=== PATIENT | male | born 1945 | race Caucasian/White ===

== ENCOUNTER → 2018-02-28 07:27 | Outpatient (CLI) | payer MEDICARE, SELFPAY ==
[2018-02-28 08:51] LABS: Add Manual Diff / Slide Review NO; Basophils Percent Auto 0.9 % (0-2); Eosinophils Percent Auto 2.3 % (2-4); Hematocrit 42.2 % (41-53); Hemoglobin 14.6 g/dL (13.5-17.5); Lymphocytes Percent Auto 30.4 % (25-40); Mean Corpuscular HGB Conc 34.7 % (30-36); Mean Corpuscular Hemoglobin 31.1 PG (26-34); Mean Corpuscular Volume 89.8 fL (80-100); Neutrophils Absolute Auto 3200 /uL (3000-5900); Neutrophils Percent Auto 57.4 % (50-75); Platelet Count 151 X10^3/uL (150-400); Red Cell Distribution Width 13.3 % (11.6-14.8); White Blood Cell Count 5.6 X10^3/uL (4.5-11.0)
== END ==
PROVIDERS: PCP Family Medicine; Referring Provider Internal Medicine Cardiovascular Disease; Visit Provider Orthopaedic Surgery
DX: D69.6 Thrombocytopenia, unspecified (principal); M67.441 Ganglion, right hand; M25.741 Osteophyte, right hand; T82.6XXD Infection and inflammatory reaction due to cardiac valve prosthesis, subsequent encounter
CPT/HCPCS: 36415; 85025; 93005

== ENCOUNTER → 2018-03-20 10:04 | Outpatient (CLI) | payer MEDICARE, SELFPAY ==
--- NOTE | 2018-03-20 10:08 | DI.RAD.S_ITS ---
PROCEDURE: XR LUMBAR SPINE 2-3V INDICATIONS: hip back pain TECHNIQUE: 2 views of the lumbar spine were acquired. COMPARISON: [facility], CT, ABD/PELVIS W/CON (PNL), 01/14/2015, 3:45. [facility], CR, L-SPINE 2-3 VIEWS, 06/10/2014, 9:51. FINDINGS: Bones: 5 [id number] vertebrae are present. Minimal anterolisthesis of L4 on L5 is seen. Mild levoscoliosis centered at L1-2 level is also noted. Minimal retrolisthesis of L2 on L3 is also noted.. No vertebral body compression fractures. No suspicious bony lesions. Degenerative endplate changes and bilateral facet arthrosis throughout lumbar spine is seen. Soft tissues: Overlying bowel gas pattern is normal. No suspicious soft tissue calcifications. IMPRESSION: Mild levoscoliosis centered at L2 level. Degenerative retrolisthesis at L2-3 level and degenerative anterolisthesis at L4-5 level. No acute compression fracture or traumatic spondylolisthesis. Dictated by: Ortiz Rust M.D. on 03/20/2018 at 10:37 Approved by: Ortiz Rust M.D. on 03/20/2018 at 10:40
--- NOTE | 2018-03-20 10:08 | DI.RAD.S_ITS ---
PROCEDURE: XR HIP W PEL IF DONE LT 2V INDICATIONS: hip back pain TECHNIQUE: AP pelvis with lateral view(s) of the left hip. COMPARISON: None. FINDINGS: Bones: No fractures or dislocations. Pelvic ring appears intact. No suspicious bony lesions. Moderate bilateral hip joint osteoarthritis is seen. Prominent intraosseous cyst in lateral aspect of left acetabular roof is noted. Bilateral femoral head contours are intact. No evidence of avascular necrosis. Soft tissues: The visualized bowel gas pattern is normal. No suspicious soft tissue calcifications. IMPRESSION: Moderate left worse than right bilateral hip joint osteoarthritis. Dictated by: Ortiz Rsut M.D. on 03/20/2018 at 10:33 Approved by: Ortiz Rust M.D. on 03/20/2018 at 10:37
== END ==
PROVIDERS: PCP Family Medicine; Visit Provider Family Medicine
DX: M16.0 Bilateral primary osteoarthritis of hip (principal); M43.16 Spondylolisthesis, lumbar region; M25.552 Pain in left hip; M41.9 Scoliosis, unspecified; M54.5 Low back pain; G57.02 Lesion of sciatic nerve, left lower limb
CPT/HCPCS: 72100; 73502

== ENCOUNTER 2018-03-23 14:58 | Emergency (ER) | payer MEDICARE, SELFPAY ==
[2018-03-23] VITALS (7 sets, daily range): BP systolic 137–170; BP diastolic 61–82; PULSE 43–48; RESP 12–19; TEMP 36.4; O2SAT 96–99; BMI 30.9
--- NOTE | 2018-03-23 16:34 | ED_ITS ---
HPI - Allergic Reaction General Chief complaint: Allergic Reaction Stated complaint: THINKS ALLERGIC REACTION Time Seen by Provider: 03/23/18 16:02 Source: patient and family Mode of arrival: ambulatory Limitations: no limitations History of Present Illness HPI narrative: Patient states he had surgery on his right thumb about 3 days ago. He states that before the surgery he was found to have a heart rate of 37 by the anesthesiologist. Patient states he had been feeling perfectly fine and had even been exercising with no problem. Since the surgery, the patient has been on both extended release morphine and oxycodone, and has been feeling drowsy and so he has low energy. Patient's heart rate has been in the 40s and he and his were concerned that perhaps the heavy pain medications are responsible to some degree for the heart rate being slow. 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 Patient does take atenolol 25 mg once daily. MD complaint: other Onset (ago): unknown (Patient was found to be bradycardic on the day of his surgery, but it is not clear how long this has been going on. Sedation has occurred since the surgery.) Exposure: medication Symptoms: other (No rash itching or swelling; no dizziness nausea vomiting; no difficulty breathing) Severity: mild Treatment prior to arrival: none Related Data Home Medications Medication Instructions Recorded Confirmed atenolol 25 mg PO QDAY #0 04/21/17 03/23/18 atorvastatin [Lipitor] 20 mg PO QDAY #0 07/31/17 03/23/18 Glucosamine Sulf-Chondroitin 1 tab PO DAILY 03/23/18 03/23/18 alprazolam 0.5 mg PO BEDTIME PRN 03/23/18 03/23/18 amoxicillin 500 mg PO BID 03/23/18 03/23/18 aspirin 81 mg PO BID 03/23/18 03/23/18 cholecalciferol (vitamin D3) 1 cap PO DAILY 03/23/18 03/23/18 [Vitamin D3] docusate sodium [DOK] 1 - 2 cap PO QAM 03/23/18 03/23/18 hydroxyzine HCl 25 - 50 mg PO Q6-8H PRN 03/23/18 03/23/18 ketorolac 1 tab PO Q6H 03/23/18 03/23/18 metoprolol succinate 1 tab PO DAILY 03/23/18 03/23/18 morphine 1 - 2 tab PO Q12H PRN 03/23/18 03/23/18 oxycodone 1 - 2 tab PO Q3-4H PRN 03/23/18 03/23/18 Previous Rx's Medication Instructions Recorded omeprazole 20 mg PO QDAY #90 cap 11/08/17 metformin 500 mg tablet 500 mg PO BIDCC #180 tab 01/24/18 amlodipine 5 mg PO DAILY #30 tab 03/23/18 Allergies Allergy/AdvReac Type Severity Reaction Status Date / Time gentamicin [GENTAMICIN] Allergy Severe kidney Verified 03/20/18 09:29 failure Review of Systems Review of Systems All systems reviewed & are unremarkable except as noted in HPI and below Constitutional Denies chills, Denies fever(s), Denies lethargy and Denies weakness Eyes Denies change in vision, Denies eye discharge, Denies irritation and Denies loss of vision ENT Ears, Nose, Mouth, and Throat: Denies change in voice, Denies neck pain and Denies sore throat Cardiovascular Denies chest pain, Denies irregular heart rhythm, Denies lightheadedness, Denies palpitations, Denies dyspnea, Denies dyspnea on exertion and Denies orthopnea Comments: Bradycardia Respiratory Denies cough, Denies dyspnea, Denies dyspnea on exertion and Denies wheezing Gastrointestinal Gastrointestinal: Denies abdominal pain, Denies change in bowel habits, Denies diarrhea, Denies nausea and Denies vomiting Genitourinary Denies hematuria, Denies flank pain, Denies urinary incontinence and Denies urinary urgency Musculoskeletal Denies neck pain Integumentary/Breasts Denies pruritus, Denies erythema, Denies rash and Denies wounds Neurologic Denies confusion, Denies loss of vision and Denies weakness Comments: Fatigue/sedation Psychiatric Denies anxiety, Denies confusion, Denies depression, Denies homicidal ideation and Denies suicidal ideation Endocrine Denies palpitations Hematologic/Lymphatic Denies easy bruising Allergic/Immunologic Denies wheezing PFSH Social History marital status: Smoking Status: Former smoker alcohol intake: current (ON OCCASION ) substance use type: does not use Exam Initial Vital Signs Initial Vital Signs: Vital Signs Temperature 97.5 F L 03/23/18 15:01 Pulse Rate 44 L 03/23/18 15:01 Respiratory Rate 15 03/23/18 15:01 Blood Pressure 170/82 H 03/23/18 15:01 Pulse Oximetry 96 03/23/18 15:01 Const General: cooperative and well developed Nutritional Appearance: well nourished Orientation: alert, awake, oriented x3 and not confused [facility] Head: normocephalic and atraumatic Ears: external ears normal and TM's normal bilaterally Nose: external nose normal and No nasal discharge Face and sinus: sinuses nontender, face symmetric, no sinus tenderness and No dry mucous membranes Mouth: oral mucosae normal and moist mucous membranes Teeth and gingiva: dentition normal Throat: tonsils normal and uvula midline Eyes General: appearance normal, both eyes and all related structures Eyelids: eyelids normal Conjunctivae: conjunctivae normal Sclera: sclerae normal Pupils: PERRL EOM: EOM intact bilaterally Neck Neck: normal visual inspection, trachea midline, No lymphadenopathy, No midline deformity and No JVD Lymphatic: No lymphedema Chest Chest: normal inspection of the chest Resp Effort & Inspection: normal respiratory effort, able to speak in complete sentences, no respiratory distress and no use of accessory muscles Auscultation: clear to auscultation bilaterally, no rales, no rhonchi and no wheezes Cardio Rate: bradycardic Rhythm: regular rhythm Heart Sounds: no click, no gallops, murmur systolic and no rubs Pulses: normal peripheral pulses GI Inspection: non-distended Palpation: soft, no hepatosplenomegaly, No guarding, No pulsatile mass and No tender Auscultation: normal bowel sounds Back/Spine/Pelvis Back: No CVA tenderness Cervical Spine: cervical ROM normal and No pain with cervical ROM Thoracic/Lumbar Spine: thoracic and lumbar spine normal to inspection Skin General: no rashes or lesions noted, No jaundice and No petechiae Neuro General: alert, oriented x3, gait normal and no focal motor deficits Speech: speech normal Extrem General: full ROM, no clubbing, cyanosis or edema, no pedal edema and no calf tenderness Other: Patient's right upper extremity is in a postsurgical splint. Splint and dressings are clean dry and intact. Fingers are mildly edematous, but skin is normal. Psych Appearance: well kempt Mental Status: mental status grossly normal Attitude: cooperative Thought Content: normal and suicidality Judgment: judgment good Course Hospital Course: Patient was worked up with laboratory studies and EKG. I did speak with Dr. Jim, who was personnel supervisor for Dr. Aaron's cardiology group. He recommended switching the patient from atenolol to amlodipine 5 mg once daily, and having the patient follow up visit primary care physician for re-evaluation within the next 1-2 weeks. I have discussed extensively with the patient and his the need to cut back on the narcotic pain medicine. The did note after the initial history taking that the patient has not urinated much since the surgery. This did prompt a bladder scan which showed over 500 cc of urine in the patient's bladder the patient stated he simply had not had the urge to go. However, he was able to urinate over 400 cc in the emergency department. I did advise him for this reason also that he should aim to cut back on his narcotic pain medication use, as long as he can stay reasonably comfortable doing so. Patient and are in agreement. No emergent condition identified otherwise. Orders Ordered: ED Orders 03/23/18 15:25 Comprehensive Metabolic Panel Stat Troponin & CK Cardiac Panel Stat 03/23/18 16:34 Complete Blood Count MAN DIFF Stat Vital Signs - 8 hr 03/23/18 15:01 03/23/18 15:45 03/23/18 16:17 Temperature 97.5 F L Pulse Rate 44 L 47 L 48 L Respiratory Rate 15 19 16 Blood Pressure 170/82 H Blood Pressure [Left Arm] 167/70 H 161/69 H Pulse Oximetry 96 97 03/23/18 16:56 03/23/18 17:46 03/23/18 18:18 Temperature Pulse Rate 45 L 44 L 43 L Respiratory Rate 13 12 12 Blood Pressure Blood Pressure [Left Arm] 152/61 H 137/61 H 137/61 H Pulse Oximetry 97 99 03/23/18 18:52 Temperature Pulse Rate 43 L Respiratory Rate 12 Blood Pressure Blood Pressure [Left Arm] 147/74 H Pulse Oximetry 96 MDM - Allergic Reaction Medical Records Attestation: I reviewed the patient's medical records. Lab Data Attestation: I reviewed the patient's lab results. Result diagrams: 03/23/18 16:34 03/23/18 15:25 Lab Results 03/23/18 03/23/18 Range/Units 15:25 16:34 WBC 7.6 (4.5-11.0) X10^3/uL RBC 4.42 L (4.5-5.9) X10^6/uL Hgb 13.7 (13.5-17.5) g/dL Hct 39.8 L (41-53) % MCV 90.1 (80-100) fL MCH 31.1 (26-34) PG MCHC 34.5 (30-36) % RDW 13.3 (11.6-14.8) % Plt Count 133 L (150-400) X10^3/uL Total Counted 100 Seg Neutrophils % 79.0 H (38-70) % Lymphocytes % (Manual) 15.0 L (25-45) % Monocytes % (Manual) 6.0 (2-11) % Neutrophils # (Manual) 6004 H (1265-0835) /uL RBC Morphology Normal morphology Sodium 135 L (137-145) mmol/L Potassium 4.2 (3.4-5.1) mmol/L Chloride 99 (98-107) mmol/L Carbon Dioxide 28 (22-32) mmol/L BUN 25 H (9-20) mg/dL Creatinine 1.00 (0.66-1.25) mg/dL Estimated GFR > 60.0 (>60) mL/min BUN/Creatinine Ratio 25.0 H (6-22) Glucose 109 (80-110) mg/dL Calcium 8.4 (8.4-10.2) mg/dL Total Bilirubin 0.5 (0.2-1.3) mg/dL AST 26 (17-59) IU/L ALT 33 (21-72) IU/L Alkaline Phosphatase 76 (38-126) U/L Total Creatine Kinase 53 L (55-170) U/L Troponin I 0.013 (0.01-0.034) ng/mL Total Protein 6.3 (6.3-8.2) g/dL Albumin 4.0 (3.5-5.0) g/dL Globulin 2.3 (1.7-4.1) g/dL Albumin/Globulin Ratio 1.7 (1.0-2.8) ECG Data Attestation: I personally reviewed and interpreted this ECG as follows: Prior ECG tracings: not available for review Interpretation: Twelve lead EKG was performed as follows: Date and time March 23, 2018, at 3:09 p.m. Bradycardic rate at 43 beats per minute MA interval 250 millisecond QRS duration 118 milliseconds QTC interval [address] T wave abnormality Interpretation: Sinus bradycardia with first-degree AV block. MDM Narrative Medical decision making narrative: The patient remained stable throughout his stay in the emergency department. He remained in sinus bradycardia on the monitor. Discharge Plan Departure Patient Disposition: Home, Self-Care Clinical Impression: Bradycardia, Acute urinary retention, Adverse drug effect Discharge Date/Time: 03/23/18 19:00 Interventions: ED Discharge Assessment Last Done: 03/23/18 19:00 Instructions: DI for Urinary Retention in Men, DI for Bradycardia Activity Restrictions/Additional Instructions: Your labs do not show any concerning values. Your low heart rate has been discussed with Dr. Jim, who is personnel supervisor for Cardiology for Dr. Aaron's group. He would like you to stop the atenolol, and start amlodipine 5 mg once a day. He would also like you to follow up with your primary doctor within the next week or two, to re-evaluate how your blood pressure and heart rate are doing. It would be of advisable for you to cut down the amount of pain medication you are taking. This is causing you to be excessively sedated, as well as causing your bladder not to work as well as it should. Because of this , you have been retaining urine. Try taking only 1 or the other of your narcotic pain medications, along with naproxen or ibuprofen. You may wean off of these medications as your pain decreases. If you have further trouble with urinary retention, please return to the emergency department or see your primary care physician. Prescriptions: New amlodipine 5 mg tablet 5 mg PO DAILY Qty: 30 RF: 0 No Action atenolol 25 MG tablet 25 mg PO QDAY Qty: 0 RF: 0 atorvastatin [Lipitor] 20 MG tablet 20 mg PO QDAY Qty: 0 RF: 0 omeprazole 20 MG capsule,delayed release(DR/EC) 20 mg PO QDAY Qty: 90 RF: 3 metformin [Glucophage] 500 mg tablet 500 mg PO BIDCC Qty: 180 RF: 3 ketorolac 10 mg tablet 1 tab PO Q6H RF: 0 docusate sodium [DOK] 100 mg capsule 1 - 2 cap PO QAM RF: 0 hydroxyzine HCl 25 mg tablet 25 - 50 mg PO Q6-8H PRN (Reason: Nausea And Vomiting) RF: 0 morphine 15 mg tablet extended release 1 - 2 tab PO Q12H PRN (Reason: Pain, Severe) RF: 0 metoprolol succinate 25 mg tablet extended release 24 hr 1 tab PO DAILY RF: 0 oxycodone 5 mg tablet 1 - 2 tab PO Q3-4H PRN (Reason: Pain, Severe) RF: 0 aspirin 81 mg Tablet,Delayed Release (Dr/Ec) 81 mg PO BID RF: 0 Glucosamine Sulf-Chondroitin 1 tab PO DAILY RF: 0 amoxicillin 500 mg capsule 500 mg PO BID RF: 0 cholecalciferol (vitamin D3) [Vitamin D3] 1,000 unit Capsule 1 cap PO DAILY RF: 0 alprazolam 1 mg Tablet 0.5 mg PO BEDTIME PRN (Reason: Anxiety) RF: 0 Referrals: Orion Cisse MD [Primary Care Provider] - (Please call for an appointment to be seen within the next 1-2 weeks for re-evaluation.)
[2018-03-23 16:38] LABS: Creatine Kinase 53 U/L (55-170)
[2018-03-23 16:43] LABS: Hematocrit 39.8 % (41-53); Hemoglobin 13.7 g/dL (13.5-17.5); Mean Corpuscular HGB Conc 34.5 % (30-36); Mean Corpuscular Hemoglobin 31.1 PG (26-34); Mean Corpuscular Volume 90.1 fL (80-100); Platelet Count 133 X10^3/uL (150-400); Red Blood Cell Count 4.42 X10^6/uL (4.5-5.9); Red Cell Distribution Width 13.3 % (11.6-14.8); White Blood Cell Count 7.6 X10^3/uL (4.5-11.0)
[2018-03-23 16:49] LABS: Troponin I 0.013 ng/mL (0.01-0.034)
[2018-03-23 16:59] LABS: Neutrophils Absolute Manual 6004 /uL (3000-5900); Total Cells Counted 100
[2018-03-23 17:00] LABS: RBC Morphology Normal Morphology
[2018-03-23 17:32] LABS: Alanine Aminotransferase 33 IU/L (21-72); Albumin Globulin Ratio 1.7 (1.0-2.8); Alkaline Phosphatase 76 U/L (38-126); Aspartate Aminotransferase 26 IU/L (17-59); Bilirubin Total 0.5 mg/dL (0.2-1.3); Blood Urea Nitrogen 25 mg/dL (9-20); Calcium 8.4 mg/dL (8.4-10.2); Carbon Dioxide 28 mmol/L (22-32); Chloride 99 mmol/L (98-107); Estimated Glomerular Filt Rate > 60.0 mL/min (>60); Globulin 2.3 g/dL (1.7-4.1); Glucose 109 mg/dL (80-110); HEMOLYSIS < 15 (0-50); Potassium 4.2 mmol/L (3.4-5.1); Sodium 135 mmol/L (137-145); Total Protein 6.3 g/dL (6.3-8.2)
== END 2018-03-23 19:00 | disposition home or self-care (01) ==
PROVIDERS: Emergency Provider Emergency Medicine; Family Provider Family Medicine; PCP Family Medicine
DX: R00.1 Bradycardia, unspecified (principal); T44.7X5A Adverse effect of beta-adrenoreceptor antagonists, initial encounter; R33.9 Retention of urine, unspecified
CPT/HCPCS: 36591; 51798; 80053; 82550; 82553; 84484; 85025; 93005; 93010; 99283; 99284

== ENCOUNTER 2018-04-28 07:59 | Emergency (ER) | payer MEDICARE, SELFPAY ==
[2018-04-28 08:14] VITALS: BP 141/81; PULSE 79; RESP 18; TEMP 36.6; O2SAT 100; BMI 29.7
[2018-04-28 08:37] LABS: Appearance Urine UA TURBID; Bilirubin Urine UA NEGATIVE (NEGATIVE); Color Urine UA RED; Glucose Urine UA NEGATIVE (Normal); Ketones Urine UA NEGATIVE (NEGATIVE); Leukocyte Esterase Urine UA TRACE (NEGATIVE); Nitrite Urine UA Negative (Negative); Occult Blood Urine UA 2+ (Negative); Protein Urine UA 3+ (Negative); Urobilinogen Urine UA 0.2 E.U./dL (0.2)
[2018-04-28 08:42] LABS: Bacteria Urine Moderate (10-30); Culture Indicated Urine Specimen Cultured; RBC Urine >100/HPF (0-5/HPF); Squamous Epithelial Cell Urine 0-1 /HPF; WBC Urine 1-5/HPF (0-5/HPF)
--- NOTE | 2018-04-28 09:05 | ED_ITS ---
HPI - Male Genitourinary General Chief complaint: Urogenital-Male Stated complaint: Urinating blood Time Seen by Provider: 04/28/18 08:26 Source: patient Mode of arrival: ambulatory Limitations: no limitations History of Present Illness HPI Narrative: Patient is a 72-year-old male who presents with all painful frequent bloody urine. He said it started this morning actually Peed out couple of blood clots. He did give us a urine sample in the ED and it was not bloody. He has dysuria and frequency. He has no fever no chills no abdominal pain or flank pain. 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 MD Complaint: dysuria Related Data Home Medications Medication Instructions Recorded Confirmed atorvastatin [Lipitor] 20 mg PO QDAY #0 07/31/17 04/04/18 Glucosamine Sulf-Chondroitin 1 tab PO DAILY 03/23/18 04/04/18 amoxicillin 500 mg PO BID 03/23/18 04/04/18 aspirin 81 mg PO BID 03/23/18 04/28/18 cholecalciferol (vitamin D3) 1 cap PO DAILY 03/23/18 04/04/18 [Vitamin D3] docusate sodium [DOK] 1 - 2 cap PO QAM 03/23/18 04/04/18 hydroxyzine HCl 25 - 50 mg PO Q6-8H PRN 03/23/18 04/04/18 ketorolac 1 tab PO Q6H 03/23/18 04/04/18 metoprolol succinate 1 tab PO DAILY 03/23/18 04/04/18 morphine 1 - 2 tab PO Q12H PRN 03/23/18 04/04/18 oxycodone 1 - 2 tab PO Q3-4H PRN 03/23/18 04/04/18 Previous Rx's Medication Instructions Recorded omeprazole 20 mg PO QDAY #90 cap 11/08/17 metformin 500 mg tablet 500 mg PO BIDCC #180 tab 01/24/18 amlodipine 5 mg PO DAILY #30 tab 03/23/18 ciprofloxacin HCl 500 mg PO Q12H #14 tab 04/28/18 Allergies Allergy/AdvReac Type Severity Reaction Status Date / Time gentamicin [GENTAMICIN] Allergy Severe kidney Verified 04/28/18 08:18 failure Review of Systems Review of Systems All systems reviewed & are unremarkable except as noted in HPI and below Constitutional Denies chills, Denies fever(s), Denies lethargy and Denies weakness Cardiovascular Denies chest pain, Denies diaphoresis and Denies dyspnea Respiratory Denies cough, Denies dyspnea and Denies wheezing Gastrointestinal Gastrointestinal: Denies abdominal pain, Denies change in bowel habits, Denies diarrhea, Denies nausea and Denies vomiting Genitourinary Reports as per HPI Integumentary/Breasts Denies erythema and Denies skin pain Neurologic Denies weakness Allergic/Immunologic Denies wheezing [facility] Social History marital status: Smoking Status: Former smoker alcohol intake: current (ON OCCASION ) substance use type: does not use Exam Initial Vital Signs Initial Vital Signs: Vital Signs Temperature 97.9 F 04/28/18 08:14 Pulse Rate 79 04/28/18 08:14 Respiratory Rate 18 04/28/18 08:14 Blood Pressure 141/81 H 04/28/18 08:14 Pulse Oximetry 100 04/28/18 08:14 GENERAL: Well-appearing, well-nourished and in no acute distress. HEENT: Head atraumatic,EOMI, pupils reactive, neck is supple no JVD CARDIOVASCULAR: Regular rate and rhythm systolic murmur noted, rubs or gallops. RESPIRATORY: Breath sounds equal bilaterally, no wheezes rales or rhonchi. ABDOMEN: Soft, nontender. Normoactive bowel sounds all 4 quadrants. No guarding or rebound. : No CVA tenderness EXTREMITIES: Normal range of motion, no clubbing or edema. Neurovascularly intact NEUROLOGICAL: Alert and oriented x4.Normal gait and speech. SKIN: Warm, dry, no laceration, no petechiae, no rashes or lesions. Course Orders Ordered: ED Orders 04/28/18 08:10 Urinalysis and Microscopic Stat Urine Culture Stat Vital Signs - 8 hr 04/28/18 08:14 Temperature 97.9 F Pulse Rate 79 Respiratory Rate 18 Blood Pressure 141/81 H Pulse Oximetry 100 MDM - Male Genitourinary Lab Data Attestation: I reviewed the patient's lab results. Lab Results 04/28/18 Range/Units 08:10 Urine Color Red Urine Appearance Turbid Urine pH 7.0 (4.5-8.0) Ur Specific [place] 1.020 (1.000-1.035) Urine Protein 3+ H (Negative) Urine Glucose (UA) Negative (Normal) g/dL Urine Ketones Negative (NEGATIVE) Urine Occult Blood 2+ H (Negative) Urine Nitrate Negative (Negative) Urine Bilirubin Negative (NEGATIVE) Urine Urobilinogen 0.2 (0.2) E.U./dL Ur Leukocyte Esterase Trace H (NEGATIVE) Urine RBC >100/hpf (0-5/HPF) Urine WBC 1-5/hpf (0-5/HPF) Ur Squamous Epith Cells 0-1 /hpf Urine Bacteria Moderate (10-30) H (None) Ur Culture Indicated? Specimen cultured Micro UA Comment Not Reportable MDM Narrative Medical decision making narrative: Patient does not appear septic he appears well and nontoxic. He only had symptoms for couple of hours. He does take amoxicillin regularly and has for the last 4 years. I recommend that they follow up with their infectious disease in regards to continuing the amoxicillin well on current UTI antibiotic. At this time I recommend he stay on both. Discharge Plan Departure Patient Disposition: Home Clinical Impression: Urinary tract infection Discharge Date/Time: 04/28/18 09:26 Interventions: ED Discharge Assessment Last Done: 04/28/18 09:26 Instructions: DI for Urinary Tract Infection (UTI) Activity Restrictions/Additional Instructions: *You have been diagnosed with bladder infection *What to do: Increase fluid intake *Continue to take medications as directed Cipro 500 mg twice a day for 7 days *Follow up with your primary care provider in 2-3 days *Return to ER if you should have urinating gross blood without it clearing, inability to urinate, fever, increased abdominal pain or any new, worsening or concerning symptoms Prescriptions: New ciprofloxacin HCl 500 mg tablet 500 mg PO Q12H Qty: 14 RF: 0 No Action atorvastatin [Lipitor] 20 MG tablet 20 mg PO QDAY Qty: 0 RF: 0 omeprazole 20 MG capsule,delayed release(DR/EC) 20 mg PO QDAY Qty: 90 RF: 3 metformin [Glucophage] 500 mg tablet 500 mg PO BIDCC Qty: 180 RF: 3 ketorolac 10 mg tablet 1 tab PO Q6H RF: 0 docusate sodium [DOK] 100 mg capsule 1 - 2 cap PO QAM RF: 0 hydroxyzine HCl 25 mg tablet 25 - 50 mg PO Q6-8H PRN (Reason: Nausea And Vomiting) RF: 0 morphine 15 mg tablet extended release 1 - 2 tab PO Q12H PRN (Reason: Pain, Severe) RF: 0 metoprolol succinate 25 mg tablet extended release 24 hr 1 tab PO DAILY RF: 0 oxycodone 5 mg tablet 1 - 2 tab PO Q3-4H PRN (Reason: Pain, Severe) RF: 0 aspirin 81 mg Tablet,Delayed Release (Dr/Ec) 81 mg PO BID RF: 0 Glucosamine Sulf-Chondroitin 1 tab PO DAILY RF: 0 amoxicillin 500 mg capsule 500 mg PO BID RF: 0 cholecalciferol (vitamin D3) [Vitamin D3] 1,000 unit Capsule 1 cap PO DAILY RF: 0 amlodipine 5 mg tablet 5 mg PO DAILY Qty: 30 RF: 0 Referrals: Orion Cisse MD [Primary Care Provider] -
== END 2018-04-28 09:27 | disposition home or self-care (01) ==
LOC: ED 09:21
PROVIDERS: Emergency Provider Emergency Medicine; Family Provider Family Medicine; PCP Family Medicine
DX: N39.0 Urinary tract infection, site not specified (principal)
CPT/HCPCS: 81001; 87077; 87086; 87186; 99282; 99283

== ENCOUNTER 2018-08-22 07:01 | Day surgery (SDC) | payer MEDICARE, SELFPAY ==
[2018-08-22] MEDS: PROPARACAINE 0.5% OPHTH SOL 2 DROPS EYE-OP (07:30)
[2018-08-22 07:34] VITALS: BP 125/80; PULSE 70; RESP 15; TEMP 35.8; O2SAT 100; BMI 30.9
[2018-08-22] MEDS: CATARACT EYE COMPOUND (10 DROPS/SYRINGE) 3 DROPS EYE-OP (07:54)
--- NOTE | 2018-08-22 08:12 | PM.PREOP ---
Pre-operative Note Interval Note History & Physical reviewed/Exam performed by Physician: No Changes to H&P: No
--- NOTE | 2018-08-22 08:12 | PM.OP.1 ---
Operative Date/Time/Diagnoses Pre-op diagnosis: Nuclear cataract right eye Procedure & Clinicians Procedure: Cataract Surgery Same procedure as scheduled: Yes Surgeon: Michael Russ Anesthesia Type: MAC +/- and Sedation Operative Notes Procedure in detail: Patient brought to the operating suite. Tetracaine drops placed in the right eye. Marking instrument was used to aranza the vertical and horizontal meridian. Patient was prepped and draped in sterile manner. Wire lid speculum was placed in the eye. Marking instrument was used to aranza the 150 degree meridian. Betadine drops were placed on the eye. This was irrigated. Lidocaine jelly was placed on the eye. A paracentesis port was created with a side-port blade. 0.1 mL 1% preservative free lidocaine was injected into the anterior chamber. The anterior chamber was deepened with viscoelastic. 2.6 mm keratome was used to create a temporal clear corneal incision. Cystotome and Utrata forceps were used to create continuous tear capsulorrhexis. Balanced salt solution was used to hydro dissect the nucleus. The phacoemulsification handpiece was inserted and the nucleus was removed using the stop and chop technique. The irrigation aspiration handpiece was inserted and the remaining cortex was removed. Anterior chamber was deepened with viscoelastic. An Metz EPR950 intraocular lens with a power of 20.5 was injected into the capsular bag. Irrigation aspiration handpiece was inserted and the remaining viscoelastic was removed. The lens was rotated to the 150 degree meridian. Incision was hydrated with balanced salt solution and found to be leak free with pressure with Weck-Neetu sponges. 0.1 mL Vigamox injected anterior chamber. 0.3 mL Kenalog 10 mg was injected subconjunctivally. Lid speculum was removed. The patient left the operating room in excellent condition. Complications: none Condition: stable Disposition: same day surgery
[2018-08-22] MEDS: PHENYLEPHRINE/LIDOCAINE VIAL (OR) 0.2 ML EYE-OP (08:25)
[2018-08-22] MEDS: TRIAMCINOLONE 50 MG/5 ML VIAL INJ (08:26)
[2018-08-22] MEDS: MOXIFLOXACIN OPHTH DROPS 3 ML BOTTLE 2 DROPS INJ (08:26)
[2018-08-22] MEDS: TETRACAINE 0.5% OPHTH DROPS 15 ML 2 DROPS EYE-RIGHT (08:27)
[2018-08-22] MEDS: LIDOCAINE JELLY 2% 5 ML 1 APPLIC TOP (08:27)
[2018-08-22] MEDS: CHONDROIDTIN/SOD HYALURONATE 1.05 ML SYRINGE INTRAOCULA (08:27)
[2018-08-22] MEDS: BALANCED SALT IRRIG SOLN NO.2 500 ML, EPINEPHrine 1 MG IRR (08:29)
[2018-08-22 08:45] VITALS: BP 122/79; PULSE 64; RESP 20; TEMP 36.6; O2SAT 98
--- NOTE | 2018-08-22 09:04 | SUR.PHASEII ---
Asked to sign patient off the board by Ruth Nelson RN. No post-op care given.
== END 2018-08-22 09:00 ==
LOC: OR 07:04
PROVIDERS: Family Provider Family Medicine; PCP Family Medicine; Visit Provider Ophthalmology
DX: H25.11 Age-related nuclear cataract, right eye (principal); I25.2 Old myocardial infarction; E11.9 Type 2 diabetes mellitus without complications; Z79.84 Long term (current) use of oral hypoglycemic drugs
CPT/HCPCS: J0171; J2250; J3010; J3301; V2787

== ENCOUNTER 2018-09-05 07:43 | Day surgery (SDC) | payer MEDICARE, SELFPAY ==
[2018-09-05 08:33] VITALS: BP 125/79; PULSE 67; RESP 16; TEMP 36.3; O2SAT 100; BMI 30.7
[2018-09-05] MEDS: PROPARACAINE 0.5% OPHTH SOL 2 DROPS EYE-OP (08:43)
[2018-09-05] MEDS: CATARACT EYE COMPOUND (10 DROPS/SYRINGE) 3 DROPS EYE-OP (08:45)
--- NOTE | 2018-09-05 09:33 | P.OP_ITS ---
Operative Date/Time/Diagnoses Pre-op diagnosis: Nuclear Cataract Left eye Post-op diagnosis: same Procedure & Clinicians Surgeon: Michael Russ Anesthesia Type: MAC +/- and Sedation Operative Notes Procedure in detail: Patient brought to the operating suite. Tetracaine drops placed in the left eye. Patient was prepped and draped in sterile manner. Wire lid speculum was placed in the eye. Betadine drops were placed on the eye. This was irrigated. Lidocaine jelly was placed on the eye. A paracentesis port was created with a side-port blade. 0.1 mL 1% preservative free lidocaine was injected into the anterior chamber. The anterior chamber was deepened with viscoelastic. 2.6 mm keratome was used to create a temporal clear corneal incision. Cystotome and Utrata forceps were used to create continuous tear capsulorrhexis. Balanced salt solution was used to hydro dissect the nucleus. The phacoemulsification handpiece was inserted and the nucleus was removed using the stop and chop technique. The irrigation aspiration handpiece was inserted and the remaining cortex was removed. Anterior chamber was deepened with viscoelastic. An Metz ZCB00 intraocular lens with a power of 19.5 was injected into the capsular bag. Irrigation aspiration handpiece was inserted and the remaining viscoelastic was removed. Incision was hydrated with balanced salt solution and found to be leak free with pressure with Weck- Neetu sponges. 0.1 mL Vigamox injected anterior chamber. 0.3 mL Kenalog 10 mg was injected subconjunctivally. Lid speculum was removed. The patient left the operating room in excellent condition. Complications: none Condition: stable Disposition: same day surgery
--- NOTE | 2018-09-05 09:33 | PM.PREOP ---
Pre-operative Note Interval Note History & Physical reviewed/Exam performed by Physician: No Changes to H&P: No
[2018-09-05] MEDS: TRIAMCINOLONE 50 MG/5 ML VIAL INJ (09:50)
[2018-09-05] MEDS: PHENYLEPHRINE/LIDOCAINE VIAL (OR) 0.2 ML EYE-OP (09:50)
[2018-09-05] MEDS: MOXIFLOXACIN OPHTH DROPS 3 ML BOTTLE 2 DROPS INJ (09:50)
[2018-09-05] MEDS: LIDOCAINE JELLY 2% 5 ML 1 APPLIC TOP (09:51)
[2018-09-05] MEDS: BALANCED SALT IRRIG SOLN NO.2 500 ML, EPINEPHrine 1 MG IRR (09:51)
[2018-09-05] MEDS: CHONDROIDTIN/SOD HYALURONATE 1.05 ML SYRINGE INTRAOCULA (09:51)
[2018-09-05] MEDS: TETRACAINE 0.5% OPHTH DROPS 4 ML 2 DROPS EYE-OP (09:51)
[2018-09-05 10:03] VITALS: BP 129/80; PULSE 68; RESP 13; TEMP 36.5; O2SAT 97
--- NOTE | 2018-09-05 10:19 | SUR.PHASEII ---
present, declined review of instructions (done pre-op); Expresses appreciation for services, very complimentary to staff.
== END 2018-09-05 10:21 | disposition home or self-care (01) ==
LOC: OR 07:52
PROVIDERS: Family Provider Family Medicine; PCP Family Medicine; Visit Provider Ophthalmology
DX: H25.12 Age-related nuclear cataract, left eye (principal); I25.2 Old myocardial infarction; E11.9 Type 2 diabetes mellitus without complications; Z79.84 Long term (current) use of oral hypoglycemic drugs
CPT/HCPCS: J0171; J2250; J3010; J3301

== ENCOUNTER → 2019-05-08 07:12 | Outpatient (CLI) | payer MEDICARE, SELFPAY ==
[2019-05-08 08:25] LABS: Add Manual Diff / Slide Review NO; Basophils Absolute Auto 100 /uL (0-100); Basophils Percent Auto 1.1 % (0-2); Eosinophils Absolute Auto 100 /uL (0-450); Eosinophils Percent Auto 2.2 % (2-4); Hematocrit 42.5 % (41-53); Hemoglobin 14.5 g/dL (13.5-17.5); Lymphocytes Absolute Auto 1800 /uL (1100-4500); Lymphocytes Percent Auto 31.6 % (25-40); Mean Corpuscular HGB Conc 34.2 % (30-36); Mean Corpuscular Hemoglobin 30.8 PG (26-34); Mean Corpuscular Volume 89.9 fL (80-100); Monocytes Absolute Auto 500 /uL (0-900); Monocytes Percent Auto 9.6 % (3-14); Neutrophils Absolute Auto 3100 /uL (1500-7000); Neutrophils Percent Auto 55.5 % (50-75); Platelet Count 164 X10^3/uL (150-400); Red Blood Cell Count 4.73 X10^6/uL (4.5-5.9); Red Cell Distribution Width 13.7 % (11.6-14.8); White Blood Cell Count 5.5 X10^3/uL (4.5-11.0)
[2019-05-08 08:51] LABS: Alanine Aminotransferase 29 IU/L (21-72); Albumin 4.4 g/dL (3.5-5.0); Albumin Globulin Ratio 1.8 (1.0-2.8); Alkaline Phosphatase 128 U/L (38-126); Aspartate Aminotransferase 28 IU/L (17-59); Bilirubin Total 0.5 mg/dL (0.2-1.3); Blood Urea Nitrogen 19 mg/dL (9-20); Calcium 9.2 mg/dL (8.4-10.2); Carbon Dioxide 28 mmol/L (22-32); Chloride 104 mmol/L (98-107); Cholesterol 150 mg/dL (140-199); Estimated Glomerular Filt Rate > 60.0 mL/min (>60); Globulin 2.5 g/dL (1.7-4.1); Glucose 127 mg/dL (80-110); HDL Cholesterol 34 mg/dL (40-60); HEMOLYSIS 15 (0-50); LDL Cholesterol Calculated 68 mg/dL (<100); Potassium 4.6 mmol/L (3.4-5.1); Sodium 142 mmol/L (137-145); Total Protein 6.9 g/dL (6.3-8.2); Triglycerides 240 mg/dL (35-150)
[2019-05-08 08:53] LABS: Hemoglobin A1C% w Est Avg Glu 5.8 % (4.0-6.0)
[2019-05-08 09:13] LABS: TSH w/ Reflex to FT4 4.51 uIU/mL (0.47-4.68)
[2019-05-08 09:15] LABS: Prostate Specific Antigen Scrn 1.09 ng/mL (0.1-4.0)
== END ==
PROVIDERS: PCP Family Medicine; Visit Provider Family Medicine
DX: E11.9 Type 2 diabetes mellitus without complications (principal); E78.2 Mixed hyperlipidemia; I10 Essential (primary) hypertension; Z12.5 Encounter for screening for malignant neoplasm of prostate
CPT/HCPCS: 36415; 80053; 80061; 83036; 84443; 85025; G0103

== ENCOUNTER 2019-06-03 09:54 | Emergency (ER) | payer MEDICARE, SELFPAY ==
[2019-06-03] VITALS (8 sets, daily range): BP systolic 139–169; BP diastolic 78–95; PULSE 51–67; RESP 11–20; TEMP 37; O2SAT 97–98; BMI 30.5
--- NOTE | 2019-06-03 09:59 | ED_ITS ---
HPI - General Adult General Chief complaint: Weakness Stated complaint: GENERAL WEAKNESS JITTERY SIATICA & HEART ISSUE Time Seen by Provider: 06/03/19 09:58 Source: patient Mode of arrival: Ambulatory Limitations: no limitations History of Present Illness HPI narrative: Patient comes emergency department complaining of feeling tired and jittery for the last couple of days. Patient denies any chest pain or shortness of breath. No cough or rhinorrhea. No dysuria. No abdominal pain. No fevers. Patient states the main reason he came in was because he had somewhat of a similar feeling before his coronary artery bypass surgery, but felt worse that time. Patient does note that he had a negative stress test w ithin the last year. No other complaints at this time. Patient is currently feeling fine and is without symptoms. Related Data Home Medications Medication Instructions Recorded Confirmed atorvastatin [Lipitor] 20 mg PO QDAY #0 07/31/17 05/10/19 Glucosamine Sulf-Chondroitin 1 tab PO DAILY 03/23/18 05/10/19 aspirin 81 mg PO BID 03/23/18 05/10/19 cholecalciferol (vitamin D3) 1 cap PO DAILY 03/23/18 05/10/19 [Vitamin D3] Previous Rx's Medication Instructions Recorded amlodipine 5 mg PO DAILY #30 tab 03/23/18 alprazolam 0.5 mg tablet 0.5 mg PO .QDAY PRN #30 tab 05/10/19 buspirone 7.5 mg tablet 7.5 mg PO BID #60 tab 05/10/19 metformin 500 mg tablet 500 mg PO BID #180 tab 05/10/19 omeprazole 20 mg capsule,delayed 20 mg PO QDAY #90 cap 05/10/19 release celecoxib 200 mg capsule 200 mg PO .HS #30 cap 06/11/19 Allergies Allergy/AdvReac Type Severity Reaction Status Date / Time gentamicin [GENTAMICIN] Allergy Severe kidney Verified 06/03/19 10:08 failure Review of Systems Constitutional Constitutional: Denies chills, Denies fatigue, Denies fever(s), Denies frequent falls, Denies lethargy and Denies weakness Eyes Eyes: Denies change in vision, Denies eye discharge, Denies irritation and Denies loss of vision ENT Ears, Nose, Mouth, and Throat: Denies change in voice, Denies dizziness, Denies neck pain, Denies sore throat and Denies throat swelling Cardiovascular Cardiovascular: Denies chest pain, Denies irregular heart rhythm, Denies lightheadedness, Denies palpitations, Denies dyspnea, Denies dyspnea on exertion and Denies orthopnea Respiratory Respiratory: Denies cough, Denies dyspnea, Denies dyspnea on exertion and Denies wheezing Gastrointestinal Gastrointestinal: Denies abdominal pain, Denies change in bowel habits, Denies diarrhea, Denies nausea and Denies vomiting Genitourinary Genitourinary: Denies hematuria, Denies flank pain, Denies urinary incontinence and Denies urinary urgency Musculoskeletal Musculoskeletal: Denies back pain, Denies muscle weakness, Denies neck pain, Denies numbness and Denies tingling Integumentary/Breasts Skin/Breast: Denies pruritus, Denies erythema, Denies rash and Denies wounds Neurologic Neurologic: Denies behavioral changes, Denies confusion, Denies dizziness, Denies frequent falls, Denies loss of vision, Denies numbness, Denies tingling and Denies weakness Psychiatric Psychiatric: Denies anxiety, Denies behavioral changes, Denies confusion, Denies depression, Denies homicidal ideation and Denies suicidal ideation Endocrine Endocrine: Denies fatigue, Denies flushing and Denies palpitations Hematologic/Lymphatic Hematologic/Lymphatic: Denies easy bruising Allergic/Immunologic Allergic/Immunologic: Denies urticaria, Denies throat swelling and Denies wheezing Patient History Medical History Anxiety (Chronic 1994) Aortic stenosis (Resolved 2013) Colon polyps (Resolved 2014) CTS (carpal tunnel syndrome) (Resolved ~1992) Hearing loss (Chronic) Heart attack (Resolved 2013) Hemorrhoids (Chronic ~1994) Pneumonia (Resolved 2013) Rosacea (Chronic 2004) Shoulder pain (Chronic ~1979) Tinnitus (Chronic) Trigger finger (Resolved ~1992) Type 2 diabetes mellitus (Chronic) Surgical History Anesthesia (Resolved) History of aortic valve replacement (Resolved 2013) History of hand surgery (Resolved ~1991) History of hand surgery (Resolved ~1994) History of quadruple bypass (Resolved 2013) History of shoulder surgery (Resolved ~1984) History of tonsillectomy (Resolved 1950) Family History Father Heart disease Mother High cholesterol Mental health problem Stroke Dementia Social History marital status: household members: spouse Smoking Status: Former smoker alcohol intake: current (ON OCCASION ) substance use type: does not use alcohol intake frequency: 0-2 drinks per day Substance Use Type: does not use Exam Initial Vital Signs Initial Vital Signs: Vital Signs Temperature 98.6 F 06/03/19 09:54 Pulse Rate 67 06/03/19 09:54 Respiratory Rate 11 L 06/03/19 09:54 Blood Pressure 153/86 H 06/03/19 09:54 Pulse Oximetry 97 06/03/19 09:54 Const General: cooperative and well developed Nutritional Appearance: well nourished Orientation: alert, awake, oriented x3 and not confused HENMT Head: normocephalic and atraumatic Ears: external ears normal Nose: external nose normal and No nasal discharge Face and sinus: face symmetric and No dry mucous membranes Mouth: oral mucosae normal and moist mucous membranes Teeth and gingiva: dentition normal Eyes General: appearance normal, both eyes and all related structures Eyelids: eyelids normal Conjunctivae: conjunctivae normal Sclera: sclerae normal Pupils: PERRL EOM: EOM intact bilaterally Neck Neck: normal visual inspection, trachea midline, No lymphadenopathy, No midline deformity and No JVD Lymphatic: No lymphedema Chest Chest: normal inspection of the chest Resp Effort & Inspection: normal respiratory effort, able to speak in complete sentences, no respiratory distress and no use of accessory muscles Auscultation: clear to auscultation bilaterally, no rales, no rhonchi and no wheezes Cardio Rate: regular rate Rhythm: regular rhythm Heart Sounds: no click, no gallops, no murmurs and no rubs Pulses: normal peripheral pulses GI Inspection: non-distended Palpation: soft, no hepatosplenomegaly, No guarding, No pulsatile mass and No tender Back/Spine/Pelvis Back: No CVA tenderness Cervical Spine: cervical ROM normal and No pain with cervical ROM Thoracic/Lumbar Spine: thoracic and lumbar spine normal to inspection Skin General: no rashes or lesions noted, No jaundice and No petechiae Neuro General: alert, oriented x3, gait normal and no focal motor deficits Speech: speech normal Extrem General: full ROM, no clubbing, cyanosis or edema, no pedal edema and no calf tenderness Psych Appearance: well kempt Mental Status: mental status grossly normal Attitude: cooperative Thought Content: normal and suicidality Judgment: judgment good Course Course Course Narrative: Patient symptoms were somewhat vague, and he had had a negative stress test about a year ago, but I did get basic labs on the patient, including cardiac labs, to evaluate for any other underlying causes of his symptoms. lab workup was unremarkable. I discussed with the patient that there is no evidence the emergency department of an emergent condition at this time. 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 We have discussed symptoms that should prompt return, including unrelenting chest pain and shortness of breath, or chest heaviness, nausea, and sweating. We have also discussed the other usual indications for return. Orders Ordered: Discontinued Medications Hydromorphone HCl (Dilaudid) 0.5 mg IV NOW ONE Stop: 06/03/19 11:46 Last Admin: 06/03/19 12:03 Dose: 0.5 mg Documented by: RYANN Ketorolac Tromethamine (Toradol) 30 mg IV NOW ONE Stop: 06/03/19 11:47 Last Admin: 06/03/19 12:03 Dose: 30 mg Documented by: RYANN Medical Decision Making Medical Records Medical records reviewed: Yes I reviewed the patient's medical records. Lab Data Lab results reviewed: Yes I reviewed the patient's lab results. Result diagrams: 06/03/19 10:07 06/03/19 10:07 Labs: Lab Results 06/03/19 06/03/19 06/03/19 Range/Units 10:07 10:07 10:07 WBC 5.9 (4.5-11.0) X10^3/uL RBC 5.08 (4.5-5.9) X10^6/uL Hgb 15.8 (13.5-17.5) g/dL Hct 45.4 (41-53) % MCV 89.4 (80-100) fL MCH 31.0 (26-34) PG MCHC 34.7 (30-36) % RDW 13.7 (11.6-14.8) % Plt Count 174 (150-400) X10^3/uL Neut % (Auto) 71.9 (50-75) % Lymph % (Auto) 19.8 L (25-40) % Guthrie % (Auto) 6.1 (3-14) % Eos % (Auto) 1.2 L (2-4) % Baso % (Auto) 1.0 (0-2) % Neut # (Auto) 4200 (9962-1454) /uL Lymph # (Auto) 1200 (3439-8878) /uL Guthrie # (Auto) 400 (0-900) /uL Eos # (Auto) 100 (0-450) /uL Baso # (Auto) 100 (0-100) /uL PT 11.0 (10.1-12.7) SECONDS INR 1.0 (0.9-1.3) APTT 35 (26.4-36.2) SECONDS Sodium 141 (137-145) mmol/L Potassium 4.3 (3.4-5.1) mmol/L Chloride 103 (98-107) mmol/L Carbon Dioxide 27 (22-32) mmol/L BUN 20 (9-20) mg/dL Creatinine 1.00 (0.66-1.25) mg/dL Estimated GFR > 60.0 (>60) mL/min BUN/Creatinine Ratio 20.0 (6-22) Glucose 140 H (80-110) mg/dL Calcium 10.0 (8.4-10.2) mg/dL Total Bilirubin 0.7 (0.2-1.3) mg/dL AST 44 (17-59) IU/L ALT 44 (21-72) IU/L Alkaline Phosphatase 117 (38-126) U/L Total Creatine Kinase 77 (55-170) U/L CK-MB (CK-2) TNP CK-MB (CK-2) Rel Index TNP Troponin I < 0.012 (0.01-0.034) ng/mL Total Protein 7.9 (6.3-8.2) g/dL Albumin 5.1 H (3.5-5.0) g/dL Globulin 2.8 (1.7-4.1) g/dL Albumin/Globulin Ratio 1.8 (1.0-2.8) Lipase 74 (23-300) U/L Imaging Data Chest x-ray: Radiologist's impression: PROCEDURE: XR CHEST 1V INDICATIONS: chest pain TECHNIQUE: One view of the chest was acquired. COMPARISON: [facility], , CHEST 1 VIEW, 11/08/2016, 17:37. FINDINGS: Surgical changes and devices: Post surgical changes of coronary artery bypass. Lungs and pleura: Lungs are clear. No pleural effusions or pneumothorax. Mediastinum: Mediastinal contours appear normal. Heart size is normal. Bones and chest wall: No suspicious bony lesions. Overlying soft tissues appear unremarkable. IMPRESSION: No acute cardiopulmonary findings. Dictated by: Eliu Pwoers M.D. on 06/03/2019 at 10:45 Approved by: Eliu Powers M.D. on 06/03/2019 at 10:46 ECG Data Attestation: I personally reviewed and interpreted this ECG as follows: (See below) Interpretation: Twelve lead EKG performed June 03, 2019 at 12:52 p.m., as fo llows: Irregular ventricular rhythm with a rate of 52 beats per minute QRS duration 96 milliseconds AZ interval 281 milliseconds QTC interval 360 milliseconds No ectopy No significant ST T wave changes Interpretation: Sinus bradycardia with first-degree AV block; no signs of acute ischemia; abnormal EKG as interpreted by EDMD. Discharge Plan Departure Patient Disposition: Home Clinical Impression: Generalized weakness Discharge Date/Time: 06/03/19 13:15 Instructions: DI for Muscle Weakness Activity Restrictions/Additional Instructions: Your workup looks good. Your labs show no evidence of a heart attack or any other serious condition. it is very important that you follow up with your primary care physician to discuss any further investigation into your symptoms, including the possibility of a repeat stress test. If you develop chest pain, shortness of breath, fevers, or fainting episodes, it is important that you get rechecked without delay. Prescriptions: No Action metformin 500 mg tablet 500 mg PO BID Qty: 180 RF: 3 omeprazole 20 mg capsule,delayed release(DR/EC) 20 mg PO QDAY Qty: 90 RF: 3 buspirone 7.5 mg tablet 7.5 mg PO BID Qty: 60 RF: 1 alprazolam 0.5 mg tablet 0.5 mg PO .QDAY PRN (Reason: anxiety) Qty: 30 RF: 1 atorvastatin [Lipitor] 20 MG tablet 20 mg PO QDAY Qty: 0 RF: 0 celecoxib [Celebrex] 200 mg capsule 200 mg PO .HS Qty: 30 RF: 0 aspirin 81 mg Tablet,Delayed Release (Dr/Ec) 81 mg PO BID RF: 0 Glucosamine Sulf-Chondroitin 1 tab PO DAILY RF: 0 cholecalciferol (vitamin D3) [Vitamin D3] 1,000 unit Capsule 1 cap PO DAILY RF: 0 amlodipine 5 mg tablet 5 mg PO DAILY Qty: 30 RF: 0 Referrals: Orion Cisse MD [Primary Care Provider] -
--- NOTE | 2019-06-03 10:18 | DI.RAD.S_ITS ---
PROCEDURE: XR CHEST 1V INDICATIONS: chest pain TECHNIQUE: One view of the chest was acquired. COMPARISON: Located [facility], , CHEST 1 VIEW, 11/08/2016, 17:37. FINDINGS: Surgical changes and devices: Post surgical changes of coronary artery bypass. Lungs and pleura: Lungs are clear. No pleural effusions or pneumothorax. Mediastinum: Mediastinal contours appear normal. Heart size is normal. Bones and chest wall: No suspicious bony lesions. Overlying soft tissues appear unremarkable. IMPRESSION: No acute cardiopulmonary findings. Dictated by: Eliu Powers M.D. on 06/03/2019 at 10:45 Approved by: Eliu Powers M.D. on 06/03/2019 at 10:46
[2019-06-03 10:29] LABS: Add Manual Diff / Slide Review NO; Basophils Absolute Auto 100 /uL (0-100); Eosinophils Absolute Auto 100 /uL (0-450); Eosinophils Percent Auto 1.2 % (2-4); Hematocrit 45.4 % (41-53); Hemoglobin 15.8 g/dL (13.5-17.5); Lymphocytes Absolute Auto 1200 /uL (1100-4500); Lymphocytes Percent Auto 19.8 % (25-40); Mean Corpuscular HGB Conc 34.7 % (30-36); Mean Corpuscular Volume 89.4 fL (80-100); Monocytes Absolute Auto 400 /uL (0-900); Monocytes Percent Auto 6.1 % (3-14); Neutrophils Absolute Auto 4200 /uL (1500-7000); Neutrophils Percent Auto 71.9 % (50-75); Platelet Count 174 X10^3/uL (150-400); Red Blood Cell Count 5.08 X10^6/uL (4.5-5.9); Red Cell Distribution Width 13.7 % (11.6-14.8); White Blood Cell Count 5.9 X10^3/uL (4.5-11.0)
[2019-06-03 10:32] LABS: PTT Partial Thromboplastin Tim 35 SECONDS (26.4-36.2)
[2019-06-03 10:33] LABS: Alanine Aminotransferase 44 IU/L (21-72); Albumin 5.1 g/dL (3.5-5.0); Albumin Globulin Ratio 1.8 (1.0-2.8); Alkaline Phosphatase 117 U/L (38-126); Aspartate Aminotransferase 44 IU/L (17-59); Bilirubin Total 0.7 mg/dL (0.2-1.3); Blood Urea Nitrogen 20 mg/dL (9-20); Carbon Dioxide 27 mmol/L (22-32); Chloride 103 mmol/L (98-107); Creatine Kinase 77 U/L (55-170); Estimated Glomerular Filt Rate > 60.0 mL/min (>60); Globulin 2.8 g/dL (1.7-4.1); Glucose 140 mg/dL (80-110); HEMOLYSIS 19 (0-50); Lipase 74 U/L (23-300); Potassium 4.3 mmol/L (3.4-5.1); Sodium 141 mmol/L (137-145); Total Protein 7.9 g/dL (6.3-8.2)
[2019-06-03 10:45] LABS: Troponin I < 0.012 ng/mL (0.01-0.034)
[2019-06-03] MEDS: KETOROLAC 60 MG/2 ML VIAL 30 MG IV (12:03)
[2019-06-03] MEDS: HYDROMORPHONE 0.5 MG INJ IV (12:03)
== END 2019-06-03 13:15 | disposition home or self-care (01) ==
PROVIDERS: Emergency Provider Emergency Medicine; PCP Family Medicine
DX: R53.1 Weakness (principal); R00.1 Bradycardia, unspecified; R07.9 Chest pain, unspecified
CPT/HCPCS: 36415; 71045; 80053; 82550; 83690; 84484; 85025; 85610; 85730; 93005; 96374; 96375; 99284; 99285; J1170; J1885

== ENCOUNTER → 2019-08-27 07:45 | Outpatient (CLI) | payer MEDICARE, SELFPAY ==
--- NOTE | 2019-08-27 07:50 | DI.MRI.S_ITS ---
PROCEDURE: MR LUMBAR SPINE WO CON INDICATIONS: low back pain with left ridculopaty TECHNIQUE: Noncontrast sagittal T1 spin echo and T2 fast echo, sagittal STIR, axial T1 and T2 fast spin echo through the lumbar spine. In cases with scoliosis, additional coronal T2 fast spin echo may be performed. COMPARISON: [facility], MR, L-SPINE WITHOUT CONTRAST, 06/13/2014, 19:57. [facility], CR, XR LUMBAR SPINE 2-3V, 03/20/2018, 9:49. FINDINGS: Image quality: Excellent. Alignment and Curvature: For the purposes of continuity, the same numbering system that was used on the prior examination report will be used on the current report. There appears to be transitional anatomy at the lumbosacral junction. Correlation with plain films for numbering purposes is recommended prior to any lumbar spinal intervention. Bone Marrow: Marrow is of normal overall signal. No acute vertebral body compression fractures. Mild reactive signal within the endplates adjacent to the T12-L1, L1-L2, L2-L3, and L3-L4 intervertebral discs. Spinal Cord: Conus medullaris terminates at the lower L1 level. Visualized cord demonstrates normal signal and size. Paraspinous Soft Tissues: No paravertebral masses. Incompletely visualized aneurysmal dilatation of the infrarenal abdominal aorta measuring at least 32 mm. L1-L2: Mild disc height loss and desiccation. Mild diffuse disc bulge. Mild facet and ligamentum hypertrophy. Mild canal stenosis. Mild right greater than left foraminal stenosis. No change. L2-L3: Moderate disc height loss and desiccation. Mild diffuse disc bulge/osteophyte with superimposed broad-based left far lateral protrusion. Mild facet and ligamentum flavum hypertrophy. Moderate canal stenosis. Severe right and moderate left foraminal stenosis. Right L2 nerve root compression. No change. L3-L4: Moderate disc desiccation. Mild diffuse disc bulge superimposed broad-based left posterolateral broad-based protrusion. Moderate facet and ligamentum flavum hypertrophy. Severe canal stenosis, as before. Moderate to severe left and moderate right foraminal stenosis, as before. L4-L5: Moderate disc desiccation. Mild diffuse disc bulge. Moderate facet and ligamentum flavum hypertrophy bilaterally. Increased, severe canal stenosis. No change in mild right and moderate left subarticular foraminal stenosis. L5-S1: Bilateral facet hypertrophy. No significant canal stenosis. No right foraminal stenosis. Increased, moderate left foraminal stenosis. IMPRESSION: 1. Transitional anatomy at the lumbosacral junction. For the purposes of continuity, the same numbering system which was employed on the prior report was employed on the current report. Correlation with plain films for numbering purposes is recommended prior to any lumbar spinal intervention. 2. Multilevel degenerative disc and facet disease, as well as ligamentum flavum hypertrophy and epidural lipomatosis. 3. Multilevel canal stenoses, worst at L3-L4 and L4-L5 where there are severe canal stenoses present. 4. Multilevel foraminal stenoses, worst at L2-L3 on the right where there is associated L2 nerve root compression. Recommend correlation with clinical symptoms to ascertain relevance of this finding. 5. Incompletely visualized abdominal aortic aneurysm; initial further assessment with ultrasound is recommended. Dictated by: Zain Ryder M.D. on 08/27/2019 at 11:45 Approved by: Zain Ryder M.D. on 08/27/2019 at 11:53
== END ==
PROVIDERS: PCP Family Medicine; Visit Provider Family Medicine
DX: M54.5 Low back pain (principal); M51.16 Intervertebral disc disorders with radiculopathy, lumbar region; M48.061 Spinal stenosis, lumbar region without neurogenic claudication; I71.4 Abdominal aortic aneurysm, without rupture; E88.2 Lipomatosis, not elsewhere classified
CPT/HCPCS: 72148

== ENCOUNTER → 2019-10-23 07:47 | Outpatient (CLI) | payer MEDICARE, SELFPAY ==
[2019-10-23 08:46] LABS: Add Manual Diff / Slide Review NO; Basophils Absolute Auto 100 /uL (0-100); Basophils Percent Auto 1.2 % (0-2); Eosinophils Absolute Auto 200 /uL (0-450); Eosinophils Percent Auto 3.8 % (2-4); Hematocrit 42.6 % (41-53); Hemoglobin 14.6 g/dL (13.5-17.5); Lymphocytes Absolute Auto 1200 /uL (1100-4500); Lymphocytes Percent Auto 24.4 % (25-40); Mean Corpuscular HGB Conc 34.3 % (30-36); Mean Corpuscular Hemoglobin 30.9 PG (26-34); Mean Corpuscular Volume 89.9 fL (80-100); Monocytes Absolute Auto 400 /uL (0-900); Monocytes Percent Auto 8.7 % (3-14); Neutrophils Absolute Auto 3100 /uL (1500-7000); Neutrophils Percent Auto 61.9 % (50-75); Platelet Count 159 X10^3/uL (150-400); Red Blood Cell Count 4.74 X10^6/uL (4.5-5.9); Red Cell Distribution Width 13.5 % (11.6-14.8); White Blood Cell Count 5.1 X10^3/uL (4.5-11.0)
[2019-10-23 09:01] LABS: Blood Urea Nitrogen 18 mg/dL (9-20); Calcium 9.4 mg/dL (8.4-10.2); Carbon Dioxide 28 mmol/L (22-32); Chloride 106 mmol/L (98-107); Estimated Glomerular Filt Rate > 60.0 mL/min (>60); Glucose 147 mg/dL (80-110); HEMOLYSIS < 15 (0-50); Potassium 4.4 mmol/L (3.4-5.1); Sodium 141 mmol/L (137-145)
== END ==
PROVIDERS: PCP Family Medicine; Referring Provider Internal Medicine; Visit Provider Internal Medicine
DX: I38 Endocarditis, valve unspecified (principal); T82.6XXD Infection and inflammatory reaction due to cardiac valve prosthesis, subsequent encounter
CPT/HCPCS: 36415; 80048; 85025

== ENCOUNTER → 2020-03-07 09:09 | Outpatient (CLI) | payer MEDICARE, SELFPAY ==
--- NOTE | 2020-03-07 09:11 | DI.RAD.S_ITS ---
PROCEDURE: XR LUMBAR SPINE MIN 4V INDICATIONS: Chronic progressive low back pain TECHNIQUE: 5 views of the lumbar spine were acquired. COMPARISON: [facility], [facility], XR LUMBAR SPINE 2-3V, 03/20/2018, 9:49. [facility], [facility], L-SPINE 2-3 VIEWS, 06/10/2014, 9:51. FINDINGS: Bones: 5 nonrib-bearing vertebrae are present. There is normal bony alignment. No vertebral body compression fractures. No suspicious bony lesions. Degenerative disc disease and facet osteoarthritis overall is moderate in severity and most pronounced at the facet joints from L3 inferiorly, without subluxation or evidence of interval trauma Soft tissues: Overlying bowel gas pattern is normal. No suspicious soft tissue calcifications. Oblique images: No pars defects. IMPRESSION: Stable moderate degenerative disc disease and facet osteoarthritis along the lumbosacral spine with no appreciable worsening in likelihood of spinal and foraminal stenosis from L3 through S1. Given the degeneration present a small interval worsening, however, would not be accurately detected. Dictated by: Wil Keenan M.D. on 03/07/2020 at 12:08 Approved by: Wil Keenan M.D. on 03/07/2020 at 12:19
== END ==
PROVIDERS: PCP Family Medicine; Referring Provider Physical Medicine & Rehabilitation; Visit Provider Physical Medicine & Rehabilitation
DX: M54.5 Low back pain (principal); M51.16 Intervertebral disc disorders with radiculopathy, lumbar region; M47.26 Other spondylosis with radiculopathy, lumbar region; G89.29 Other chronic pain
CPT/HCPCS: 72110

== ENCOUNTER → 2020-06-16 14:49 | Outpatient (CLI) | payer MEDICARE, SELFPAY ==
[2020-06-18 08:25] LABS: COVID19 Sendout Not Detected (Not Detect)
== END ==
PROVIDERS: PCP Family Medicine; Visit Provider Physician Assistant
DX: Z11.59 Encounter for screening for other viral diseases (principal)
CPT/HCPCS: 87635

== ENCOUNTER 2020-06-19 12:37 | Outpatient (CLI) | payer MEDICARE, SELFPAY ==
[2020-06-19] VITALS (10 sets, daily range): BP systolic 127–151; BP diastolic 75–86; PULSE 61–73; RESP 12–18; TEMP 36.1; O2SAT 95–100
--- NOTE | 2020-06-19 12:39 | DI.RAD.S_ITS ---
PROCEDURE: PAIN L INTERLAMINAR/CAUDAL INJ INDICATIONS: SPONDYLOSIS COMPARISON: [facility], CR, XR LUMBAR SPINE MIN 4V, 03/07/2020, 9:17. FINDINGS: Fluoroscopic spot filming was performed to verify placement of spinal needles at the L3-L4 level(s), as labeled on the films. Appropriate location(s) of the needle tip(s) was confirmed by injection of iodinated contrast. IMPRESSION: Fluoroscopy for pain management. Dictated by: Megan Laureano M.D. on 06/19/2020 at 15:30 Approved by: Megan Laureano M.D. on 06/19/2020 at 15:31
[2020-06-19] MEDS: fentaNYL 100 MCG/2 ML INJ 50 MCG IV (13:52)
[2020-06-19] MEDS: MIDAZOLAM 5 MG/5 ML VIAL IV (13:55)
[2020-06-19] MEDS: IOPAMIDOL 15 ML VIAL 3 ML INJ (13:58)
[2020-06-19] MEDS: BETAMETHASONE 30 MG/5 ML MDV 6 MG INJ (13:58)
[2020-06-19] MEDS: BUPIVACAINE 0.25% (PF) VIAL 2 ML INJ (13:58)
[2020-06-19] MEDS: DEXAMETHASONE 10 MG/ML VIAL 20 MG INJ (13:59)
--- NOTE | 2020-06-19 14:16 | P.PCN_ITS ---
Date/Time/Diagnoses Date of procedure: 06/19/20 Time of procedure: 14:16 Pre-procedure diagnosis: 1. HNP WITH RADICULAR FEATURES, 2. MULTILEVEL CENTRAL STENOSIS, Post-procedure diagnosis: same Procedure Notes Procedure: 1. FLUOROSCOPICALLY GUIDED CONTRAST CONTROLLED INTERLAMINAR EPIDURAL STEROID INJECTION - L3/4 Indications: Hugo is referred by Dr. Cisse for treatment of Bilateral Foraminal Stenosis L>R LE symptoms. Physician: Shoaib Mccord Total Fluoroscopy time (seconds): 15 Total sedation minutes: 19 Complications: none Procedure in detail & Post-procedure care: FINDINGS Multilevel Central Spinal Stenosis with Nerve Root Compression DESCRIPTION OF PROCEDURE Fluoroscopically guided, contrast-controlled L3/4 translaminar epidural steroid injection. Following review of allergy and review of potential side effects and complications, including, but not necessarily limited to, infection, allergic reaction, local tissue breakdown, temporary as well as permanent nerve injury, paralysis, stroke and possible , the patient indicated that the patient understood and agreed to proceed. An informed consent document was signed by the patient, witnessed by a nurse, and placed in the patient's chart. Additionally, other treatment options including modalities, medications, and physical therapy were reviewed with the patient. After review of previous anaesthesic history and IV conscious sedation the patient was deemed safe to proceed with today?s procedure with IV conscious sedation as ASA class II designation. Safety time-out was performed to confirm patient ID, procedure to be performed and site of procedure. IV sedation was accomplished with a combination of 3mg of Versed and 50mcg of Fentanyl was administered by the RN after DO order, titrated to patient comfort during the course of the procedure while the patient remained responsive to all verbal commands. In the prone position, following sterile prep and drape of the lumbar region, the L3/4 translaminar space was identified fluoroscopically. The skin was anesthetized via a 25-gauge, 1.5-inch needle with 1% lidocaine solution. At this point, a 22-gauge short bevel spinal needle was atraumatically introduced and advanced under fluoroscopic guidance into the region of the L3/4 translaminar space. Depth was confirmed on lateral view. Radiological data, including multiple fluoroscopic views of the lumbar spine, reveal a spinal needle at the L3/4 translaminar space. Lateral views then show placement of the needle in the epidural space. Subsequent views show contrast material flowing superiorly and inferiorly in the epidural space. No vascular or intrathecal uptake is observed. At this point, using loss of resistance technique with saline and air, the epidural space was entered. This was confirmed following negative aspiration with injection of approximately 1.5 cc of Isovue 200, showing excellent epidural flow without vascular or intrathecal uptake. At this point, 1cc of 1% lidocaine solution combined with 3cc or 20mg of dexamethasone and 6mg of betamethasone was injected without incident. The patient tolerated the procedure well without signs or symptoms of complications prior to transfer to the recovery area continued monitoring without incident. The patient was then transferred to the recovery area where they were observed for an appropriate period of time after the injection. The patient reported a VAS score of 6 prior to the procedure and a post- procedure VAS of 0. POST OP INSTRUCTIONS The patient was provided a Pain Log to continue to record their response to the target-specific procedure prior to follow-up visit with their referring physician. Additionally, specific post-injection care instructions and a contact number to our office were provided if concerns arise regarding possible complications associated with the procedure are suspected.
== END 2020-06-19 15:25 | disposition home or self-care (01) ==
LOC: RAD 12:39
PROVIDERS: PCP Family Medicine; Referring Provider Physical Medicine & Rehabilitation; Visit Provider Physical Medicine & Rehabilitation
DX: M51.16 Intervertebral disc disorders with radiculopathy, lumbar region (principal); M48.061 Spinal stenosis, lumbar region without neurogenic claudication
CPT/HCPCS: 62323; 99152; J0702; J1100; J2250; J3010

== ENCOUNTER → 2020-07-28 07:44 | Outpatient (CLI) | payer MEDICARE, SELFPAY ==
--- NOTE | 2020-07-28 | DI.ECHO.S_ITS ---
[facility]+ [facility] +---------+ : : [address] : : : : [id number] : : : : Phone: [phone]+ Echocardiogram Report + + :Name: SKYLER GONZALEZ Study Date: 07/28/2020 Height: 70 in : :[facility] Weight: 227 lb : : Gender: Male BSA: 2.2 m2 : :: 1945 Age: 75 yrs BP: 154/82 mmHg: :Reason For Study: AORTOCORONARY BYPASS GRAFT : :Ordering Physician: Kevin : :Nirmala Langley Performed By: Rekha Dawkins : :Referring: KEVIN AYON : + + Interpretation Summary The left ventricle is normal in size. Left ventricular systolic function appears normal without focal wall motion abnormalities. The ejection fraction is estimated to be 55-60%. LVEF has not changed. Diastolic parameters suggest a relaxation abnormality of the left ventricle, consistent with probable normal filling pressures. The right ventricle is normal size. The right ventricular systolic function is normal. Right ventricular systolic pressure is estimated to be 19 mmHg plus the clinically estimated CVP which cannot be estimated on this exam. Both atria are normal in size. There is a prosthetic aortic valve. The peak aortic velocity is 2.9 m/sec. The peak aortic velocity on the previous exam was 2.7 m/sec. There is no other significant valvular heart disease. The ascending aorta is moderately enlarged. Patient had a ~3 second pause during study when breathing in. Procedure: A two-dimensional transthoracic echocardiogram with color flow and Doppler was performed. The study quality was technically adequate. A contrast injection of Definity was performed to improve assessment of LV function. Comparison is made with the echocardiogram of 05/19/2017. The patient was in sinus bradycardia with heart rates between 55-65 bpm during the exam. Left Ventricle: The left ventricle is normal in size. Left ventricular wall thickness is mildly increased. Left ventricular systolic function appears normal without focal wall motion abnormalities. The ejection fraction is estimated to be 55-60%. Diastolic parameters suggest a relaxation abnormality of the left ventricle, consistent with probable normal filling pressures. Right Ventricle: The right ventricle is normal size. The right ventricular systolic function is normal. Atria: Both atria are normal in size. There is no Doppler evidence for an interatrial shunt. Mitral Valve: There is mild mitral annular calcification. The mitral valve leaflets appear mildly thickened, but open well. There is trace mitral regurgitation. Aortic Valve: There is a prosthetic aortic valve. The aortic valve mean gradient is 20 mmHg. The peak aortic velocity is 2.9 m/sec. The peak aortic velocity on the previous exam was 2.7 m/sec. There is trace aortic regurgitation. Tricuspid Valve: The tricuspid valve is normal in structure and function. There is mild tricuspid regurgitation. Right ventricular systolic pressure is estimated to be 19 mmHg plus the clinically estimated CVP which cannot be estimated on this exam. Pulmonic Valve: The pulmonic valve is not well visualized. There is no other significant valvular heart disease. Great Vessels: The aortic root is not well visualized. The ascending aorta is moderately enlarged. The inferior vena cava was not well visualized. Pericardium/ Pleura There is no pericardial effusion. There is no pleural effusion. MMode/2D Measurements & Calculations LVIDd: 4.7 cm LVOT diam: 2.2 cm LVIDs: 3.3 cm asc Aorta Diam: 4.1 cm FS: 29.3 % Ao Arch Diam (Prox Trans): 4.1 cm IVSd: 1.1 cm LVPWd: 1.1 cm LV mccormack. diameter/BSA (cm/m^2): 2.1 LV sys. diameter/BSA (cm/m^2): 1.5 LA A2 area: 15.2 cm2 RA long axis: 5.8 cm LA A4 area: 15.2 cm2 RA area: 19.4 cm2 LA length (vol): 5.5 cm RA vol: 54.8 ml LA vol: 35.9 ml RA : 24.9 ml/m2 LA vol index: 16.3 ml/m2 RVD1 (basal): 3.7 cm TAPSE: 1.5 cm Doppler Measurements & Calculations Ao V2 max: 290.8 cm/sec LVOT Max Solomon: 87.8 cm/sec Ao V2 mean: 212.7 cm/sec LV V1 max P.1 mmHg Ao max P.8 mmHg LV V1 VTI: 20.8 cm Ao mean P.4 mmHg ABRAM(I,D): 1.2 cm2 Ao V2 VTI: 67.2 cm ABRAM(V,D): 1.1 cm2 sev ratio: 0.31 ABRAM indexed to BSA (cm^2/m^2): 0.53 MV E max solomon: 62.5 cm/sec TR max solomon: 218.5 cm/sec MV A max solomon: 76.9 cm/sec TR max P.1 mmHg MV E/A: 0.81 PA V2 max: 60.9 cm/sec Med Peak E' Solomon: 7.3 cm/sec PA V2 mean: 44.7 cm/sec E/E' med: 8.5 PA mean P.89 mmHg Lat Peak E' Solomon: 11.4 cm/sec PA pr(Accel): 32.8 mmHg E/E' lat: 5.5 E/e' average: 7.0 MV dec time: 0.31 sec SV(LVOT): 78.0 ml Reading Physician:04:08 PM
== END ==
PROVIDERS: PCP Family Medicine; Referring Provider Hospitalist; Visit Provider Hospitalist
DX: I07.1 Rheumatic tricuspid insufficiency (principal); I77.89 Other specified disorders of arteries and arterioles; Z95.2 Presence of prosthetic heart valve; Z95.1 Presence of aortocoronary bypass graft
CPT/HCPCS: 93306; Q9957

== ENCOUNTER → 2020-09-12 11:07 | Outpatient (CLI) | payer MEDICARE, SELFPAY ==
[2020-09-12 13:20] LABS: BUN Creatinine Ratio 23.3 (6-22); Blood Urea Nitrogen 21 mg/dL (9-20); Carbon Dioxide 29 mmol/L (22-32); Chloride 100 mmol/L (98-107); Estimated Glomerular Filt Rate > 60.0 mL/min (>60); Glucose 183 mg/dL (80-110); HEMOLYSIS < 15 (0-50); Potassium 4.7 mmol/L (3.4-5.1); Sodium 135 mmol/L (137-145)
== END ==
PROVIDERS: PCP Family Medicine; Referring Provider Internal Medicine Cardiovascular Disease; Visit Provider Internal Medicine Cardiovascular Disease
DX: I10 Essential (primary) hypertension (principal)
CPT/HCPCS: 36415; 80048

== ENCOUNTER → 2020-10-07 12:33 | Outpatient (CLI) | payer MEDICARE, SELFPAY ==
[2020-10-07 13:08] LABS: Add Manual Diff / Slide Review NO; Basophils Absolute Auto 100 /uL (0-100); Eosinophils Absolute Auto 200 /uL (0-450); Eosinophils Percent Auto 2.9 % (2-4); Hematocrit 40.5 % (41-53); Hemoglobin 13.8 g/dL (13.5-17.5); Lymphocytes Absolute Auto 1500 /uL (1100-4500); Lymphocytes Percent Auto 27.7 % (25-40); Mean Corpuscular HGB Conc 34.1 % (30-36); Mean Corpuscular Hemoglobin 30.2 PG (26-34); Mean Corpuscular Volume 88.6 fL (80-100); Monocytes Absolute Auto 500 /uL (0-900); Monocytes Percent Auto 9.9 % (3-14); Neutrophils Absolute Auto 3200 /uL (1500-7000); Neutrophils Percent Auto 58.5 % (50-75); Platelet Count 159 X10^3/uL (150-400); Red Blood Cell Count 4.58 X10^6/uL (4.5-5.9); Red Cell Distribution Width 13.6 % (11.6-14.8); White Blood Cell Count 5.6 X10^3/uL (4.5-11.0)
[2020-10-07 13:27] LABS: Hemoglobin A1C% w Est Avg Glu 7.4 % (4.0-6.0)
[2020-10-07 13:41] LABS: Alanine Aminotransferase 30 IU/L (<50); Albumin 4.4 g/dL (3.5-5.0); Albumin Globulin Ratio 1.7 (1.0-2.8); Alkaline Phosphatase 128 U/L (38-126); Aspartate Aminotransferase 34 IU/L (17-59); BUN Creatinine Ratio 22.4 (6-22); Bilirubin Total 0.5 mg/dL (0.2-1.3); Blood Urea Nitrogen 22 mg/dL (9-20); Calcium 9.4 mg/dL (8.4-10.2); Carbon Dioxide 30 mmol/L (22-32); Chloride 102 mmol/L (98-107); Cholesterol 165 mg/dL (140-199); Estimated Glomerular Filt Rate > 60.0 mL/min (>60); Globulin 2.6 g/dL (1.7-4.1); Glucose 136 mg/dL (80-110); HDL Cholesterol 33 mg/dL (40-60); HEMOLYSIS < 15 (0-50); LDL Cholesterol Calculated 89 mg/dL (<100); Potassium 4.8 mmol/L (3.4-5.1); Sodium 136 mmol/L (137-145); Triglycerides 213 mg/dL (35-150)
[2020-10-07 14:52] LABS: Thyroid Stimulating Hormone 2.22 uIU/mL (0.47-4.68)
[2020-10-07 15:12] LABS: COVID19 -Nasal RAPID Negative (Negative)
[2020-10-09 14:58] LABS: Creatinine Urine Random 59.3 mg/dL
[2020-10-09 15:03] LABS: Microalbumi Creatinin Ratio Ur 11.8 ug/mg CR (<30); Microalbumin Urine Random 0.7 mg/dL (0-1.6)
== END ==
PROVIDERS: Physical Medicine & Rehabilitation; PCP Family Medicine; Referring Provider Internal Medicine; Visit Provider Internal Medicine
DX: T82.6XXD Infection and inflammatory reaction due to cardiac valve prosthesis, subsequent encounter (principal); Z20.822 Contact with and (suspected) exposure to COVID-19; I38 Endocarditis, valve unspecified; B95.2 Enterococcus as the cause of diseases classified elsewhere; E11.9 Type 2 diabetes mellitus without complications; E78.2 Mixed hyperlipidemia; I10 Essential (primary) hypertension
CPT/HCPCS: 36415; 80053; 80061; 82043; 82570; 83036; 84443; 85025; 87635; C9803

== ENCOUNTER 2020-10-09 11:30 | Outpatient (CLI) | payer MEDICARE, SELFPAY ==
[2020-10-09] VITALS (8 sets, daily range): BP systolic 113–135; BP diastolic 69–77; PULSE 62–67; RESP 10–22; TEMP 36.4; O2SAT 97–100
--- NOTE | 2020-10-09 11:34 | DI.RAD.S_ITS ---
PROCEDURE: PAIN L INTERLAMINAR/CAUDAL INJ INDICATIONS: SPONDYLOSIS COMPARISON: [facility], XA, PAIN L INTERLAMINAR/CAUDAL INJ, 06/19/2020, 13:55. FINDINGS: Fluoroscopic spot filming was performed to verify placement of spinal needles at the L3-L4 level(s), as labeled on the films. Appropriate location(s) of the needle tip(s) was confirmed by injection of iodinated contrast. Dictated by: Oscar Martínez M.D. on 10/09/2020 at 13:54 Approved by: Ocsar Martínez M.D. on 10/09/2020 at 13:54
[2020-10-09] MEDS: fentaNYL 100 MCG/2 ML INJ 50 MCG IV (13:25)
[2020-10-09] MEDS: MIDAZOLAM 5 MG/5 ML VIAL IV (13:25)
[2020-10-09] MEDS: BUPIVACAINE 0.25% (PF) VIAL 2 ML INJ (13:30)
[2020-10-09] MEDS: IOPAMIDOL 15 ML VIAL 3 ML INJ (13:30)
[2020-10-09] MEDS: BETAMETHASONE 30 MG/5 ML MDV 6 MG INJ (13:31)
[2020-10-09] MEDS: methylPREDNISolone acetate 80 MG/ML VIAL IM (13:32)
--- NOTE | 2020-10-09 13:36 | P.PCN_ITS ---
Date/Time/Diagnoses Date of procedure: 10/09/20 Time of procedure: 13:36 Pre-procedure diagnosis: 1. HNP WITH RADICULAR FEATURES, 2. MULTILEVEL CENTRAL STENOSIS, Post-procedure diagnosis: same Procedure Notes Procedure: 1. FLUOROSCOPICALLY GUIDED CONTRAST CONTROLLED INTERLAMINAR EPIDURAL STEROID INJECTION - PARA LEFT L3/4 Indications: Hugo is referred by Dr. Cisse for treatment of Bilateral Foraminal Stenosis L>R LE symptoms. Physician: Shoaib Mccord Total Fluoroscopy time (seconds): 10 Total sedation minutes: 7 Complications: none Procedure in detail & Post-procedure care: FINDINGS Multilevel Central Spinal Stenosis with Nerve Root Compression DESCRIPTION OF PROCEDURE Fluoroscopically guided, contrast-controlled L3/4 translaminar epidural steroid injection. Following review of allergy and review of potential side effects and complications, including, but not necessarily limited to, infection, allergic reaction, local tissue breakdown, temporary as well as permanent nerve injury, paralysis, stroke and possible , the patient indicated that the patient understood and agreed to proceed. An informed consent document was signed by the patient, witnessed by a nurse, and placed in the patient's chart. Additionally, other treatment options including modalities, medications, and physical therapy were reviewed with the patient. After review of previous anaesthesic history and IV conscious sedation the patient was deemed safe to proceed with today?s procedure with IV conscious sedation as ASA class II designation. Safety time-out was performed to confirm patient ID, procedure to be performed and site of procedure. IV sedation was accomplished with a combination of 3mg of Versed and 50mcg of Fentanyl was administered by the RN after DO order, titrated to patient comfort during the course of the procedure while the patient remained responsive to all verbal commands. In the prone position, following sterile prep and drape of the lumbar region, the L3/4 translaminar space was identified fluoroscopically. The skin was anesthetized via a 25-gauge, 1.5-inch needle with 1% lidocaine solution. At this point, a 22-gauge short bevel spinal needle was atraumatically introduced and advanced under fluoroscopic guidance into the region of the L3/4 translaminar space. Depth was confirmed on lateral view. Radiological data, including multiple fluoroscopic views of the lumbar spine, reveal a spinal needle at the L3/4 translaminar space. Lateral views then show placement of the needle in the epidural space. Subsequent views show contrast m aterial flowing superiorly and inferiorly in the epidural space. No vascular or intrathecal uptake is observed. At this point, using loss of resistance technique with saline and air, the epidural space was entered. This was confirmed following negative aspiration with injection of approximately 1.5 cc of Isovue 200, showing excellent epidural flow without vascular or intrathecal uptake. At this point, 1cc of 1% lidocaine solution combined with 3cc or 80mg depomedrol and 12mg of betamethasone was injected without incident. The patient tolerated the procedure well without signs or symptoms of complications prior to transfer to the recovery area continued monitoring without incident. The patient was then transferred to the recovery area where they were observed for an appropriate period of time after the injection. The patient reported a VAS score of 6 prior to the procedure and a post- procedure VAS of 0. POST OP INSTRUCTIONS The patient was provided a Pain Log to continue to record their response to the target-specific procedure prior to follow-up visit with their referring physician. Additionally, specific post-injection care instructions and a contact number to our office were provided if concerns arise regarding possible complications associated with the procedure are suspected.
== END 2020-10-09 14:05 | disposition home or self-care (01) ==
LOC: RAD 11:31
PROVIDERS: PCP Family Medicine; Referring Provider Physical Medicine & Rehabilitation; Visit Provider Physical Medicine & Rehabilitation
DX: M51.16 Intervertebral disc disorders with radiculopathy, lumbar region; M48.061 Spinal stenosis, lumbar region without neurogenic claudication
CPT/HCPCS: 62323; J0702; J1040; J1100; J2250; J3010

== ENCOUNTER 2020-12-14 17:38 | Emergency (ER) | payer MEDICARE, SELFPAY ==
[2020-12-14 17:43] VITALS: BP 156/85; PULSE 75; RESP 18; TEMP 36.3; O2SAT 98; BMI 33.5
--- NOTE | 2020-12-14 18:09 | ED.BACK ---
HPI - Back Pain/Injury General Chief Complaint: Back Pain/Injury Stated Complaint: back is locked up, pain Time Seen by Provider: 12/14/20 18:04 Source: patient Mode of arrival: Wheelchair Limitations: no limitations History of Present Illness HPI Narrative: 75-year-old male nonsmoker with history of hypertension and known lumbar pain with recent abnormal MRI and frequent visits to Orthopedics for injections presents with a chief complaint of an exacerbation of his right lower back pain that radiates into his right leg. He denies any specific trauma or fall. He has had no fever or chills and denies the use of IV drugs or anticoagulants. He denies loss of bowel or bladder long. He denies any lower extremity weakness. He states that he has severe pain in his right lower back that is worse with motion and improves with rest. He states that he had been relatively stable with his pain control but he and his were attempting to drive an RV to [place] and his pain started acting up assisted across [place]. Complaint: back pain Onset (ago): hour(s) Duration: constant Similar Symptoms Previously: Yes Location: lumbar spine and right lower back Severity: severe Quality: sharp and stabbing Radiation: right leg Severity scale (1-10): 9 Exacerbating factors: movement and walking Context: other Associated symptoms: denies other symptoms Related Data Home Medications Medication Instructions Recorded Confirmed atorvastatin [Lipitor] 20 mg PO QDAY #0 07/31/17 11/10/20 Glucosamine Sulf-Chondroitin 1 tab PO DAILY 03/23/18 11/10/20 aspirin 81 mg PO BID 03/23/18 11/10/20 amoxicillin 500 mg capsule 500 mg PO BID 03/11/20 11/10/20 antiarthritic combination no.2 900 mg PO 03/11/20 11/10/20 mg tablet ascorbic acid (vitamin C) 1,000 mg 1 gram PO DAILY tab 03/11/20 11/10/20 tablet cholecalciferol (vitamin D3) 50 50 mcg PO DAILY 03/11/20 11/10/20 mcg (2,000 unit) capsule [id number] 400 mcg-C 1,000 each PO 03/11/20 11/10/20 mg-glut-carmenza 50 [id number] oral powd packet lisinopril 10 mg tablet mg PO DAILY tab 09/17/20 11/10/20 Previous Rx's Medication Instructions Recorded amlodipine 5 mg PO DAILY #30 tab 03/23/18 metformin 500 mg tablet 500 mg PO BID #180 tab 02/18/20 buspirone 7.5 mg tablet 7.5 mg PO BID #180 tab 04/17/20 diazepam 10 mg tablet 10 mg PO .COMPLEX PRN #10 tab 09/17/20 alprazolam 0.5 mg tablet 0.5 mg PO DAILY PRN #30 tab 11/10/20 gabapentin 600 mg tablet 600 mg PO .COMPLEX #270 tab 11/10/20 celecoxib 200 mg capsule See Rx Instructions .ROUTE 12/05/20 .COMPLEX #90 cap diazepam [Valium] 2 mg PO BID-TID PRN #10 tab 12/14/20 hydrocodone-acetaminophen 1 tab PO Q4-6H PRN #10 tab 12/14/20 prednisone See Rx Instructions .ROUTE 12/14/20 .COMPLEX #30 tab Allergies Allergy/AdvReac Type Severity Reaction Status Date / Time gentamicin [GENTAMICIN] Allergy Severe kidney Verified 11/10/20 09:53 failure Review of Systems Constitutional Constitutional: Denies chills, Denies fatigue, Denies fever(s), Denies frequent falls, Denies lethargy and Denies weakness Eyes Eyes: Denies change in vision, Denies eye discharge, Denies irritation and Denies loss of vision ENT Ears, Nose, Mouth, and Throat: Denies change in voice, Denies dizziness, Denies neck pain, Denies sore throat and Denies throat swelling Cardiovascular Cardiovascular: Denies chest pain, Denies irregular heart rhythm, Denies lightheadedness, Denies palpitations, Denies dyspnea, Denies dyspnea on exertion and Denies orthopnea Respiratory Respiratory: Denies cough, Denies dyspnea, Denies dyspnea on exertion and Denies wheezing Gastrointestinal Gastrointestinal: Denies abdominal pain, Denies change in bowel habits, Denies diarrhea, Denies nausea and Denies vomiting Musculoskeletal Musculoskeletal: Reports abnormal gait, Reports back pain, Denies neck pain, Denies numbness and Reports radiating pain into limb Integumentary/Breasts Skin/Breast: Denies pruritus, Denies erythema, Denies rash and Denies wounds Neurologic Neurologic: Reports abnormal gait, Denies behavioral changes, Denies confusion, Denies dizziness, Denies frequent falls, Denies loss of vision, Denies numbness and Denies weakness Psychiatric Psychiatric: Denies anxiety, Denies behavioral changes, Denies confusion, Denies depression, Denies homicidal ideation and Denies suicidal ideation Endocrine Endocrine: Denies fatigue, Denies flushing and Denies palpitations Hematologic/Lymphatic Hematologic/Lymphatic: Denies easy bruising Allergic/Immunologic Allergic/Immunologic: Denies urticaria, Denies throat swelling and Denies wheezing Patient History Medical History Anxiety (1994) Aortic stenosis (2013) Colon polyps (2014) CTS (carpal tunnel syndrome) (~1992) Degenerative joint disease (DJD) of hip Facet arthropathy, lumbar Generalized weakness Hearing loss Heart attack (2013) Hemorrhoids (~1994) Herniated nucleus pulposus, L3-4 left Lumbar radiculopathy Multilevel spinal stenosis Pneumonia (2013) Rosacea (2004) Shoulder pain (~1979) Tinnitus Trigger finger (~1992) Type 2 diabetes mellitus Surgical History Anesthesia H/O aortic valve replacement with porcine valve History of aortic valve replacement (2013) History of hand surgery (~1991) History of hand surgery (~1994) History of quadruple bypass (2013) History of shoulder surgery (~1984) History of tonsillectomy (1950) Family History Father Heart disease Mother High cholesterol Mental health problem Stroke Dementia Social History marital status: household members: spouse Smoking Status: Former smoker alcohol intake: current substance use type: does not use Smoking Status: Former smoker alcohol intake frequency: 0-2 drinks per day Substance Use Type: does not use Exam Narrative Exam Narrative: GENERAL: [75] year old patient appears stated age. Well-nourished, well-developed patient, in mild distress. HEAD: Atraumatic. Normocephalic. EYES: Pupils equal round and reactive. Extraocular motions intact. No scleral icterus. No injection or drainage. ENT: Nose without bleeding, purulent drainage. Throat without erythema, tonsillar hypertrophy or exudate. Airway patent. NECK: Trachea midline. Non tender CARDIOVASCULAR: Regular rate and rhythm without murmurs, gallops, or rubs. RESPIRATORY: Clear to auscultation. Breath sounds equal bilaterally. No wheezes, rales, or rhonchi. GASTROINTESTINAL: Abdomen soft, non-tender, nondistended. EXTREMITIES: No edema or joint tenderness. BACK: drying machine tender but free of any obvious external abnormalities. Patient exam notes decreased range of motion and muscle spasm, but no CVA tenderness, or vertebral point tenderness. There are no symptoms of cauda equina such as saddle anesthesia, and decreased reflexes, decreased sensation or strength. NEURO: AOx3. SKIN: No rash or erythema of visible areas Initial Vital Signs Initial Vital Signs: Vital Signs Temperature 97.3 F L 12/14/20 17:43 Pulse Rate 75 12/14/20 17:43 Respiratory Rate 18 12/14/20 17:43 Blood Pressure 156/85 H 12/14/20 17:43 Pulse Oximetry 98 12/14/20 17:43 Course Orders Ordered: Discontinued Medications Hydrocodone Bitart/Acetaminophen (Hydrocodone/Acet 5/325 Prepack) 1 bottle MISC SEEINSTR ONE Stop: 12/14/20 19:24 Last Admin: 12/14/20 19:43 Dose: 1 bottle Documented by: ATILIO Diazepam (Diazepam 5 Mg Tablet) 5 mg PO NOW ONE Stop: 12/14/20 18:47 Last Admin: 12/14/20 18:55 Dose: Not Given Documented by: [place] Hydromorphone HCl (Hydromorphone 1 Mg Inj) 0.5 mg IM NOW ONE Stop: 12/14/20 18:47 Last Admin: 12/14/20 18:53 Dose: 0.5 mg Documented by: ATILIO Prednisone (Prednisone 20 Mg Tablet) 40 mg PO NOW ONE Stop: 12/14/20 18:47 Last Admin: 12/14/20 18:54 Dose: 40 mg Documented by: ATILIO Reevaluation(s) Reevaluation #1: Patient has significant improvement with the above-stated therapies. He is requesting discharge stating that he feels well enough to go home Vital Signs Vital signs: Vital Signs - 8 hr 12/14/20 17:43 Temperature 97.3 F L Pulse Rate 75 Respiratory Rate 18 Blood Pressure 156/85 H Pulse Oximetry 98 MDM - Back Pain/Injury MDM Narrative Medical decision making narrative: Multiple etiologies of back pain considered including; Epidural abscess, cauda equina, mass occupying lesion, and other considered Patient's symptoms improved over duration of stay with above-stated therapies. Findings and discharge diagnosis discussed with patient/family followed by verbalization of understanding Return precautions discussed with patient/family whom verbalize understanding. Discharge Plan Departure Patient Disposition: Home Clinical Impression: Chronic lumbar pain Qualifiers: Back pain laterality: right Sciatica presence: with sciatica Sciatica laterality: sciatica of right side Qualified Code(s): M54.41 - Lumbago with sciatica, right side Instructions: DI for Back Pain With Sciatica Activity Restrictions/Additional Instructions: *You have been diagnosed with [acute on chronic lumbar pain.] *What to do: *Take medications as directed: Prescriptions have been sent to [facility] in [place] at your request *Follow up with your primary care provider in 2-3 days, call for an appointment. Let them know you were seen in the Emergency Department and that we ask that you be seen in follow up *Return to ER if you should have any new, worsening or concerning symptoms, such as [fever greater than 101 F, increasing pain, lower extremity weakness, loss of control of bowel or bladder or other bothersome symptoms] Prescriptions: New prednisone 10 mg tablet See Rx Instructions .ROUTE .COMPLEX Qty: 30 RF: 0 hydrocodone-acetaminophen 5-325 mg tablet 1 tab PO Q4-6H PRN (Reason: pain) Qty: 10 RF: 0 diazepam [Valium] 2 mg tablet 2 mg PO BID-TID PRN (Reason: muscle spasm) Qty: 10 RF: 0 No Action amoxicillin 500 mg capsule 500 mg PO BID RF: 0 glucosamine-chondroitin 900 mg tablet PO RF: 0 cholecalciferol (vitamin D3) 50 mcg (2,000 unit) capsule 50 mcg PO DAILY RF: 0 [id number] 400-1,000-50 mcg-mg-mg powder in packet PO RF: 0 ascorbic acid (vitamin C) 1,000 mg tablet 1 gram PO DAILY RF: 0 atorvastatin [Lipitor] 20 MG tablet 20 mg PO QDAY Qty: 0 RF: 0 metformin 500 mg tablet 500 mg PO BID Qty: 180 RF: 3 buspirone 7.5 mg tablet 7.5 mg PO BID Qty: 180 RF: 3 alprazolam 0.5 mg tablet 0.5 mg PO DAILY PRN (Reason: anxiety) Qty: 30 RF: 0 celecoxib 200 mg capsule See Rx Instructions .ROUTE .COMPLEX Qty: 90 RF: 1 Hold Instructions: Home Medication placed on hold at Doctor's office aspirin 81 mg Tablet,Delayed Release (Dr/Ec) 81 mg PO BID RF: 0 Glucosamine Sulf-Chondroitin 1 tab PO DAILY RF: 0 amlodipine 5 mg tablet 5 mg PO DAILY Qty: 30 RF: 0 lisinopril 10 mg tablet PO DAILY RF: 0 diazepam [Valium] 10 mg tablet 10 mg PO .COMPLEX PRN (Reason: sedation) Qty: 10 RF: 0 gabapentin 600 mg tablet 600 mg PO .COMPLEX Qty: 270 RF: 2 Referrals: Orion Cisse MD [Primary Care Provider] -
[2020-12-14] MEDS: HYDROMORPHONE 1 MG INJ 0.5 MG IM (18:53)
[2020-12-14] MEDS: predniSONE 20 MG TABLET 40 MG PO (18:54)
[2020-12-14] MEDS: HYDROCODONE/ACET 5/325 PREPACK 1 BOTTLE MISC (19:43)
== END 2020-12-14 19:44 | disposition home or self-care (01) ==
PROVIDERS: Emergency Provider Emergency Medicine; PCP Family Medicine
DX: M54.41 Lumbago with sciatica, right side (principal)
CPT/HCPCS: 96372; 99283; J1170

== ENCOUNTER → 2021-01-17 09:31 | Outpatient (CLI) | payer MEDICARE, SELFPAY ==
[2021-01-17 10:48] LABS: Add Manual Diff / Slide Review NO; Basophils Absolute Auto 100 /uL (0-100); Basophils Percent Auto 0.9 % (0-2); Eosinophils Absolute Auto 200 /uL (0-450); Eosinophils Percent Auto 4.1 % (2-4); Hemoglobin 13.7 g/dL (13.5-17.5); Lymphocytes Absolute Auto 1500 /uL (1100-4500); Lymphocytes Percent Auto 27.8 % (25-40); Mean Corpuscular HGB Conc 33.4 % (30-36); Mean Corpuscular Hemoglobin 30.5 PG (26-34); Mean Corpuscular Volume 91.2 fL (80-100); Monocytes Absolute Auto 500 /uL (0-900); Monocytes Percent Auto 8.8 % (3-14); Neutrophils Absolute Auto 3100 /uL (1500-7000); Neutrophils Percent Auto 58.4 % (50-75); Platelet Count 180 X10^3/uL (150-400); White Blood Cell Count 5.4 X10^3/uL (4.5-11.0)
[2021-01-17 11:00] LABS: BUN Creatinine Ratio 16.7 (6-22); Blood Urea Nitrogen 16 mg/dL (9-20); Calcium 9.5 mg/dL (8.4-10.2); Carbon Dioxide 28 mmol/L (22-32); Chloride 101 mmol/L (98-107); Estimated Glomerular Filt Rate > 60.0 mL/min (>60); Glucose 187 mg/dL (80-110); HEMOLYSIS < 15 (0-50); Potassium 4.6 mmol/L (3.4-5.1); Sodium 137 mmol/L (137-145)
== END ==
PROVIDERS: PCP Family Medicine; Referring Provider Internal Medicine; Visit Provider Internal Medicine
DX: E11.9 Type 2 diabetes mellitus without complications (principal)
CPT/HCPCS: 36415; 80048; 85025

== ENCOUNTER → 2021-01-26 09:34 | Outpatient (CLI) | payer MEDICARE, SELFPAY ==
[2021-01-27 08:59] LABS: COVID19 -Nasal RAPID Negative (Negative)
== END ==
PROVIDERS: PCP Family Medicine; Visit Provider Physical Medicine & Rehabilitation
DX: Z20.822 Contact with and (suspected) exposure to COVID-19 (principal)
CPT/HCPCS: 87635; C9803

== ENCOUNTER 2021-01-27 08:05 | Outpatient (CLI) | payer MEDICARE, SELFPAY ==
[2021-01-27] VITALS (7 sets, daily range): BP systolic 96–119; BP diastolic 55–74; PULSE 79–92; RESP 12–18; TEMP 37; O2SAT 93–96
--- NOTE | 2021-01-27 08:07 | DI.RAD.S_ITS ---
PROCEDURE: PAIN L INTERLAMINAR/CAUDAL INJ INDICATIONS: SPONDYLOSIS COMPARISON: [facility], XA, PAIN L INTERLAMINAR/CAUDAL INJ, 10/09/2020, 13:20. [facility], XA, PAIN L INTERLAMINAR/CAUDAL INJ, 06/19/2020, 13:55. FINDINGS: Fluoroscopic spot filming was performed to verify placement of spinal needles at the L3-4 left paramedian interlaminar level(s), as labeled on the films. Appropriate location(s) of the needle tip(s) was confirmed by injection of iodinated contrast. IMPRESSION: Needle tip localization appears appropriate for interlaminar L3-4 epidural injection of steroid. Dictated by: Wil Keenan M.D. on 01/27/2021 at 10:28 Approved by: Wil Keenan M.D. on 01/27/2021 at 10:29
[2021-01-27] MEDS: fentaNYL 100 MCG/2 ML INJ 50 MCG IV (09:20)
[2021-01-27] MEDS: MIDAZOLAM 5 MG/5 ML VIAL IV (09:20)
[2021-01-27] MEDS: BETAMETHASONE 30 MG/5 ML MDV 6 MG INJ (09:27)
[2021-01-27] MEDS: IOPAMIDOL 15 ML VIAL 3 ML INJ (09:27)
[2021-01-27] MEDS: BUPIVACAINE 0.25% (PF) VIAL 2 ML INJ (09:27)
[2021-01-27] MEDS: DEXAMETHASONE 10 MG/ML VIAL 20 MG INJ (09:28)
--- NOTE | 2021-01-27 10:07 | P.PCN_ITS ---
Date/Time/Diagnoses Date of procedure: 01/27/21 Time of procedure: 10:07 Pre-procedure diagnosis: 1. HNP WITH RADICULAR FEATURES, 2. MULTILEVEL CENTRAL STENOSIS, Post-procedure diagnosis: same Procedure Notes Procedure: 1. FLUOROSCOPICALLY GUIDED CONTRAST CONTROLLED INTERLAMINAR EPIDURAL STEROID INJECTION - L3/4 Indications: Hugo is referred by Dr. Cisse for treatment of Bilateral Foraminal Stenosis L>R LE symptoms. Physician: Shoaib Mccord Total Fluoroscopy time (seconds): 5 Total sedation minutes: 7 Complications: none Procedure in detail & Post-procedure care: FINDINGS Multilevel Central Spinal Stenosis with Nerve Root Compression DESCRIPTION OF PROCEDURE Fluoroscopically guided, contrast-controlled L3/4 translaminar epidural steroid injection. Following review of allergy and review of potential side effects and complications, including, but not necessarily limited to, infection, allergic reaction, local tissue breakdown, temporary as well as permanent nerve injury, paralysis, stroke and possible , the patient indicated that the patient understood and agreed to proceed. An informed consent document was signed by the patient, witnessed by a nurse, and placed in the patient's chart. Additionally, other treatment options including modalities, medications, and physical therapy were reviewed with the patient. After review of previous anaesthesic history and IV conscious sedation the patient was deemed safe to proceed with today?s procedure with IV conscious sedation as ASA class II designation. Safety time-out was performed to confirm patient ID, procedure to be performed and site of procedure. IV sedation was accomplished with a combination of 2mg of Versed and 50mcg of Fentanyl was administered by the RN after DO order, titrated to patient comfort during the course of the procedure while the patient remained responsive to all verbal commands. In the prone position, following sterile prep and drape of the lumbar region, the L3/4 translaminar space was identified fluoroscopically. The skin was anesthetized via a 25-gauge, 1.5-inch needle with 1% lidocaine solution. At this point, a 22-gauge short bevel spinal needle was atraumatically introduced and advanced under fluoroscopic guidance into the region of the L3/4 translaminar space. Depth was confirmed on lateral view. Radiological data, including multiple fluoroscopic views of the lumbar spine, reveal a spinal needle at the L3/4 translaminar space. Lateral views then show placement of the needle in the epidural space. Subsequent views show contrast material flowing superiorly and inferiorly in the epidural space. No vascular or intrathecal uptake is observed. At this point, using loss of resistance technique with saline and air, the epidural space was entered. This was confirmed following negative aspiration with injection of approximately 1.5 cc of Isovue 200, showing excellent epidural flow without vascular or intrathecal uptake. At this point, 1cc of 1% lidocaine solution combined with 3cc or 20mg of dexamethasone and 6mg of betamethasone was injected without incident. The patient tolerated the procedure well without signs or symptoms of complications prior to transfer to the recovery area continued monitoring without incident. The patient was then transferred to the recovery area where they were observed for an appropriate period of time after the injection. The patient reported a VAS score of 6 prior to the procedure and a post- procedure VAS of 0. POST OP INSTRUCTIONS The patient was provided a Pain Log to continue to record their response to the target-specific procedure prior to follow-up visit with their referring physician. Additionally, specific post-injection care instructions and a contact number to our office were provided if concerns arise regarding possible complications associated with the procedure are suspected.
== END 2021-01-27 10:00 | disposition home or self-care (01) ==
LOC: RAD 08:07
PROVIDERS: PCP Family Medicine; Referring Provider Physical Medicine & Rehabilitation; Visit Provider Physical Medicine & Rehabilitation
DX: M51.16 Intervertebral disc disorders with radiculopathy, lumbar region (principal); M48.061 Spinal stenosis, lumbar region without neurogenic claudication; Z20.822 Contact with and (suspected) exposure to COVID-19
CPT/HCPCS: 62323; 87635; C9803; J0702; J1100; J2250; J3010

== ENCOUNTER → 2021-01-31 09:05 | Outpatient (CLI) | payer MEDICARE, SELFPAY ==
[2021-01-31 09:18] LABS: Bacteria Urine None Seen; RBC Urine None Seen (0-5/HPF); WBC Urine None Seen (0-5/HPF)
[2021-01-31 09:43] LABS: Hemoglobin A1C% w Est Avg Glu 8.5 % (4.0-6.0)
[2021-01-31 09:45] LABS: Appearance Urine UA CLEAR; Bilirubin Urine UA NEGATIVE (NEGATIVE); Color Urine UA YELLOW; Glucose Urine UA NEGATIVE (Negative); Ketones Urine UA NEGATIVE (NEGATIVE); Leukocyte Esterase Urine UA NEGATIVE (NEGATIVE); Nitrite Urine UA NEGATIVE (Negative); Occult Blood Urine UA NEGATIVE (Negative); Protein Urine UA NEGATIVE (Negative); Specific Gravity Urine UA <=1.005 (1.000-1.035); Urobilinogen Urine UA 0.2 E.U./dL (0.2); pH Urine UA 5.5 (4.5-8.0)
[2021-01-31 10:14] LABS: Culture Indicated Urine Cult Not Indicated; Erythrocyte Sedimentation Rate 14 MM/HR (0-15); Urine Comments Microscopic Normal
[2021-01-31 10:25] LABS: C-Reactive Protein Quant 0.7 mg/dL (<1.0)
== END ==
PROVIDERS: PCP Family Medicine; Referring Provider Orthopaedic Surgery; Visit Provider Orthopaedic Surgery
DX: Z01.812 Encounter for preprocedural laboratory examination (principal); R73.9 Hyperglycemia, unspecified; N39.0 Urinary tract infection, site not specified
CPT/HCPCS: 36415; 81001; 83036; 85651; 86140

== ENCOUNTER → 2021-02-07 08:27 | Outpatient (CLI) | payer MEDICARE, SELFPAY ==
[2021-02-08 08:25] LABS: Fructosamine 300 umol/L (0-285)
== END ==
PROVIDERS: PCP Family Medicine; Referring Provider Orthopaedic Surgery; Visit Provider Orthopaedic Surgery
DX: R73.09 Other abnormal glucose (principal)
CPT/HCPCS: 36415; 82985

== ENCOUNTER → 2021-03-30 08:18 | Outpatient (CLI) | payer MEDICARE, SELFPAY ==
[2021-03-30 11:45] LABS: COVID19 -Nasal RAPID Negative (Negative)
== END ==
PROVIDERS: PCP Family Medicine; Visit Provider Physician Assistant
DX: Z01.812 Encounter for preprocedural laboratory examination (principal); Z20.822 Contact with and (suspected) exposure to COVID-19
CPT/HCPCS: 87635

== ENCOUNTER 2021-03-31 06:18 | Inpatient (IN) | payer MEDICARE, SELFPAY ==
[2021-03-27 07:28] VITALS: BMI 29.0
[2021-03-31] VITALS (15 sets, daily range): BP systolic 102–136; BP diastolic 62–80; PULSE 74–110; RESP 11–19; TEMP 35.8–37.1; O2SAT 96–100; BMI 29.0
--- NOTE | 2021-03-31 06:00 | DI.RAD.S_ITS ---
PROCEDURE: XR HIP W PEL IF DONE LT 2V INDICATIONS: left FABIEN TECHNIQUE: AP pelvis and lateral view of the left hip acquired. COMPARISON: [facility], [facility], XR HIP W PEL IF DONE LT 2V, 03/20/2018, 9:49. FINDINGS: Bones: Patient is status post left total hip arthroplasty, with hardware components in expected positions. The hip joint appears congruent. The visualized bony structures appear intact. Soft tissues: Overlying postoperative changes are noted. No suspicious soft tissue densities. IMPRESSION: Postop changes from left total hip arthroplasty with anatomic left hip alignment. Dictated by: Ortiz Rust M.D. on 03/31/2021 at 10:42 Approved by: Ortiz Rust M.D. on 03/31/2021 at 10:42
[2021-03-31] MEDS: LACTATED RINGERS 1,000 ML 42 ML IV ×3 (06:58→09:28)
[2021-03-31] MEDS: PREGABALIN 75 MG CAPSULE PO (07:08)
[2021-03-31] MEDS: ACETAMINOPHEN 325 MG TABLET 975 MG PO (07:08)
[2021-03-31] MEDS: VANCOMYCIN 1,000 MG/200 ML PIGGYBACK 200 MG IV ×2 (07:10→13:09)
[2021-03-31] MEDS: MIDAZOLAM 2 MG/2 ML VIAL IV (07:44)
--- NOTE | 2021-03-31 07:48 | P.OP_ITS ---
Operative Date/Time/Diagnoses Date of procedure: 03/31/21 Time of procedure: 08:05 Pre-op diagnosis: left hip OA Post-op diagnosis: same Procedure & Clinicians Procedure: Left total hip posterior approach Same procedure as scheduled: Yes Indications: The patient has had progressively worsening left hip pain with radiographic changes consistent with arthritis. Non-operative management has failed and the patient has requested total hip replacement. The risks, benefits and alternatives to surgery were discussed with the patient prior to proceeding. Risks discussed included, but were not limited to, failure to relieve pain, leg length discrepancy, dislocation, stiffness, infection, nerve damage, deep venous thrombosis, pulmonary embolism, stroke, coma, heart attack, permanent paralysis and , as well as the potential need for eventual revision of the prosthetic. Surgeon: Lamar Last Wireless Sales Associate: Benjamin Sterling Anesthesia Type: General and Spinal Operative Notes Findings: Severe left hip arthritis, adequate stability Closure Type: primary Specimen(s): none sent Prosthetic devices, grafts, tissues, transplants, or devices: Last and nephew size 12 anthology standard offset, 56 mm R3, 36 by- 3 head Applied: drain(s) Estimated Blood Loss (mL): 250 Procedure in detail: The patient was seen in the pre-operative area, where the patient identified the left hip as the operative site and this was marked with my initials. The patient received pre-operative antibiotics and was taken to the operating room and placed on the operative table in the right lateral decubitus position after satisfactory anesthesia. A multimedia instructional designer out was performed. The left leg was prepared from the ankle to the iliac crest with ChloroPrep in the usual fashion and draped through sterile drapes. The hip was approached through an approximately 20 cm incision centered over the greater trochanter and curving gently posteriorly as it went proximally. This was carried sharply to the fascia silver, which was divided and retracted with a self retaining retractor. The trochanteric bursa was excised with care being taken to avoid the sciatic nerve, which was identified and protected throughout the case. The short external rotators were incised and the capsulomuscular flap was raised and tagged for later repair. The hip was dislocated, and a femoral neck osteotomy performed approximately 15 mm above the lesser trochanter. Retractors were placed around the femur. The canal was opened with a box cutting osteotome, followed by a T handled reamer and a lateralizing reamer. The chili pepper broach was then used, followed by sequential broaching until there was good stability of the broach in the femur. Retractors were placed to expose the acetabulum. The labrum and central soft tissues were removed. Reaming was performed initially going up in 2 mm increments, then 1 mm increments until good bite was obtained with an odd sized reamer. The cup 1 mm larger than the last reamer was then inserted using the a ppropriate anteversion guides. A trial neutral liner was placed. The broach was placed in the canal. A trial head and neck were then placed and the hip relocated and checked for leg length and stability. An intraoperative film confirmed the component position and no evidence of fracture. The patient was stable in the position of sleep, of squatting, and could be put through a range of motion with 45 degrees internal rotation without dislocation. At 90 degrees flexion, internal rotation to 70 ? was possible before dislocation. This was felt to be satisfactory and the appropriate components were opened, and the trials were removed. The acetabular liner was impacted into position. The final stem was then impacted into the prepared femoral canal. A brief Betadine soak was performed while trialing with head options. The hip was meticulously irrigated with normal saline. Finally the femoral head was impacted onto the stem. The acetabulum was cleared of all material and the hip relocated one final time. The capsulomuscular flap was then repaired to the greater trochanter though an awl hole using the tag sutures. The short external rotators were repaired with a nonabsorbable suture. A deep drain was placed and brought out anteriorly. The fascia silver was closed with Vicryl. The subcutaneous layer was closed with barbed sutures and SteriStrips. An Aquacel Ag dressing was applied and the patient was taken to recovery having tolerated the procedure well. Complications: none Post-operative Condition: stable Disposition: Acute Care Plan for aftercare: The patient will be maintained on a standard total hip replacement protocol with weight bearing as tolerated and posterior hip precautions. The patient will receive Aspirin and sequential compression devices for DVT prophylaxis. The patient will be discharged home when safe for the home environment.
--- NOTE | 2021-03-31 07:48 | PM.PREOP ---
Pre-operative Note COVID-19 COVID-19 status: Negative Interval Note History & Physical reviewed/Exam performed by Physician: Yes Changes to H&P: No
--- NOTE | 2021-03-31 08:03 | DI.RAD.S_ITS ---
PROCEDURE: XR PELVIS 1-2V INDICATIONS: INTEROPERATIVE TOTAL LEFT HIP TECHNIQUE: Intra-operative view of the pelvis and hip acquired. COMPARISON: None. FINDINGS: Bones: Intraoperative devices prior to placement of arthroplasty prostheses are in expected positions. No fractures or suspicious bony lesions. Soft tissues: Overlying surgical retractors are present, along with other intraoperative changes. IMPRESSION: Normal alignment in preparation for placement of final components of left total hip arthroplasty. Dictated by: Wil Keenan M.D. on 03/31/2021 at 9:56 Approved by: Wil Keenan M.D. on 03/31/2021 at 9:56
[2021-03-31] MEDS: CEFAZOLIN 1 GM VIAL 2 GM IV (08:26)
--- NOTE | 2021-03-31 08:44 | SUR.OPER ---
Right Lateral on padded OR bed. Gel axillary roll. Arms secured on padded armboard with pillow supporting top arm. Padded hip positioner braces x4 - anterior and posterior chest and pelvis. Additional gel pad used anterior pelvis. Gel pad under bottom leg from knee to foot and secured with tape over sheet.
[2021-03-31] MEDS: BUPIVACAINE 0.25% W/ EPI 30 ML VIAL 60 ML INJ (08:51)
[2021-03-31] MEDS: EPINEPHrine 1 MG/ML IV (08:53)
[2021-03-31] MEDS: SODIUM CHLORIDE IRRIG SOLUTION 250 ML, POVIDONE-IODINE SPONGE STICKS 1 APPLIC IRR (08:54)
[2021-03-31] MEDS: BUPIVACAINE LIPOSOME 266 MG/20 ML VIAL INJ (09:30)
--- NOTE | 2021-03-31 11:20 | SUR.PHASEI ---
PACU: PATIENT IS A VERY PLEASANT GENTLEMAN. REPORT GIVEN TO BRIONNA FIGUEROA RN. ALL QUESTIONS ANSWERED TO SATISFACTION. PEDAL PULSES PALPABLE. SPINAL AND GENERAL ANESTHESIA. UNABLE TO WIGGLE TOES OR MOVE FEET. EMPTIED 70CC'S FROM HV THEN CLEANSED PORT WITH ALCOHOL WIPE AND RE-COMPRESSED. PATIENT TAKEN UP TO RM 221 BY EARL HERNANDEZ WITH ALL BELONGINGS AND PATIENT CHART.
[2021-03-31] MEDS: LACTATED RINGERS 1,000 ML 125 ML IV ×2 (11:55→22:36)
[2021-03-31] MEDS: AMPICILLIN 2,000 MG in SODIUM CHLORIDE 0.9% 100 ML 200 ML IV ×3 (11:55→22:40)
[2021-03-31] MEDS: HYDROMORPHONE 2 MG TABLET PO (13:08)
[2021-03-31] MEDS: IBUPROFEN 400 MG TABLET PO ×3 (13:08→20:50)
--- NOTE | 2021-03-31 14:05 | PT.IIE ---
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) Facet arthropathy, lumbar Generalized weakness Hearing loss Heart attack (2013) Hemorrhoids (~1994) Herniated nucleus pulposus, L3-4 left Lumbar radiculopathy Multilevel spinal stenosis On antibiotic therapy LUISA on CPAP Osteoarthritis Pneumonia (2013) Rosacea (2004) Shoulder pain (~1979) Splenic infarction Tinnitus Trigger finger (~1992) Type 2 diabetes mellitus Physical Therapy Inpatient Evaluation/Re-Eval M1 PT/OT-IP Prior Functional Status Start: 03/31/21 15:31 Freq: NEEDED Status: Active Protocol: Document 03/31/21 14:05 AB (Rec: 03/31/21 15:58 AB [id number]) Medical Review Prior Functional Status Medical History Reviewed Yes Communication able to make needs known Mobility and Gait pt stated that he is independent with all mobilities and ambulation without AD but has been using a SPC for the last 2 months due to hip pain Social History Household Members spouse Living Arrangements House Number of Floors (Floors) One Floor Number of Stairs To Enter/Railing? 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 M2 PT-IP Current Condition Start: 03/31/21 15:31 Freq: NEEDED Status: Active Protocol: Document 03/31/21 14:05 AB (Rec: 03/31/21 15:58 AB [id number]) Physical Therapy Current Condition Current Condition Evaluation Date 03/31/21 Treatment Diagnosis s/p L FABIEN posterior approach; difficulty in walking Onset Date 08/17/21 Precautions Posterior Hip Precautions No Hip Flexion > 90 degrees,No Hip Internal Rotation,No Hip Adduction Weight Bearing Status Weight Bearing Status Weight Bear as Tolerated Allowed Weight Bearing Amount (enter % LLE WBAT or #) (%) M3 PT-IP Subjective Start: 03/31/21 15:31 Freq: NEEDED Status: Active Protocol: Document 03/31/21 14:05 AB (Rec: 03/31/21 15:58 AB [id number]) Subjective Physical Therapy Visit Type Type Initial Evaluation Visit Start Time 14:05 Visit Stop Time 14:55 Total Visit Minutes 50 Number of RESEARCH AND DEVELOPMENT MANAGER Visits 0 Physical Therapy Visit Comments Patient Comments agreeable to do PT Therapy Pain Assessment Pain When Pain Assessed At Rest Pain Present Pain Present Pain Reported Location Left Hip Intensity 10 Scale Used Numeric (0 - 10) Pain Management Techniques Apply Cold,Modification of Treatment,Re-positioning, Timing of Activity with Medications M4 PT-IP Mobility and Gait Start: 03/31/21 15:31 Freq: NEEDED Status: Active Protocol: Document 03/31/21 14:05 AB (Rec: 03/31/21 15:58 AB [id number]) PT-Bed Mobility Assessment Supine to Sit Supine to Sit Maximum Assistance Scooting Scooting to Edge of Bed Maximum Assistance PT-Transfer Assessment Sit to and From Stand Sit to and from Stand Moderate Assistance,1 Person Assistance,Use of Upper Extremities Equipment Transfer Assistive Device Gait Belt,Front Wheeled Walker Orthotic/Prosthetic Devices or Brace: No Transfers Transfer Destination Chair Transfer Technique ambulated using FWW Transfer Ability Level of Assist Moderate Assistance,1 Person Assistance,Use of Upper Extremities Comments Mobility Comments educated pt on L hip posterior precautions. pt requires cues to recall. spouse in room with pt and stated that she had hip replacement before and will be able to assist pt . BP in supine: 124/73. pt completed supine to sit max A and max cues. pt was able to sit on EOB SBA after assisted to scoot to EOB max A. pt completed sit to stand mod A and max cues for hip precaution. pt stated that he needs to use the toilet. assisted with urinal use. pt was able to maintain standing using FWW mod A for balance . pt was able to ambulate ~ 12 ft to the chair using fWW mod A and max cues. required mod A for controlled descent to chair with max cues for hip precaution. pt presents with slow reaction time when instructed. pt agreed to sit up on chair. positioned on chair. call light and table placed within reach. Left pt with spouse in room. Gait Assessment Gait Gait Assistance Required: Moderate Assistance,1 Person Assist Distance (Feet) 12 Able to Maintain Weight Bearing Status No During Gait Assistive Devices Assistive Device Gait Belt,Front Wheeled Walker Gait Deviations General Gait Pattern Antalgic,Decreased Stride Length,Decreased Feet Clearance,Step-to Gait Factors Limiting Gait Function Factors Limiting Gait Function Decreased Activity Tolerance, Decreased Strength,Difficulty Following Directions,Limited Range of Motion,Pain,Poor Balance,Poor Safety Awareness PT-Balance Assessment Sitting Balance and Reactions Static Sitting Balance Ability Good Dynamic Sitting Balance Ability Fair Standing Balance and Reactions Static Standing Balance Ability Fair Dynamic Standing Balance Ability Fair Device Used FWW M5 PT-IP Objective Assessments Start: 03/31/21 15:31 Freq: NEEDED Status: Active Protocol: Document 03/31/21 14:05 AB (Rec: 03/31/21 15:58 AB [id number]) Orientation Orientation/Cognition Level of Alertness Alert Orientation Name,Place,Situation Safety Awareness Decreased Safety Awareness Memory Description Short Term Impaired Gross Range of Motion Lower Extremity ROM Assessment Within Functional Limits Strength Lower Extremity Strength Assessment Left Impaired Hip 3+/5 Knee 4-/5 Sensation Assessment Sensation Gross Sensation WNL Muscle Tone Muscle Tone WNL Yes M6 PT-IP Treatment Start: 03/31/21 15:31 Freq: NEEDED Status: Active Protocol: Document 03/31/21 14:05 AB (Rec: 03/31/21 15:58 AB [id number]) Physical Therapy Treatment Exercises Exercises Heel Slides Education Education Provided Precautions,Weight Bearing Status,Post-Op Packet,Safety M7 PT-IP Assessment and Plan Start: 03/31/21 15:31 Freq: NEEDED Status: Active Protocol: Document 03/31/21 14:05 AB (Rec: 03/31/21 15:58 AB [id number]) PT Summary Assessment and Plan Potential Rehabilitation Potential Good Status of Condition at Evaluation Evolving Summary Impairments Pain,ROM,Strength,Balance, Coordination,Sensation,Tone, Cognition,Bed Mobility, Transfers,Gait,Activity Tolerance Assessment Summary pt s/p L FABIEN posterior approach POD 0 . pt requiring mod A for ambulation using FWW and max A for bed mobility . pt will likely progress with mobility during hospital stay and will have his spouse to assist him at home. will conduct caregiver training when appropriate as well as stair climbing training. Goals Bed Mobility Goal Standby Assistance Transfer Goal Standby Assistance,Front Wheeled Walker Gait Goal Standby Assistance,Front Wheel Walker Gait Distance 150 Other Goals up/down 2 steps R rail ascending SBA Days to Meet Goals 5 Frequency of Treatment Frequency Of Treatment Twice a Day Treatment Plan Physical Therapy Treatment Plan Bed Mobility Training,Transfer Training,Gait Training, Therapeutic Exercise,Balance Retraining,Post Op Education, Discharge Planning,Hot or Cold Pack,Neuromuscular Re-ed, Coordination Retraining,Manual Therapy Other Recommendations and Next Treatment caregiver training; bed Focus mobility, ambulation, stair climbing Precautions Posterior Hip Precautions No Hip Flexion > 90 degrees,No Hip Internal Rotation,No Hip Adduction Recommendations To Nursing Amount of Assist Needed 1 Person Assist Discharge Recommendations PT Discharge Recommendations Home with Assistance, Outpatient PT Transportation Needs at Discharge Private Vehicle
[2021-03-31] MEDS: OXYCODONE IR 5 MG TABLET 10 MG PO ×2 (14:26→19:40)
[2021-03-31] MEDS: ACETAMINOPHEN 325 MG TABLET 650 MG PO ×2 (14:26→20:48)
--- NOTE | 2021-03-31 14:42 | PM.HP.1 ---
History of Present Illness History of Present Illness Date Patient Seen: 03/31/21 Chief complaint: OPB Narrative: 75-year-old male admitted to the hospital for an elective inpatient procedure for C severe left hip osteoarthritis. Patient has a history of significant arthritis diabetes hyperlipidemia hypertension degenerative disc disease aortic valve replacement with complications with chronic bacterial endocarditis aortic aneurysm small size without rupture congestive heart failure. Patient's surgical procedure notes which were reviewed. It looks like surgery was uncomplicated. Visited with the patient this afternoon. He says he started to eat. He is actually sitting up in a chair he is took a few steps. He says his pain is 4/10. He is anticipating going home tomorrow. His blood pressure stable. He is not having problems with breathing no chest pain lightheaded and dizziness. Patient History Medical History (Updated 03/27/21 @ 10:49 by Asha Perdomo RN) Anxiety (1994) Aortic aneurysm Aortic stenosis (2013) Colon polyps (2014) CTS (carpal tunnel syndrome) (~1992) 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) Facet arthropathy, lumbar Generalized weakness Hearing loss Heart attack (2013) Hemorrhoids (~1994) Herniated nucleus pulposus, L3-4 left Lumbar radiculopathy Multilevel spinal stenosis On antibiotic therapy LUISA on CPAP Osteoarthritis Pneumonia (2013) Rosacea (2004) Shoulder pain (~1979) Splenic infarction Tinnitus Trigger finger (~1992) Type 2 diabetes mellitus Surgical History (Updated 03/27/21 @ 09:24 by Asha Perdomo RN) Anesthesia H/O aortic valve replacement with porcine valve History of aortic valve replacement (2013) History of hand surgery (~1991) History of hand surgery (~1994) History of quadruple bypass (2013) History of shoulder surgery (~1984) History of tonsillectomy (1950) History of vasectomy Hx of bilateral cataract extraction Family & Social History Family History Father Heart disease Mother High cholesterol Mental health problem Stroke Dementia Social History: household members spouse Prior Living Arrangements House Safety & Behavioral: Feels Safe in Current Yes Environment Been Physically Hurt or No Threatened By a Person Suicidal Ideation Description None Suicide Plan Description No Plan Tobacco & Substance use: Smoking Status Former smoker alcohol intake current alcohol intake frequency a few times a month Substance Use Type does not use Meds Home Medications and Allergies Home Medications Medication Instructions Recorded Confirmed Type atorvastatin 20 mg tablet (Lipitor) 20 mg PO QDAY #0 07/31/17 03/31/21 History Glucosamine Sulf-Chondroitin 1 tab PO DAILY 03/23/18 03/27/21 History amlodipine 5 mg tablet 5 mg PO DAILY #30 tab 03/23/18 03/31/21 Rx aspirin 81 mg tablet,delayed 81 mg PO BID 03/23/18 03/31/21 History release amoxicillin 500 mg capsule 500 mg PO BID 03/11/20 03/31/21 History ascorbic acid (vitamin C) 1,000 mg 1 gram PO DAILY tab 03/11/20 03/31/21 History tablet cholecalciferol (vitamin D3) 50 50 mcg PO DAILY 03/11/20 03/27/21 History mcg (2,000 unit) capsule [id number] 400 mcg-C 1,000 1 each PO DAILY 03/11/20 03/27/21 History mg-glut-carmenza 50 mg-cla385 oral powd packet buspirone 7.5 mg tablet 7.5 mg PO BID #180 tab 04/17/20 03/31/21 Rx lisinopril 10 mg tablet 10 mg PO DAILY tab 09/17/20 03/27/21 History gabapentin 600 mg tablet 600 mg PO .COMPLEX #270 tab 11/10/20 03/27/21 Rx celecoxib 200 mg capsule See Rx Instructions .ROUTE 12/05/20 03/31/21 Rx .COMPLEX #90 cap metformin 500 mg tablet 1,000 mg PO BID #360 tab 02/02/21 03/27/21 Rx tramadol 50 mg tablet 50 mg PO TID PRN #30 tab 02/17/21 03/27/21 Rx one touch ultra 2 glucometer #1 ea 03/06/21 03/31/21 Rx one tough ultra 2 glucometer test #100 ea 03/10/21 03/31/21 Rx strips alprazolam 0.5 mg tablet See Rx Instructions .ROUTE 03/18/21 03/31/21 Rx .COMPLEX #30 tab Allergies Allergy/AdvReac Type Severity Reaction Status Date / Time gentamicin [GENTAMICIN] Allergy Severe kidney Verified 12/18/20 14:42 failure Exam Vital Signs (past 8 hours): - 03/31/21 06:51 03/31/21 07:12 03/31/21 10:16 Temperature 96.4 F L 96.4 F L 98.8 F Pulse Rate 84 84 99 H Respiratory Rate 12 18 18 Blood Pressure 136/80 136/80 107/70 Pulse Oximetry 99 99 97 03/31/21 10:21 03/31/21 10:26 03/31/21 10:31 Temperature Pulse Rate 110 H 105 H 100 H Respiratory Rate 12 12 11 L Blood Pressure 111/74 108/72 111/75 Pulse Oximetry 99 98 96 03/31/21 10:46 03/31/21 11:01 03/31/21 11:54 Temperature 98.2 F 97.1 F L Pulse Rate 95 H 93 H 88 Respiratory Rate 15 16 16 Blood Pressure 105/69 109/66 124/74 Pulse Oximetry 96 96 97 03/31/21 12:26 03/31/21 12:44 03/31/21 13:53 Temperature 97.1 F L 97.0 F L 97.3 F L Pulse Rate 88 95 H 88 Respiratory Rate 17 16 16 Blood Pressure 121/76 120/70 121/77 Pulse Oximetry 96 96 96 Oxygen Delivery Method Room Air Oxygen Flow Rate 0 Narrative Exam Narrative: Gen.: Alert good historian HEENT: Pupils equal round and reactive or mucosa is moist neck is supple Cardio: S1-S2 regular rate and rhythm no murmurs appreciated. Respiratory: Lungs are clear to auscultation no wheezes or crackles normal respiratory effort. Abdomen: Soft nontender no rebound or guarding no liver spleen enlargement no appreciable hernias Extremities: Warm dry perfused Neurologic: Grossly intact. Assessment & Plan Assessment & Plan narrative: Severe left hip osteoarthritis status post left total hip posterior approach surgery. Surgical notes state uncomplicated procedure. Patient is recovering well. Surgical care per Orthopedics. Patient has a complicated cardiac history with coronary artery disease heart valve replacement which was complicated with the osteomyelitis and valve infection he is on chronic antibiotic suppression he also has a history of congestive heart failure. Plan at this point will be continue antibiotics as recommended by his orthopedic surgeon. Monitor closely his fluid intake and output prevent heart failure exacerbation he will be continued on current cardiac medications such as amlodipine atorvastatin lisinopril. For his subacute bacterial endocarditis he will be continued on antibiotics ampicillin IV 1000 mg q.6 hours once he starting oral he did go back on his amoxicillin 500 mg twice a day. Will monitor closely is blood pressure and he will continue on lisinopril and amlodipine. Diabetes type 2 patient with type 2 diabetes. He will be started on his home mother late occasion for his blood sugars with metformin. He will blood glucose monitoring mice here in the hospital would try to keep his blood sugars under 200. Degenerative disc disease of lumbar spine. Ambulate with physical therapy once able to with his hip replacement Obstructive sleep apnea patient uses CPAP at home. Certainly can use his home CPAP machine if needed.
[2021-03-31] MEDS: ASPIRIN EC 81 MG TABLET PO (20:49)
[2021-03-31] MEDS: BUSPIRONE 5 MG TABLET 7.5 MG PO (20:49)
[2021-03-31] MEDS: METFORMIN HCL 500 MG TABLET 1000 MG PO (20:49)
[2021-03-31] MEDS: DOCUSATE 100 MG CAPSULE PO (20:50)
[2021-04-01] MEDS: IBUPROFEN 400 MG TABLET PO ×3 (00:30→08:58)
[2021-04-01] MEDS: OXYCODONE IR 5 MG TABLET 10 MG PO ×3 (00:30→11:22)
[2021-04-01 00:45] VITALS: BP 98/62; PULSE 87; RESP 16; TEMP 35.8; O2SAT 97
[2021-04-01 02:22] VITALS: BP 110/71; PULSE 73
[2021-04-01 04:56] LABS: Hematocrit 33.1 % (41-53); Hemoglobin 11.3 g/dL (13.5-17.5)
[2021-04-01] MEDS: AMPICILLIN 2,000 MG in SODIUM CHLORIDE 0.9% 100 ML 200 ML IV (05:18)
[2021-04-01] MEDS: OXYCODONE IR 5 MG TABLET PO (05:18)
[2021-04-01 05:25] VITALS: BP 107/67; PULSE 81; RESP 16; TEMP 35.9; O2SAT 98
[2021-04-01 08:00] VITALS: BP 113/66; PULSE 83; RESP 15; TEMP 36.7; O2SAT 98
--- NOTE | 2021-04-01 08:23 | PM.DS.1 ---
History of Present Illness History of Present Illness Date Patient Seen: 04/01/21 Time Patient Seen: 08:24 Chief complaint: Hip pain Narrative: Patient states his pain is mild. Denies fever or chills. No nausea or vomiting. Discharge Providers Provider Date of admission: 03/31/21 06:18 Discharge Date: 04/01/21 Primary care physician: Orion Cisse MD Consults: 03/31/21 06:00 Consult to Anesthesiology Routine Comment: Consulting Provider: Anesthesiologist Reason for consultation: Regional block for post operative pain control 03/31/21 11:25 Consult to Discharge Planning Routine Comment: Consult to Physical Therapy Evaluate & Treat Comment: Physician Instructions: post op FABIEN protocol Consult to Respiratory Therapy Evaluate & Treat Comment: Physician Instructions: Evaluate and treat Discharge provider: Benjamin Sterling PA-C Summary Hospital Course Discharge Diagnosis: Left hip OA Hospital Course: Procedure: Left total hip posterior approach Same procedure as scheduled: Yes Indications: The patient has had progressively worsening left hip pain with radiographic changes consistent with arthritis. Non-operative management has failed and the patient has requested total hip replacement. The risks, benefits and alternatives to surgery were discussed with the patient prior to proceeding. Risks discussed included, but were not limited to, failure to relieve pain, leg length discrepancy, dislocation, stiffness, infection, nerve damage, deep venous thrombosis, pulmonary embolism, stroke, coma, heart attack, permanent paralysis and , as well as the potential need for eventual revision of the prosthetic. Surgeon: Lamar Last Consulting Engineer: Bejnamin Sterling Anesthesia Type: General and Spinal Operative Notes Findings: Severe left hip arthritis, adequate stability Closure Type: primary Specimen(s): none sent Prosthetic devices, grafts, tissues, transplants, or devices: Last and nephew size 12 anthology standard offset, 56 mm R3, 36 by- 3 head Applied: drain(s) Estimated Blood Loss (mL): 250 Patient taken to the operating room for left hip total hip arthroplasty posterior approach March 31, 2021. Patient back in his room recovering well as in stable condition. Discharge home today in stable condition. Exam Vital Signs (past 8 hours): - 04/01/21 00:45 04/01/21 02:22 04/01/21 05:25 Temperature 96.4 F L 96.6 F L Pulse Rate 87 73 81 Respiratory Rate 16 16 Blood Pressure 98/62 110/71 107/67 Pulse Oximetry 97 98 Oxygen Delivery Method Room Air Oxygen Flow Rate 0 Narrative Exam Narrative: Pleasant resting comfortably in bed in no apparent distress. Dressing is Clean, dry, intact.. Neurovascular status is intact bilateral lower extremities. Objective Labs Result Diagrams: 04/01/21 04:35 Labs: Laboratory Results - last 24 hr 04/01/21 04:35 Hgb 11.3 L Hct 33.1 L PFSH Medical History (Updated 03/27/21 @ 10:49 by Asha Perdomo RN) Anxiety (1994) Aortic aneurysm Aortic stenosis (2013) Colon polyps (2014) CTS (carpal tunnel syndrome) (~1992) 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) Facet arthropathy, lumbar Generalized weakness Hearing loss Heart attack (2013) Hemorrhoids (~1994) Herniated nucleus pulposus, L3-4 left Lumbar radiculopathy Multilevel spinal stenosis On antibiotic therapy LUISA on CPAP Osteoarthritis Pneumonia (2013) Rosacea (2004) Shoulder pain (~1979) Splenic infarction Tinnitus Trigger finger (~1992) Type 2 diabetes mellitus Surgical History (Updated 03/27/21 @ 09:24 by Asha Perdomo RN) Anesthesia H/O aortic valve replacement with porcine valve History of aortic valve replacement (2013) History of hand surgery (~1991) History of hand surgery (~1994) History of quadruple bypass (2013) History of shoulder surgery (~1984) History of tonsillectomy (1950) History of vasectomy Hx of bilateral cataract extraction Family History Father Heart disease Mother High cholesterol Mental health problem Stroke Dementia Social History marital status: household members: spouse Smoking Status: Former smoker alcohol intake: current substance use type: does not use Discharge Assessment & Plan Assessment and Plan Assessment: Progressing as expected status post left total hip arthroplasty. Posterior approach. Plan of Treatment: Discharge home today after physical therapy if safe for home environment. Discharge Plan Discharge Plan Patient Disposition: Home Discharge orders & Medications Prescriptions: New acetaminophen 325 mg Tablet 650 mg PO TID Qty: 60 RF: 0 polyethylene glycol 3350 17 gram Powder In Packet 17 gm PO DAILY PRN (Reason: Constipation) Qty: 10 RF: 0 oxycodone 5 mg Tablet 5 mg PO Q3HR PRN (Reason: Pain, Moderate (4-6)) Qty: 60 RF: 0 Continued amoxicillin 500 mg capsule 500 mg PO BID RF: 0 cholecalciferol (vitamin D3) 50 mcg (2,000 unit) capsule 50 mcg PO DAILY RF: 0 [id number] 400-1,000-50 mcg-mg-mg powder in packet 1 each PO DAILY RF: 0 ascorbic acid (vitamin C) 1,000 mg tablet 1 gram PO DAILY RF: 0 atorvastatin [Lipitor] 20 MG tablet 20 mg PO QDAY Qty: 0 RF: 0 buspirone 7.5 mg tablet 7.5 mg PO BID Qty: 180 RF: 3 celecoxib 200 mg capsule See Rx Instructions .ROUTE .COMPLEX Qty: 90 RF: 1 Hold Instructions: Home Medication placed on hold at Doctor's office metformin 500 mg tablet 1,000 mg PO BID Qty: 360 RF: 3 (DME) one touch ultra 2 glucometer See Rx Instructions .Route .MEDSUPPLY Qty: 1 RF: 0 (DME) one tough ultra 2 glucometer test strips See Rx Instructions .Route .MEDSUPPLY Qty: 100 RF: 3 alprazolam 0.5 mg tablet See Rx Instructions .ROUTE .COMPLEX Qty: 30 RF: 0 aspirin 81 mg Tablet,Delayed Release (Dr/Ec) 81 mg PO BID RF: 0 Glucosamine Sulf-Chondroitin 1 tab PO DAILY RF: 0 amlodipine 5 mg tablet 5 mg PO DAILY Qty: 30 RF: 0 lisinopril 10 mg tablet 10 mg PO DAILY RF: 0 gabapentin 600 mg tablet 600 mg PO .COMPLEX Qty: 270 RF: 2 Discontinued tramadol 50 mg tablet 50 mg PO TID PRN (Reason: pain) Qty: 30 RF: 1 Follow up/Referrals: Orion Cisse MD [Primary Care Provider] - Lamar Last MD [Physician] - (2 weeks) Diet/Activity/Treatments Diet: Carb-consistent/Diabetic Activity: Weight-bearing as tolerated, posterior hip precautions Cold/Heat Therapy: Ice to hip as needed Skin/Wound/Dressing Care Report to your healthcare provider any signs of infection, such as:: chills, fever, increased pain, unusual drainage and unusual redness Dressing: Keep dressing clean and dry Visit Report/Discharge Packet Instructions: DI for Hip Replacement, DI for Prescription Opioid Use Stand Alone Forms: Surgery Discharge Discharge Data Primary Care Provider: Orion Cisse
[2021-04-01 08:25] VITALS: O2SAT 98
[2021-04-01] MEDS: ACETAMINOPHEN 325 MG TABLET 650 MG PO (08:56)
[2021-04-01] MEDS: MULTIVITAMIN 1 TABLET 1 TAB PO (08:57)
[2021-04-01] MEDS: ASPIRIN EC 81 MG TABLET PO (08:57)
[2021-04-01] MEDS: METFORMIN HCL 500 MG TABLET 1000 MG PO (08:57)
[2021-04-01] MEDS: BUSPIRONE 5 MG TABLET 7.5 MG PO (08:57)
[2021-04-01] MEDS: ASCORBIC ACID 500 MG TABLET 1000 MG PO (08:58)
[2021-04-01] MEDS: DOCUSATE 100 MG CAPSULE PO (08:58)
[2021-04-01] MEDS: ATORVASTATIN 20 MG TABLET PO (09:04)
[2021-04-01] MEDS: CHOLECALCIFEROL (VITAMIN D3) 1,000 UNIT TABLET 1000 UNIT PO (09:04)
[2021-04-01 09:06] VITALS: BP 96/48; PULSE 83
--- NOTE | 2021-04-01 10:02 | PT.IPTN ---
Current Diagnoses Unilateral primary osteoarthritis, left hip (03/31/21) Surgery Performed Operation Date: 03/31/21 07:45 Actual Procedures p Total Hip Arthroplasty(Left) - Lamar Last MD Physical Therapy Treatment Note M2 PT-IP Current Condition Start: 03/31/21 15:31 Freq: NEEDED Status: Active Protocol: Document 03/31/21 14:05 AB (Rec: 03/31/21 15:58 AB [id number]) Physical Therapy Current Condition Current Condition Evaluation Date 03/31/21 Treatment Diagnosis s/p L FABIEN posterior approach; difficulty in walking Onset Date 03/31/21 Precautions Posterior Hip Precautions No Hip Flexion > 90 degrees,No Hip Internal Rotation,No Hip Adduction Weight Bearing Status Weight Bearing Status Weight Bear as Tolerated Allowed Weight Bearing Amount (enter % LLE WBAT or #) (%) M3 PT-IP Subjective Start: 03/31/21 15:31 Freq: NEEDED Status: Active Protocol: Document 04/01/21 09:05 SP (Rec: 04/01/21 12:07 SP [id number]) Subjective Physical Therapy Visit Type Type Treatment Note Visit Start Time 09:05 Visit Stop Time 10:02 Total Visit Minutes 57 Notes completed caregiver training, she donned gait belt and provided all assist required throughout tx. Number of SYSTEMS DESIGN ENGINEER Visits 1 Physical Therapy Visit Comments Patient Comments agreeable to do PT Patient Goals return home with to assist him. Therapy Pain Assessment Pain When Pain Assessed At Rest Pain Present Pain Present Pain Reported Location Left Hip Intensity 6 Scale Used 6.5/10 during gait, 8/10 during bed mobility Description With Movement Pain Behaviors Facial Grimacing,Restlessness, Wincing Pain Management Techniques Apply Cold,Distraction,Re- positioning,Timing of Activity with Medications M4 PT-IP Mobility and Gait Start: 03/31/21 15:31 Freq: NEEDED Status: Active Protocol: Document 04/01/21 09:05 SP (Rec: 04/01/21 12:07 SP [id number]) PT-Bed Mobility Assessment Supine to Sit Supine to Sit Minimal Assistance,1 Person Assistance Sit to Supine Sit to Supine Standby Assistance,1 Person Assistance Scooting Scooting to Edge of Bed Standby Assistance PT-Transfer Assessment Sit to and From Stand Sit to and from Stand Contact Guard Assistance,1 Person Assistance,Use of Upper Extremities Equipment Transfer Assistive Device Gait Belt,Front Wheeled Walker Orthotic/Prosthetic Devices or Brace: No Transfers Transfer Destination Bed,Chair,Wheelchair Transfer Technique ambulated using FWW Transfer Ability Level of Assist Contact Guard Assistance,1 Person Assistance,Use of Upper Extremities Comments Mobility Comments Pt completed supine>sit Min A by while using gait belt on LLE, sit>supine CGA with use of gait belt. When in supine reviewed post op ex: AP , HS using strap on LLE, glut and quad sets with some pain but ok. Sit>stand CGA using FWW, occasional cues for proper hand placement by SYSTEMS DESIGN ENGINEER then carried over by . Pt is cautious/ nervous of faling, requires extra time throughout mobiltiyu due to pain and lack of strength. Pt was able to walk further into hallway using FWW CGA w/ wc follow 60 ft then rest in w/c required due to lack of strength. Wheeled pt to stairs . Pt sit>stand CGA, ascended 3 stairs using LHR and SPC in RUE, CGA by step to patterning then walked distance to room wc follow but not needed, 2 stop stand brief rests for tiring recovery, stable. Pt returned to bed to allow nursing to remove drain. Pt was supine in bed with in room with all needs in reach when left. Gait Assessment Gait Gait Assistance Required: Contact Guard Assist,1 Person Assist Distance (Feet) 220 Able to Maintain Weight Bearing Status No During Gait Assistive Devices Assistive Device Gait Belt,Front Wheeled Walker Orthotic/Prosthetic Devices or Brace: No Gait Deviations General Gait Pattern Antalgic,Decreased Stride Length,Decreased Feet Clearance,Step-to Gait Factors Limiting Gait Function Factors Limiting Gait Function Decreased Activity Tolerance, Decreased Strength,Limited Range of Motion,Pain,Poor Balance,Poor Safety Awareness Comments Gait Comments Pt ambulated in room step to patterning using FWW, able to progress receiprocal stepping further distance into hallway CGA with cuing for heel toe, R trunk lean to midline and equal WB into LLE with w/c follow 60 ft then rest, full distance back from stairs 220ft. Stair Climbing Assessment Evaluation Level of Assist On Stairs Contact Guard Assistance,1 Person Assistance Devices Stair Climbing Assistive Devices Straight Cane,Left Railing Technique/Endurance Stair Climbing Direction Ascend and Descend Stair Climbing Technique Step to Step Number of Steps Climbed 3 Stair Climbing Set # Repetitions (reps) 1 Comments Stair Climbing Comments step to patterning, occasional cuing for patterning SPC and proper stepping by , CGA ascend/descend 3 stairs. PT-Balance Assessment Sitting Balance and Reactions Static Sitting Balance Ability Normal Dynamic Sitting Balance Ability Good Standing Balance and Reactions Static Standing Balance Ability Fair Dynamic Standing Balance Ability Fair Device Used FWW M5 PT-IP Objective Assessments Start: 03/31/21 15:31 Freq: NEEDED Status: Active Protocol: Document 03/31/21 14:05 AB (Rec: 03/31/21 15:58 AB [id number]) Orientation Orientation/Cognition Level of Alertness Alert Orientation Name,Place,Situation Safety Awareness Decreased Safety Awareness Memory Description Short Term Impaired Gross Range of Motion Lower Extremity ROM Assessment Within Functional Limits Strength Lower Extremity Strength Assessment Left Impaired Hip 3+/5 Knee 4-/5 Sensation Assessment Sensation Gross Sensation WNL Muscle Tone Muscle Tone WNL Yes M6 PT-IP Treatment Start: 03/31/21 15:31 Freq: NEEDED Status: Active Protocol: Document 04/01/21 09:05 SP (Rec: 04/01/21 12:07 SP [id number]) Physical Therapy Treatment Exercises Exercises Ankle Pumps,Gluteal Sets,Quad Sets,Heel Slides,Supine Hip Abduction,Seated Knee Flexion/ Extension Knee ROM Measurement 80 deg Education Education Provided Precautions,Weight Bearing Status,Post-Op Packet,Safety M7 PT-IP Assessment and Plan Start: 03/31/21 15:31 Freq: NEEDED Status: Active Protocol: Document 04/01/21 09:05 SP (Rec: 04/01/21 12:07 SP [id number]) PT Summary Assessment and Plan Potential Rehabilitation Potential Good Status of Condition at Evaluation Evolving Summary Impairments Pain,ROM,Strength,Balance, Coordination,Sensation,Tone, Cognition,Bed Mobility, Transfers,Gait,Activity Tolerance Progress Towards Goals Progressing Toward Goals,Slow Progress due to Pain,Slow Progress due to Activity Tolerance Assessment Summary Pt required Min A w/ Bed mob, CGA rest of mobility in standing using FWW, completed cargiver training and stair mgt with success. Pt is ok to return home with to assist him 07/03 due to decreased L knee stability in standing for safety when medically stable. He is set up with outpt therapy. Goals Bed Mobility Goal Standby Assistance Transfer Goal Standby Assistance,Front Wheeled Walker Gait Goal Standby Assistance,Front Wheel Walker Gait Distance 150 Other Goals up/down 2 steps R rail ascending SBA Days to Meet Goals 5 Frequency of Treatment Frequency Of Treatment Twice a Day Treatment Plan Physical Therapy Treatment Plan Bed Mobility Training,Transfer Training,Gait Training, Therapeutic Exercise,Balance Retraining,Post Op Education, Discharge Planning,Hot or Cold Pack,Neuromuscular Re-ed, Coordination Retraining,Manual Therapy Other Recommendations and Next Treatment bed mob, gait further distance Focus Precautions Posterior Hip Precautions No Hip Flexion > 90 degrees,No Hip Internal Rotation,No Hip Adduction Other Precautions Good recall 3/3 hip precautions Recommendations To Nursing Amount of Assist Needed 1 Person Assist Discharge Recommendations PT Discharge Recommendations Home with Assistance, Outpatient PT Transportation Needs at Discharge Private Vehicle
[2021-04-01] MEDS: HYDROMORPHONE 2 MG TABLET PO (10:03)
--- NOTE | 2021-04-01 10:54 | CM.DANOTE ---
DCP: Case received, EMR reviewed and met with patient. , Melissa, was also at bedside. Introduced self and role. Was able to obtain information regarding patient's baseline activity status prior to his surgery. DCP assessment completed with information currently available. Patient is a 75 year old male who admitted yesterday morning to the care of the surgical team. PCP: Dr. Cisse./Ortho: Dr. Last. Payer: Medicare/[employer]ARP. Patient came to the hospital via private vehicle for a surgical procedure. He had left total hip surgery. Patient has history of osteoarthritis of his left hip. Met with patient in his room. He has already worked with [facility] was also present in the room. He is alert and oriented, pleasant. He and his reside in [place]. Patient is independent at his baseline, but due to his chronic hip pain, he has a cane and walker for home use. 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 Prior to this, he used to work for [email or web address]. He had at one time going for [employer] at cardio-rehab here at the hospital until COVID. Patient has history cardiac surgery, and had been at [facility] in Jul. indicated, when he went home, she had to help him with his home IV antibiotics, for he developed an infection. Patient wants to be active, and has no thought about retiring. He has a physical therapist named Beatrice, who does private visits in the home, her company is [employer]. They plan on having her come to the house. Him and his both joined [employer] as well. P: Patient has discharge orders for home today. Janette Triana RN/Gore Seamer
--- NOTE | 2021-04-01 12:14 | PC.NURSE ---
Pt received A&Ox3, pleasant. Pt c/o 7/10 pain to L hip. VSS, afebrile on RA. slightly hypotensive on getting up to chair 90' /40's. A.m. antihypertensives held. Pt medicated per request with 10mg oxycodone for increased pain level and prior to PT. Pt tolerated PT well and to BR with Contact Guard Assist. Pt's drain removed with scant output prior to removal. Aquacel dressing C/D/I. present at bedside for therapy and patient completing stairs. Upon BP recheck while BP 120's/70's. Pt reports pain increasing back to 710, medicated with prn 2mg hydromorphone per request with good effect. Pt acknowledges discharge plan and verbalizes understanding of follow up appointments, incision site care, medications, activity restrictions, and signs of infection worsening of symptoms. Pt pre-medicated for transport home with 10mg oxycodone. He is escorted by BILINGUAL RECEPTIONIST via w/c with FWW, all of belongings to private vehicle with . Medications escribed to [facility], provided education about medications and side effects.
== END 2021-04-01 11:35 | disposition home or self-care (01) | DRG 469 ==
LOC: OR 06:24 → AC 06:24
PROVIDERS: Admitting Provider Orthopaedic Surgery; PCP Family Medicine; Referring Provider Family Medicine; Visit Provider Orthopaedic Surgery
PROC: 0SRB0JZ Replacement of Left Hip Joint with Synthetic Substitute, Open Approach (ICD-10-PCS; CPT 27130; principal; 2021-03-31 07:45)
DX: M16.12 Unilateral primary osteoarthritis, left hip (principal); I33.0 Acute and subacute infective endocarditis; M86.9 Osteomyelitis, unspecified; I25.10 Atherosclerotic heart disease of native coronary artery without angina pectoris; G47.33 Obstructive sleep apnea (adult) (pediatric); E11.9 Type 2 diabetes mellitus without complications; Z79.84 Long term (current) use of oral hypoglycemic drugs; F41.9 Anxiety disorder, unspecified; I10 Essential (primary) hypertension; Z95.2 Presence of prosthetic heart valve; Z95.1 Presence of aortocoronary bypass graft; Z87.891 Personal history of nicotine dependence; Z20.822 Contact with and (suspected) exposure to COVID-19
CPT/HCPCS: 36415; 72170; 73502; 82962; 85014; 85018; 87635; 93005; 93010; 94762; 97110; 97116; 97162; 97530; C1776; C9803; C9290; J0171; J0290; J0690; J2250; J2704; J3010

== ENCOUNTER → 2021-04-15 11:38 | Outpatient (CLI) | payer MEDICARE, SELFPAY ==
[2021-03-31 11:28] VITALS: BMI 29.0
--- NOTE | 2021-04-15 | DI.US.S_ITS ---
PROCEDURE: US PERIPH VENOUS LOW EXTREM LT INDICATIONS: R/O DVT TECHNIQUE: Real-time imaging, as well as color and pulse Doppler interrogation, were performed of the lower extremity deep veins from the inguinal ligament to the popliteal fossa. COMPARISON: None. FINDINGS: The common femoral, femoral and popliteal veins are normally compressible, and free of intraluminal thrombus. Color and pulse Doppler demonstrate normal phasic intraluminal flow. There is normal augmentation response to distal compression maneuver. IMPRESSION: No DVT found, source of left leg swelling is not identified. Dictated by: Wil Keenan M.D. on 04/15/2021 at 12:46 Approved by: Wil Keenan M.D. on 04/15/2021 at 12:47
== END ==
PROVIDERS: PCP Family Medicine; Referring Provider Orthopaedic Surgery; Visit Provider Orthopaedic Surgery
DX: M79.89 Other specified soft tissue disorders (principal); Z96.642 Presence of left artificial hip joint
CPT/HCPCS: 93971

== ENCOUNTER → 2021-04-25 09:27 | Outpatient (CLI) | payer MEDICARE, SELFPAY ==
[2021-03-31 11:28] VITALS: BMI 29.0
[2021-04-25 09:46] LABS: Add Manual Diff / Slide Review NO; Basophils Absolute Auto 100 /uL (0-100); Basophils Percent Auto 1.1 % (0-2); Eosinophils Absolute Auto 200 /uL (0-450); Hematocrit 36.1 % (41-53); Lymphocytes Absolute Auto 1200 /uL (1100-4500); Lymphocytes Percent Auto 22.9 % (25-40); Mean Corpuscular HGB Conc 33.2 % (30-36); Mean Corpuscular Hemoglobin 29.9 PG (26-34); Mean Corpuscular Volume 89.9 fL (80-100); Monocytes Absolute Auto 400 /uL (0-900); Monocytes Percent Auto 7.8 % (3-14); Neutrophils Absolute Auto 3500 /uL (1500-7000); Neutrophils Percent Auto 64.2 % (50-75); Platelet Count 247 X10^3/uL (150-400); Red Blood Cell Count 4.01 X10^6/uL (4.5-5.9); Red Cell Distribution Width 13.5 % (11.6-14.8); White Blood Cell Count 5.4 X10^3/uL (4.5-11.0)
[2021-04-25 09:57] LABS: Hemoglobin A1C% w Est Avg Glu 5.6 % (4.0-6.0)
[2021-04-25 10:04] LABS: Alanine Aminotransferase 21 IU/L (<50); Albumin 4.6 g/dL (3.5-5.0); Albumin Globulin Ratio 1.8 (1.0-2.8); Alkaline Phosphatase 116 U/L (38-126); Aspartate Aminotransferase 25 IU/L (17-59); BUN Creatinine Ratio 19.8 (6-22); Bilirubin Total 0.4 mg/dL (0.2-1.3); Blood Urea Nitrogen 18 mg/dL (9-20); Calcium 9.5 mg/dL (8.4-10.2); Carbon Dioxide 26 mmol/L (22-32); Chloride 102 mmol/L (98-107); Estimated Glomerular Filt Rate > 60.0 mL/min (>60); Globulin 2.5 g/dL (1.7-4.1); Glucose 119 mg/dL (80-110); HEMOLYSIS < 15 (0-50); Potassium 4.6 mmol/L (3.4-5.1); Sodium 137 mmol/L (137-145); Total Protein 7.1 g/dL (6.3-8.2)
[2021-04-25 15:42] LABS: Creatinine Urine Random 100.8 mg/dL
[2021-04-25 15:49] LABS: Microalbumi Creatinin Ratio Ur 8.9 ug/mg CR (<30); Microalbumin Urine Random 0.9 mg/dL (0-1.6)
== END ==
PROVIDERS: PCP Family Medicine; Referring Provider Family Medicine; Visit Provider Family Medicine
DX: E11.9 Type 2 diabetes mellitus without complications (principal); I10 Essential (primary) hypertension; E78.2 Mixed hyperlipidemia
CPT/HCPCS: 36415; 80053; 82043; 82570; 83036; 85025

== ENCOUNTER → 2021-05-01 10:46 | Outpatient (CLI) | payer MEDICARE, SELFPAY ==
[2021-03-31 11:28] VITALS: BMI 29.0
[2021-05-01 13:18] LABS: Appearance Urine UA CLOUDY; Bilirubin Urine UA NEGATIVE (NEGATIVE); Color Urine UA YELLOW; Glucose Urine UA NEGATIVE (Negative); Ketones Urine UA NEGATIVE (NEGATIVE); Leukocyte Esterase Urine UA 3+ (NEGATIVE); Nitrite Urine UA NEGATIVE (Negative); Occult Blood Urine UA 1+ (Negative); Protein Urine UA 1+ (Negative); Urobilinogen Urine UA 0.2 E.U./dL (0.2); pH Urine UA 5.5 (4.5-8.0)
[2021-05-01 13:34] LABS: Bacteria Urine Many (>30); Culture Indicated Urine Specimen Cultured; RBC Urine 1-5/HPF (0-5/HPF); Squamous Epithelial Cell Urine 1-5 /HPF (0-5/HPF); WBC Urine >100/HPF (0-5/HPF)
== END ==
PROVIDERS: PCP Family Medicine; Referring Provider Family Medicine; Visit Provider Family Medicine
DX: R39.9 Unspecified symptoms and signs involving the genitourinary system (principal)
CPT/HCPCS: 81001; 87077; 87086; 87186

== ENCOUNTER → 2021-09-10 10:23 | Outpatient (CLI) | payer MEDICARE, SELFPAY ==
[2021-03-31 11:28] VITALS: BMI 29.0
[2021-09-10 11:47] LABS: Cholesterol 147 mg/dL (140-199); HDL Cholesterol 36 mg/dL (40-60); LDL Cholesterol Calculated 74 mg/dL (<100); Triglycerides 183 mg/dL (35-150)
[2021-09-10 11:51] LABS: BUN Creatinine Ratio 22.6 (6-22); Blood Urea Nitrogen 21 mg/dL (9-20); Calcium 9.7 mg/dL (8.4-10.2); Carbon Dioxide 26 mmol/L (22-32); Chloride 103 mmol/L (98-107); Estimated Glomerular Filt Rate > 60.0 mL/min (>60); Glucose 126 mg/dL (80-110); HEMOLYSIS < 15 (0-50); Potassium 4.8 mmol/L (3.4-5.1); Sodium 136 mmol/L (137-145)
== END ==
PROVIDERS: PCP Family Medicine; Referring Provider Internal Medicine Cardiovascular Disease; Visit Provider Internal Medicine Cardiovascular Disease
DX: E11.9 Type 2 diabetes mellitus without complications (principal); I25.10 Atherosclerotic heart disease of native coronary artery without angina pectoris; I10 Essential (primary) hypertension; E78.2 Mixed hyperlipidemia
CPT/HCPCS: 36415; 80048; 80061; 83036

== ENCOUNTER → 2021-10-03 08:44 | Outpatient (CLI) | payer MEDICARE, SELFPAY ==
[2021-03-31 11:28] VITALS: BMI 29.0
--- NOTE | 2021-10-03 08:56 | DI.MRI.S_ITS ---
PROCEDURE: MR HIP LT WO CON INDICATIONS: PAIN TECHNIQUE: Noncontrast coronal T1 spin echo and STIR through the bony pelvis. Coronal and axial T2 fast spin echo with fat saturation, sagittal T1 spin echo, and oblique axial T2 fast spin echo with fat saturation through the hip. COMPARISON: [facility], CR, XR HIP W PEL IF DONE LT 2V, 03/31/2021, 10:17. [facility], CR, XR PELVIS WITH LATERAL HIP LEFT, 04/15/2021, 9:33. [facility] [place], CR, XR PELVIS WITH LATERAL HIP LEFT, 09/21/2021, 16:43. FINDINGS: Image quality: There is expected metallic artifact related to the hip arthroplasty that partially compromises evaluation despite the use of metal artifact reduction techniques. Diagnostic information is obtained. Bones and joints: Postsurgical changes are seen from left hip arthroplasty with associated metallic artifact that mildly obscures the arthroplasty and adjacent structures. Mildly increased T2-weighted signal is seen adjacent to the distal femoral stem component, which is likely within normal limits giving the timing of the prior surgery. No significant acetabular edema is seen. There is no significant joint effusion or periarticular mass. Bone marrow of the pelvic ring and right proximal femur show normal signal throughout. Focal benign cystic changes are seen in the right femoral head/neck junction. No suspicious intraosseous lesions or fractures. No avascular necrosis of the femoral head. Disc desiccation and facet hypertrophy are seen in the included lower lumbar spine. Tendons and ligaments: The gluteus medius and minimus tendons appear intact, without associated muscle atrophy. A small triangular-shaped fluid collection is seen adjacent to the greater trochanter measuring 2.0 x 1.3 x 4.2 cm that is favored to represent a small postsurgical seroma rather than a trochanteric bursal effusion. The proximal iliotibial band appears intact. The iliopsoas tendon appears intact, without adjacent bursal fluid collections or evidence for impingement syndrome. The origin of the hamstring tendon demonstrates mild tendinosis. The straight and reflected heads of the rectus femoris muscle origin appear intact, as well as the conjoint tendon. Soft tissues: Mild edema is seen within the obturator externus muscle, which may represent a low-grade muscle strain.Visualized muscles otherwise demonstrate normal bulk and internal signal. Quadratus femoris muscle demonstrates no internal edema to suggest ischiofemoral impingement. The proximal sciatic neurovascular bundle appears normal adjacent to the hamstring tendons. No free pelvic fluid. Bladder wall thickness is normal. Genitourinary structures and bowel loops appear normal where visualized. IMPRESSION: 1. Postsurgical changes from left hip arthroplasty with associated metallic artifact. Mild osseous edema adjacent to the distal portion of the femoral stem is likely related to healing changes from the prior surgery and incorporation of the prosthesis, but clinical correlation is recommended. No discrete fracture line is seen. No significant joint effusion or periarticular mass. 2. Low-grade strain of the obturator externus muscle. 3. Mild proximal left hamstring tendinosis. 4. Small fluid collection adjacent to the greater trochanter is most likely a postoperative collection such as a seroma or chronic hematoma versus a trochanteric bursal effusion. Postsurgical changes are seen in the adjacent subcutaneous tissues. 5. Degenerative changes in the included lower lumbar spine. Dictated by: Constantine Watts M.D. on 10/05/2021 at 8:46 Approved by: Constantine Watts M.D. on 10/05/2021 at 9:06
== END ==
PROVIDERS: PCP Family Medicine; Referring Provider Orthopaedic Surgery; Visit Provider Orthopaedic Surgery
DX: S76.812A Strain of other specified muscles, fascia and tendons at thigh level, left thigh, initial encounter (principal); M47.816 Spondylosis without myelopathy or radiculopathy, lumbar region; M25.552 Pain in left hip; Z96.642 Presence of left artificial hip joint
CPT/HCPCS: 73721

== ENCOUNTER → 2021-11-07 08:11 | Outpatient (CLI) | payer MEDICARE, SELFPAY ==
[2021-03-31 11:28] VITALS: BMI 29.0
[2021-11-07 08:58] LABS: Hemoglobin A1C% w Est Avg Glu 5.8 % (4.0-6.0)
== END ==
PROVIDERS: PCP Family Medicine; Referring Provider Family Medicine; Visit Provider Family Medicine
DX: E11.9 Type 2 diabetes mellitus without complications (principal)
CPT/HCPCS: 36415; 83036

== ENCOUNTER → 2022-02-05 11:44 | Outpatient (CLI) | payer MEDICARE, SELFPAY ==
[2021-03-31 11:28] VITALS: BMI 29.0
[2022-02-05 12:56] LABS: Alanine Aminotransferase 19 IU/L (<50); Albumin 4.4 g/dL (3.5-5.0); Albumin Globulin Ratio 1.8 (1.0-2.8); Alkaline Phosphatase 90 U/L (38-126); Aspartate Aminotransferase 29 IU/L (17-59); BUN Creatinine Ratio 18.6 (6-22); Bilirubin Total 0.5 mg/dL (0.2-1.3); Blood Urea Nitrogen 18 mg/dL (9-20); Calcium 9.1 mg/dL (8.4-10.2); Carbon Dioxide 30 mmol/L (22-32); Chloride 102 mmol/L (98-107); Cholesterol 141 mg/dL (140-199); Estimated Glomerular Filt Rate > 60 mL/min (>60); Globulin 2.5 g/dL (1.7-4.1); Glucose 119 mg/dL (80-110); HDL Cholesterol 47 mg/dL (40-60); HEMOLYSIS < 15 (0-50); LDL Cholesterol Calculated 71 mg/dL (<100); Potassium 4.9 mmol/L (3.4-5.1); Sodium 136 mmol/L (137-145); Total Protein 6.9 g/dL (6.3-8.2); Triglycerides 116 mg/dL (35-150)
== END ==
PROVIDERS: PCP Family Medicine; Referring Provider Internal Medicine Cardiovascular Disease; Visit Provider Internal Medicine Cardiovascular Disease
DX: I10 Essential (primary) hypertension (principal); I25.10 Atherosclerotic heart disease of native coronary artery without angina pectoris
CPT/HCPCS: 36415; 80053; 80061

== ENCOUNTER 2022-03-22 13:25 | Observation (INO) | payer MEDICARE, SELFPAY ==
[2022-03-22] VITALS (11 sets, daily range): BP systolic 148–187; BP diastolic 75–90; PULSE 60–76; RESP 13–24; TEMP 36.1–36.6; O2SAT 95–99; BMI 29.0; BMI 29.2
--- NOTE | 2022-03-22 13:50 | DI.CT.S_ITS ---
PROCEDURE: CT ANGIO HEAD AND NECK INDICATIONS: Possible stroke TECHNIQUE: After the administration of intravenous contrast, 1 mm thick sections acquired from the aortic arch through the [place] of [place]. Post-contrast 4.5 mm thick sections then re-acquired from the foramen magnum to the vertex. 3-dimensional cydnibx-ybhfxxjpi-ssyarufvby (MIP) and/or volume rendering reformats were acquired of the central intracranial vasculature and neck separately. For radiation dose reduction, the following was used: automated exposure control, adjustment of mA and/or kV according to patient size. COMPARISON: [facility], CT, CT STROKE, 03/22/2022, 14:02. FINDINGS: Image quality: Excellent. BRAIN: CSF spaces: Ventricles are normal in size and shape. Basal cisterns are patent. No extra-axial fluid collections. Brain: No midline shift. No intracranial bleeds or masses. Flores-white matter interface appears intact. Skull and face: Calvarium and facial bones appear intact, without suspicious lesions. Orbits appear normal. Sinuses: Sinuses and mastoids are clear. HEAD CT ANGIOGRAPHY: Anterior circulation: Intracranial internal carotid arteries are normal in size and flow. The flow within the paired anterior cerebral arteries is normal and symmetric. The flow within the middle cerebral arteries is normal and symmetric. The anterior communicating artery is likely present. No aneurysms are seen. Posterior circulation: Visualized portions of the vertebral arteries demonstrate normal caliber, and join to form a normal appearing basilar artery. Flow within the posterior cerebral arteries is normal and symmetric. No aneurysms are seen. NECK CT ANGIOGRAPHY: Carotid system: The great vessels demonstrate a conventional anatomy as they arise from the aortic arch. The origins of the common carotid arteries appear patent. The common carotid arteries demonstrate normal caliber and courses. Calcified plaque is present at the carotid bifurcation bilaterally however the bifurcation regions are both widely patent. The internal carotid arteries demonstrate normal calibers and courses. Posterior circulation: The origins of the vertebral arteries both appear widely patent. The more superior extracranial portions of both vertebral arteries also demonstrate normal courses and calibers. They join to form a normal appearing basilar artery. Soft tissues: Visualized neck soft tissues demonstrate no suspicious abnormalities. Bones: No suspicious bony lesions. Multilevel degenerative change of the visualized spine. IMPRESSION: No large vessel occlusion or high-grade carotid stenosis. Results discussed with Dr. Reddy by Dr. Penn at 1454 hours on 03/22/2022. Any quantitative measurements of stenosis were performed using NASCET criteria. Dictated by: Constantine Penn M.D. on 03/22/2022 at 14:34 Approved by: Constantine Penn M.D. on 03/22/2022 at 14:57
--- NOTE | 2022-03-22 13:50 | DI.RAD.S_ITS ---
PROCEDURE: XR CHEST 1V INDICATIONS: Possible stroke TECHNIQUE: One view of the chest was acquired. COMPARISON: [facility], CR, XR CHEST 1V, 06/03/2019, 11:10. FINDINGS: Surgical changes and devices: Patient is status post median sternotomy and valvular replacement. Lungs and pleura: Lungs are clear. No pleural effusions or pneumothorax. Mediastinum: Mediastinal contours appear normal. Heart size is normal. Bones and chest wall: No suspicious bony lesions. Overlying soft tissues appear unremarkable. IMPRESSION: No acute cardiopulmonary findings. Dictated by: Nenita Tomas M.D. on 03/22/2022 at 14:46 Approved by: Nenita Tomas M.D. on 03/22/2022 at 14:46
--- NOTE | 2022-03-22 13:50 | DI.CT.S_ITS ---
PROCEDURE: CT STROKE INDICATIONS: Positive BE-FAST, Stroke symptoms TECHNIQUE: Noncontrast 4.5 mm thick angled axial sections acquired from the foramen magnum to the vertex, with coronal reformats. For radiation dose reduction, the following was used: automated exposure control, adjustment of mA and/or kV according to patient size. COMPARISON: None. FINDINGS: Image quality: Excellent. CSF spaces: Basal cisterns are patent. No extra-axial fluid collections. Ventricles are normal in size and shape. Clzo-bl-hxoaonus volume loss. Brain: No midline shift. No intracranial masses or hemorrhage. Flores-white matter interface is normal. Mild periventricular white matter hypoattenuation may represent chronic small vessel disease. Skull and face: Calvarium and visualized facial bones are intact, without suspicious lesions. Sinuses: Visualized sinuses and mastoids are clear. IMPRESSION: No acute intracranial abnormality. Likely chronic findings as above. CTA is pending. Report called at 2:15pm by Dr. Brock. Dictated by: Jason Brock M.D. on 03/22/2022 at 14:10 Approved by: Jason Brock M.D. on 03/22/2022 at 14:16
[2022-03-22 14:10] LABS: Add Manual Diff / Slide Review NO; Basophils Absolute Auto 0 /uL (0-100); Basophils Percent Auto 0.9 % (0-2); Eosinophils Absolute Auto 100 /uL (0-450); Eosinophils Percent Auto 2.3 % (2-4); Hemoglobin 14.3 g/dL (13.5-17.5); Lymphocytes Absolute Auto 1300 /uL (1100-4500); Lymphocytes Percent Auto 23.5 % (25-40); Mean Corpuscular HGB Conc 34.8 % (30-36); Mean Corpuscular Hemoglobin 30.8 PG (26-34); Mean Corpuscular Volume 88.7 fL (80-100); Monocytes Absolute Auto 400 /uL (0-900); Monocytes Percent Auto 7.8 % (3-14); Neutrophils Absolute Auto 3600 /uL (1500-7000); Neutrophils Percent Auto 65.5 % (50-75); Platelet Count 160 X10^3/uL (150-400); Red Blood Cell Count 4.62 X10^6/uL (4.5-5.9); White Blood Cell Count 5.5 X10^3/uL (4.5-11.0)
[2022-03-22 14:18] LABS: Prothrombin Time 10.6 SECONDS (10.1-12.7)
[2022-03-22 14:20] LABS: Alanine Aminotransferase 18 IU/L (<50); Albumin 4.5 g/dL (3.5-5.0); Albumin Globulin Ratio 1.7 (1.0-2.8); Alkaline Phosphatase 106 U/L (38-126); Aspartate Aminotransferase 25 IU/L (17-59); BUN Creatinine Ratio 21.1 (6-22); Bilirubin Total 0.4 mg/dL (0.2-1.3); Blood Urea Nitrogen 20 mg/dL (9-20); Calcium 9.2 mg/dL (8.4-10.2); Carbon Dioxide 27 mmol/L (22-32); Chloride 104 mmol/L (98-107); Creatine Kinase 89 U/L (55-170); Estimated Glomerular Filt Rate > 60 mL/min (>60); Globulin 2.6 g/dL (1.7-4.1); Glucose 122 mg/dL (80-110); HEMOLYSIS < 15 (0-50); Magnesium 1.4 mg/dL (1.6-2.3); Potassium 4.4 mmol/L (3.4-5.1); Sodium 140 mmol/L (137-145); Total Protein 7.1 g/dL (6.3-8.2)
[2022-03-22 14:21] LABS: PTT Partial Thromboplastin Tim 32 SECONDS (26.4-36.2)
[2022-03-22 14:32] LABS: Troponin I < 0.012 ng/mL (0.01-0.034)
[2022-03-22 15:03] LABS: COVID19 - ADMIT (NP swab/PCR) Negative (Negative)
--- NOTE | 2022-03-22 15:35 | ED_ITS ---
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 Patient is anticoagulated on aspirin daily. 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 Patient states he is had 4 episodes of right upper extremity numbness and right mouth numbness 2 weeks ago for 15 minutes, 3 days ago for about 20 minutes, today 2 separate episodes about 12 minutes long patient has 0 sensation in his hand. He also felt quite unsteady today. Patient has had multiple orthopedic surgeries in the past. Denies other cardiac interventions. States that his valve became infected but ultimately was not removed and on recommendations for Infectious Disease is on daily oral antibiotic prophylaxis for life. Patient states he is allergic to gentamicin secondary to renal failure. No daily tobacco, occasional alcohol, no illicit. Patient's primary care is Dr. Cisse. On Anticoagulants: No Related Data Home Medications Medication Instructions Recorded Confirmed atorvastatin 20 mg tablet (Lipitor) 40 mg PO QDAY ##0 07/31/17 03/22/22 aspirin 81 mg tablet,delayed 81 mg PO BID 03/23/18 03/22/22 release lisinopril 10 mg tablet 10 mg PO BID 09/17/20 03/22/22 calcium carbonate 500 mg-vitamin 1 tab PO BID 05/11/21 03/22/22 D3 10 mcg (400 unit) tablet (Calcium 500 + D) amoxicillin 500 mg capsule 500 mg PO BID 11/09/21 03/22/22 acetaminophen 325 mg tablet 650 mg PO TID PRN Pain (Scale 03/22/22 03/22/22 Score 4-6) alprazolam 0.5 mg tablet See Rx Instructions .Route 03/22/22 03/22/22 .COMPLEX PRN Anxiety amlodipine 2.5 mg tablet 2.5 mg PO DAILY 03/22/22 03/22/22 celecoxib 200 mg capsule 200 mg PO BEDTIME 03/22/22 03/22/22 Previous Rx's Medication Instructions Recorded omeprazole 20 mg capsule,delayed 20 mg PO QDAY #90 caps 07/14/21 release metformin 500 mg tablet 1,000 mg PO BID #360 tabs 11/11/21 Allergies Allergy/AdvReac Type Severity Reaction Status Date / Time gentamicin [GENTAMICIN] Allergy Severe kidney Verified 11/09/21 09:06 failure Review of Systems Review of Systems ROS Unobtainable: All systems reviewed & are unremarkable except as noted in HPI and below Hematologic/Lymphatic On Anticoagulants: No Patient History Medical History Anxiety (1994) Aortic aneurysm Aortic stenosis (2013) Atypical chest pain Colon polyps (2014) CTS (carpal tunnel syndrome) (~1992) 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) Facet arthropathy, lumbar Generalized weakness Hearing loss Heart attack (2013) Hemorrhoids (~1994) Herniated nucleus pulposus, L3-4 left Impaired fasting glucose (10/13/16) Lumbar radiculopathy Multilevel spinal stenosis On antibiotic therapy LUISA on CPAP Osteoarthritis Pneumonia (2013) Right knee sprain Rosacea (2004) Sciatica Shoulder pain (~1979) Splenic infarction Temporary low platelet count (10/26/17) Thrombocytopenia (10/26/17) Tinnitus Trigger finger (~1992) Type 2 diabetes mellitus Surgical History Anesthesia H/O aortic valve replacement with porcine valve History of aortic valve replacement (2013) History of hand surgery (~1991) History of hand surgery (~1994) History of quadruple bypass (2013) History of shoulder surgery (~1984) History of tonsillectomy (1950) History of vasectomy Hx of bilateral cataract extraction Family History Father Heart disease Mother High cholesterol Mental health problem Stroke Dementia Social History marital status: household members: spouse Smoking Status: Former smoker alcohol intake: current substance use type: does not use Smoking Status: Former smoker alcohol intake frequency: a few times a month Substance Use Type: does not use Exam Narrative Exam Narrative: GEN: well nourished, well appearing male, alert and oriented x 3, patient appears to be in mild distress. HEENT: Atraumatic, pupils are equal round reactive to light, extraocular movements are intact, nares are clear, TMs are clear with no fluid, there is no conjunctival pallor. Throat is clear without any exudates, erythema, tonsillar enlargement or uvular deviation, no facial droop. HEART: Regular rate and rhythm without murmur, clicks, rubs. LUNGS:Lungs clear to auscultation, no wheezes, rales, crackles, chest moves symmetrically ABD:bowel sounds normal, soft, non-tender, no guarding, rebound, rigidity, no masses noted, no hepatosplenomegaly MSCL: Non-tender, no muscle atrophy, muscles strength 5/5 upper and lower extremities, full range of motion, normal gait NEURO:CN 2-12 intact, sensation normal, reflexes 2/4 upper and lower extremities. finger nose finger test normal, heel lay test normal, no dysarthria, no expressive aphasia. Initial Vital Signs Initial Vital Signs: Vital Signs Temperature 97.8 F 03/22/22 13:31 Pulse Rate 74 03/22/22 13:31 Respiratory Rate 18 03/22/22 13:31 Blood Pressure 187/83 H 03/22/22 13:31 Pulse Oximetry 98 03/22/22 13:31 Oxygen Delivery Method 03/22/22 13:31 Scores NIH Stroke Scale Level of Conciousness: Alert, keenly responsive Ask month/age: Answers both questions correctly. Open/close eyes, close hand: Performs both tasks correctly Best gaze horizontal: Normal Visual cottrell: No visual loss Facial palsy: Normal symetrical movement Left arm drift: No drift for full 10 sec Right arm drift: No drift for full 10 sec Left leg drift: No drift for full 5 sec Right leg drift: No drift for full 5 sec Limb ataxia: Absent Sensory on face/arms/legs: Normal, no sensory loss Best language: No aphasia, normal Dysarthria: Normal Extinction or inattention: No abnormality Total NIH Stroke scale score: 0 Course Orders Ordered: ED Orders 03/22/22 13:[address] angio head and neck Stat XR chest 1V Stat 03/22/22 13:54 Complete Blood Count AUTO DIFF Stat Comprehensive Metabolic Panel Stat Magnesium Stat Partial Thromboplastin Time Stat Prothrombin Time INR Stat Troponin & CK Cardiac Panel Stat 03/22/22 14:26 Urinalysis and Microscopic Stat 03/22/22 14:30 COVID19 - ADMIT (CHILD SUPPORT SPECIALIST swab/PCR) Stat 03/22/22 14:32 EKG-12 Lead Stat 03/22/22 15:37 Urine Drug Screen, Rapid Stat Acetaminophen (Acetaminophen 325 Mg Tablet) 650 mg PO Q6HR PRN PRN Reason: Fever/Mild Pain (1-3) Amlodipine Besylate (Amlodipine 5 Mg Tablet) 5 mg PO DAILY [facility] Amoxicillin (Amoxicillin 250 Mg Capsule) 500 mg PO BID [facility] Aspirin (Aspirin Ec 325 Mg Tablet) 325 mg PO DAILY [facility] Atorvastatin Calcium (Atorvastatin 20 Mg Tablet) 20 mg PO DAILY [facility] Enoxaparin Sodium (Enoxaparin 40 Mg/0.4 Ml Syringe) 40 mg SUBCUT DAILY [facility] Dextrose (D10w) 250 mls @ 999 mls/hr IV PRN PRN PRN Reason: Hypoglycemia Lisinopril (Lisinopril 10 Mg Tablet) 10 mg PO DAILY [facility] Metformin HCl (Metformin Hcl 500 Mg Tablet) 1,000 mg PO BID [facility] Sodium Chloride (Sodium Chloride 0.9% Flush) 10 ml IV BID KASIA Discontinued Medications Aspirin (Aspirin 81 Mg Chew Tab) 324 mg PO NOW ONE Stop: 03/22/22 15:42 Last Admin: 03/22/22 15:52 Dose: 243 mg Documented By: NGA Dextrose (Dextrose 50 % In Water 25 Gm/50 Ml Syringe) 25 gm IV PRN PRN PRN Reason: Hypoglycemia Consultations Consultation #1: Dr. Cisse, accepts for observation for multiple TIA symptoms. Vital Signs Vital signs: Vital Signs - 8 hr 03/22/22 13:31 03/22/22 14:30 03/22/22 14:31 Temperature 97.8 F Pulse Rate 74 71 Respiratory Rate 18 13 Blood Pressure 187/83 H 176/86 H Pulse Oximetry 98 99 Oxygen Delivery Method Room Air 03/22/22 14:31 03/22/22 15:00 03/22/22 15:00 Temperature Pulse Rate 69 71 Respiratory Rate 19 22 Blood Pressure 169/81 H Pulse Oximetry 99 97 Oxygen Delivery Method 03/22/22 15:30 03/22/22 15:30 03/22/22 16:00 Temperature Pulse Rate 72 75 Respiratory Rate 24 Blood Pressure 149/75 H Pulse Oximetry 95 99 Oxygen Delivery Method Room Air 03/22/22 16:01 03/22/22 16:01 Temperature Pulse Rate 76 Respiratory Rate 19 Blood Pressure 174/85 H Pulse Oximetry 98 Oxygen Delivery Method MDM - Neuro Symptoms/Deficit Lab Data Result diagrams: 03/22/22 13:54 03/22/22 13:54 Labs: Lab Results 03/22/22 03/22/22 03/22/22 Range/Units 13:54 13:54 13:54 WBC 5.5 (4.5-11.0) X10^3/uL RBC 4.62 (4.5-5.9) X10^6/uL Hgb 14.3 (13.5-17.5) g/dL Hct 41.0 (41-53) % MCV 88.7 (80-100) fL MCH 30.8 (26-34) PG MCHC 34.8 (30-36) % RDW 14.0 (11.6-14.8) % Plt Count 160 (150-400) X10^3/uL Neut % (Auto) 65.5 (50-75) % Lymph % (Auto) 23.5 L (25-40) % [place] % (Auto) 7.8 (3-14) % Eos % (Auto) 2.3 (2-4) % Baso % (Auto) 0.9 (0-2) % Neut # (Auto) 3600 (8356-1517) /uL Lymph # (Auto) 1300 (8758-0870) /uL [place] # (Auto) 400 (0-900) /uL Eos # (Auto) 100 (0-450) /uL Baso # (Auto) 0 (0-100) /uL PT 10.6 (10.1-12.7) SECONDS INR 1.0 (0.9-1.3) APTT 32 (26.4-36.2) SECONDS Sodium 140 (137-145) mmol/L Potassium 4.4 (3.4-5.1) mmol/L Chloride 104 (98-107) mmol/L Carbon Dioxide 27 (22-32) mmol/L BUN 20 (9-20) mg/dL Creatinine 0.95 (0.66-1.25) mg/dL Estimated GFR > 60 (>60) mL/min BUN/Creatinine Ratio 21.1 (6-22) Glucose 122 H (80-110) mg/dL Calcium 9.2 (8.4-10.2) mg/dL Magnesium 1.4 L (1.6-2.3) mg/dL Total Bilirubin 0.4 (0.2-1.3) mg/dL AST 25 (17-59) IU/L ALT 18 (<50) IU/L Alkaline Phosphatase 106 (38-126) U/L Total Creatine Kinase 89 (55-170) U/L CK-MB (CK-2) TNP CK-MB (CK-2) Rel Index TNP Troponin I < 0.012 (0.01-0.034) ng/mL Total Protein 7.1 (6.3-8.2) g/dL Albumin 4.5 (3.5-5.0) g/dL Globulin 2.6 (1.7-4.1) g/dL Albumin/Globulin Ratio 1.7 (1.0-2.8) Urine Color Urine Appearance Urine pH (4.5-8.0) Ur Specific Harmon (1.000-1.035) Urine Protein (Negative) Urine Glucose (UA) (Negative) g/dL Urine Ketones (NEGATIVE) Urine Occult Blood (Negative) Urine Nitrate (Negative) Urine Bilirubin (NEGATIVE) Urine Urobilinogen (0.2) E.U./dL Ur Leukocyte Esterase (NEGATIVE) Urine RBC (0-5/HPF) Urine WBC (0-5/HPF) Urine Bacteria (None) Ur Culture Indicated? U Opiates 300ng/mL cut (Negative) Ur Oxycodone Screen (Negative) Urine Methadone Screen (Negative) Ur Barbiturates Screen (Negative) U Tricyclic Antidepress (Negative) Ur Phencyclidine Scrn (Negative) Ur Amphetamines Screen (Negative) U Methamphetamines Scrn (Negative) Ur MDMA Scrn (Ecstasy) (Negative) U Benzodiazepines Scrn (Negative) Urine Cocaine Screen (Negative) U Marijuana (THC) Screen (Negative) SARS-CoV-2 (PCR) (Negative) 03/22/22 03/22/22 03/22/22 Range/Units 14:26 14:30 15:37 WBC (4.5-11.0) X10^3/uL RBC (4.5-5.9) X10^6/uL Hgb (13.5-17.5) g/dL Hct (41-53) % MCV (80-100) fL MCH (26-34) PG MCHC (30-36) % RDW (11.6-14.8) % Plt Count (150-400) X10^3/uL Neut % (Auto) (50-75) % Lymph % (Auto) (25-40) % [place] % (Auto) (3-14) % Eos % (Auto) (2-4) % Baso % (Auto) (0-2) % Neut # (Auto) (8004-7984) /uL Lymph # (Auto) (5330-0371) /uL [place] # (Auto) (0-900) /uL Eos # (Auto) (0-450) /uL Baso # (Auto) (0-100) /uL PT (10.1-12.7) SECONDS INR (0.9-1.3) APTT (26.4-36.2) SECONDS Sodium (137-145) mmol/L Potassium (3.4-5.1) mmol/L Chloride (98-107) mmol/L Carbon Dioxide (22-32) mmol/L BUN (9-20) mg/dL Creatinine (0.66-1.25) mg/dL Estimated GFR (>60) mL/min BUN/Creatinine Ratio (6-22) Glucose (80-110) mg/dL Calcium (8.4-10.2) mg/dL Magnesium (1.6-2.3) mg/dL Total Bilirubin (0.2-1.3) mg/dL AST (17-59) IU/L ALT (<50) IU/L Alkaline Phosphatase (38-126) U/L Total Creatine Kinase (55-170) U/L CK-MB (CK-2) CK-MB (CK-2) Rel Index Troponin I (0.01-0.034) ng/mL Total Protein (6.3-8.2) g/dL Albumin (3.5-5.0) g/dL Globulin (1.7-4.1) g/dL Albumin/Globulin Ratio (1.0-2.8) Urine Color Yellow Urine Appearance Clear Urine pH 6.0 (4.5-8.0) Ur Specific [place] <=1.005 (1.000-1.035) Urine Protein Negative (Negative) Urine Glucose (UA) Negative (Negative) g/dL Urine Ketones Negative (NEGATIVE) Urine Occult Blood Negative (Negative) Urine Nitrate Negative (Negative) Urine Bilirubin Negative (NEGATIVE) Urine Urobilinogen 0.2 (0.2) E.U./dL Ur Leukocyte Esterase Negative (NEGATIVE) Urine RBC None seen (0-5/HPF) Urine WBC None seen (0-5/HPF) Urine Bacteria None seen (None) Ur Culture Indicated? Cult not indicated U Opiates 300ng/mL cut Negative (Negative) Ur Oxycodone Screen Negative (Negative) Urine Methadone Screen Negative (Negative) Ur Barbiturates Screen Negative (Negative) U Tricyclic Antidepress Negative (Negative) Ur Phencyclidine Scrn Negative (Negative) Ur Amphetamines Screen Negative (Negative) U Methamphetamines Scrn Negative (Negative) Ur MDMA Scrn (Ecstasy) Negative (Negative) U Benzodiazepines Scrn Positive H (Negative) Urine Cocaine Screen Negative (Negative) U Marijuana (THC) Screen Negative (Negative) SARS-CoV-2 (PCR) Negative (Negative) Point of Care Testing Glucose POC [address] scan - head: Radiologist's Impression: Hugo Lomax??76??M??1945 ? Allergy/Adv: gentamicin Close Brain MRI (Signed) Orion Croft - 03/22/22 Head/Neck CTA (Signed) Constantine Penn - 03/22/22 Chest X-Ray (Signed) Nenita Tomas - 03/22/[address] (Signed) Jason Brock - 03/22/22 Hip MRI (Signed) Constantine Watts - 10/03/21 Vascular Ultrasound (Signed) Wil Keenan - 04/15/21 Pelvis X-Ray (Signed) Wil Keenan - 03/31/21 Hip X-Ray (Signed) Ortiz Rust - 03/31/21 Outside EKG 01/30/21 Injection Lumbar, Sacrum (Signed) Wil Kenean - 01/27/21 Injection Lumbar, Sacrum (Signed) Oscar Martínez - 10/09/20 Echocardiogram Ultrasound (Signed) Carlos Jim - 07/28/20 Injection Lumbar, Sacrum (Signed) Komal Laureano - 06/19/20 Lumbar Spine X-Ray (Signed) Wil Keenan - 03/07/20 Lumbar Spine MRI (Signed) Zain Ryder - 08/27/19 Chest X-Ray (Signed) Eliu Powers - 06/03/19 Lumbar Spine X-Ray (Signed) Ortiz Rust - 03/20/18 Hip X-Ray (Signed) Ortiz Rust - 03/20/18 Launch?[place] [address] CT Scan Report Signed Patient: Hugo Lomax MR#: [id number] : 1945 Acct:[id number] Age/Sex: 76 / M Date of Service: 03/22/22 Loc: ED Accession Number: [id number] ?? Procedure: CT Stroke Ordering Provider: Rose Reddy D.O. PROCEDURE:? CT STROKE ? INDICATIONS:? Positive BE-FAST, Stroke symptoms ? TECHNIQUE:? Noncontrast 4.5 mm thick angled axial sections acquired from the foramen magnum to the vertex, with coronal reformats.? For radiation dose reduction, the following was used:? automated exposure control, adjustment of mA and/or kV according to patient size.? ? COMPARISON:? None. ? FINDINGS:? Image quality:? Excellent.? ? CSF spaces:? Basal cisterns are patent.? No extra-axial fluid collections.? Ventricles are normal in size and shape.? Rmzi-kg-nygtiyjg volume loss. ? Brain:? No midline shift.? No intracranial masses or hemorrhage.? Flores-white matter interface is normal.? Mild periventricular white matter hypoattenuation may represent chronic small vessel disease. ? Skull and face:? Calvarium and visualized facial bones are intact, without suspicious lesions.? ? Sinuses:? Visualized sinuses and mastoids are clear.? ? IMPRESSION:? No acute intracranial abnormality.? Likely chronic findings as above.? CTA is pending. Report called at 2:15pm by Dr. Brock. ? ? ? Dictated by: Jason Brock M.D. on 03/22/2022 at 14:10 ? ? Approved by: Jason Brock M.D. on 03/22/2022 at 14:16?? CTA - brain/neck: Radiologist's Impression: Hugo Lomax??76??M??1945 ? Allergy/Adv: gentamicin Close Brain MRI (Signed) Orion Croft - 03/22/22 Head/Neck CTA (Signed) Constantine Penn - 03/22/22 Chest X-Ray (Signed) Laurie Tomasah - 03/22/[address] (Signed) Jason Brock - 03/22/22 Hip MRI (Signed) Constantine Watts - 10/03/21 Vascular Ultrasound (Signed) Wil Keenan - 04/15/21 Pelvis X-Ray (Signed) Wil Keenan - 03/31/21 Hip X-Ray (Signed) Ortiz Rust - 03/31/21 Outside EKG 01/30/21 Injection Lumbar, Sacrum (Signed) Wil Keenan - 01/27/21 Injection Lumbar, Sacrum (Signed) Oscar Martínez - 10/09/20 Echocardiogram Ultrasound (Signed) Carlos Jim - 07/28/20 Injection Lumbar, Sacrum (Signed) Komal Laureano - 06/19/20 Lumbar Spine X-Ray (Signed) Wil Keenan - 03/07/20 Lumbar Spine MRI (Signed) Zain Ryder - 08/27/19 Chest X-Ray (Signed) Eliu Powers - 06/03/19 Lumbar Spine X-Ray (Signed) Ortiz Rust - 03/20/18 Hip X-Ray (Signed) Ortiz Rust - 03/20/18 Launch?[place] [address] CT Scan Report Signed Patient: Hugo Lomax MR#: [id number] : 1945 Acct:[id number] Age/Sex: 76 / M Date of Service: 03/22/22 Loc: ED Accession Number: [id number] ?? Procedure: CT angio head and neck Ordering Provider: Rose Reddy D.O. PROCEDURE:? CT ANGIO HEAD AND NECK ? INDICATIONS:? Possible stroke ? TECHNIQUE:? After the administration of intravenous contrast, 1 mm thick sections acquired from the aortic arch through the [place] of [place].? Post-contrast 4.5 mm thick sections then re-acquired from the foramen magnum to the vertex.? 3-dimensional mfrguyt-lewmevpse-guhcctijig (MIP) and/or volume rendering reformats were acquired of the central intracranial vasculature and neck separately. For radiation dose reduction, the following was used:? automated exposure control, adjustment of mA and/or kV according to patient size.? ? COMPARISON:? [facility], CT, CT STROKE, 03/22/2022, 14:02. ? FINDINGS:? Image quality:? Excellent.? ? BRAIN:? CSF spaces:? Ventricles are normal in size and shape.? Basal cisterns are patent.? No extra-axial fluid collections.? ? Brain:? No midline shift.? No intracranial bleeds or masses.? Flores-white matter interface appears intact.? ? Skull and face:? Calvarium and facial bones appear intact, without suspicious lesions.? Orbits appear normal.? ? Sinuses:? Sinuses and mastoids are clear.? ? HEAD CT ANGIOGRAPHY:? Anterior circulation:? Intracranial internal carotid arteries are normal in size and flow.? The flow within the paired anterior cerebral arteries is normal and symmetric.? The flow within the middle cerebral arteries is normal and symmetric.? The anterior communicating artery is likely present.? No aneurysms are seen.? ? Posterior circulation:? Visualized portions of the vertebral arteries demonstrate normal caliber, and join to form a normal appearing basilar artery.? Flow within the posterior cerebral arteries is normal and symmetric.? No aneurysms are seen.? ? NECK CT ANGIOGRAPHY:? Carotid system:? The great vessels demonstrate a conventional anatomy as they arise from the aortic arch.? The origins of the common carotid arteries appear patent.? The common carotid arteries demonstrate normal caliber and courses.? Calcified plaque is present at the carotid bifurcation bilaterally however the bifurcation regions are both wid mary beth patent.? The internal carotid arteries demonstrate normal calibers and courses.? ? Posterior circulation:? The origins of the vertebral arteries both appear widely patent.? The more superior extracranial portions of both vertebral arteries also demonstrate normal courses and calibers.? They join to form a normal appearing basilar artery.? ? Soft tissues:? Visualized neck soft tissues demonstrate no suspicious abnormalities.? ? Bones:? No suspicious bony lesions.? Multilevel degenerative change of the visualized spine. ? ? IMPRESSION:? No large vessel occlusion or high-grade carotid stenosis. ? Results discussed with Dr. Reddy by Dr. Penn at 1454 hours on 03/22/2022.? ? Any quantitative measurements of stenosis were performed using NASCET criteria.? ? ? Dictated by: Constantine Penn M.D. on 03/22/2022 at 14:34 ? ? Approved by: Constantine Penn M.D. on 03/22/2022 at 14:57 ECG Data Attestation: I personally reviewed and interpreted this ECG as follows: Prior ECG tracings: available for review Interpretation: Inverted P wave may be secondary to prior valve replacement, rate of 71 NM 242 QRS of 94 and QTC of 404. Likely related to patient's prior valve replacement. No acute ST changes appreciated patient does have T-waves inverted in 3 and AVF. MDM Narrative Medical decision making narrative: This is a 76-year-old male with 4 episodes that are increasing in frequency over the past 2 weeks similar to TIA symptoms. Initial head CT and CT angio are negative, no electrolyte or lab changes unclear the cause of his symptoms patient is not tPA candidate his NIH is 0 with normal examination at this time. Aspirin 324 mg was given case discussed with his primary care service who is having keep the patient for TIA/stroke workup. Discharge Plan Departure Patient Disposition: Admitted as Observation Clinical Impression: TIA (transient ischemic attack) Admit Date/Time: 03/22/22 16:19 Admit Provider: Orion Cisse
[2022-03-22 15:51] LABS: Appearance Urine UA CLEAR; Bilirubin Urine UA NEGATIVE (NEGATIVE); Color Urine UA YELLOW; Glucose Urine UA NEGATIVE (Negative); Ketones Urine UA NEGATIVE (NEGATIVE); Leukocyte Esterase Urine UA NEGATIVE (NEGATIVE); Nitrite Urine UA NEGATIVE (Negative); Occult Blood Urine UA NEGATIVE (Negative); Protein Urine UA NEGATIVE (Negative); Specific Gravity Urine UA <=1.005 (1.000-1.035); Urobilinogen Urine UA 0.2 E.U./dL (0.2)
[2022-03-22] MEDS: ASPIRIN 81 MG CHEW TAB 324 MG PO (15:52)
[2022-03-22 15:59] LABS: UR Morphine/Opiate cutoff 300 Negative (Negative); Ur Creatinine Normal (Normal); Ur Specific Gravity Normal (Normal); Urine Amphetamines Negative (Negative); Urine Barbiturates Negative (Negative); Urine Benzodiazepines Positive (Negative); Urine Cocaine Negative (Negative); Urine MDMA Negative (Negative); Urine Methadone Negative (Negative); Urine Methamphetamines Negative (Negative); Urine Oxycodone Negative (Negative); Urine Phencyclidine Negative (Negative); Urine Tetrahydrocannabinol Negative (Negative); Urine Tricyclic Antidepressant Negative (Negative); Urine pH Normal (Normal)
[2022-03-22 16:12] LABS: Bacteria Urine None Seen; Culture Indicated Urine Cult Not Indicated; RBC Urine None Seen (0-5/HPF); WBC Urine None Seen (0-5/HPF)
--- NOTE | 2022-03-22 16:16 | PC.NURSE ---
Pt reports several brief episodes during the past 2 weeks of right sided facial numbness and right lower arm numbness that all resolve withing 20 minutes. Pt reports two episodes today with the last one at 1230pm. Call light within reach. Encouraged to call if any changes.
--- NOTE | 2022-03-22 16:54 | PM.HP.1 ---
History of Present Illness History of Present Illness Date Patient Seen: 03/22/22 Time Patient Seen: 05:30 Chief complaint: Right hand numbness Narrative: 76-year-old male with a history coronary artery disease aortic valve replacement with history of infection requiring chronic amoxicillin therapy aortic aneurysm without rupture hypertension hyperlipidemia type 2 diabetes and lumbar spine degenerative disc disease who presents to the hospital with concerns of right hand numbness. Patient states his symptoms began about 2 weeks ago. On a Tuesday afternoon he was out in the community. And he had sudden onset of right hand lower arm weakness. He felt it was numb. He did not have any sensation to it did not have any feeling. He says he was able to move it but to be able to move it he had to look at it directly. When he reached out and grabbed a hold of things he could do that but he had no sensation. Symptoms lasted for approximately 20 minutes and then went away. Patient was a little bit concerned but not too concerned that this last Tuesday he had a similar episode. Of right lower hand loss of sensation. He said it again it lasted for less than 20 minutes. Symptoms were consistent with feeling of a knot present. He was able to move it reach out and grab things but he had to look at it for the sensation to be there. At that time he also noted some right facial numbness. He had clear speech. He had no weakness. He became concerned today because symptoms again happened before arrival to the hospital but much shorter. He card his road commissioner who recommended him come to the ER. Patient currently has no symptoms. Patient states symptoms were always less than 20 minutes. It was not associated with difficulty of speech difficulty with vision difficulty with balance it did not affect his lower extremity. During this time he did not have any palpitations of his heart any shortness of breath. He did not have any disorganized thinking her thought process. His was present during these episodes. On arrival to the emergency room patient had vital signs were done he was mildly hypertensive. He had a chest x-ray and laboratory tests which were reviewed he had a CT and CT angiogram. These were reviewed. The showed no acute changes or findings. Some chronic ischemic changes and no significant angiogram findings as far stenosis goes. He was found to be in normal sinus rhythm in the emergency department telemetry monitoring EKG was reviewed. CT scan were reviewed and care discussed with the emergency room physician. Patient History Medical History Anxiety (1994) Aortic aneurysm Aortic stenosis (2013) Atypical chest pain Colon polyps (2014) CTS (carpal tunnel syndrome) (~1992) 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) Facet arthropathy, lumbar Generalized weakness Hearing loss Heart attack (2013) Hemorrhoids (~1994) Herniated nucleus pulposus, L3-4 left Impaired fasting glucose (10/13/16) Lumbar radiculopathy Multilevel spinal stenosis On antibiotic therapy LUISA on CPAP Osteoarthritis Pneumonia (2013) Right knee sprain Rosacea (2004) Sciatica Shoulder pain (~1979) Splenic infarction Temporary low platelet count (10/26/17) Thrombocytopenia (10/26/17) Tinnitus Trigger finger (~1992) Type 2 diabetes mellitus Surgical History Anesthesia H/O aortic valve replacement with porcine valve History of aortic valve replacement (2013) History of hand surgery (~1991) History of hand surgery (~1994) History of quadruple bypass (2013) History of shoulder surgery (~1984) History of tonsillectomy (1950) History of vasectomy Hx of bilateral cataract extraction Family & Social History Family History Father Heart disease Mother High cholesterol Mental health problem Stroke Dementia Social History: household members spouse Tobacco & Substance use: Smoking Status Former smoker alcohol intake current alcohol intake frequency a few times a month Substance Use Type does not use Meds Home Medications and Allergies Home Medications Medication Instructions Recorded Confirmed Type atorvastatin 20 mg tablet (Lipitor) 40 mg PO QDAY ##0 07/31/17 03/22/22 History aspirin 81 mg tablet,delayed 81 mg PO BID 03/23/18 03/22/22 History release lisinopril 10 mg tablet 10 mg PO BID 09/17/20 03/22/22 History calcium carbonate 500 mg-vitamin 1 tab PO BID 05/11/21 03/22/22 History D3 10 mcg (400 unit) tablet (Calcium 500 + D) omeprazole 20 mg capsule,delayed 20 mg PO QDAY #90 caps 07/14/21 03/22/22 Rx release amoxicillin 500 mg capsule 500 mg PO BID 11/09/21 03/22/22 History metformin 500 mg tablet 1,000 mg PO BID #360 tabs 11/11/21 03/22/22 Rx acetaminophen 325 mg tablet 650 mg PO TID PRN Pain (Scale 03/22/22 03/22/22 History Score 4-6) alprazolam 0.5 mg tablet See Rx Instructions .Route 03/22/22 03/22/22 History .COMPLEX PRN Anxiety amlodipine 2.5 mg tablet 2.5 mg PO DAILY 03/22/22 03/22/22 History celecoxib 200 mg capsule 200 mg PO BEDTIME 03/22/22 03/22/22 History Allergies Allergy/AdvReac Type Severity Reaction Status Date / Time gentamicin [GENTAMICIN] Allergy Severe kidney Verified 11/09/21 09:06 failure Exam Vital Signs (past 8 hours): - 03/22/22 13:31 03/22/22 14:30 03/22/22 14:31 Temperature 97.8 F Pulse Rate 74 71 Respiratory Rate 18 13 Blood Pressure 187/83 H 176/86 H Pulse Oximetry 98 99 Oxygen Delivery Method Room Air 03/22/22 14:31 03/22/22 15:00 03/22/22 15:00 Temperature Pulse Rate 69 71 Respiratory Rate 19 22 Blood Pressure 169/81 H Pulse Oximetry 99 97 Oxygen Delivery Method 03/22/22 15:30 03/22/22 15:30 Temperature Pulse Rate 72 Respiratory Rate Blood Pressure 149/75 H Pulse Oximetry 95 Oxygen Delivery Method Room Air Oxygen Delivery Method Room Air Narrative Exam Narrative: Gen.: Alert and oriented x3 no apparent distress good historian sitting at the bedside. HEENT: NCAT PERRLA tympanic membranes are clear nares are patent oral mucosa is moist no tonsillar hypertrophy neck is supple without lymphadenopathy no thyroid enlargement. Cardio: S1-S2 regular rate and rhythm no murmurs appreciated. Respiratory: Lungs are clear to auscultation no wheezes or crackles normal respiratory effort. Abdomen: Soft nontender no rebound or guarding no liver spleen enlargement no appreciable hernias Extremities: Full range of motion no appreciable weakness no cyanosis or edema. Neurologic: Grossly intact no upper lower extremity weakness. No difficulty with speech. No problems with gait.. Objective Labs Result Diagrams: 03/22/22 13:54 03/22/22 13:54 Labs: Laboratory Results - last 24 hr 03/22/22 03/22/2222 13:54 13:54 13:54 WBC 5.5 RBC 4.62 Hgb 14.3 Hct 41.0 MCV 88.7 MCH 30.8 MCHC 34.8 RDW 14.0 Plt Count 160 Neut % (Auto) 65.5 Lymph % (Auto) 23.5 L Clay % (Auto) 7.8 Eos % (Auto) 2.3 Baso % (Auto) 0.9 Neut # (Auto) 3600 Lymph # (Auto) 1300 Clay # (Auto) 400 Eos # (Auto) 100 Baso # (Auto) 0 PT 10.6 INR 1.0 APTT 32 Sodium 140 Potassium 4.4 Chloride 104 Carbon Dioxide 27 BUN 20 Creatinine 0.95 Estimated GFR > 60 BUN/Creatinine Ratio 21.1 Glucose 122 H Calcium 9.2 Magnesium 1.4 L Total Bilirubin 0.4 AST 25 ALT 18 Alkaline Phosphatase 106 Total Creatine Kinase 89 CK-MB (CK-2) TNP CK-MB (CK-2) Rel Index TNP Troponin I < 0.012 Total Protein 7.1 Albumin 4.5 Globulin 2.6 Albumin/Globulin Ratio 1.7 Urine Color Urine Appearance Urine pH Ur Specific [place] Urine Protein Urine Glucose (UA) Urine Ketones Urine Occult Blood Urine Nitrate Urine Bilirubin Urine Urobilinogen Ur Leukocyte Esterase Urine RBC Urine WBC Urine Bacteria Ur Culture Indicated? U Opiates 300ng/mL cut Ur Oxycodone Screen Urine Methadone Screen Ur Barbiturates Screen U Tricyclic Antidepress Ur Phencyclidine Scrn Ur Amphetamines Screen U Methamphetamines Scrn Ur MDMA Scrn (Ecstasy) U Benzodiazepines Scrn Urine Cocaine Screen U Marijuana (THC) Screen SARS-CoV-2 (PCR) 03/22/22 03/22/22 03/22/22 14:26 14:30 15:37 WBC RBC Hgb Hct MCV MCH MCHC RDW Plt Count Neut % (Auto) Lymph % (Auto) Clay % (Auto) Eos % (Auto) Baso % (Auto) Neut # (Auto) Lymph # (Auto) Clay # (Auto) Eos # (Auto) Baso # (Auto) PT INR APTT Sodium Potassium Chloride Carbon Dioxide BUN Creatinine Estimated GFR BUN/Creatinine Ratio Glucose Calcium Magnesium Total Bilirubin AST ALT Alkaline Phosphatase Total Creatine Kinase CK-MB (CK-2) CK-MB (CK-2) Rel Index Troponin I Total Protein Albumin Globulin Albumin/Globulin Ratio Urine Color Yellow Urine Appearance Clear Urine pH 6.0 Ur Specific [place] <=1.005 Urine Protein Negative Urine Glucose (UA) Negative Urine Ketones Negative Urine Occult Blood Negative Urine Nitrate Negative Urine Bilirubin Negative Urine Urobilinogen 0.2 Ur Leukocyte Esterase Negative Urine RBC None seen Urine WBC None seen Urine Bacteria None seen Ur Culture Indicated? Cult not indicated U Opiates 300ng/mL cut Negative Ur Oxycodone Screen Negative Urine Methadone Screen Negative Ur Barbiturates Screen Negative U Tricyclic Antidepress Negative Ur Phencyclidine Scrn Negative Ur Amphetamines Screen Negative U Methamphetamines Scrn Negative Ur MDMA Scrn (Ecstasy) Negative U Benzodiazepines Scrn Positive H Urine Cocaine Screen Negative U Marijuana (THC) Screen Negative SARS-CoV-2 (PCR) Negative Assessment & Plan Assessment and plan (1) TIA (transient ischemic attack): Status: Acute Plan Right hand and right face numbness patient has been admitted to the hospital as observation for possibility of transient ischemic attack or cerebrovascular accident he has very high risk due to his history of heart disease diabetes and hyperlipidemia for acute stroke. He will be admitted to the hospital he will have telemetry monitoring frequent vital signs and stroke scoring. Patient will have an MRI stroke protocol of his brain. He will be placed on telemetry monitoring and have an echocardiogram. Will evaluate his cerebrovascular vessels for blockages. Patient will be placed on full strength aspirin statin and will manage his blood pressure while he is here. Patient is a full code. Patient does not need physical therapy and/or occupational therapy at this point as he has no symptoms and feels like he is back at baseline. Because of his concerning history and examination findings. Patient knee needs further workup and evaluation. 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 Patient will be continued on his twice daily amoxicillin as per recommendation of the road commissioner. Repeat echocardiogram to make sure that there is no significant vegetations or concerning findings in regards to his recent transient neurological events. Coronary artery disease chronic and stable continue with beta-cirilo aspirin and statin Diabetes type 2. Patient is a type 2 diabetic. Patient will be continued on his metformin he will have a diabetic diet and he will be continued for blood sugar purposes on his metformin that he takes at home. Hypertension. Patient is hypertensive. He will be started back on his home antihypertensive medication will work on better blood pressure control while he is here in the hospital Hyperlipidemia. Patient is currently on a statin. Will recheck his lipid panel. Continue with his home statin medication DVT prophylaxis with Lovenox Disposition and plan admitted to the hospital as observation anticipate discharge within 24 hours unless MRI findings consistent with cerebrovascular accident Time Spent With Patient Critical Care time: I spent a total of [] minutes of critical care time on this patient's care today; this time is exclusive of procedural time.
--- NOTE | 2022-03-22 16:57 | DI.MRI.S_ITS ---
PROCEDURE: MR HEAD/BRAIN WO CON INDICATIONS: Transient ischemic attack TECHNIQUE: Non-contrast axial T1 spin echo, axial T2 fast spin echo, sagittal and axial FLAIR, coronal T2 fast spin echo, axial gradient echo, axial diffusion and ADC through the brain. COMPARISON: [facility], CT, CT STROKE, 03/22/2022, 14:02. [facility], CT, CT ANGIO HEAD AND NECK, 03/22/2022, 14:02. FINDINGS: Image quality: Excellent. CSF spaces: Ventricles appear symmetric in size and shape. Basal cisterns are patent. No extra-axial fluid collections. Brain: No intracranial bleeds or mass effects. There is moderate cerebral volume loss for age. There are moderate periventricular and deep white matter chronic small vessel ischemic changes. Brainstem appears normal. Diffusion-weighted images show no acute ischemic insults. No chronic ischemic insults. Normal intravascular flow voids are present. Skull and face: Calvarial bone marrow is normal in signal. Orbits are normal. Sinuses: Sinuses and mastoids are clear. IMPRESSION: No acute finding. Moderate age-related global cerebral volume loss and chronic microvascular ischemic changes. Dictated by: Orion Croft M.D. on 03/22/2022 at 19:42 Approved by: Orion Croft M.D. on 03/22/2022 at 19:44
--- NOTE | 2022-03-22 17:14 | DI.ECHO.S_ITS ---
[facility]---------+ [facility] +---------+ : : [address] : : : : [id number] : : : : Phone: [phone]+ Echocardiogram Report + + :Name: SKYLER GONZALEZ Study Date: 03/23/2022 Height: 70 in : :[facility] ReadingLocation: Weight: 214 lb : : Gender: Male BSA: 2.1 m2 : :: 1945 Age: 76 yrs BP: 164/97 mmHg: :Reason For Study: TIA : :Ordering Physician: ROSA, : :JAZMIN Performed By: Tobin Coleman : :Referring: JAZMIN LEE : + + Interpretation Summary The ejection fraction is estimated to be 55-60%. Diastolic parameters suggest probable normal left ventricular diastolic function and normal filling pressures. The right ventricle grossly appears normal in size with probable normal systolic function. The aortic bioprosthetic valve is well-seated with trace regurgitation. There is mild tricuspid regurgitation. The right ventricular systolic pressure is estimated to be at least 27 mmHg based on an estimated right atrial pressure of 3 mm Hg. Compared to the prior study dated 07/28/2020, no significant change however the ascending aorta cannot be visualized on the current study. Procedure: A two-dimensional transthoracic echocardiogram with color flow and Doppler was performed. The study quality was technically adequate. Comparison is made with the echocardiogram of 07/28/2020. The patient was in normal sinus rhythm during the exam. Left Ventricle: The left ventricle is normal in size and wall thickness. Left ventricular systolic function is normal. The ejection fraction is estimated to be 55-60%. There are no focal wall motion abnormalities. Diastolic parameters suggest probable normal left ventricular diastolic function and normal filling pressures. Right Ventricle: The right ventricle grossly appears normal in size with probable normal systolic function. Atria: Both atria are normal in size. The interatrial septum grossly appears intact with no obvious evidence for an atrial septal defect. Mitral Valve: There is mild mitral annular calcification. There is trace mitral regurgitation. Aortic Valve: There is a bioprosthetic aortic valve. The prosthetic aortic valve is well-seated. The prosthetic aortic valve appears to open well. The peak aortic velocity is 2.7 m/sec. The aortic valve mean gradient is 15 mmHg. There is trace aortic regurgitation. Tricuspid Valve: The tricuspid valve is normal in structure and function. There is mild tricuspid regurgitation. The right ventricular systolic pressure is estimated to be at least 27 mmHg based on an estimated right atrial pressure of 3 mm Hg. Pulmonic Valve: The pulmonic valve is not well visualized. Great Vessels: The aortic root is not well visualized. The ascending aorta could not be visualized. The IVC is of normal diameter and collapses greater than 50% with a sniff. This suggests a low right atrial pressure of 3 mm Hg. Pericardium/ Pleura There is no pericardial effusion. There is no pleural effusion. MMode/2D Measurements & Calculations LVIDd: 4.7 cm LA A2 area: 12.8 cm2 LVIDs: 3.2 cm LA A4 area: 18.3 cm2 FS: 31.2 % LA length (vol): 6.0 cm IVSd: 1.1 cm LA vol: 33.1 ml LVPWd: 1.1 cm LA vol index: 15.4 ml/m2 LV mccormack. diameter/BSA (cm/m^2): 2.2 LV sys. diameter/BSA (cm/m^2): 1.5 RA long axis: 5.5 cm TAPSE: 1.1 cm RA area: 17.0 cm2 RA vol: 44.5 ml RA : 20.7 ml/m2 Doppler Measurements & Calculations Ao V2 max: 268.7 cm/sec LVOT Max Solomon: 83.0 cm/sec Ao V2 mean: 183.4 cm/sec LV V1 max P.8 mmHg Ao max P.9 mmHg LV V1 VTI: 18.6 cm Ao mean P.0 mmHg sev ratio: 0.33 Ao V2 VTI: 55.9 cm MV E max solomon: 77.9 cm/sec TR max solomon: 245.1 cm/sec MV A max solomon: 99.5 cm/sec TR max P.0 mmHg MV E/A: 0.78 Med Peak E' Solomon: 8.1 cm/sec E/E' med: 9.6 Lat Peak E' Solomon: 7.8 cm/sec E/E' lat: 10.0 E/e' average: 9.8 MV dec time: 0.27 sec Reading Physician:12:17 PM
--- NOTE | 2022-03-22 19:04 | PC.NURSE ---
Pt arrived from ED at 1720. A&OX3, VSS, afebrile NSR on telemetry. He denies SOB, CP, or any neurological symptoms. He has symmetrical smile, no droop, clear speech. Eating dinner this evening. MRI completed. Continuous monitor
[2022-03-22] MEDS: AMOXICILLIN 250 MG CAPSULE 500 MG PO (21:23)
[2022-03-22] MEDS: METFORMIN HCL 500 MG TABLET 1000 MG PO (21:24)
[2022-03-22] MEDS: SODIUM CHLORIDE 0.9% FLUSH 10 ML IV (21:24)
--- NOTE | 2022-03-22 22:47 | PC.NURSE ---
Dr. Pro notified of pt cardiac changes, pt is SA with 1 degree AV, pauses of 1.8, pt asymptomatic with a stable BP. No new orders taken.
[2022-03-23] VITALS: BP 159/92; PULSE 59; RESP 18; TEMP 36.6; O2SAT 99
[2022-03-23 03:51] VITALS: BP 145/82; PULSE 56; RESP 18; TEMP 36.5; O2SAT 96
[2022-03-23 06:02] LABS: Cholesterol 122 mg/dL (140-199); HDL Cholesterol 39 mg/dL (40-60); LDL Cholesterol Calculated 64 mg/dL (<100); Triglycerides 93 mg/dL (35-150)
[2022-03-23 07:57] VITALS: BP 176/94; PULSE 67; RESP 18; TEMP 36.5; O2SAT 98
[2022-03-23] MEDS: AMOXICILLIN 250 MG CAPSULE 500 MG PO (09:28)
[2022-03-23] MEDS: ASPIRIN EC 325 MG TABLET PO (09:28)
[2022-03-23] MEDS: METFORMIN HCL 500 MG TABLET 1000 MG PO (09:28)
[2022-03-23 09:29] VITALS: BP 176/94; PULSE 67
[2022-03-23] MEDS: AMLODIPINE 5 MG TABLET PO (09:29)
[2022-03-23] MEDS: lisinopriL 10 MG TABLET PO (09:29)
[2022-03-23] MEDS: ENOXAPARIN 40 MG/0.4 ML SYRINGE SUBCUT (09:29)
--- NOTE | 2022-03-23 09:44 | P.DS_ITS ---
History of Present Illness History of Present Illness Chief complaint: Right hand numbness Narrative: 76-year-old male with a history coronary artery disease aortic valve replacement with history of infection requiring chronic amoxicillin therapy aortic aneurysm without rupture hypertension hyperlipidemia type 2 diabetes and lumbar spine degenerative disc disease who presents to the hospital with concerns of right hand numbness. Patient states his symptoms began about 2 weeks ago. On a Tuesday afternoon he was out in the community. And he had sudden onset of right hand lower arm weakness. He felt it was numb. He did not have any sensation to it did not have any feeling. He says he was able to move it but to be able to move it he had to look at it directly. When he reached out and grabbed a hold o f things he could do that but he had no sensation. Symptoms lasted for approximately 20 minutes and then went away. Patient was a little bit concerned but not too concerned that this last Tuesday he had a similar episode. Of right lower hand loss of sensation. He said it again it lasted for less than 20 minutes. Symptoms were consistent with feeling of a knot present. He was able to move it reach out and grab things but he had to look at it for the sensation to be there. At that time he also noted some right facial numbness. He had clear speech. He had no weakness. He became concerned today because symptoms again happened before arrival to the hospital but much shorter. He card his broaching machine operator who recommended him come to the ER. Patient currently has no symptoms. Patient states symptoms were always less than 20 minutes. It was not associated with difficulty of speech difficulty with vision difficulty with balance it did not affect his lower extremity. During this time he did not have any palpitations of his heart any shortness of breath. He did not have any disorganized thinking her thought process. His was present during these episodes. On arrival to the emergency room patient had vital signs were done he was mildly hypertensive. He had a chest x-ray and laboratory tests which were reviewed he had a CT and CT angiogram. These were reviewed. The showed no acute changes or findings. Some chronic ischemic changes and no significant angiogram findings as far stenosis goes. He was found to be in normal sinus rhythm in the emergency department telemetry monitoring EKG was reviewed. CT scan were reviewed and care discussed with the emergency room physician. Discharge Providers Provider Date of admission: 03/22/22 16:19 Discharge Date: 03/23/22 Primary care physician: Orion Cisse MD Discharge provider: Orion Cisse MD Summary Hospital Course Discharge Diagnosis: TIA Coronary artery disease chronic stable Bioprosthetic valve with chronic bacterial endocarditis Type 2 diabetes controlled Essential hypertension Mixed hyperlipidemia Aortic abdominal aneurysm less than 5 cm without rupture Lumbar degenerative disc disease Hospital Course: Patient admitted to the hospital with significant risk factors for cerebrovascular disease including history of coronary artery disease diabetes hypertension hyperlipidemia and a BMI of 29. Patient's history concerning for symptoms of hand numbness and loss of sensation as well as face numbness on the right side. Hospital course. Patient was placed on aspirin continued on hollsi inhibtor receptor and calcium channel cirilo adjustments were made to his blood pressure medication for better blood pressure control. During the hospital he had regular evaluation for worsening of stroke symptoms although patient remained asymptomatic during his hospital stay. Advanced imaging was reviewed including CT CT angiogram and MRI which showed no acute cerebrovascular finding some chronic microvascular ischemic changes and calcification of his carotid arteries with good flow. Patient was placed on telemetry monitoring. Patient had a cardiac monitor technician which showed pause but less than 2 seconds. Some bradycardia not concerning and asymptomatic. His blood pressure was mildly elevated and increase lisnipril and started norvasc. Patient was placed on a full strength aspirin statin high dose and had blood pressure management. Patient had a repeat echocardiogram during his hospital stay he has a history of coronary artery disease valve replacement with chronic bacterial prostetic endocarditis and on chronic amoxicillin as recommended by his infectious disease specialist and broaching machine operator. Patient's blood sugars were well controlled with his home metformin dose during the hospital stay. Echo completed with out signific change from previous no valve vegetations or concerns with EF The time of discharge was eating ambulating well back to his baseline status. Patient will have a follow-up in 7-10 days. We made the following adjustments to his medication he will be changed from 81 mg aspirin to a full strength aspirin. Will adjust his blood pressure medication by increasing his amlodipine to 5 mg once daily. He will be started on Plavix at least for the next 90 days because of his concerning history he will be switched from omeprazole to Zantac for his proton pump inhibitor. Patient have a follow-up 7 day Holter monitor as an outpatient to further quantify his bradycardia. Exam Vital Signs (past 8 hours): - 03/23/22 03:51 03/23/22 07:57 03/23/22 09:29 Temperature 97.7 F 97.7 F Pulse Rate 56 L 67 67 Respiratory Rate 18 18 Blood Pressure 145/82 H 176/94 H 176/94 H Pulse Oximetry 96 98 Oxygen Flow Rate 0 0 Oxygen Delivery Method Room Air Oxygen Flow Rate 0 Objective Labs Result Diagrams: 03/22/22 13:54 03/22/22 13:54 Labs: Laboratory Results - last 24 hr 03/22/22 03/22/22 03/22/22 13:54 13:54 13:54 WBC 5.5 RBC 4.62 Hgb 14.3 Hct 41.0 MCV 88.7 MCH 30.8 MCHC 34.8 RDW 14.0 Plt Count 160 Neut % (Auto) 65.5 Lymph % (Auto) 23.5 L Pettis % (Auto) 7.8 Eos % (Auto) 2.3 Baso % (Auto) 0.9 Neut # (Auto) 3600 Lymph # (Auto) 1300 Pettis # (Auto) 400 Eos # (Auto) 100 Baso # (Auto) 0 PT 10.6 INR 1.0 APTT 32 Sodium 140 Potassium 4.4 Chloride 104 Carbon Dioxide 27 BUN 20 Creatinine 0.95 Estimated GFR > 60 BUN/Creatinine Ratio 21.1 Glucose 122 H Calcium 9.2 Magnesium 1.4 L Total Bilirubin 0.4 AST 25 ALT 18 Alkaline Phosphatase 106 Total Creatine Kinase 89 CK-MB (CK-2) TNP CK-MB (CK-2) Rel Index TNP Troponin I < 0.012 Total Protein 7.1 Albumin 4.5 Globulin 2.6 Albumin/Globulin Ratio 1.7 Triglycerides Cholesterol LDL Cholesterol, Calc HDL Cholesterol Urine Color Urine Appearance Urine pH Ur Specific [place] Urine Protein Urine Glucose (UA) Urine Ketones Urine Occult Blood Urine Nitrate Urine Bilirubin Urine Urobilinogen Ur Leukocyte Esterase Urine RBC Urine WBC Urine Bacteria Ur Culture Indicated? U Opiates 300ng/mL cut Ur Oxycodone Screen Urine Methadone Screen Ur Barbiturates Screen U Tricyclic Antidepress Ur Phencyclidine Scrn Ur Amphetamines Screen U Methamphetamines Scrn Ur MDMA Scrn (Ecstasy) U Benzodiazepines Scrn Urine Cocaine Screen U Marijuana (THC) Screen SARS-CoV-2 (PCR) 03/22/22 03/22/22 03/22/22 14:26 14:30 15:37 WBC RBC Hgb Hct MCV MCH MCHC RDW Plt Count Neut % (Auto) Lymph % (Auto) [place] % (Auto) Eos % (Auto) Baso % (Auto) Neut # (Auto) Lymph # (Auto) [place] # (Auto) Eos # (Auto) Baso # (Auto) PT INR APTT Sodium Potassium Chloride Carbon Dioxide BUN Creatinine Estimated GFR BUN/Creatinine Ratio Glucose Calcium Magnesium Total Bilirubin AST ALT Alkaline Phosphatase Total Creatine Kinase CK-MB (CK-2) CK-MB (CK-2) Rel Index Troponin I Total Protein Albumin Globulin Albumin/Globulin Ratio Triglycerides Cholesterol LDL Cholesterol, Calc HDL Cholesterol Urine Color Yellow Urine Appearance Clear Urine pH 6.0 Ur Specific [place] <=1.005 Urine Protein Negative Urine Glucose (UA) Negative Urine Ketones Negative Urine Occult Blood Negative Urine Nitrate Negative Urine Bilirubin Negative Urine Urobilinogen 0.2 Ur Leukocyte Esterase Negative Urine RBC None seen Urine WBC None seen Urine Bacteria None seen Ur Culture Indicated? Cult not indicated U Opiates 300ng/mL cut Negative Ur Oxycodone Screen Negative Urine Methadone Screen Negative Ur Barbiturates Screen Negative U Tricyclic Antidepress Negative Ur Phencyclidine Scrn Negative Ur Amphetamines Screen Negative U Methamphetamines Scrn Negative Ur MDMA Scrn (Ecstasy) Negative U Benzodiazepines Scrn Positive H Urine Cocaine Screen Negative U Marijuana (THC) Screen Negative SARS-CoV-2 (PCR) Negative 03/23/22 05:35 WBC RBC Hgb Hct MCV MCH MCHC RDW Plt Count Neut % (Auto) Lymph % (Auto) [place] % (Auto) Eos % (Auto) Baso % (Auto) Neut # (Auto) Lymph # (Auto) [place] # (Auto) Eos # (Auto) Baso # (Auto) PT INR APTT Sodium Potassium Chloride Carbon Dioxide BUN Creatinine Estimated GFR BUN/Creatinine Ratio Glucose Calcium Magnesium Total Bilirubin AST ALT Alkaline Phosphatase Total Creatine Kinase CK-MB (CK-2) CK-MB (CK-2) Rel Index Troponin I Total Protein Albumin Globulin Albumin/Globulin Ratio Triglycerides 93 Cholesterol 122 L LDL Cholesterol, Calc 64 HDL Cholesterol 39 L Urine Color Urine Appearance Urine pH Ur Specific [place] Urine Protein Urine Glucose (UA) Urine Ketones Urine Occult Blood Urine Nitrate Urine Bilirubin Urine Urobilinogen Ur Leukocyte Esterase Urine RBC Urine WBC Urine Bacteria Ur Culture Indicated? U Opiates 300ng/mL cut Ur Oxycodone Screen Urine Methadone Screen Ur Barbiturates Screen U Tricyclic Antidepress Ur Phencyclidine Scrn Ur Amphetamines Screen U Methamphetamines Scrn Ur MDMA Scrn (Ecstasy) U Benzodiazepines Scrn Urine Cocaine Screen U Marijuana (THC) Screen SARS-CoV-2 (PCR) [facility] Medical History Anxiety (1994) Aortic aneurysm Aortic stenosis (2013) Atypical chest pain Colon polyps (2014) CTS (carpal tunnel syndrome) (~1992) 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) Facet arthropathy, lumbar Generalized weakness Hearing loss Heart attack (2013) Hemorrhoids (~1994) Herniated nucleus pulposus, L3-4 left Impaired fasting glucose (10/13/16) Lumbar radiculopathy Multilevel spinal stenosis On antibiotic therapy LUISA on CPAP Osteoarthritis Pneumonia (2013) Right knee sprain Rosacea (2004) Sciatica Shoulder pain (~1979) Splenic infarction Temporary low platelet count (10/26/17) Thrombocytopenia (10/26/17) Tinnitus Trigger finger (~1992) Type 2 diabetes mellitus Surgical History Anesthesia H/O aortic valve replacement with porcine valve History of aortic valve replacement (2013) History of hand surgery (~1991) History of hand surgery (~1994) History of quadruple bypass (2013) History of shoulder surgery (~1984) History of tonsillectomy (1950) History of vasectomy Hx of bilateral cataract extraction Family History Father Heart disease Mother High cholesterol Mental health problem Stroke Dementia Social History marital status: household members: spouse Smoking Status: Former smoker alcohol intake: current substance use type: does not use Discharge Plan Discharge Plan Patient Disposition: Home Provider Discharge Comment: Follow-up Dr. Cisse 7-10 days Discharge orders & Medications Prescriptions: New aspirin 325 mg Tablet,Delayed Release (Dr/Ec) 325 mg PO DAILY Qty: 90 3RF clopidogrel [Plavix] 75 mg tablet 75 mg PO DAILY Qty: 90 3RF famotidine 20 mg tablet 20 mg PO BEDTIME Qty: 90 3RF Continued calcium carbonate-vitamin D3 [Calcium 500 + D] 500 mg(1,250mg) -400 unit tablet 1 tab PO BID amoxicillin 500 mg capsule 500 mg PO BID atorvastatin [Lipitor] 20 MG tablet 40 mg PO QDAY Qty: 0 metformin 500 mg tablet 1,000 mg PO BID Qty: 360 3RF alprazolam 0.5 mg tablet See Rx Instructions .ROUTE .COMPLEX PRN (Reason: Anxiety) Rx Instructions: TAKE 1 TABLET BY MOUTH DAILY NEEDED celecoxib 200 mg capsule 200 mg PO BEDTIME acetaminophen 325 mg tablet 650 mg PO TID PRN (Reason: Pain (Scale Score 4-6)) lisinopril 10 mg tablet 10 mg PO BID Discontinued omeprazole 20 mg capsule,delayed release(DR/EC) 20 mg PO QDAY Qty: 90 3RF aspirin 81 mg Tablet,Delayed Release (Dr/Ec) 81 mg PO BID amlodipine 2.5 mg Tablet 2.5 mg PO DAILY Follow up/Referrals: Orion Cisse MD [Primary Care Provider] - Discharge Health Status Multidrug resistant organism: No MDRO Diet/Activity/Treatments Diet: Diet as Tolerated Discharge Data Primary Care Provider: rOion Cisse Attending Provider: Orion Cisse Quality VTE Deep Vein Thrombosis/Pulmonary Embolism Present on Admission: No
[2022-03-23] MEDS: SODIUM CHLORIDE 0.9% FLUSH 10 ML IV (10:00)
[2022-03-23 10:15] VITALS: BP 176/94; PULSE 67
[2022-03-23] MEDS: lisinopriL 10 MG TABLET 20 MG PO (10:15)
[2022-03-23 11:00] VITALS: BP 164/97; PULSE 72; RESP 17; TEMP 36.3; O2SAT 98
--- NOTE | 2022-03-23 12:32 | PC.NURSE ---
Pt is A&OX3, neuro intact. Slightly hypertensive, he denies SOB, CP, dizziness, palpitations, EMERSON,n/v neurologic/ cardiac symptoms. He ambulates with steady gait independently. MD Cisse at bedside this a.m. discussing discharge plan with patient and at bedside after echo completed. Pt verbalizes understanding of discharge medications, activity, worsening symptoms and follow up appointment. He is escorted via w/chair by FLOWER POT PRESS OPERATOR with all of his belongings to private vehicle for discharge home with today at 1200 p.m.
== END 2022-03-23 12:05 | disposition home or self-care (01) ==
LOC: ED 16:19 → AC 16:20
PROVIDERS: Admitting Provider Family Medicine; Emergency Provider Emergency Medicine; PCP Family Medicine; Referring Provider Emergency Medicine; Visit Provider Family Medicine
DX: G45.9 Transient cerebral ischemic attack, unspecified (principal); R29.700 NIHSS score 0; I10 Essential (primary) hypertension; E11.9 Type 2 diabetes mellitus without complications; K21.9 Gastro-esophageal reflux disease without esophagitis; E78.2 Mixed hyperlipidemia; I25.10 Atherosclerotic heart disease of native coronary artery without angina pectoris; T82.6XXA Infection and inflammatory reaction due to cardiac valve prosthesis, initial encounter; Z95.2 Presence of prosthetic heart valve; I71.4 Abdominal aortic aneurysm, without rupture; M51.36 Other intervertebral disc degeneration, lumbar region; Z79.84 Long term (current) use of oral hypoglycemic drugs; Z79.82 Long term (current) use of aspirin; Z95.1 Presence of aortocoronary bypass graft; Z20.822 Contact with and (suspected) exposure to COVID-19
CPT/HCPCS: 36415; 70450; 70496; 70498; 70551; 71045; 80053; 80061; 80305; 81001; 82550; 82962; 83735; 84484; 85025; 85610; 85730; 87635; 93005; 93010; 93306; 96372; 99223; 99238; 99284; C9803; G0378; J1650; Q9967

== ENCOUNTER → 2022-04-07 07:48 | Outpatient (CLI) | payer MEDICARE, SELFPAY ==
[2022-03-22 17:05] VITALS: BMI 29.2
--- NOTE | 2022-04-22 07:56 | PM.CARDMON.1 ---
Rubber Belt Splicer Report Referral & Results Date Patient Seen: 04/07/22 Requesting provider: Orion Cisse Indication: TIA Duration of monitoring (days): 8 Diary information: There were 2 patient triggered events and 2 patient diary entries The patient triggered events were associated with sinus rhythm and PVCs Patient diary entries were associated with sinus rhythm only Data: Minimum heart rate identified was 46 beats per minute at 07:08 on 04/10/2022 Maximum sinus heart rate was 120 beats per minute at 14:50 on 04/08/2022, which was also the overall maximum heart rate Less than 1% of identified beats were ventricular or supraventricular ectopic in origin, which would classify them as rare. No pauses of 3 seconds or longer, episodes of atrial fibrillation or SVT were identified on this study Impression: Normal 7+ day cardiac monitor technician without etiology for reported TIA. Specifically no episodes of atrial fibrillation or other significant dysrhythmias identified
== END ==
PROVIDERS: PCP Family Medicine; Referring Provider Family Medicine; Visit Provider Family Medicine
DX: G45.9 Transient cerebral ischemic attack, unspecified (principal)
CPT/HCPCS: 93242; 93248

== ENCOUNTER → 2022-04-17 08:35 | Outpatient (CLI) | payer MEDICARE, SELFPAY ==
[2022-03-22 17:05] VITALS: BMI 29.2
[2022-04-17 09:42] LABS: BUN Creatinine Ratio 20.8 (6-22); Blood Urea Nitrogen 21 mg/dL (9-20); Carbon Dioxide 26 mmol/L (22-32); Chloride 104 mmol/L (98-107); Estimated Glomerular Filt Rate > 60 mL/min (>60); Glucose 122 mg/dL (80-110); Potassium 4.5 mmol/L (3.4-5.1); Sodium 138 mmol/L (137-145)
[2022-04-17 09:43] LABS: Calcium 9.3 mg/dL (8.4-10.2); HEMOLYSIS < 15 (0-50)
[2022-04-17 09:46] LABS: Add Manual Diff / Slide Review NO; Basophils Absolute Auto 0 /uL (0-100); Basophils Percent Auto 0.7 % (0-2); Eosinophils Absolute Auto 100 /uL (0-450); Eosinophils Percent Auto 2.2 % (2-4); Hematocrit 41.6 % (41-53); Hemoglobin 14.1 g/dL (13.5-17.5); Lymphocytes Absolute Auto 1400 /uL (1100-4500); Lymphocytes Percent Auto 26.5 % (25-40); Mean Corpuscular HGB Conc 33.9 % (30-36); Mean Corpuscular Hemoglobin 30.1 PG (26-34); Mean Corpuscular Volume 88.9 fL (80-100); Monocytes Absolute Auto 400 /uL (0-900); Monocytes Percent Auto 8.1 % (3-14); Neutrophils Absolute Auto 3300 /uL (1500-7000); Neutrophils Percent Auto 62.5 % (50-75); Platelet Count 165 X10^3/uL (150-400); Red Blood Cell Count 4.68 X10^6/uL (4.5-5.9); Red Cell Distribution Width 14.1 % (11.6-14.8); White Blood Cell Count 5.3 X10^3/uL (4.5-11.0)
== END ==
PROVIDERS: PCP Family Medicine; Referring Provider Internal Medicine; Visit Provider Internal Medicine
DX: I38 Endocarditis, valve unspecified (principal); T82.6XXD Infection and inflammatory reaction due to cardiac valve prosthesis, subsequent encounter
CPT/HCPCS: 36415; 80048; 85025

== ENCOUNTER → 2022-04-28 07:50 | Outpatient (CLI) | payer MEDICARE, SELFPAY ==
[2022-03-22 17:05] VITALS: BMI 29.2
== END ==
PROVIDERS: PCP Family Medicine; Referring Provider Family Medicine; Visit Provider Family Medicine
DX: E11.9 Type 2 diabetes mellitus without complications (principal)
CPT/HCPCS: 36415; 83036

== ENCOUNTER 2022-06-24 18:11 | Emergency (ER) | payer MEDICARE, SELFPAY ==
[2022-03-22 17:05] VITALS: BMI 29.2
[2022-06-24] VITALS (10 sets, daily range): BP systolic 150–190; BP diastolic 71–85; PULSE 66–88; RESP 18–21; TEMP 36; O2SAT 96–99; BMI 28.8
--- NOTE | 2022-06-24 18:19 | DI.CT.S_ITS ---
PROCEDURE: CT HEAD/BRAIN WO CON INDICATIONS: blunt trauma TECHNIQUE: Noncontrast 4.5 mm thick angled axial sections acquired from the foramen magnum to the vertex, with coronal and sagittal reformats. For radiation dose reduction, the following was used: automated exposure control, adjustment of mA and/or kV according to patient size. COMPARISON: [facility], MR, MR HEAD/BRAIN WO CON, 03/22/2022, 18:41. [facility], CT, CT STROKE, 03/22/2022, 14:02. [facility], CT, HEAD WITHOUT CONTRAST, 08/19/2011, 8:48. FINDINGS: Image quality: Excellent. CSF spaces: Basal cisterns are patent. No extra-axial fluid collections. The ventricles are symmetric in size and shape. Brain: No acute intracranial hemorrhage or mass effect. There is cerebral volume loss for age, with resultant ventricular and sulcal prominence. There are periventricular and deep white matter chronic small vessel ischemic changes. There is intracranial internal carotid artery atherosclerosis. Skull and face: Facial fractures are noted with partial opacification of the left maxillary sinus, better evaluated on facial CT performed the same time. No calvarial fracture is seen. Sinuses: Left maxillary sinus is partially opacified. There is partial opacification of the right posterior ethmoid air cells. Remaining visualized paranasal sinuses are clear. The mastoid air cells are clear. IMPRESSION: No acute intracranial hemorrhage or mass effect. Please see separate facial bone CT for complete evaluation of facial trauma. Approved by: Constantine Watts M.D. on 06/24/2022 at 18:48
--- NOTE | 2022-06-24 18:21 | DI.CT.S_ITS ---
PROCEDURE: CT FACIAL BONES WO CON INDICATIONS: blunt trauma TECHNIQUE: Noncontrast 2.5 mm thick axial images acquired from the mandible through the frontal sinuses, with coronal and sagittal reformatting. For radiation dose reduction, the following was used: automated exposure control, adjustment of mA and/or kV according to patient size. COMPARISON: [facility], CT, CT STROKE, 03/22/2022, 14:02. FINDINGS: Image quality: Excellent. Bones and teeth: There is a minimally displaced fracture of the lateral wall of the left orbit with approximately 2 mm offset of osseous structures. A comminuted mildly displaced fracture of the left 2nd Modic arch is seen with approximately 6 mm displacement. Comminuted, minimally displaced fractures are seen involving the anterior and lateral hastings of the left maxillary sinus. There is possible focal fracture involvement of the posterior most aspect of the left orbital floor without significant displacement. The pterygoid plates are intact. Nasal bones do not appear significantly changed when compared to the CT from 03/22/2022. Nasal septum is intact. Visualized portions of the mandible demonstrate no fractures or subluxation. Visualized portions of the skull base and auditory canals are intact. Sinuses: Air hemorrhage level is noted in the left maxillary sinus. There is chronic appearing opacification of the right posterior ethmoid air cells. The paranasal sinuses and the mastoid air cells are otherwise clear. Soft tissues: Soft tissue edema is seen throughout the left face, most prominent in the periorbital region. No enlarged lymph nodes. No soft tissue lacerations or debris. Chronic microvascular ischemic changes are seen in the included portions of the brain. Vascular: Visualized vascular structures appear normal in the absence of contrast. Bony vascular foramina and canals are intact. IMPRESSION: Multiple mildly displaced and comminuted left-sided facial fractures as described in the body of the report, involving the left lateral orbital wall, left zygomatic arch, and the anterior and posterior hastings of the left maxillary sinus. Approved by: Constantine Watts M.D. on 06/24/2022 at 18:57
--- NOTE | 2022-06-24 18:46 | DI.CT.S_ITS ---
PROCEDURE: CT CERVICAL SPINE WO CON INDICATIONS: fall TECHNIQUE: Noncontrast 3 mm thick sections acquired from the skull base to the T4 level. Sagittal and coronal reformats were then constructed. For radiation dose reduction, the following was used: automated exposure control, adjustment of mA and/or kV according to patient size. COMPARISON: None. FINDINGS: Image quality: Excellent. Bones: No acute cervical spine fractures or dislocations. Left facial fractures are partially visualized. Visualized superior ribs are intact. Multilevel disc space narrowing degenerative endplate changes as well as multilevel uncovertebral joint and facet hypertrophy. Soft tissues: Prevertebral soft tissues are normal in thickness. No paravertebral hematomas. No apical pneumothoraces. Sternotomy wires are present. IMPRESSION: 1. No acute cervical spine fracture or subluxation. 2. Multiple facial fractures partially visualized. 3. Multilevel spondylosis. Approved by: Constantine Watts M.D. on 06/24/2022 at 19:46
[2022-06-24] MEDS: HYDROCODONE/ACET 5/325 TABLET 1 TAB PO (20:34)
[2022-06-24] MEDS: ONDANSETRON 4 MG ODT SL (20:34)
--- NOTE | 2022-06-24 22:09 | DI.RAD.S_ITS ---
PROCEDURE: XR WRIST RT MIN 3V INDICATIONS: pain/injury TECHNIQUE: 4 views of the wrist were acquired. COMPARISON: None. FINDINGS: Bones: No fractures or dislocations. There is moderate degeneration of the 1st carpometacarpal joint. No suspicious bony lesions. Scaphoid view: No definite acute fracture or dislocation. Soft tissues: No suspicious soft tissue calcifications. There is a curvilinear metallic density projecting over the volar soft tissues at the level of the 1st carpal row and radius. IMPRESSION: 1. No fracture or dislocation. 2. There is moderate degeneration at the 1st carpometacarpal joint. Dictated by: Phillip Madera M.D. on 06/24/2022 at 22:53 Approved by: Phillip Madera M.D. on 06/24/2022 at 22:57
--- NOTE | 2022-06-24 22:28 | ED_ITS ---
HPI - Fall General Chief Complaint: Fall Stated Complaint: Fell and hit head Time Seen by Provider: 06/24/22 21:52 Source: patient Mode of arrival: Ambulatory History of Present Illness HPI Narrative: Patient here with . Complains of pain injury to left face and right wrist. Patient was carrying firewood into the house from the garage. Was on the 3rd step and his foot hit the base of the entrance and he fell backwards twisting an d landing on his left face. No loss of consciousness. He remembers the fall. However does not recall getting up off the ground. No vision changes. No double vision. Denies any other injuries. Related Data Home Medications Medication Instructions Recorded Confirmed atorvastatin 20 mg tablet (Lipitor) 40 mg PO QDAY ##0 07/31/17 05/17/22 calcium carbonate 500 mg-vitamin 1 tab PO BID 05/11/21 05/17/22 D3 10 mcg (400 unit) tablet (Calcium 500 + D) amoxicillin 500 mg capsule 500 mg PO BID 11/09/21 05/17/22 acetaminophen 325 mg tablet 650 mg PO TID PRN Pain (Scale 03/22/22 05/17/22 Score 4-6) celecoxib 200 mg capsule 200 mg PO BEDTIME 03/22/22 05/17/22 gabapentin 600 mg tablet 600 mg PO DAILY PRN pain 05/18/22 05/18/22 lisinopril 10 mg tablet 10 mg PO BID 05/18/22 05/18/22 melatonin 10 mg capsule 30 mg PO BEDTIME PRN 05/18/22 05/18/22 Previous Rx's Medication Instructions Recorded metformin 500 mg tablet 1,000 mg PO BID #360 tabs 11/11/21 aspirin 325 mg tablet,delayed 325 mg PO DAILY #90 tabs 03/23/22 release alprazolam 0.5 mg tablet 0.5 mg PO DAILY PRN Anxiety #30 03/29/22 tabs amlodipine 5 mg tablet 5 mg PO DAILY #90 tabs 05/05/22 tamsulosin 0.4 mg capsule (Flomax) 0.4 mg PO BEDTIME #90 caps 05/17/22 clopidogrel 75 mg tablet (Plavix) 75 mg PO DAILY #90 tabs 05/18/22 famotidine 20 mg tablet 20 mg PO BID #180 tabs 06/10/22 hydrocodone 5 mg-acetaminophen 325 1 tab PO Q6H PRN pain #24 tabs 06/24/22 mg tablet ondansetron 4 mg disintegrating 4 mg PO Q8H PRN nausea and 06/24/22 tablet vomiting #10 tabs Allergies Allergy/AdvReac Type Severity Reaction Status Date / Time gentamicin [GENTAMICIN] Allergy Severe kidney Verified 05/17/22 11:37 failure Review of Systems Review of Systems Narrative: GENERAL: Denies chills, fatigue, malaise, fever, sweats. HEENT: Denies sinus pain, ear pain, sore throat RESPIRATORY: Denies dyspnea, cough CARDIOVASCULAR: Denies chest pain, palpitations GASTROINTESTINAL: Denies nausea, vomiting, abdominal pain : Denies dysuria, frequency, hematuria MUSCULOSKELETAL: denies muscle positive for bony pain SKIN: Denies rash, skin lesions NEUROLOGIC: Denies weakness, numbness ROS Unobtainable: All systems reviewed & are unremarkable except as noted in HPI and below Patient History Medical History Anxiety (1994) Aortic aneurysm Aortic stenosis (2013) Atypical chest pain Colon polyps (2014) CTS (carpal tunnel syndrome) (~1992) 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) Facet arthropathy, lumbar Generalized weakness Hearing loss Heart attack (2013) Hemorrhoids (~1994) Herniated nucleus pulposus, L3-4 left Impaired fasting glucose (10/13/16) Lumbar radiculopathy Multilevel spinal stenosis On antibiotic therapy LUISA on CPAP Osteoarthritis Pneumonia (2013) Right knee sprain Rosacea (2004) Sciatica Shoulder pain (~1979) Splenic infarction Temporary low platelet count (10/26/17) Thrombocytopenia (10/26/17) Tinnitus Trigger finger (~1992) Type 2 diabetes mellitus Surgical History Anesthesia H/O aortic valve replacement with porcine valve History of aortic valve replacement (2013) History of hand surgery (~1991) History of hand surgery (~1994) History of quadruple bypass (2013) History of shoulder surgery (~1984) History of tonsillectomy (1950) History of vasectomy Hx of bilateral cataract extraction Family History Father Heart disease Mother High cholesterol Mental health problem Stroke Dementia Social History marital status: household members: spouse Smoking Status: Former smoker alcohol intake: current substance use type: does not use Smoking Status: Former smoker alcohol intake frequency: a few times a month Substance Use Type: does not use Exam Narrative Exam Narrative: GENERAL: in no distress, not toxic not dyspneic HEAD: Normocephalic. There is periorbital ecchymosis edema of the left eye. EYES: Pupils equal round No scleral icterus. EOMI/JOSE, no double vision ENT: Mucous membranes moist. Tenderness to the left zygomatic arch. Patient has pain with attempt to open his mouth. Denies any dental pain/injury NECK: Trachea midline. CARDIOVASCULAR: Regular rate and rhythm without murmurs RESPIRATORY: Clear to auscultation. Breath sounds equal bilaterally. No wheezes, rales, or rhonchi. GASTROINTESTINAL: Abdomen soft, non-tender EXTREMITIES: No gross deformities. Examination right hand and wrist. There is edema and bruising at the base of the thumb and 1st metacarpal bone. However has strong distribution center associate and radial pulse. Full active range of motion at the wrist without any deformity or difficulty. Able to bring thumb across the palm BACK: No flank tenderness. NEURO: AOx4. SKIN: Warm and dry PSYCH: Not anxious, is cooperative Initial Vital Signs Initial Vital Signs: Vital Signs Temperature 96.8 F L 06/24/22 18:14 Pulse Rate 67 06/24/22 18:14 Respiratory Rate 18 06/24/22 18:14 Blood Pressure 190/82 H 06/24/22 18:14 Pulse Oximetry 99 06/24/22 18:14 Oxygen Delivery Method 06/24/22 18:14 Course Course Course Narrative: No new issues during course of stay Orders Ordered: ED Orders 06/24/22 18:19 CT head/brain wo con Stat 06/24/22 18:21 CT facial bones wo con Stat 06/24/22 18:46 CT cervical spine wo con Stat 06/24/22 22:09 XR wrist RT min 3V Stat Discontinued Medications Hydrocodone Bitart/Acetaminophen (Hydrocodone/Acet 5/325 Tablet) 1 tab PO NOW ONE Stop: 06/24/22 20:28 Last Admin: 06/24/22 20:34 Dose: 1 tab Documented By: BT Hydrocodone Bitart/Acetaminophen (Hydrocodone/Acet 10/325 Tablet) 1 tab PO NOW ONE Stop: 06/24/22 23:21 Last Admin: 06/24/22 23:28 Dose: 1 tab Documented By: RL Hydrocodone Bitart/Acetaminophen (Hydrocodone/Acet 5/325 Prepack) 1 bottle MISC SEEINSTR ONE Stop: 06/24/22 23:46 Ondansetron HCl (Ondansetron 4 Mg Odt) 4 mg SL NOW ONE Stop: 06/24/22 20:29 Last Admin: 06/24/22 20:34 Dose: 4 mg Documented By: BT Ondansetron HCl (Ondansetron 4 Mg Odt Prepack) 1 bottle MISC SEEINSTR ONE Stop: 06/24/22 23:46 Reevaluation(s) Reevaluation #1: Reviewed results with patient and my discussion with Plastic surgery. They agree with treatment plan and follow-up. Pain is controlled at time of discharge. Wound care instructions provided. Dietary instructions as well. Time: 23:40 Consultations Consultation #1: s/w dr weber, plastic surgery, with [facility]. Patient can follow up 1 or 2 weeks with their services as well as with ophthalmology services. [facility] was on the phone and they will arrange that. They will call patient 1 or 2 days for the office time for both services. Patient should keep head of bed 30?. Soft diet. Pain med control. No NSAIDs until seen by their office. Phone number [phone] is the main number if patient has not heard back. Ask for the craniofacial clinic Vital Signs Vital signs: Vital Signs - 8 hr 06/24/22 18:14 06/24/22 21:00 06/24/22 22:05 Temperature 96.8 F L Pulse Rate 67 80 88 Respiratory Rate 18 20 21 Blood Pressure 190/82 H 151/71 H 160/84 H Pulse Oximetry 99 98 97 Oxygen Delivery Method Room Air Room Air Room Air 06/24/22 21:49 06/24/22 22:00 06/24/22 22:00 Temperature Pulse Rate 70 66 Respiratory Rate Blood Pressure 167/80 H Pulse Oximetry 97 96 Oxygen Delivery Method 06/24/22 22:30 06/24/22 22:30 06/24/22 23:00 Temperature Pulse Rate 75 Respiratory Rate Blood Pressure 151/78 H 166/85 H Pulse Oximetry 97 Oxygen Delivery Method 06/24/22 23:00 06/24/22 23:09 06/24/22 23:09 Temperature Pulse Rate 75 85 Respiratory Rate Blood Pressure 173/81 H Pulse Oximetry 97 97 Oxygen Delivery Method 06/24/22 23:30 06/24/22 23:31 06/24/22 23:31 Temperature Pulse Rate 75 77 Respiratory Rate Blood Pressure 150/74 H Pulse Oximetry 97 97 Oxygen Delivery Method MDM - Fall Differential Diagnosis Differential diagnosis: Likely fracture of wrist, concussion with loss of consciousness, concussion without loss of consciousness and other (Facial fracture/head injury) Imaging Data CT scan - head: Radiologist's Impression: [address] [address] [address] Scan Report Signed Patient: Hugo Hansen MR#: [id number] : 1945 Acct:[id number] Age/Sex: 76 / M Date of Service: 06/24/22 Loc: ED Accession Number: [id number] ?? Procedure: CT head/brain wo con Ordering Provider: Jameel Clark MD PROCEDURE:? CT HEAD/BRAIN WO CON ? INDICATIONS:? blunt trauma ? TECHNIQUE:? Noncontrast 4.5 mm thick angled axial sections acquired from the foramen magnum to the vertex, with coronal and sagittal reformats.? For radiation dose reduction, the following was used:? automated exposure control, adjustment of mA and/or kV according to patient size.? ? COMPARISON:? [facility], MR, MR HEAD/BRAIN WO CON, 03/22/2022, 18:41.? [facility], CT, CT STROKE, 03/22/2022, 14:02.? [facility], CT, HEAD WITHOUT CONTRAST, 08/19/2011, 8:48. ? FINDINGS:? Image quality:? Excellent.? ? CSF spaces:? Basal cisterns are patent.? No extra-axial fluid collections.? The ventricles are symmetric in size and shape.? ? Brain:? No acute intracranial hemorrhage or mass effect.? There is cerebral volume loss for age, with resultant ventricular and sulcal prominence.? There are periventricular and deep white matter chronic small vessel ischemic changes.? There is intracranial internal carotid artery atherosclerosis.? ? Skull and face:? Facial fractures are noted with partial opacification of the left maxillary sinus, better evaluated on facial CT performed the same time.? No calvarial fracture is seen. ? Sinuses:? Left maxillary sinus is partially opacified.? There is partial opacification of the right posterior ethmoid air cells.? Remaining visualized paranasal sinuses are clear. ?The mastoid air cells are clear. ? IMPRESSION:? No acute intracranial hemorrhage or mass effect.? Please see separate facial bone CT for complete evaluation of facial trauma. ? ? ? Approved by: Constantine Watts M.D. on 06/24/2022 at 18:48? CT - cervical spine: Radiologist's Impression: [address] [address] [address] Scan Report Signed Patient: Hugo Hansen MR#: [id number] : 1945 Acct:[id number] Age/Sex: 76 / M Date of Service: 06/24/22 Loc: ED Accession Number: [id number] ?? Procedure: CT cervical spine wo con Ordering Provider: Jameel Clark MD PROCEDURE:? CT CERVICAL SPINE WO CON ? INDICATIONS:? fall ? TECHNIQUE:? Noncontrast 3 mm thick sections acquired from the skull base to the T4 level.? Sagittal and coronal reformats were then constructed.? For radiation dose reduction, the following was used:? automated exposure control, adjustment of mA and/or kV according to patient size.? ? COMPARISON:? None. ? FINDINGS:? Image quality:? Excellent.? ? Bones:? No acute cervical spine fractures or dislocations.? Left facial fractures are partially visualized.? Visualized superior ribs are intact.? Multilevel disc space narrowing degenerative endplate changes as well as multilevel uncovertebral joint and facet hypertrophy.? ? Soft tissues:? Prevertebral soft tissues are normal in thickness.? No paravertebral hematomas.? No apical pneumothoraces.? Sternotomy wires are present. ? IMPRESSION:? 1. No acute cervical spine fracture or subluxation.? 2. Multiple facial fractures partially visualized. 3. Multilevel spondylosis. Approved by: Constantine Watts M.D. on 06/24/2022 at 19:46? CT facial bone: Radiologist's Impression: [address] [address] [address] Scan Report Signed Patient: Hugo Hansen MR#: [id number] : 1945 Acct:[id number] Age/Sex: 76 / M Date of Service: 06/24/22 Loc: ED Accession Number: [id number] ?? Procedure: CT facial bones wo con Ordering Provider: Jameel Clark MD PROCEDURE:? CT FACIAL BONES WO CON ? INDICATIONS:? blunt trauma ? TECHNIQUE:? Noncontrast 2.5 mm thick axial images acquired from the mandible through the frontal sinuses, with coronal and sagittal reformatting.? For radiation dose reduction, the following was used:? automated exposure control, adjustment of mA and/or kV according to patient size.? ? COMPARISON:? [facility], CT, CT STROKE, 03/22/2022, 14:02. ? FINDINGS:? Image quality:? Excellent.? ? Bones and teeth:? There is a minimally displaced fracture of the lateral wall of the left orbit with approximately 2 mm offset of osseous structures.? A comminuted mildly displaced fracture of the left 2nd Modic arch is seen with approximately 6 mm displacement.? Comminuted, minimally displaced fractures are seen involving the anterior and lateral hastnigs of the left maxillary sinus.? There is possible focal fracture involvement of the posterior most aspect of the left orbital floor without significant displacement.? The pterygoid plates are intact.? Nasal bones do not appear significantly changed when compared to the CT from 03/22/2022.? Nasal septum is intact. ? Visualized portions of the mandible demonstrate no fractures or subluxation.? Visualized portions of the skull base and auditory canals are intact.? ? Sinuses:? Air hemorrhage level is noted in the left maxillary sinus.? There is chronic appearing opacification of the right posterior ethmoid air cells.? The paranasal sinuses and the mastoid air cells are otherwise clear.? ? Soft tissues:? Soft tissue edema is seen throughout the left face, most prominent in the periorbital region.? No enlarged lymph nodes.? No soft tissue lacerations or debris.? Chronic microvascular ischemic changes are seen in the included portions of the brain. ? Vascular:? Visualized vascular structures appear normal in the absence of contrast.? Bony vascular foramina and canals are intact.? ? IMPRESSION:? Multiple mildly displaced and comminuted left-sided facial fractures as described in the body of the report, involving the left lateral orbital wall, left zygomatic arch, and the anterior and posterior hastings of the left maxillary sinus. ? ? ? Approved by: Constantine Watts M.D. on 06/24/2022 at 18:57? Extremity x-ray #1: Radiologist's Impression: [address] [address] XRay Report Signed Patient: Hugo Hansen MR#: [id number] : 1945 Acct:[id number] Age/Sex: 76 / M Date of Service: 06/24/22 Loc: ED Accession Number: [id number] ?? Procedure: XR wrist RT min 3V Ordering Provider: Jameel Clark MD PROCEDURE:? XR WRIST RT MIN 3V ? INDICATIONS: pain/injury ? TECHNIQUE:? 4 views of the wrist were acquired.? ? COMPARISON:? None. ? FINDINGS:? ? Bones:? No fractures or dislocations.? There is moderate degeneration of the 1st carpometacarpal joint.? No suspicious bony lesions.? ? Scaphoid view:? No definite acute fracture or dislocation. ? Soft tissues:? No suspicious soft tissue calcifications.? There is a curvilinear metallic density projecting over the volar soft tissues at the level of the 1st carpal row and radius.? ? IMPRESSION:? ? 1.? No fracture or dislocation. ? 2. There is moderate degeneration at the 1st carpometacarpal joint. ? ? ? Dictated by: Phillip Madera M.D. on 06/24/2022 at 22:53 ? ? Approved by: Phillip Madera M.D. on 06/24/2022 at 22:57 ? MDM Narrative Medical decision making narrative: Appropriate for discharge home. Pain control. Reviewed with Plastic surgery. Return precautions reviewed with patient and . They desired discharge home. Discharge Plan Departure Patient Disposition: Home Clinical Impression: Facial bones, closed fracture, Contusion of right wrist, initial encounter Instructions: DI for Contusion, DI for Facial Fracture Activity Restrictions/Additional Instructions: No driving or operating machinery tonight or when taking prescribed pain medication. [facility] craniofacial clinic will be calling you in the next couple of days for office appointment to see them 1 or 2 weeks along with ophthalmology services. Be sure to continue soft diet. Do not take any ibuprofen or aspirin until office appointment time. When sleeping please keep your head of bed at 30?. Return if worse if any questions or concerns. If you have not heard from [facility] then please call the general number at [phone] and ask for the craniofacial clinic for your office appointment. Prescriptions: New hydrocodone-acetaminophen 5-325 mg tablet 1 tab PO Q6H PRN (Reason: pain) Qty: 24 0RF ondansetron 4 mg tablet,disintegrating 4 mg PO Q8H PRN (Reason: nausea and vomiting) Qty: 10 0RF No Action calcium carbonate-vitamin D3 [Calcium 500 + D] 500 mg(1,250mg) -400 unit tablet 1 tab PO BID amoxicillin 500 mg capsule 500 mg PO BID tamsulosin [Flomax] 0.4 mg capsule 0.4 mg PO BEDTIME Qty: 90 3RF clopidogrel [Plavix] 75 mg tablet 75 mg PO DAILY Qty: 90 3RF Rx Instructions: D/C after 90 days lisinopril 10 mg tablet 10 mg PO BID gabapentin 600 mg tablet 600 mg PO DAILY PRN (Reason: pain) melatonin 10 mg capsule 30 mg PO BEDTIME PRN atorvastatin [Lipitor] 20 MG tablet 40 mg PO QDAY Qty: 0 metformin 500 mg tablet 1,000 mg PO BID Qty: 360 3RF alprazolam 0.5 mg tablet 0.5 mg PO DAILY PRN (Reason: Anxiety) Qty: 30 0RF amlodipine 5 mg tablet 5 mg PO DAILY Qty: 90 3RF famotidine 20 mg tablet 20 mg PO BID Qty: 180 0RF Rx Instructions: this is a dosage change D/C after 90 days and resume omeprazole celecoxib 200 mg capsule 200 mg PO BEDTIME acetaminophen 325 mg tablet 650 mg PO TID PRN (Reason: Pain (Scale Score 4-6)) aspirin 325 mg Tablet,Delayed Release (Dr/Ec) 325 mg PO DAILY Qty: 90 3RF Referrals: Orion Cisse MD [Primary Care Provider] - Visit Report Forms: Patient Portal/API
[2022-06-24] MEDS: HYDROCODONE/ACET 10/325 TABLET 1 TAB PO (23:28)
== END 2022-06-25 00:22 | disposition home or self-care (01) ==
PROVIDERS: Emergency Provider Emergency Medicine; PCP Family Medicine
DX: S02.842A Fracture of lateral orbital wall, left side, initial encounter for closed fracture (principal); S60.211A Contusion of right wrist, initial encounter; W18.30XA Fall on same level, unspecified, initial encounter
CPT/HCPCS: 70450; 70486; 72125; 73110; 99284

== ENCOUNTER → 2022-07-27 08:23 | Outpatient (CLI) | payer MEDICARE, SELFPAY ==
[2022-03-22 17:05] VITALS: BMI 29.2
--- NOTE | 2022-07-27 08:27 | DI.RAD.S_ITS ---
PROCEDURE: XR LUMBAR SPINE MIN 4V INDICATIONS: BACK PAIN TECHNIQUE: 5 views of the lumbar spine were acquired, including bilateral oblique views. COMPARISON: [facility], CR, XR LUMBAR SPINE MIN 4V, 03/07/2020, 9:17. [facility], CR, XR LUMBAR SPINE 2-3V, 03/20/2018, 9:49. FINDINGS: Bones: 5 nonrib-bearing vertebrae are present. Mild S-shaped curvature of the lumbar spine, left curve centered at L1, right curve at L4. 6 millimeters retrolisthesis L1 on L2. Moderate-severe multilevel degenerative changes with disc height loss, endplate spurring, and facet arthropathy. Prior left hip arthroplasty. No vertebral body compression fractures. No suspicious bony lesions. Soft tissues: Overlying bowel gas pattern is normal. No suspicious soft tissue calcifications. Oblique images: No pars defects. IMPRESSION: Moderate-severe degenerative changes of the lumbar spine. Dictated by: Constantine Penn M.D. on 07/27/2022 at 10:05 Approved by: Constantine Penn M.D. on 07/27/2022 at 10:12
== END ==
PROVIDERS: PCP Family Medicine; Referring Provider Physical Medicine & Rehabilitation; Visit Provider Physical Medicine & Rehabilitation
DX: M47.26 Other spondylosis with radiculopathy, lumbar region (principal); M51.16 Intervertebral disc disorders with radiculopathy, lumbar region
CPT/HCPCS: 72110

== ENCOUNTER 2022-11-05 06:42 | Day surgery (SDC) | payer MEDICARE, SELFPAY ==
[2022-07-28 12:15] VITALS: BMI 29.2
[2022-11-05 07:24] VITALS: BP 137/81; PULSE 83; RESP 16; TEMP 36.4; O2SAT 98; BMI 29.1
[2022-11-05] MEDS: LACTATED RINGERS 1,000 ML 120 ML IV (07:47)
--- NOTE | 2022-11-05 07:50 | P.HP_ITS ---
History of Present Illness History of Present Illness Date Patient Seen: 11/05/22 Chief complaint: [facility] Narrative: Mr. Hansen presents today for a screening colonoscopy. His last colonoscopy was about 8 years ago at [facility]. He believes he had some polyps seen at that time. He has no family history that he knows of of colon cancer. In no concerning symptoms. 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) Facet arthropathy, lumbar Generalized weakness Hearing loss Heart attack (2013) Hemorrhoids (~1994) Herniated nucleus pulposus, L3-4 left Impaired fasting glucose (10/13/16) Lumbar radiculopathy Multilevel spinal stenosis On antibiotic therapy LUISA on CPAP Osteoarthritis Pneumonia (2013) Right knee sprain Rosacea (2004) Sciatica Shoulder pain (~1979) Splenic infarction Temporary low platelet count (10/26/17) Tendinopathy of gluteal region Thrombocytopenia (10/26/17) Tinnitus Trigger finger (~1992) Trochanteric bursitis, left hip Type 2 diabetes mellitus Surgical History (Updated 11/03/22 @ 11:36 by Shoaib Mccord DO) Anesthesia H/O aortic valve replacement with porcine valve History of aortic valve replacement (2013) History of hand surgery (~1991) History of hand surgery (~1994) History of quadruple bypass (2013) History of shoulder surgery (~1984) History of tonsillectomy (1950) History of total left hip arthroplasty History of vasectomy Hx of bilateral cataract extraction Family & Social History Family History Father Heart disease Mother High cholesterol Mental health problem Stroke Dementia Social History: household members spouse Tobacco & Substance use: Smoking Status Former smoker alcohol intake current alcohol intake frequency a few times a month Substance Use Type does not use Meds Home Medications and Allergies Home Medications Medication Instructions Recorded Confirmed Type calcium carbonate 500 mg-vitamin 1 tab PO BID 05/11/21 11/05/22 History D3 10 mcg (400 unit) tablet (Calcium 500 + D) amoxicillin 500 mg capsule 500 mg PO BID 11/09/21 11/05/22 History acetaminophen 325 mg tablet 650 mg PO TID PRN Pain (Scale 03/22/22 11/05/22 History Score 4-6) amlodipine 5 mg tablet 5 mg PO DAILY #90 tabs 05/05/22 11/05/22 Rx gabapentin 600 mg tablet 300 mg PO BEDTIME PRN pain #60 tabs 06/28/22 11/05/22 Rx alprazolam 0.5 mg tablet 0.5 mg PO DAILY PRN Anxiety #30 08/10/22 11/05/22 Rx tabs omeprazole 20 mg capsule,delayed 20 mg PO QDAY #90 caps 08/10/22 11/05/22 Rx release metformin 500 mg tablet See Rx Instructions .Route 10/14/22 11/05/22 Rx .COMPLEX #360 tabs atorvastatin 40 mg tablet 40 mg PO BEDTIME 11/03/22 11/05/22 History celecoxib 200 mg capsule 200 mg PO DAILY 11/03/22 11/05/22 History lisinopril 20 mg tablet 10 mg PO BID 11/03/22 11/05/22 History tamsulosin 0.4 mg capsule 0.4 mg PO BEDTIME 11/03/22 11/05/22 History aspirin 81 mg tablet,delayed 81 mg PO DAILY 11/05/22 11/05/22 History release Allergies Allergy/AdvReac Type Severity Reaction Status Date / Time gentamicin [GENTAMICIN] Allergy Severe kidney Verified 11/05/22 07:17 failure Exam Vital Signs (past 8 hours): - 11/05/22 07:24 Temperature 97.6 F Pulse Rate 83 Respiratory Rate 16 Blood Pressure 137/81 Pulse Oximetry 98 Oxygen Delivery Method Room Air Oxygen Delivery Method Room Air Const General: cooperative, healthy appearing and comfortable Nutritional Appearance: average body habitus HENMT Head: normal to inspection Resp Effort & Inspection: normal respiratory effort and able to speak in complete sentences GI Palpation: soft and No tender Assessment & Plan Assessment and plan (1) History of colon polyps: Status: Acute (2) Screening for colon cancer: Status: Acute Plan I discussed the risks benefits and alternatives of a screening colonoscopy. Including but not limiting to perforation of the colon and an incomplete exam. Mr. Hall understands these risks and would like to proceed.
[2022-11-05 08:36] VITALS: BP 101/66; PULSE 92; RESP 21; TEMP 37.7; O2SAT 95
[2022-11-05 08:41] VITALS: BP 102/76; PULSE 87; RESP 13; O2SAT 95
[2022-11-05 08:44] VITALS: BP 149/80; PULSE 78; RESP 16; O2SAT 98
--- NOTE | 2022-11-05 08:48 | PM.OP.COLON ---
Operative Date/Time/Diagnoses Date of procedure: 11/05/22 Pre-op diagnosis: screening for colon cancer, history of polyps Post-op diagnosis: same Procedure & Clinicians Study performed: Colonoscopy screening Same procedure as scheduled: Yes Indications: History of polyps Surgeon: Joan iMrza Procedure Notes Procedure in detail: Patient was taken to the endoscopy suite and placed in a left lateral decubitus position. A time-out was performed. With the help of anesthesia conscious sedation was induced. Digital rectal exam revealed no masses or strictures. The colonoscope was introduced into the anal canal and advanced through to the cecum. Photograph was taken of the appendiceal orifice. There were some scattered diverticula throughout the sigmoid colon. A photograph was obtained of this. The prep was poor in some places. With a Warwick bowel prep score of 1. Photograph was obtained of the bowel prep as well. Every effort was made to cleanse and review every mucosal surface, and no polyps were seen. Patient tolerated the procedure well and went in good condition to the postoperative care unit Findings: divertiulosis Specimen(s): none sent Post-procedure Recommendations: Colonoscopy in 10 years
--- NOTE | 2022-11-05 08:53 | SUR.PHASEII ---
Discharged patient home in stable condition with all belongings returned.
== END 2022-11-05 09:05 | disposition home or self-care (01) ==
PROVIDERS: PCP Family Medicine; Referring Provider Surgery; Visit Provider Surgery
PROC: 0DJD8ZZ Inspection of Lower Intestinal Tract, Via Natural or Artificial Opening Endoscopic (ICD-10-PCS; CPT 45378; principal; 2022-11-05 07:45)
DX: Z12.11 Encounter for screening for malignant neoplasm of colon (principal); Z86.010 Personal history of colon polyps; K57.30 Diverticulosis of large intestine without perforation or abscess without bleeding
CPT/HCPCS: G0105; J2704

== ENCOUNTER → 2022-11-15 07:04 | Outpatient (CLI) | payer MEDICARE, SELFPAY ==
[2022-07-28 12:15] VITALS: BMI 29.2
--- NOTE | 2022-11-15 07:07 | DI.MRI.S_ITS ---
PROCEDURE: MR HIP LT WO CON INDICATIONS: Left lateral hip pain status post arthroplasty TECHNIQUE: Noncontrast coronal T1 spin echo and STIR through the bony pelvis. Coronal and axial T2 fast spin echo with fat saturation, sagittal T1 spin echo, and oblique axial T2 fast spin echo with fat saturation through the hip. COMPARISON: [facility] [place] [facility], CR, XR PELVIS WITH LATERAL HIP LEFT, 09/21/2021, 16:43. [facility], MR, MR HIP LT WO CON, 10/03/2021, 9:14. FINDINGS: Image quality: Degraded by metallic artifact. Bones and joints: Left hip arthroplasty artifact is present which obscures visualization. Decreased, mild ill-defined T2 signal elevation adjacent to the left femoral stem within the subtrochanteric femur. Bone marrow of the pelvic ring and proximal femurs demonstrates otherwise normal signal throughout. No intraosseous lesions or fractures. No avascular necrosis of the femoral heads. The visualized lower lumbar spine appears normally aligned. Tendons and ligaments: The gluteus medius and minimus tendons appear intact, without associated muscle atrophy. The nearby proximal iliotibial band also appears intact. The iliopsoas tendon appears intact, without adjacent bursal fluid collections or evidence for impingement syndrome. The origin of the hamstring tendon is intact at the ischial tuberosity, as well as the associated sacrotuberous ligament. Mild T2 signal elevation within the proximal hamstring tendon, as before. The straight and reflected heads of the rectus femoris muscle origin appear intact, as well as the conjoint tendon. The ligamentum teres appears intact where visualized. Soft tissues: Visualized muscles demonstrate normal bulk and internal signal. Quadratus femoris muscle demonstrates no internal edema to suggest ischiofemoral impingement. The proximal sciatic neurovascular bundle appears normal adjacent to the hamstring tendons. No free pelvic fluid. Bladder wall thickness is normal. Genitourinary structures and bowel loops appear normal where visualized. IMPRESSION: 1. Expected appearance of left hip arthroplasty. 2. Left hamstring tendinopathy. Dictated by: Zain Ryder M.D. on 11/15/2022 at 9:03 Approved by: Zain Ryder M.D. on 11/15/2022 at 9:07
[2022-11-15 08:22] LABS: Add Manual Diff / Slide Review NO; Basophils Absolute Auto 0 /uL (0-100); Eosinophils Absolute Auto 200 /uL (0-450); Eosinophils Percent Auto 3.6 % (2-4); Hematocrit 37.1 % (41-53); Hemoglobin 12.9 g/dL (13.5-17.5); Lymphocytes Absolute Auto 1400 /uL (1100-4500); Lymphocytes Percent Auto 29.3 % (25-40); Mean Corpuscular HGB Conc 34.8 % (30-36); Mean Corpuscular Hemoglobin 31.3 PG (26-34); Mean Corpuscular Volume 90.2 fL (80-100); Monocytes Absolute Auto 500 /uL (0-900); Monocytes Percent Auto 9.5 % (3-14); Neutrophils Absolute Auto 2700 /uL (1500-7000); Neutrophils Percent Auto 56.6 % (50-75); Platelet Count 170 X10^3/uL (150-400); Red Blood Cell Count 4.12 X10^6/uL (4.5-5.9); Red Cell Distribution Width 13.6 % (11.6-14.8); White Blood Cell Count 4.8 X10^3/uL (4.5-11.0)
[2022-11-15 08:44] LABS: Alanine Aminotransferase 21 IU/L (<50); Albumin Globulin Ratio 1.9 (1.0-2.8); Alkaline Phosphatase 113 U/L (38-126); Aspartate Aminotransferase 20 IU/L (17-59); BUN Creatinine Ratio 27.7 (6-22); Bilirubin Total 0.2 mg/dL (0.2-1.3); Blood Urea Nitrogen 23 mg/dL (9-20); Calcium 8.8 mg/dL (8.4-10.2); Carbon Dioxide 26 mmol/L (22-32); Chloride 105 mmol/L (98-107); Estimated Glomerular Filt Rate > 60 mL/min (>60); Globulin 2.1 g/dL (1.7-4.1); Glucose 115 mg/dL (80-110); HEMOLYSIS < 15 (0-50); Potassium 4.2 mmol/L (3.4-5.1); Sodium 139 mmol/L (137-145); Total Protein 6.1 g/dL (6.3-8.2)
[2022-11-15 09:16] LABS: TSH w/ Reflex to FT4 2.87 uIU/mL (0.47-4.68)
[2022-11-15 09:51] LABS: Microalbumin Urine Random 5.1 mg/dL (0-1.6)
[2022-11-15 09:56] LABS: Creatinine Urine Random 205.5 mg/dL; Microalbumi Creatinin Ratio Ur 24.8 ug/mg CR (<30)
[2022-11-17 05:38] LABS: Labcorp Hemoglobin (Hb) A1c 5.9 % (4.8-5.6)
== END ==
PROVIDERS: PCP Family Medicine; Referring Provider Physical Medicine & Rehabilitation; Visit Provider Physical Medicine & Rehabilitation
DX: M70.62 Trochanteric bursitis, left hip (principal); M25.552 Pain in left hip; M67.959 Unspecified disorder of synovium and tendon, unspecified thigh; E11.9 Type 2 diabetes mellitus without complications; I25.10 Atherosclerotic heart disease of native coronary artery without angina pectoris; Z12.5 Encounter for screening for malignant neoplasm of prostate; N40.0 Benign prostatic hyperplasia without lower urinary tract symptoms; Z96.642 Presence of left artificial hip joint
CPT/HCPCS: 36415; 73721; 80053; 82043; 82570; 83036; 84443; 85025; G0103

== ENCOUNTER 2023-04-29 09:00 | Outpatient (RCR) | payer MEDICARE, SELFPAY ==
[2022-07-28 12:15] VITALS: BMI 29.2
--- NOTE | 2023-02-10 17:14 | PT.OIE ---
Addendum entered and electronically signed by Myesha Last, PT 02/10/23 17:16: SLS R=3 sec, L=1 sec Original Note: Current Diagnoses Trochanteric bursitis, left hip (02/10/23) Other specified enthesopathies of unspecified lower limb, excluding foot (02/10/23) Presence of left artificial hip joint (02/10/23) Past Medical History (Last Updated 12/02/22 @ 14:48 by Shoaib Mccord DO) Anxiety (1994) Aortic aneurysm Aortic stenosis (2013) Atypical chest pain Colon polyps (2014) CTS (carpal tunnel syndrome) (~1992) 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) Facet arthropathy, lumbar Generalized weakness Hamstring tendinitis at origin Hearing loss Heart attack (2013) Hemorrhoids (~1994) Herniated nucleus pulposus, L3-4 left Impaired fasting glucose (10/13/16) Lumbar radiculopathy Multilevel spinal stenosis On antibiotic therapy LUISA on CPAP Osteoarthritis Pneumonia (2013) Right knee sprain Rosacea (2004) Sciatica Shoulder pain (~1979) Splenic infarction Temporary low platelet count (10/26/17) Tendinopathy of gluteal region Thrombocytopenia (10/26/17) Tinnitus Trigger finger (~1992) Trochanteric bursitis, left hip Type 2 diabetes mellitus Past Surgical History (Last Reviewed 12/02/22 @ 14:40 by Shoaib Mccord DO) Anesthesia H/O aortic valve replacement with porcine valve History of aortic valve replacement (2013) History of hand surgery (~1991) History of hand surgery (~1994) History of quadruple bypass (2013) History of shoulder surgery (~1984) History of tonsillectomy (1950) History of total left hip arthroplasty History of vasectomy Hx of bilateral cataract extraction Visit Care Team Role Provider Type Orion Cisse MD Family Provider Physician Primary Care Provider Specialty: Family Practice Address: [facility] [place], [address] Email: [email or web address] Shoaib Mccord DO Attending Provider Physician Referring Provider Specialty: Physiatry Pain Management Address: [address] [place], [address] Email: [email or web address] Physical Therapy Initial Evaluation PT-OP-A Visit Information Start: 02/10/23 15:35 Freq: Status: Active Protocol: Document 02/10/23 15:36 ES (Rec: 02/10/23 17:14 ES [id number]) Out-Patient Physical Therapy Visit Information Visit Information Visit Type Initial Evaluation Visit Start Time 15:36 Visit Stop Time 16:30 Total Visit Minutes 54 Visit Number 1 Evaluation Information Evaluation Date 02/10/23 PT-OP-B Current Condition Start: 02/10/23 15:35 Freq: Status: Active Protocol: Document 02/10/23 15:36 ES (Rec: 02/10/23 17:14 ES [id number]) Current Condition History of Current Condition Onset Date 1.5 years ago Current Complaints L hip/buttock/SIJ History of Current Condition Patient had a L FABIEN about 2 years ago and has been having problems ever since. Wishes he hadn't done it in the first place. Had PT after surgery; didn't do his rehab as consistently as he was supposed to. Was still working at the time. Started to go to Dr. Mccord due to pain at night keeping him from sleeping. Was having a lot of trouble rolling over in bed. Has had several injections and was placed on gabapentin. Has a hx of low back problems for many years. 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 Has a hx of sciatica. 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 States his balance has gotten bad and has had falls in the past year. Having more difficulty playing with the dog. Feels disoriented when closing his eyes. Walks for exercise for about 45 minutes 2-3x/week. Prior Treatments and Tests MRI showed mild tendinitis in HS, otherwise no significant findings. Images of lower back show arthritis. Treatment Goals Patient/Caregiver Goals To figure out why his balance has gotten worse. To have better strength in the legs. To be able to sleep at night without the hip waking him up. PT-OP-C Subjective Start: 02/10/23 15:35 Freq: Status: Active Protocol: Document 02/10/23 15:36 ES (Rec: 02/10/23 17:14 ES [id number]) Patient Questionnaires Lower Extremity Functional Scale LEFS Score 47 LEFS Impairment 40 to 59% Impaired (Score 32- 47) OP-PT Pain Assessment Location Left Hip Pain Location Details L posterior hip/buttock Scale Used Worst 6/10, best 2/10, avg 3/ 10 Description Aching,Dull Frequency Constant Pain Aggravating Factors Standing,Walking,Lifting Other Pain Aggravating Factors Walking downhill>uphill, lying down, twisting (weedwacking), rolling in bed Pain Alleviating Factors Exercise Other Pain Alleviating Factors Sitting up on edge of bed and leaning forward PT-OP-J Posture/Palpation/Skin Start: 02/10/23 15:35 Freq: Status: Active Protocol: Document 02/10/23 15:36 ES (Rec: 02/10/23 17:14 ES [id number]) Posture Evaluation Position Standing Pelvis Posture (L) Iliac Crest Superior,(R) PSIS Inferior Comments Posture Comments Demonstration of weed wacking = lumbar rotation, static LE's . Palpation Assessment Location One Palpation Location L glutes Palpation Findings Tenderness PT-OP-L Special Tests Start: 02/10/23 15:35 Freq: Status: Active Protocol: Document 02/10/23 15:36 ES (Rec: 02/10/23 17:14 ES [id number]) Special Tests Lumbar Spine Special Tests Supine leg length Test Results Supine to long sit = LLE equal to long Jose C Test Results Decreased flexibility L hip flexors Forward bend Test Results L PSIS high Hip Special Tests Bridge Test Results Increased pain; decreased pain when cued for increased L glute activation Alyson Finger Test Test Results Positive L Trendelenberg Test Results Negative B PT-OP-M Strength Start: 02/10/23 15:35 Freq: Status: Active Protocol: Document 02/10/23 15:36 ES (Rec: 02/10/23 17:14 ES [id number]) Hip Strength Hip Manual Muscle Testing Left Extension (S1) 4- Good- Abduction 3+ Fair+ External Rotation 3 Fair Right Extension (S1) 4 Good Abduction 3+ Fair+ External Rotation 3+ Fair+ PT-OP-Q Treatments Start: 02/10/23 15:35 Freq: Status: Active Protocol: Document 02/10/23 15:36 ES (Rec: 02/10/23 17:14 ES [id number]) Manual Therapy Treatment Joint Mobilizations Pelvis Grade III Body Position Sidelying Comments Posterior rotation L ilium in R sidelying. Manual L QL stretch in R sidelying. Self-Care/Home Management Treatment Education Patient Education Body Mechanics Other Education Instructed and patient demonstrated weed wacking with increased hip vs trunk rotation and using stepping technique vs twisting. Educated on sleeping posture with pillow between knees. PT-OP-T Assessment and Plan Start: 02/10/23 15:35 Freq: Status: Active Protocol: Document 02/10/23 15:36 ES (Rec: 02/10/23 17:14 ES [id number]) Physical Therapy Assessment Rehab Potential Rehabilitation Potential Good Evaluation Complexity Number of Personal Factors/Comorbidities 1-2 Number of Body Systems Impaired 1-2 Clinical Presentation at Evaluation Stable Impairments Impairments Balance,Functional Activities, Functional Mobility,Pain, Posture,ROM,Soft Tissue Mobility,Strength Goals Four Impairment Activity tolerance/functional activity Phlebotomist Goal (LTG) Patient will reduce LEFS score to 38 or less indicating clinically significant improvement in function. LTG Duration 8 weeks (04/07/23) Three Impairment Pain Phlebotomist Goal (LTG) Patient will be able to sleep without waking up from pain at least 4 nights/week. LTG Duration 8 weeks (04/07/23) Two Impairment Balance Short Term Goal (STG) Patient will be able to perform SLS for 10 sec B to reduce fall risk. STG Duration 6 weeks (03/24/23) One Impairment Strength Short Term Goal (STG) Patient will increase L hip ER and abduction strength to at least 4-/5 to improve single limb stability. STG Duration 4 weeks (03/10/23) Assessment Summary Assessment Patient is a 77 year old male who presents with L posterior hip pain. He has a hx of L FABIEN from about 2 years ago, which improved his hip pain somewhat but has had persistent pain in buttock and low back. He demonstrates asymmetry in pelvic alignment along with decreased strength in L glutes and deep rotators. He has signs of possible SIJ dysfunction but this is difficult to test for due to presence of artificial hip joint and potential for dislocation with SIJ provocation tests. He did have a leg length discrepency in long sitting and instability with L SLS, as well as asymmetry with forward bending with L SIJ moving cephalad. He has tenderness in L glute muscles but no pain with strength testing. He is functionally limited in his ability to sleep, stand, and walk up/down hills, as well as participate in yardwork. He showed excessive lumbar rotation with demonstration of weedwacking which is a provocative activity; was able to correct with training today. He will benefit from further skilled therapy to address these problems in order to reduce his pain with functional activity and sleeping and to improve his balance to reduce fall risk. Physical Therapy Plan Frequency and Duration Frequency of Treatment 2x/Week Duration of treatment (weeks) 8 Plan of Care Start Date 02/10/23 Plan of Care End Date 04/07/23 Therapeutic Interventions Therapeutic Interventions Balance Training,Home Exercise Program,Joint Mobilizations, Manual Therapy,Neuromuscular Re-education,Patient/Caregiver Education,Self-Care/Home Management,Soft Tissue Mobilization,Taping, Therapeutic Activities, Therapeutic Exercises Next Visit Focus/Plan Next Note Type Treatment Note Next Visit Plan Manual therapy for pelvis as indicated. L posterior hip strengthening. Assess response to using pillow at night.
--- NOTE | 2023-02-10 17:18 | PT.OIE ---
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) Facet arthropathy, lumbar Generalized weakness Hamstring tendinitis at origin Hearing loss Heart attack (2013) Hemorrhoids (~1994) Herniated nucleus pulposus, L3-4 left Impaired fasting glucose (10/13/16) Lumbar radiculopathy Multilevel spinal stenosis On antibiotic therapy LUISA on CPAP Osteoarthritis Pneumonia (2013) Right knee sprain Rosacea (2004) Sciatica Shoulder pain (~1979) Splenic infarction Temporary low platelet count (10/26/17) Tendinopathy of gluteal region Thrombocytopenia (10/26/17) Tinnitus Trigger finger (~1992) Trochanteric bursitis, left hip Type 2 diabetes mellitus Past Surgical History (Last Reviewed 12/02/22 @ 14:40 by Shoaib Mccord DO) Anesthesia H/O aortic valve replacement with porcine valve History of aortic valve replacement (2013) History of hand surgery (~1991) History of hand surgery (~1994) History of quadruple bypass (2013) History of shoulder surgery (~1984) History of tonsillectomy (1950) History of total left hip arthroplasty History of vasectomy Hx of bilateral cataract extraction Visit Care Team Role Provider Type Orion Cisse MD Family Provider Physician Primary Care Provider Specialty: Family Practice Address: [facility] [place], [address] Email: [email or web address] Shoaib Mccord DO Attending Provider Physician Referring Provider Specialty: Physiatry Pain Management Address: [facility] [place], [address] Email: [email or web address] Physical Therapy Initial Evaluation PT-OP-A Visit Information Start: 02/10/23 15:35 Freq: Status: Active Protocol: Document 02/10/23 15:36 ES (Rec: 02/10/23 17:14 ES [id number]) Out-Patient Physical Therapy Visit Information Visit Information Visit Type Initial Evaluation Visit Start Time 15:36 Visit Stop Time 16:30 Total Visit Minutes 54 Visit Number 1 Evaluation Information Evaluation Date 02/10/23 PT-OP-B Current Condition Start: 02/10/23 15:35 Freq: Status: Active Protocol: Document 02/10/23 15:36 ES (Rec: 02/10/23 17:14 ES [id number]) Current Condition History of Current Condition Onset Date 1.5 years ago Current Complaints L hip/buttock/SIJ History of Current Condition Patient had a L FABIEN about 2 years ago and has been having problems ever since. Wishes he hadn't done it in the first place. Had PT after surgery; didn't do his rehab as consistently as he was supposed to. Was still working at the time. Started to go to Dr. Mccord due to pain at night keeping him from sleeping. Was having a lot of trouble rolling over in bed. Has had several injections and was placed on gabapentin. Has a hx of low back problems for many years. 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 Has a hx of sciatica. 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 States his balance has gotten bad and has had falls in the past year. Having more difficulty playing with the dog. Feels disoriented when closing his eyes. Walks for exercise for about 45 minutes 2-3x/week. Prior Treatments and Tests MRI showed mild tendinitis in HS, otherwise no significant findings. Images of lower back show arthritis. Treatment Goals Patient/Caregiver Goals To figure out why his balance has gotten worse. To have better strength in the legs. To be able to sleep at night without the hip waking him up. PT-OP-C Subjective Start: 02/10/23 15:35 Freq: Status: Active Protocol: Document 02/10/23 15:36 ES (Rec: 02/10/23 17:14 ES [id number]) Patient Questionnaires Lower Extremity Functional Scale LEFS Score 47 LEFS Impairment 40 to 59% Impaired (Score 32- 47) OP-PT Pain Assessment Location Left Hip Pain Location Details L posterior hip/buttock Scale Used Worst 6/10, best 2/10, avg 3/ 10 Description Aching,Dull Frequency Constant Pain Aggravating Factors Standing,Walking,Lifting Other Pain Aggravating Factors Walking downhill>uphill, lying down, twisting (weedwacking), rolling in bed Pain Alleviating Factors Exercise Other Pain Alleviating Factors Sitting up on edge of bed and leaning forward PT-OP-D Balance Start: 02/10/23 15:35 Freq: Status: Active Protocol: Document 02/10/23 15:36 ES (Rec: 02/10/23 17:16 ES [id number]) Balance Tests Single Limb Standing Single Limb- Right 3 sec Single Limb- Left 1 sec PT-OP-J Posture/Palpation/Skin Start: 02/10/23 15:35 Freq: Status: Active Protocol: Document 02/10/23 15:36 ES (Rec: 02/10/23 17:14 ES [id number]) Posture Evaluation Position Standing Pelvis Posture (L) Iliac Crest Superior,(R) PSIS Inferior Comments Posture Comments Demonstration of weed wacking = lumbar rotation, static LE's . Palpation Assessment Location One Palpation Location L glutes Palpation Findings Tenderness PT-OP-L Special Tests Start: 02/10/23 15:35 Freq: Status: Active Protocol: Document 02/10/23 15:36 ES (Rec: 02/10/23 17:14 ES [id number]) Special Tests Lumbar Spine Special Tests Supine leg length Test Results Supine to long sit = LLE equal to long Jose C Test Results Decreased flexibility L hip flexors Forward bend Test Results L PSIS high Hip Special Tests Bridge Test Results Increased pain; decreased pain when cued for increased L glute activation Alyson Finger Test Test Results Positive L Trendelenberg Test Results Negative B PT-OP-M Strength Start: 02/10/23 15:35 Freq: Status: Active Protocol: Document 02/10/23 15:36 ES (Rec: 02/10/23 17:14 ES [id number]) Hip Strength Hip Manual Muscle Testing Left Extension (S1) 4- Good- Abduction 3+ Fair+ External Rotation 3 Fair Right Extension (S1) 4 Good Abduction 3+ Fair+ External Rotation 3+ Fair+ PT-OP-Q Treatments Start: 02/10/23 15:35 Freq: Status: Active Protocol: Document 02/10/23 15:36 ES (Rec: 02/10/23 17:14 ES [id number]) Manual Therapy Treatment Joint Mobilizations Pelvis Grade III Body Position Sidelying Comments Posterior rotation L ilium in R sidelying. Manual L QL stretch in R sidelying. Self-Care/Home Management Treatment Education Patient Education Body Mechanics Other Education Instructed and patient demonstrated weed wacking with increased hip vs trunk rotation and using stepping technique vs twisting. Educated on sleeping posture with pillow between knees. PT-OP-T Assessment and Plan Start: 02/10/23 15:35 Freq: Status: Active Protocol: Document 02/10/23 15:36 ES (Rec: 02/10/23 17:14 ES [id number]) Physical Therapy Assessment Rehab Potential Rehabilitation Potential Good Evaluation Complexity Number of Personal Factors/Comorbidities 1-2 Number of Body Systems Impaired 1-2 Clinical Presentation at Evaluation Stable Impairments Impairments Balance,Functional Activities, Functional Mobility,Pain, Posture,ROM,Soft Tissue Mobility,Strength Goals Four Impairment Activity tolerance/functional activity [facility] Goal (LTG) Patient will reduce LEFS score to 38 or less indicating clinically significant improvement in function. LTG Duration 8 weeks (04/07/23) Three Impairment Pain [facility] Goal (LTG) Patient will be able to sleep without waking up from pain at least 4 nights/week. LTG Duration 8 weeks (04/07/23) Two Impairment Balance Short Term Goal (STG) Patient will be able to perform SLS for 10 sec B to reduce fall risk. STG Duration 6 weeks (03/24/23) One Impairment Strength Short Term Goal (STG) Patient will increase L hip ER and abduction strength to at least 4-/5 to improve single limb stability. STG Duration 4 weeks (03/10/23) Assessment Summary Assessment Patient is a 77 year old male who presents with L posterior hip pain. He has a hx of L FABIEN from about 2 years ago, which improved his hip pain somewhat but has had persistent pain in buttock and low back. He demonstrates asymmetry in pelvic alignment along with decreased strength in L glutes and deep rotators. He has signs of possible SIJ dysfunction but this is difficult to test for due to presence of artificial hip joint and potential for dislocation with SIJ provocation tests. He did have a leg length discrepency in long sitting and instability with L SLS, as well as asymmetry with forward bending with L SIJ moving cephalad. He has tenderness in L glute muscles but no pain with strength testing. He is functionally limited in his ability to sleep, stand, and walk up/down hills, as well as participate in yardwork. He showed excessive lumbar rotation with demonstration of weedwacking which is a provocative activity; was able to correct with training today. He will benefit from further skilled therapy to address these problems in order to reduce his pain with functional activity and sleeping and to improve his balance to reduce fall risk. Physical Therapy Plan Frequency and Duration Frequency of Treatment 2x/Week Duration of treatment (weeks) 8 Plan of Care Start Date 02/10/23 Plan of Care End Date 04/07/23 Therapeutic Interventions Therapeutic Interventions Balance Training,Home Exercise Program,Joint Mobilizations, Manual Therapy,Neuromuscular Re-education,Patient/Caregiver Education,Self-Care/Home Management,Soft Tissue Mobilization,Taping, Therapeutic Activities, Therapeutic Exercises Next Visit Focus/Plan Next Note Type Treatment Note Next Visit Plan Manual therapy for pelvis as indicated. L posterior hip strengthening. Assess response to using pillow at night.
--- NOTE | 2023-02-10 17:18 | PT.OPPOC ---
Physical, Occupational & Speech Therapy At [facility] Current Diagnoses Trochanteric bursitis, left hip (02/10/23) Other specified enthesopathies of unspecified lower limb, excluding foot (02/10/23) Unsteadiness on feet (02/10/23) Presence of left artificial hip joint (02/10/23) Visit Care Team Role Provider Type Orion Cisse MD Family Provider Physician Primary Care Provider Specialty: Family Practice Address: [address] [place] [address], [id number] Email: [email or web address] Shoaib Mccord DO Attending Provider Physician Referring Provider Specialty: Physiatry Pain Management Address: [address] [place] [address], [phone] Email: [email or web address] Plan Of Care PT-OP-T Assessment and Plan Start: 02/10/23 15:35 Freq: Status: Active Protocol: Document 02/10/23 15:36 ES (Rec: 02/10/23 17:14 ES [id number]) Physical Therapy Assessment Rehab Potential Rehabilitation Potential Good Evaluation Complexity Number of Personal Factors/Comorbidities 1-2 Number of Body Systems Impaired 1-2 Clinical Presentation at Evaluation Stable Impairments Impairments Balance,Functional Activities, Functional Mobility,Pain, Posture,ROM,Soft Tissue Mobility,Strength Goals Four Impairment Activity tolerance/functional activity Crm Architect Goal (LTG) Patient will reduce LEFS score to 38 or less indicating clinically significant improvement in function. LTG Duration 8 weeks (04/07/23) Three Impairment Pain Crm Architect Goal (LTG) Patient will be able to sleep without waking up from pain at least 4 nights/week. LTG Duration 8 weeks (04/07/23) Two Impairment Balance Short Term Goal (STG) Patient will be able to perform SLS for 10 sec B to reduce fall risk. STG Duration 6 weeks (03/24/23) One Impairment Strength Short Term Goal (STG) Patient will increase L hip ER and abduction strength to at least 4-/5 to improve single limb stability. STG Duration 4 weeks (03/10/23) Assessment Summary Assessment Patient is a 77 year old male who presents with L posterior hip pain. He has a hx of L FABIEN from about 2 years ago, which improved his hip pain somewhat but has had persistent pain in buttock and low back. He demonstrates asymmetry in pelvic alignment along with decreased strength in L glutes and deep rotators. He has signs of possible SIJ dysfunction but this is difficult to test for due to presence of artificial hip joint and potential for dislocation with SIJ provocation tests. He did have a leg length discrepency in long sitting and instability with L SLS, as well as asymmetry with forward bending with L SIJ moving cephalad. He has tenderness in L glute muscles but no pain with strength testing. He is functionally limited in his ability to sleep, stand, and walk up/down hills, as well as participate in yardwork. He showed excessive lumbar rotation with demonstration of weedwacking which is a provocative activity; was able to correct with training today. He will benefit from further skilled therapy to address these problems in order to reduce his pain with functional activity and sleeping and to improve his balance to reduce fall risk. Physical Therapy Plan Frequency and Duration Frequency of Treatment 2x/Week Duration of treatment (weeks) 8 Plan of Care Start Date 02/10/23 Plan of Care End Date 04/07/23 Therapeutic Interventions Therapeutic Interventions Balance Training,Home Exercise Program,Joint Mobilizations, Manual Therapy,Neuromuscular Re-education,Patient/Caregiver Education,Self-Care/Home Management,Soft Tissue Mobilization,Taping, Therapeutic Activities, Therapeutic Exercises Next Visit Focus/Plan Next Note Type Treatment Note Next Visit Plan Manual therapy for pelvis as indicated. L posterior hip strengthening. Assess response to using pillow at night. Plan of Care Dates Plan of Care Start Date 02/10/23 Plan of Care End Date 04/07/23 Electronically Signed by: Myesha Last, PT 02/10/23 [id number] If you are in agreement with this Plan of Care, please return a signed and dated copy. I have reviewed this Plan of Care and certify that the skilled therapy services above are required to meet the patient?s needs. Physician Signature Date Printed Name and Credentials Clinical Instructor Signature Printed Name and Credentials
--- NOTE | 2023-02-17 14:40 | PT.OTN ---
Current Diagnoses Trochanteric bursitis, left hip (02/17/23) Other specified enthesopathies of unspecified lower limb, excluding foot (02/17/23) Unsteadiness on feet (02/17/23) Presence of left artificial hip joint (02/17/23) Physical Therapy Treatment Note PT-OP-A Visit Information Start: 02/10/23 15:35 Freq: Status: Active Protocol: Document 02/17/23 11:01 ES (Rec: 02/17/23 14:40 ES [id number]) Out-Patient Physical Therapy Visit Information Visit Information Visit Type Treatment Note Visit Start Time 11:04 Visit Stop Time 11:49 Total Visit Minutes 45 Visit Number 2 Evaluation Information Evaluation Date 02/10/23 PT-OP-B Current Condition Start: 02/10/23 15:35 Freq: Status: Active Protocol: Document 02/10/23 15:36 ES (Rec: 02/10/23 17:14 ES [id number]) Current Condition History of Current Condition Onset Date 1.5 years ago Current Complaints L hip/buttock/SIJ History of Current Condition Patient had a L FABIEN about 2 years ago and has been having problems ever since. Wishes he hadn't done it in the first place. Had PT after surgery; didn't do his rehab as consistently as he was supposed to. Was still working at the time. Started to go to Dr. Mccord due to pain at night keeping him from sleeping. Was having a lot of trouble rolling over in bed. Has had several injections and was placed on gabapentin. Has a hx of low back problems for many years. 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 Has a hx of sciatica. 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 States his balance has gotten bad and has had falls in the past year. Having more difficulty playing with the dog. Feels disoriented when closing his eyes. Walks for exercise for about 45 minutes 2-3x/week. Prior Treatments and Tests MRI showed mild tendinitis in HS, otherwise no significant findings. Images of lower back show arthritis. Treatment Goals Patient/Caregiver Goals To figure out why his balance has gotten worse. To have better strength in the legs. To be able to sleep at night without the hip waking him up. PT-OP-C Subjective Start: 02/10/23 15:35 Freq: Status: Active Protocol: Document 02/17/23 11:01 ES (Rec: 02/17/23 14:40 ES [id number]) OP-PT Subjective Patient Comments Patient Comments Patient reported that he didn' t sleep with a pillow between his knees because he didn't have a thin enough one. Stated that he tends to lay on his side and bringing his leg up in front and he wakes up with pain in the L hip. Stated he was able to blow leaves without as much pain using the technique discussed the last visit. HAs been working on tightening his glutes more. Not pivoting at his waist has been really helpful. PT-OP-D Balance Start: 02/10/23 15:35 Freq: Status: Active Protocol: Document 02/10/23 15:36 ES (Rec: 02/10/23 17:16 ES [id number]) Balance Tests Single Limb Standing Single Limb- Right 3 sec Single Limb- Left 1 sec PT-OP-J Posture/Palpation/Skin Start: 02/10/23 15:35 Freq: Status: Active Protocol: Document 02/10/23 15:36 ES (Rec: 02/10/23 17:14 ES [id number]) Posture Evaluation Position Standing Pelvis Posture (L) Iliac Crest Superior,(R) PSIS Inferior Comments Posture Comments Demonstration of weed wacking = lumbar rotation, static LE's . Palpation Assessment Location One Palpation Location L glutes Palpation Findings Tenderness PT-OP-L Special Tests Start: 02/10/23 15:35 Freq: Status: Active Protocol: Document 02/10/23 15:36 ES (Rec: 02/10/23 17:14 ES [id number]) Special Tests Lumbar Spine Special Tests Supine leg length Test Results Supine to long sit = LLE equal to long Jose C Test Results Decreased flexibility L hip flexors Forward bend Test Results L PSIS high Hip Special Tests Bridge Test Results Increased pain; decreased pain when cued for increased L glute activation Alyson Finger Test Test Results Positive L Trendelenberg Test Results Negative B PT-OP-M Strength Start: 02/10/23 15:35 Freq: Status: Active Protocol: Document 02/10/23 15:36 ES (Rec: 02/10/23 17:14 ES [id number]) Hip Strength Hip Manual Muscle Testing Left Extension (S1) 4- Good- Abduction 3+ Fair+ External Rotation 3 Fair Right Extension (S1) 4 Good Abduction 3+ Fair+ External Rotation 3+ Fair+ PT-OP-Q Treatments Start: 02/10/23 15:35 Freq: Status: Active Protocol: Document 02/17/23 11:01 ES (Rec: 02/17/23 14:40 ES [id number]) Therapeutic Exercises Sitting Exercises R SB stretch Reps/Minutes [id number] Comments HEP Standing Exercises Sidestepping Side bilateral Resistance L3 band Reps/Minutes 2x10 ea side Comments Band in hands for both trunk and hip control Pallof press Side bilateral Resistance L3 band Reps/Minutes 2x10 ea side Comments HEP Manual Therapy Treatment Soft Tissue Mobilization L QL Mobilization Type Strumming,Sustained Pressure, Trigger Point Release Intensity/Depth Mild to moderate Body Position R sidelying over pillow Manual Techniques Manual L QL stretch Body Position R sidelying over pillow Reps/Duration 3x30s PT-OP-T Assessment and Plan Start: 02/10/23 15:35 Freq: Status: Active Protocol: Document 02/17/23 11:01 ES (Rec: 02/17/23 14:40 ES [id number]) Physical Therapy Assessment Impairments Impairments Balance,Functional Activities, Functional Mobility,Pain, Posture,ROM,Soft Tissue Mobility,Strength Goals Four Impairment Activity tolerance/functional activity Prison Goal (LTG) Patient will reduce LEFS score to 38 or less indicating clinically significant improvement in function. LTG Duration 8 weeks (04/07/23) Three Impairment Pain Prison Goal (LTG) Patient will be able to sleep without waking up from pain at least 4 nights/week. LTG Duration 8 weeks (04/07/23) Two Impairment Balance Short Term Goal (STG) Patient will be able to perform SLS for 10 sec B to reduce fall risk. STG Duration 6 weeks (03/24/23) One Impairment Strength Short Term Goal (STG) Patient will increase L hip ER and abduction strength to at least 4-/5 to improve single limb stability. STG Duration 4 weeks (03/10/23) Assessment Summary Assessment Patient demonstrated L trunk sidebend in standing. He had tightness and tendernes in L QL likely contributing to this position. He responeded well to manual techniques. He tolerated trunk stabilization ex's without increase in pain. Physical Therapy Plan Frequency and Duration Frequency of Treatment 2x/Week Duration of treatment (weeks) 8 Plan of Care Start Date 02/10/23 Plan of Care End Date 04/07/23 Therapeutic Interventions Therapeutic Interventions Balance Training,Home Exercise Program,Joint Mobilizations, Manual Therapy,Neuromuscular Re-education,Patient/Caregiver Education,Self-Care/Home Management,Soft Tissue Mobilization,Taping, Therapeutic Activities, Therapeutic Exercises Next Visit Focus/Plan Next Note Type Treatment Note Next Visit Plan Assess response to manual therapy. Re-assess pelvic alignment/leg length. Progress trunk and hip control ex's.
--- NOTE | 2023-02-22 11:08 | PT.OTN ---
Current Diagnoses Trochanteric bursitis, left hip (02/22/23) Other specified enthesopathies of unspecified lower limb, excluding foot (02/22/23) Unsteadiness on feet (02/22/23) Presence of left artificial hip joint (02/22/23) Physical Therapy Treatment Note PT-OP-A Visit Information Start: 02/10/23 15:35 Freq: Status: Active Protocol: Document 02/22/23 10:02 ES (Rec: 02/22/23 10:57 ES [id number]) Out-Patient Physical Therapy Visit Information Visit Information Visit Type Treatment Note Visit Start Time 10:04 Visit Stop Time 10:49 Total Visit Minutes 45 Visit Number 3 PT-OP-B Current Condition Start: 02/10/23 15:35 Freq: Status: Active Protocol: Document 02/10/23 15:36 ES (Rec: 02/10/23 17:14 ES [id number]) Current Condition History of Current Condition Onset Date 1.5 years ago Current Complaints L hip/buttock/SIJ History of Current Condition Patient had a L FABIEN about 2 years ago and has been having problems ever since. Wishes he hadn't done it in the first place. Had PT after surgery; didn't do his rehab as consistently as he was supposed to. Was still working at the time. Started to go to Dr. Mccord due to pain at night keeping him from sleeping. Was having a lot of trouble rolling over in bed. Has had several injections and was placed on gabapentin. Has a hx of low back problems for many years. 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 Has a hx of sciatica. 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 States his balance has gotten bad and has had falls in the past year. Having more difficulty playing with the dog. Feels disoriented when closing his eyes. Walks for exercise for about 45 minutes 2-3x/week. Prior Treatments and Tests MRI showed mild tendinitis in HS, otherwise no significant findings. Images of lower back show arthritis. Treatment Goals Patient/Caregiver Goals To figure out why his balance has gotten worse. To have better strength in the legs. To be able to sleep at night without the hip waking him up. PT-OP-C Subjective Start: 02/10/23 15:35 Freq: Status: Active Protocol: Document 02/22/23 10:02 ES (Rec: 02/22/23 10:57 ES [id number]) OP-PT Subjective Patient Comments Patient Comments Patient reported that he assessed his night time pain; it's tender at the side of his hip (over greater trochanter) and gets better as soon as he rolls off the L hip and also after massaging the area. Has been having less posterior hip /pelvic pain. Has a hard time lifting his L leg onto the R leg to reach his foot - feels weak. Has a hard time getting up from the ground (lunge position). PT-OP-D Balance Start: 02/10/23 15:35 Freq: Status: Active Protocol: Document 02/10/23 15:36 ES (Rec: 02/10/23 17:16 ES [id number]) Balance Tests Single Limb Standing Single Limb- Right 3 sec Single Limb- Left 1 sec PT-OP-J Posture/Palpation/Skin Start: 02/10/23 15:35 Freq: Status: Active Protocol: Document 02/10/23 15:36 ES (Rec: 02/10/23 17:14 ES [id number]) Posture Evaluation Position Standing Pelvis Posture (L) Iliac Crest Superior,(R) PSIS Inferior Comments Posture Comments Demonstration of weed wacking = lumbar rotation, static LE's . Palpation Assessment Location One Palpation Location L glutes Palpation Findings Tenderness PT-OP-L Special Tests Start: 02/10/23 15:35 Freq: Status: Active Protocol: Document 02/10/23 15:36 ES (Rec: 02/10/23 17:14 ES [id number]) Special Tests Lumbar Spine Special Tests Supine leg length Test Results Supine to long sit = LLE equal to long Jose C Test Results Decreased flexibility L hip flexors Forward bend Test Results L PSIS high Hip Special Tests Bridge Test Results Increased pain; decreased pain when cued for increased L glute activation Alyson Finger Test Test Results Positive L Trendelenberg Test Results Negative B PT-OP-M Strength Start: 02/10/23 15:35 Freq: Status: Active Protocol: Document 02/10/23 15:36 ES (Rec: 02/10/23 17:14 ES [id number]) Hip Strength Hip Manual Muscle Testing Left Extension (S1) 4- Good- Abduction 3+ Fair+ External Rotation 3 Fair Right Extension (S1) 4 Good Abduction 3+ Fair+ External Rotation 3+ Fair+ PT-OP-Q Treatments Start: 02/10/23 15:35 Freq: Status: Active Protocol: Document 02/22/23 10:02 ES (Rec: 02/22/23 10:57 ES [id number]) Therapeutic Exercises Supine Exercises Hip ER Reps/Minutes x15 Comments HEP; Knee straight, cued to rotate from the hip Sidelying Exercises Clamshell Side left Resistance L1 band Reps/Minutes 2x15 Comments HEP Standing Exercises Pallof press Comments Reviewed for home Manual Therapy Treatment Soft Tissue Mobilization L QL Mobilization Type Strumming,Sustained Pressure, Trigger Point Release Intensity/Depth Mild to moderate Body Position R sidelying Manual Techniques Manual L QL stretch Body Position R sidelying over pillow Reps/Duration 3x30s PT-OP-T Assessment and Plan Start: 02/10/23 15:35 Freq: Status: Active Protocol: Document 02/22/23 10:02 ES (Rec: 02/22/23 10:57 ES [id number]) Physical Therapy Assessment Goals Four Impairment Activity tolerance/functional activity Puncher Goal (LTG) Patient will reduce LEFS score to 38 or less indicating clinically significant improvement in function. LTG Duration 8 weeks (04/07/23) Three Impairment Pain Puncher Goal (LTG) Patient will be able to sleep without waking up from pain at least 4 nights/week. LTG Duration 8 weeks (04/07/23) Two Impairment Balance Short Term Goal (STG) Patient will be able to perform SLS for 10 sec B to reduce fall risk. STG Duration 6 weeks (03/24/23) One Impairment Strength Short Term Goal (STG) Patient will increase L hip ER and abduction strength to at least 4-/5 to improve single limb stability. STG Duration 4 weeks (03/10/23) Assessment Summary Assessment Patient tested very weak in L hip ER (2+/5) contributing to difficulty with lifting leg up and getting up from floor. Attempted prone hip rotation but developed HS cramp and unable to tolerate. Able to be appropriately challenged with clamshell and supine ER AAROM . He continues to have tenderness and trigger points in L QL. Physical Therapy Plan Frequency and Duration Frequency of Treatment 2x/Week Duration of treatment (weeks) 8 Plan of Care Start Date 02/10/23 Plan of Care End Date 08/24/23 Therapeutic Interventions Therapeutic Interventions Balance Training,Home Exercise Program,Joint Mobilizations, Manual Therapy,Neuromuscular Re-education,Patient/Caregiver Education,Self-Care/Home Management,Soft Tissue Mobilization,Taping, Therapeutic Activities, Therapeutic Exercises Next Visit Focus/Plan Next Note Type Treatment Note Next Visit Plan Continue working on pelvic alignment, hip control/ strength especially ER/glutes.
--- NOTE | 2023-02-24 13:01 | PT.OTN ---
Current Diagnoses Trochanteric bursitis, left hip (02/24/23) Other specified enthesopathies of unspecified lower limb, excluding foot (02/24/23) Unsteadiness on feet (02/24/23) Presence of left artificial hip joint (02/24/23) Physical Therapy Treatment Note PT-OP-A Visit Information Start: 02/10/23 15:35 Freq: Status: Active Protocol: Document 02/24/23 10:05 SW (Rec: 02/24/23 11:01 SW [id number]) Out-Patient Physical Therapy Visit Information Visit Information Visit Type Treatment Note Visit Start Time 10:04 Visit Stop Time 10:47 Total Visit Minutes 43 Visit Number 4 Number of FEED IN WORKER Visits 1 PT-OP-B Current Condition Start: 02/10/23 15:35 Freq: Status: Active Protocol: Document 02/10/23 15:36 ES (Rec: 02/10/23 17:14 ES [id number]) Current Condition History of Current Condition Onset Date 1.5 years ago Current Complaints L hip/buttock/SIJ History of Current Condition Patient had a L FABIEN about 2 years ago and has been having problems ever since. Wishes he hadn't done it in the first place. Had PT after surgery; didn't do his rehab as consistently as he was supposed to. Was still working at the time. Started to go to Dr. Mccord due to pain at night keeping him from sleeping. Was having a lot of trouble rolling over in bed. Has had several injections and was placed on gabapentin. Has a hx of low back problems for many years. 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 Has a hx of sciatica. 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 States his balance has gotten bad and has had falls in the past year. Having more difficulty playing with the dog. Feels disoriented when closing his eyes. Walks for exercise for about 45 minutes 2-3x/week. Prior Treatments and Tests MRI showed mild tendinitis in HS, otherwise no significant findings. Images of lower back show arthritis. Treatment Goals Patient/Caregiver Goals To figure out why his balance has gotten worse. To have better strength in the legs. To be able to sleep at night without the hip waking him up. PT-OP-C Subjective Start: 02/10/23 15:35 Freq: Status: Active Protocol: Document 02/24/23 10:05 SW (Rec: 02/24/23 11:01 SW [id number]) OP-PT Subjective Patient Comments Patient Comments Zoie are hurting his back. Not sure he is doing ER HEP. PT-OP-D Balance Start: 02/10/23 15:35 Freq: Status: Active Protocol: Document 02/10/23 15:36 ES (Rec: 02/10/23 17:16 ES [id number]) Balance Tests Single Limb Standing Single Limb- Right 3 sec Single Limb- Left 1 sec PT-OP-J Posture/Palpation/Skin Start: 02/10/23 15:35 Freq: Status: Active Protocol: Document 02/10/23 15:36 ES (Rec: 02/10/23 17:14 ES [id number]) Posture Evaluation Position Standing Pelvis Posture (L) Iliac Crest Superior,(R) PSIS Inferior Comments Posture Comments Demonstration of weed wacking = lumbar rotation, static LE's . Palpation Assessment Location One Palpation Location L glutes Palpation Findings Tenderness PT-OP-L Special Tests Start: 02/10/23 15:35 Freq: Status: Active Protocol: Document 02/10/23 15:36 ES (Rec: 02/10/23 17:14 ES [id number]) Special Tests Lumbar Spine Special Tests Supine leg length Test Results Supine to long sit = LLE equal to long Jose C Test Results Decreased flexibility L hip flexors Forward bend Test Results L PSIS high Hip Special Tests Bridge Test Results Increased pain; decreased pain when cued for increased L glute activation Alyson Finger Test Test Results Positive L Trendelenberg Test Results Negative B PT-OP-M Strength Start: 02/10/23 15:35 Freq: Status: Active Protocol: Document 02/10/23 15:36 ES (Rec: 02/10/23 17:14 ES [id number]) Hip Strength Hip Manual Muscle Testing Left Extension (S1) 4- Good- Abduction 3+ Fair+ External Rotation 3 Fair Right Extension (S1) 4 Good Abduction 3+ Fair+ External Rotation 3+ Fair+ PT-OP-Q Treatments Start: 02/10/23 15:35 Freq: Status: Active Protocol: Document 02/24/23 10:05 SW (Rec: 02/24/23 11:01 SW [id number]) Therapeutic Exercises Supine Exercises Hip ER Reps/Minutes x15 Comments HEP; Adjusted to Knee bent, cued to rotate from the hip Sidelying Exercises Clamshell Side left Resistance L1 band Reps/Minutes 2x15 Comments HEP- corrected form, relieved pain in back Sitting Exercises R SB stretch Reps/Minutes [id number] Comments w/manual STM Other Exercises Pelvic Alignment Other Exercise Name Pelvic alignment with mirror/ tactile feedback Comments Pain in R side, did manual/ stretching in L QL significantly improved pain Manual Therapy Treatment Soft Tissue Mobilization L QL Mobilization Type Strumming,Sustained Pressure, Trigger Point Release Intensity/Depth Mild to moderate Body Position Sitting Manual Techniques Manual L QL stretch Body Position R sidelying over pillow Reps/Duration 3x30s PT-OP-T Assessment and Plan Start: 02/10/23 15:35 Freq: Status: Active Protocol: Document 02/24/23 10:05 (Rec: 02/24/23 11:01 [id number]) Physical Therapy Assessment Rehab Potential Rehabilitation Potential Good Evaluation Complexity Number of Personal Factors/Comorbidities 1-2 Number of Body Systems Impaired 1-2 Clinical Presentation at Evaluation Stable Impairments Impairments Balance,Functional Activities, Functional Mobility,Pain, Posture,ROM,Soft Tissue Mobility,Strength Goals Four Impairment Activity tolerance/functional activity Retirement Goal (LTG) Patient will reduce LEFS score to 38 or less indicating clinically significant improvement in function. LTG Duration 8 weeks (04/07/23) Three Impairment Pain Retirement Goal (LTG) Patient will be able to sleep without waking up from pain at least 4 nights/week. LTG Duration 8 weeks (04/07/23) Two Impairment Balance Short Term Goal (STG) Patient will be able to perform SLS for 10 sec B to reduce fall risk. STG Duration 6 weeks (03/24/23) One Impairment Strength Short Term Goal (STG) Patient will increase L hip ER and abduction strength to at least 4-/5 to improve single limb stability. STG Duration 4 weeks (03/10/23) Assessment Summary Assessment Reviewed HEP, pt was having pain with clamshells in back and having difficulty with ER. Corrected form with clamshells to eliminate engagement of back and isolate hip, eliminated pain, discussed ways to keep the trunk stable during exercise. Started pelvic alignment with mirror feedback, pn present in R hip/LB, manual and stretched L QL, greatly improved pn. Physical Therapy Plan Frequency and Duration Frequency of Treatment 2x/Week Duration of treatment (weeks) 8 Plan of Care Start Date 02/10/23 Plan of Care End Date 04/07/23 Therapeutic Interventions Therapeutic Interventions Balance Training,Home Exercise Program,Joint Mobilizations, Manual Therapy,Neuromuscular Re-education,Patient/Caregiver Education,Self-Care/Home Management,Soft Tissue Mobilization,Taping, Therapeutic Activities, Therapeutic Exercises Next Visit Focus/Plan Next Note Type Treatment Note Next Visit Plan Continue working on pelvic alignment, hip control/ strength especially ER/glutes.
--- NOTE | 2023-03-04 11:40 | PT.OTN ---
Current Diagnoses Trochanteric bursitis, left hip (03/04/23) Other specified enthesopathies of unspecified lower limb, excluding foot (03/04/23) Unsteadiness on feet (03/04/23) Presence of left artificial hip joint (03/04/23) Physical Therapy Treatment Note PT-OP-A Visit Information Start: 02/10/23 15:35 Freq: Status: Active Protocol: Document 03/04/23 10:48 SP (Rec: 03/04/23 11:50 SP [id number]) Out-Patient Physical Therapy Visit Information Visit Information Visit Type Treatment Note Visit Start Time 10:48 Visit Stop Time 11:40 Total Visit Minutes 52 Visit Number 5 Number of APPLIANCE REPAIRER Visits 2 Evaluation Information Evaluation Date 02/10/23 PT-OP-B Current Condition Start: 02/10/23 15:35 Freq: Status: Active Protocol: Document 02/10/23 15:36 ES (Rec: 02/10/23 17:14 ES [id number]) Current Condition History of Current Condition Onset Date 1.5 years ago Current Complaints L hip/buttock/SIJ History of Current Condition Patient had a L FABIEN about 2 years ago and has been having problems ever since. Wishes he hadn't done it in the first place. Had PT after surgery; didn't do his rehab as consistently as he was supposed to. Was still working at the time. Started to go to Dr. Mccord due to pain at night keeping him from sleeping. Was having a lot of trouble rolling over in bed. Has had several injections and was placed on gabapentin. Has a hx of low back problems for many years. 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 Has a hx of sciatica. 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 States his balance has gotten bad and has had falls in the past year. Having more difficulty playing with the dog. Feels disoriented when closing his eyes. Walks for exercise for about 45 minutes 2-3x/week. Prior Treatments and Tests MRI showed mild tendinitis in HS, otherwise no significant findings. Images of lower back show arthritis. Treatment Goals Patient/Caregiver Goals To figure out why his balance has gotten worse. To have better strength in the legs. To be able to sleep at night without the hip waking him up. PT-OP-C Subjective Start: 02/10/23 15:35 Freq: Status: Active Protocol: Document 03/04/23 10:48 SP (Rec: 03/04/23 11:50 SP [id number]) OP-PT Subjective Patient Comments Patient Comments Pt reports is still having pain over posterolateral L hip and QL region today. He states is weak lifting LLE to put on R knee to put on socks, has to use his hands for support. He reports has pain over posterior L hip when going down hill, no up hill. PT-OP-D Balance Start: 02/10/23 15:35 Freq: Status: Active Protocol: Document 02/10/23 15:36 ES (Rec: 02/10/23 17:16 ES [id number]) Balance Tests Single Limb Standing Single Limb- Right 3 sec Single Limb- Left 1 sec PT-OP-J Posture/Palpation/Skin Start: 02/10/23 15:35 Freq: Status: Active Protocol: Document 02/10/23 15:36 ES (Rec: 02/10/23 17:14 ES [id number]) Posture Evaluation Position Standing Pelvis Posture (L) Iliac Crest Superior,(R) PSIS Inferior Comments Posture Comments Demonstration of weed wacking = lumbar rotation, static LE's . Palpation Assessment Location One Palpation Location L glutes Palpation Findings Tenderness PT-OP-L Special Tests Start: 02/10/23 15:35 Freq: Status: Active Protocol: Document 02/10/23 15:36 ES (Rec: 02/10/23 17:14 ES [id number]) Special Tests Lumbar Spine Special Tests Supine leg length Test Results Supine to long sit = LLE equal to long Jose C Test Results Decreased flexibility L hip flexors Forward bend Test Results L PSIS high Hip Special Tests Bridge Test Results Increased pain; decreased pain when cued for increased L glute activation Alyson Finger Test Test Results Positive L Trendelenberg Test Results Negative B PT-OP-M Strength Start: 02/10/23 15:35 Freq: Status: Active Protocol: Document 02/10/23 15:36 ES (Rec: 02/10/23 17:14 ES [id number]) Hip Strength Hip Manual Muscle Testing Left Extension (S1) 4- Good- Abduction 3+ Fair+ External Rotation 3 Fair Right Extension (S1) 4 Good Abduction 3+ Fair+ External Rotation 3+ Fair+ PT-OP-Q Treatments Start: 02/10/23 15:35 Freq: Status: Active Protocol: Document 03/04/23 10:48 SP (Rec: 03/04/23 11:50 SP [id number]) Therapeutic Exercises Sitting Exercises piriformis stretch Sitting Exercise Name added to HEP Side left Reps/Minutes 30s x2 Comments good feedback response stretch to dec tightness in hip post seated october w/ ER Sitting Exercise Name added to [facility] Side left Resistance TB #2 orange at forefoot Equipment Used tap L ft to R lay- elevate up leg if can Reps/Minutes 5 reps x2 Comments reports a good challenge, not able to go as high as I'd like R SB stretch Reps/Minutes [id number] Comments w/manual STM Standing Exercises hip flexion foot taps to opp lay Standing Exercise Name added to [facility] Resistance TB loop around forefoot, lift L foot to R lay Equipment Used facing/ contact wall Reps/Minutes x10 reps Comments improved elevations self STMs Standing Exercise Name added: L QL, ES , distal Piriformis and Glut Max. Side left Equipment Used [employer] Smil[employer] ball on wall Reps/Minutes 3 min total rolling Comments good feedback response- lessens tightness can do at home. Sidestepping Standing Exercise Name reviewed and added to HEP: f/b /side Side bilateral Resistance L3 band green at ankles Equipment Used near counter instructed for contact safety Reps/Minutes 2x10 ea side Comments Band in hands for both trunk and hip control Manual Therapy Treatment Soft Tissue Mobilization scar mobility Body Location L posterolateral hip (1 y/o scar) Mobilization Type Instrument Assisted,Myofascial Release Intensity/Depth Superficial Body Position Sidelying Comments cupping and manual glides. Improved soft tissue mobility. Pt reported little burning tingle at first then went a way with glides. L hip Body Location L posterolateral hip: piriformis, Mobilization Type Instrument Assisted,Myofascial Release,Sustained Pressure Intensity/Depth Moderate Body Position Sidelying L QL Body Location QL, ES Mobilization Type Instrument Assisted,Strumming, Sustained Pressure,Trigger Point Release Intensity/Depth Mild to moderate Body Position Sidelying Comments MFR then ed ball wall self Joint Mobilizations L hip Joint next tx trial inferior glide w / hip flexion PT-OP-T Assessment and Plan Start: 02/10/23 15:35 Freq: Status: Active Protocol: Document 03/04/23 10:48 SP (Rec: 03/04/23 11:50 SP [id number]) Physical Therapy Assessment Goals Four Impairment Activity tolerance/functional activity Diesel Retrofit Designer Goal (LTG) Patient will reduce LEFS score to 38 or less indicating clinically significant improvement in function. LTG Duration 8 weeks (04/07/23) Three Impairment Pain Diesel Retrofit Designer Goal (LTG) Patient will be able to sleep without waking up from pain at least 4 nights/week. LTG Duration 8 weeks (04/07/23) Two Impairment Balance Short Term Goal (STG) Patient will be able to perform SLS for 10 sec B to reduce fall risk. STG Duration 6 weeks (03/24/23) One Impairment Strength Short Term Goal (STG) Patient will increase L hip ER and abduction strength to at least 4-/5 to improve single limb stability. 03/04/23: verbal review HEP: suping and side clam, added seated and standing resisted march w/ L hip ER tapping L ft to R lay, piriformis stretch , band walk f/b/lateral. STG Duration 4 weeks (03/10/23) progressing 03/04/23 Assessment Summary Assessment Pt responded well to manual cupping and ed self application STMs to posterolateral hip ball on wall, reports more mobility. Pt good effort seated and standing resisted march w/ Hip ER to progress strength to lift LLE onto R knee to don socks/shoes. Discussed functional strengthening: hurdles, uneven surfaces to improve outdoor strength/ endurance/stability for community walking, especially declines. Physical Therapy Plan Frequency and Duration Frequency of Treatment 2x/Week Duration of treatment (weeks) 8 Plan of Care Start Date 02/10/23 Plan of Care End Date 04/07/23 Therapeutic Interventions Therapeutic Interventions Balance Training,Home Exercise Program,Joint Mobilizations, Manual Therapy,Neuromuscular Re-education,Patient/Caregiver Education,Self-Care/Home Management,Soft Tissue Mobilization,Taping, Therapeutic Activities, Therapeutic Exercises Next Visit Focus/Plan Next Note Type Treatment Note Next Visit Plan Assess response to cupping L hip, seated& standing resisted march/taps, Pif stretch and band walk. Next tx add: hurdles level/ uneven, shuttle balance, resisted 4 way hip at rail. Trial hip mob, MWM to support mobility for eccentric decline stepping. POC: Continue working on pelvic alignment, hip control/ strength especially ER/glutes.
--- NOTE | 2023-03-09 12:13 | PT.OTN ---
Current Diagnoses Trochanteric bursitis, left hip (03/09/23) Other specified enthesopathies of unspecified lower limb, excluding foot (03/09/23) Unsteadiness on feet (03/09/23) Presence of left artificial hip joint (03/09/23) Physical Therapy Treatment Note PT-OP-A Visit Information Start: 02/10/23 15:35 Freq: Status: Active Protocol: Document 03/09/23 12:05 ED (Rec: 03/09/23 12:12 ED [id number]) Out-Patient Physical Therapy Visit Information Visit Information Visit Type Treatment Note Visit Start Time 11:15 Visit Stop Time 12:00 Total Visit Minutes 45 Visit Number 6 Number of BELT BUILDER Visits 0 PT-OP-B Current Condition Start: 02/10/23 15:35 Freq: Status: Active Protocol: Document 02/10/23 15:36 ES (Rec: 02/10/23 17:14 ES [id number]) Current Condition History of Current Condition Onset Date 1.5 years ago Current Complaints L hip/buttock/SIJ History of Current Condition Patient had a L FABIEN about 2 years ago and has been having problems ever since. Wishes he hadn't done it in the first place. Had PT after surgery; didn't do his rehab as consistently as he was supposed to. Was still working at the time. Started to go to Dr. Mccord due to pain at night keeping him from sleeping. Was having a lot of trouble rolling over in bed. Has had several injections and was placed on gabapentin. Has a hx of low back problems for many years. 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 Has a hx of sciatica. 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 States his balance has gotten bad and has had falls in the past year. Having more difficulty playing with the dog. Feels disoriented when closing his eyes. Walks for exercise for about 45 minutes 2-3x/week. Prior Treatments and Tests MRI showed mild tendinitis in HS, otherwise no significant findings. Images of lower back show arthritis. Treatment Goals Patient/Caregiver Goals To figure out why his balance has gotten worse. To have better strength in the legs. To be able to sleep at night without the hip waking him up. PT-OP-C Subjective Start: 02/10/23 15:35 Freq: Status: Active Protocol: Document 03/09/23 12:05 ED (Rec: 03/09/23 12:12 ED [id number]) OP-PT Subjective Patient Comments Patient Comments Pt states he is happy b/c he is finally able to lift his L leg onto his R knee in a sitting position. He states he was unable to do that for 2 years and just now did it while in the waiting area. Patient Reported Progress Improving PT-OP-D Balance Start: 02/10/23 15:35 Freq: Status: Active Protocol: Document 02/10/23 15:36 ES (Rec: 02/10/23 17:16 ES [id number]) Balance Tests Single Limb Standing Single Limb- Right 3 sec Single Limb- Left 1 sec PT-OP-J Posture/Palpation/Skin Start: 02/10/23 15:35 Freq: Status: Active Protocol: Document 02/10/23 15:36 ES (Rec: 02/10/23 17:14 ES [id number]) Posture Evaluation Position Standing Pelvis Posture (L) Iliac Crest Superior,(R) PSIS Inferior Comments Posture Comments Demonstration of weed wacking = lumbar rotation, static LE's . Palpation Assessment Location One Palpation Location L glutes Palpation Findings Tenderness PT-OP-L Special Tests Start: 02/10/23 15:35 Freq: Status: Active Protocol: Document 02/10/23 15:36 ES (Rec: 02/10/23 17:14 ES [id number]) Special Tests Lumbar Spine Special Tests Supine leg length Test Results Supine to long sit = LLE equal to long Jose C Test Results Decreased flexibility L hip flexors Forward bend Test Results L PSIS high Hip Special Tests Bridge Test Results Increased pain; decreased pain when cued for increased L glute activation Alyson Finger Test Test Results Positive L Trendelenberg Test Results Negative B PT-OP-M Strength Start: 02/10/23 15:35 Freq: Status: Active Protocol: Document 02/10/23 15:36 ES (Rec: 02/10/23 17:14 ES [id number]) Hip Strength Hip Manual Muscle Testing Left Extension (S1) 4- Good- Abduction 3+ Fair+ External Rotation 3 Fair Right Extension (S1) 4 Good Abduction 3+ Fair+ External Rotation 3+ Fair+ PT-OP-Q Treatments Start: 02/10/23 15:35 Freq: Status: Active Protocol: Document 03/09/23 12:05 ED (Rec: 03/09/23 12:12 ED [id number]) Cardio Equipment Recumbent Elliptical (Biodex) Duration (Minutes) 8 Resistance 4 Therapeutic Exercises Supine Exercises Hip ER Reps/Minutes x15 Comments HEP; Adjusted to Knee bent, cued to rotate from the hip Sidelying Exercises Clamshell Side bilateral Resistance 2# Reps/Minutes 2x15 Comments HEP- corrected form, relieved pain in back Sitting Exercises piriformis stretch Sitting Exercise Name added to HEP Side left Reps/Minutes 30s x2 Comments good feedback response stretch to dec tightness in hip post seated october w/ ER Sitting Exercise Name added to HEP Side left Resistance TB #2 orange at forefoot Equipment Used tap L ft to R lay- elevate up leg if can Reps/Minutes 5 reps x2 Comments reports a good challenge, not able to go as high as I'd like R SB stretch Reps/Minutes [id number] Comments w/manual STM Standing Exercises hip flexion foot taps to opp lay Standing Exercise Name added to HEP Resistance TB loop around forefoot, lift L foot to R lay Equipment Used facing/ contact wall Reps/Minutes x10 reps Comments improved elevations self STMs Standing Exercise Name added: L QL, ES , distal Piriformis and Glut Max. Side left Equipment Used tennis ball on wall Reps/Minutes 3 min total rolling Comments good feedback response- lessens tightness can do at home. Sidestepping Standing Exercise Name reviewed and added to HEP: f/b /side Side bilateral Resistance L3 band green at ankles Equipment Used near counter instructed for contact safety Reps/Minutes 2x10 ea side Comments Band in hands for both trunk and hip control Pallof press Comments Reviewed for home Other Exercises hip flexion Other Exercise Name standing hip flexion (UE supported on wall) Side bilateral Resistance yllw loop Reps/Minutes 2x10/leg Pelvic Alignment Other Exercise Name Pelvic alignment with mirror/ tactile feedback Comments Pain in R side, did manual/ stretching in L QL significantly improved pain Therapeutic Activity Therapeutic Activity step ups Name step ups Reps/Minutes 1x15 Comments no UE support Neuro Re-Education Treatment Balance Activities dynamic balance Details walking Comments tandem walk, marching walk static balance Details tandem balance Reps/Duration x1' PT-OP-T Assessment and Plan Start: 02/10/23 15:35 Freq: Status: Active Protocol: Document 03/09/23 12:05 ED (Rec: 03/09/23 12:12 ED [id number]) Physical Therapy Assessment Rehab Potential Rehabilitation Potential Good Evaluation Complexity Number of Personal Factors/Comorbidities 1-2 Number of Body Systems Impaired 1-2 Clinical Presentation at Evaluation Stable Impairments Impairments Balance,Functional Activities, Functional Mobility,Pain, Posture,ROM,Soft Tissue Mobility,Strength Goals Four Impairment Activity tolerance/functional activity Senior Care Goal (LTG) Patient will reduce LEFS score to 38 or less indicating clinically significant improvement in function. LTG Duration 8 weeks (04/07/23) Three Impairment Pain Electric Organ Assembler Goal (LTG) Patient will be able to sleep without waking up from pain at least 4 nights/week. LTG Duration 8 weeks (04/07/23) Two Impairment Balance Short Term Goal (STG) Patient will be able to perform SLS for 10 sec B to reduce fall risk. STG Duration 6 weeks (03/24/23) One Impairment Strength Short Term Goal (STG) Patient will increase L hip ER and abduction strength to at least 4-/5 to improve single limb stability. 03/04/23: verbal review HEP: suping and side clam, added seated and standing resisted march w/ L hip ER tapping L ft to R lay, piriformis stretch , band walk f/b/lateral. STG Duration 4 weeks (03/10/23) progressing 03/04/23 Assessment Summary Assessment Pt able to demonstrate ability to raise L foot onto R knee which he stated he has not done in years. PT and patient reviewed his previous exercises including clamshells and banded walks. PT incorporated new movements of bridges, band resisted hip flexion, static and dynamic balance drills, and lastly step ups w/o UE support. Pt able to do all exercises c/ minimal discomfort. Pt did require CGA for the dynamic balance movements. Physical Therapy Plan Next Visit Focus/Plan Next Note Type Treatment Note Next Visit Plan NuStep, butt busters, bridge, hip flexion c/ band, step ups, staggered sit<>stand
--- NOTE | 2023-03-11 09:41 | PT.OTN ---
Current Diagnoses Trochanteric bursitis, left hip (03/11/23) Other specified enthesopathies of unspecified lower limb, excluding foot (03/11/23) Unsteadiness on feet (03/11/23) Presence of left artificial hip joint (03/11/23) Physical Therapy Treatment Note PT-OP-A Visit Information Start: 02/10/23 15:35 Freq: Status: Active Protocol: Document 03/11/23 09:32 ED (Rec: 03/11/23 09:41 ED [id number]) Out-Patient Physical Therapy Visit Information Visit Information Visit Type Treatment Note Visit Start Time 08:50 Visit Stop Time 09:30 Total Visit Minutes 40 Visit Number 7 Number of SENIOR UNDERWRITER Visits 0 PT-OP-B Current Condition Start: 02/10/23 15:35 Freq: Status: Active Protocol: Document 02/10/23 15:36 ES (Rec: 02/10/23 17:14 ES [id number]) Current Condition History of Current Condition Onset Date 1.5 years ago Current Complaints L hip/buttock/SIJ History of Current Condition Patient had a L FABIEN about 2 years ago and has been having problems ever since. Wishes he hadn't done it in the first place. Had PT after surgery; didn't do his rehab as consistently as he was supposed to. Was still working at the time. Started to go to Dr. Mccord due to pain at night keeping him from sleeping. Was having a lot of trouble rolling over in bed. Has had several injections and was placed on gabapentin. Has a hx of low back problems for many years. 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 Has a hx of sciatica. 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 States his balance has gotten bad and has had falls in the past year. Having more difficulty playing with the dog. Feels disoriented when closing his eyes. Walks for exercise for about 45 minutes 2-3x/week. Prior Treatments and Tests MRI showed mild tendinitis in HS, otherwise no significant findings. Images of lower back show arthritis. Treatment Goals Patient/Caregiver Goals To figure out why his balance has gotten worse. To have better strength in the legs. To be able to sleep at night without the hip waking him up. PT-OP-C Subjective Start: 02/10/23 15:35 Freq: Status: Active Protocol: Document 03/11/23 09:32 ED (Rec: 03/11/23 09:41 ED [id number]) OP-PT Subjective Patient Comments Patient Comments Pt happy he is still able to lift his L foot onto his R knee. Notes that he was a little sore following last PT session. PT-OP-D Balance Start: 02/10/23 15:35 Freq: Status: Active Protocol: Document 02/10/23 15:36 ES (Rec: 02/10/23 17:16 ES [id number]) Balance Tests Single Limb Standing Single Limb- Right 3 sec Single Limb- Left 1 sec PT-OP-J Posture/Palpation/Skin Start: 02/10/23 15:35 Freq: Status: Active Protocol: Document 02/10/23 15:36 ES (Rec: 02/10/23 17:14 ES [id number]) Posture Evaluation Position Standing Pelvis Posture (L) Iliac Crest Superior,(R) PSIS Inferior Comments Posture Comments Demonstration of weed wacking = lumbar rotation, static LE's . Palpation Assessment Location One Palpation Location L glutes Palpation Findings Tenderness PT-OP-L Special Tests Start: 02/10/23 15:35 Freq: Status: Active Protocol: Document 02/10/23 15:36 ES (Rec: 02/10/23 17:14 ES [id number]) Special Tests Lumbar Spine Special Tests Supine leg length Test Results Supine to long sit = LLE equal to long Jose C Test Results Decreased flexibility L hip flexors Forward bend Test Results L PSIS high Hip Special Tests Bridge Test Results Increased pain; decreased pain when cued for increased L glute activation Alyson Finger Test Test Results Positive L Trendelenberg Test Results Negative B PT-OP-M Strength Start: 02/10/23 15:35 Freq: Status: Active Protocol: Document 02/10/23 15:36 ES (Rec: 02/10/23 17:14 ES [id number]) Hip Strength Hip Manual Muscle Testing Left Extension (S1) 4- Good- Abduction 3+ Fair+ External Rotation 3 Fair Right Extension (S1) 4 Good Abduction 3+ Fair+ External Rotation 3+ Fair+ PT-OP-Q Treatments Start: 02/10/23 15:35 Freq: Status: Active Protocol: Document 03/11/23 09:32 ED (Rec: 07/28/23 09:41 ED [id number]) Cardio Equipment Recumbent Elliptical (Biodex) Duration (Minutes) 8 Resistance 4 Therapeutic Exercises Supine Exercises bridge Supine Exercise Name bridge and straight leg bridge Reps/Minutes 3x10 Comments repeated cramps in L distal hamstring Hip ER Reps/Minutes x15 Comments HEP; Adjusted to Knee bent, cued to rotate from the hip Sidelying Exercises Clamshell Side bilateral Resistance 5# Reps/Minutes 2x15 Comments HEP- corrected form, relieved pain in back Other Exercises hip flexion Other Exercise Name standing hip flexion (UE supported on wall) Side bilateral Resistance yllw loop Reps/Minutes 2x10/leg Therapeutic Activity Therapeutic Activity squat Name staggered STS Reps/Minutes 3x15 Comments pillow on chair for decreased depth step ups Name step ups Reps/Minutes 2x15 Comments no UE support PT-OP-T Assessment and Plan Start: 02/10/23 15:35 Freq: Status: Active Protocol: Document 03/11/23 09:32 ED (Rec: 03/11/23 09:41 ED [id number]) Physical Therapy Assessment Assessment Summary Assessment Pt reported no pain during exercises today; he stated that it just felt like he was exercising. He was limited in bridges secondary to recurring hamstring spasms in L LE. Pt also performed staggered sit<> stands and step ups to improve unilateral strength. PT demonstrated to patient how to stretch L hip into ER while in hooklying position which he was able to do comfortably stating that the stretch really hit the spot. Physical Therapy Plan Next Visit Focus/Plan Next Note Type Treatment Note Next Visit Plan NuStep, butt busters, bridge, hip flexion c/ band, LAQ, wall sqt step ups, staggered, sit<> stand
--- NOTE | 2023-03-15 14:19 | PT.OTN ---
Current Diagnoses Trochanteric bursitis, left hip (03/15/23) Other specified enthesopathies of unspecified lower limb, excluding foot (03/15/23) Unsteadiness on feet (03/15/23) Presence of left artificial hip joint (03/15/23) Physical Therapy Treatment Note PT-OP-A Visit Information Start: 02/10/23 15:35 Freq: Status: Active Protocol: Document 03/15/23 14:15 ED (Rec: 03/15/23 14:19 ED [id number]) Out-Patient Physical Therapy Visit Information Visit Information Visit Type Treatment Note Visit Note 03/24 Visit Start Time 13:30 Visit Stop Time 14:15 Total Visit Minutes 45 Visit Number 8 Number of HAND CLOTH EXAMINER Visits 0 PT-OP-B Current Condition Start: 02/10/23 15:35 Freq: Status: Active Protocol: Document 02/10/23 15:36 ES (Rec: 02/10/23 17:14 ES [id number]) Current Condition History of Current Condition Onset Date 1.5 years ago Current Complaints L hip/buttock/SIJ History of Current Condition Patient had a L FABIEN about 2 years ago and has been having problems ever since. Wishes he hadn't done it in the first place. Had PT after surgery; didn't do his rehab as consistently as he was supposed to. Was still working at the time. Started to go to Dr. Mccord due to pain at night keeping him from sleeping. Was having a lot of trouble rolling over in bed. Has had several injections and was placed on gabapentin. Has a hx of low back problems for many years. 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 Has a hx of sciatica. 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 States his balance has gotten bad and has had falls in the past year. Having more difficulty playing with the dog. Feels disoriented when closing his eyes. Walks for exercise for about 45 minutes 2-3x/week. Prior Treatments and Tests MRI showed mild tendinitis in HS, otherwise no significant findings. Images of lower back show arthritis. Treatment Goals Patient/Caregiver Goals To figure out why his balance has gotten worse. To have better strength in the legs. To be able to sleep at night without the hip waking him up. PT-OP-C Subjective Start: 02/10/23 15:35 Freq: Status: Active Protocol: Document 03/15/23 14:15 ED (Rec: 03/15/23 14:19 ED [id number]) OP-PT Subjective Patient Comments Patient Comments Pt states that he was a little sore after last session but was fine with it b/c it was muscle soreness. Is still able to lift his L foot onto his R knee. PT-OP-D Balance Start: 02/10/23 15:35 Freq: Status: Active Protocol: Document 02/10/23 15:36 ES (Rec: 02/10/23 17:16 ES [id number]) Balance Tests Single Limb Standing Single Limb- Right 3 sec Single Limb- Left 1 sec PT-OP-J Posture/Palpation/Skin Start: 02/10/23 15:35 Freq: Status: Active Protocol: Document 02/10/23 15:36 ES (Rec: 02/10/23 17:14 ES [id number]) Posture Evaluation Position Standing Pelvis Posture (L) Iliac Crest Superior,(R) PSIS Inferior Comments Posture Comments Demonstration of weed wacking = lumbar rotation, static LE's . Palpation Assessment Location One Palpation Location L glutes Palpation Findings Tenderness PT-OP-L Special Tests Start: 02/10/23 15:35 Freq: Status: Active Protocol: Document 02/10/23 15:36 ES (Rec: 02/10/23 17:14 ES [id number]) Special Tests Lumbar Spine Special Tests Supine leg length Test Results Supine to long sit = LLE equal to long Jose C Test Results Decreased flexibility L hip flexors Forward bend Test Results L PSIS high Hip Special Tests Bridge Test Results Increased pain; decreased pain when cued for increased L glute activation Alyson Finger Test Test Results Positive L Trendelenberg Test Results Negative B PT-OP-M Strength Start: 02/10/23 15:35 Freq: Status: Active Protocol: Document 02/10/23 15:36 ES (Rec: 02/10/23 17:14 ES [id number]) Hip Strength Hip Manual Muscle Testing Left Extension (S1) 4- Good- Abduction 3+ Fair+ External Rotation 3 Fair Right Extension (S1) 4 Good Abduction 3+ Fair+ External Rotation 3+ Fair+ PT-OP-Q Treatments Start: 02/10/23 15:35 Freq: Status: Active Protocol: Document 03/15/23 14:15 ED (Rec: 03/15/23 14:19 ED [id number]) Therapeutic Exercises Supine Exercises bridge Supine Exercise Name bridge and straight leg bridge Reps/Minutes 3x10 Comments repeated cramps in L distal hamstring Sidelying Exercises Clamshell Side bilateral Resistance 5# Reps/Minutes 2x15 Therapeutic Activity Therapeutic Activity squat Name staggered STS Reps/Minutes 3x15 Comments pillow on chair for decreased depth Neuro Re-Education Treatment Balance Activities dynamic balance Details walking drills Reps/Duration 2x15' Comments tandem walk, marching walk, carioca walk PT-OP-T Assessment and Plan Start: 02/10/23 15:35 Freq: Status: Active Protocol: Document 03/15/23 14:15 ED (Rec: 03/15/23 14:19 ED [id number]) Physical Therapy Assessment Assessment Summary Assessment Pt tolerated treatment well. No drills required modification for pain modulation. PT had patient work various drills for LE strengthening, ROM, and balance as these had been negatively impacted by his L hip pain. Pt improving in dynamic balance c/ repetition. Physical Therapy Plan Next Visit Focus/Plan Next Note Type Treatment Note Next Visit Plan NuStep, butt busters, bridge, hip flexion c/ band, dynamic balance, arnold step overs, step ups step ups, staggered, sit<> stand
--- NOTE | 2023-03-22 09:43 | PT.OTN ---
Current Diagnoses Trochanteric bursitis, left hip (03/22/23) Other specified enthesopathies of unspecified lower limb, excluding foot (03/22/23) Unsteadiness on feet (03/22/23) Presence of left artificial hip joint (03/22/23) Physical Therapy Treatment Note PT-OP-A Visit Information Start: 02/10/23 15:35 Freq: Status: Active Protocol: Document 03/22/23 09:38 ED (Rec: 03/22/23 09:43 ED [id number]) Out-Patient Physical Therapy Visit Information Visit Information Visit Type Treatment Note Visit Note 04/24 Visit Start Time 08:50 Visit Stop Time 09:35 Total Visit Minutes 45 Visit Number 9 Number of SPRING FITTER Visits 0 PT-OP-B Current Condition Start: 02/10/23 15:35 Freq: Status: Active Protocol: Document 02/10/23 15:36 ES (Rec: 02/10/23 17:14 ES [id number]) Current Condition History of Current Condition Onset Date 1.5 years ago Current Complaints L hip/buttock/SIJ History of Current Condition Patient had a L FABIEN about 2 years ago and has been having problems ever since. Wishes he hadn't done it in the first place. Had PT after surgery; didn't do his rehab as consistently as he was supposed to. Was still working at the time. Started to go to Dr. Mccord due to pain at night keeping him from sleeping. Was having a lot of trouble rolling over in bed. Has had several injections and was placed on gabapentin. Has a hx of low back problems for many years. 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 Has a hx of sciatica. 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 States his balance has gotten bad and has had falls in the past year. Having more difficulty playing with the dog. Feels disoriented when closing his eyes. Walks for exercise for about 45 minutes 2-3x/week. Prior Treatments and Tests MRI showed mild tendinitis in HS, otherwise no significant findings. Images of lower back show arthritis. Treatment Goals Patient/Caregiver Goals To figure out why his balance has gotten worse. To have better strength in the legs. To be able to sleep at night without the hip waking him up. PT-OP-C Subjective Start: 02/10/23 15:35 Freq: Status: Active Protocol: Document 03/22/23 09:38 ED (Rec: 03/22/23 09:43 ED [id number]) OP-PT Subjective Patient Comments Patient Comments Pt notes feeling a little sore in his hips today and thinks it's d/t walking more. He states that he has been going for walks that around 1/3 mile . PT-OP-D Balance Start: 02/10/23 15:35 Freq: Status: Active Protocol: Document 02/10/23 15:36 ES (Rec: 02/10/23 17:16 ES [id number]) Balance Tests Single Limb Standing Single Limb- Right 3 sec Single Limb- Left 1 sec PT-OP-J Posture/Palpation/Skin Start: 02/10/23 15:35 Freq: Status: Active Protocol: Document 02/10/23 15:36 ES (Rec: 02/10/23 17:14 ES [id number]) Posture Evaluation Position Standing Pelvis Posture (L) Iliac Crest Superior,(R) PSIS Inferior Comments Posture Comments Demonstration of weed wacking = lumbar rotation, static LE's . Palpation Assessment Location One Palpation Location L glutes Palpation Findings Tenderness PT-OP-L Special Tests Start: 02/10/23 15:35 Freq: Status: Active Protocol: Document 02/10/23 15:36 ES (Rec: 02/10/23 17:14 ES [id number]) Special Tests Lumbar Spine Special Tests Supine leg length Test Results Supine to long sit = LLE equal to long Jose C Test Results Decreased flexibility L hip flexors Forward bend Test Results L PSIS high Hip Special Tests Bridge Test Results Increased pain; decreased pain when cued for increased L glute activation Alyson Finger Test Test Results Positive L Trendelenberg Test Results Negative B PT-OP-M Strength Start: 02/10/23 15:35 Freq: Status: Active Protocol: Document 02/10/23 15:36 ES (Rec: 02/10/23 17:14 ES [id number]) Hip Strength Hip Manual Muscle Testing Left Extension (S1) 4- Good- Abduction 3+ Fair+ External Rotation 3 Fair Right Extension (S1) 4 Good Abduction 3+ Fair+ External Rotation 3+ Fair+ PT-OP-Q Treatments Start: 02/10/23 15:35 Freq: Status: Active Protocol: Document 03/22/23 09:38 ED (Rec: 03/22/23 09:43 ED [id number]) Cardio Equipment Treadmill Duration (Minutes) 10 Speed 2.3 Incline 1 Therapeutic Exercises Supine Exercises bridge Supine Exercise Name bridge and straight leg bridge Reps/Minutes 3x10 Comments repeated cramps in L distal hamstring Sidelying Exercises Clamshell Side bilateral Resistance 5# Reps/Minutes 2x15 Sitting Exercises LAQ Resistance L2 Equipment Used machine Reps/Minutes 2x10 Comments unilateral Other Exercises hip flexion Other Exercise Name standing hip flexion (UE supported on wall) Side bilateral Resistance yllw loop Reps/Minutes 2x10/leg Therapeutic Activity Therapeutic Activity step ups Name step ups Reps/Minutes 2x10 Comments 7# db contralateral loaded no UE support Neuro Re-Education Treatment Balance Activities dynamic balance Details walking drills Reps/Duration 2x15' Comments tandem walk, marching walk, carioca walk, arnold step overs PT-OP-T Assessment and Plan Start: 02/10/23 15:35 Freq: Status: Active Protocol: Document 03/22/23 09:38 ED (Rec: 03/22/23 09:43 ED [id number]) Physical Therapy Assessment Assessment Summary Assessment Pt continues to do well during PT drills which are focused on compound movements, isolated hip movements, and balance. Pt challenged c/ dynamic balance exercises such as arnold step overs but stated that he found it very beneficial and would like to continue practicing it. Physical Therapy Plan Next Visit Focus/Plan Next Note Type Progress Note Next Visit Plan LEFs
--- NOTE | 2023-03-24 09:52 | PT.OPPN ---
Current Diagnoses Trochanteric bursitis, left hip (03/24/23) Other specified enthesopathies of unspecified lower limb, excluding foot (03/24/23) Unsteadiness on feet (03/24/23) Presence of left artificial hip joint (03/24/23) Physical Therapy Progress Note PT-OP-A Visit Information Start: 02/10/23 15:35 Freq: Status: Active Protocol: Document 03/24/23 09:43 ED (Rec: 03/24/23 09:51 ED [id number]) Out-Patient Physical Therapy Visit Information Visit Information Visit Type Progress Note Visit Note 05/24 Visit Start Time 09:00 Visit Stop Time 09:40 Total Visit Minutes 40 Visit Number 10 PT-OP-B Current Condition Start: 02/10/23 15:35 Freq: Status: Active Protocol: Document 02/10/23 15:36 ES (Rec: 02/10/23 17:14 ES [id number]) Current Condition History of Current Condition Onset Date 1.5 years ago Current Complaints L hip/buttock/SIJ History of Current Condition Patient had a L FABIEN about 2 years ago and has been having problems ever since. Wishes he hadn't done it in the first place. Had PT after surgery; didn't do his rehab as consistently as he was supposed to. Was still working at the time. Started to go to Dr. Mccord due to pain at night keeping him from sleeping. Was having a lot of trouble rolling over in bed. Has had several injections and was placed on gabapentin. Has a hx of low back problems for many years. 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 Has a hx of sciatica. 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 States his balance has gotten bad and has had falls in the past year. Having more difficulty playing with the dog. Feels disoriented when closing his eyes. Walks for exercise for about 45 minutes 2-3x/week. Prior Treatments and Tests MRI showed mild tendinitis in HS, otherwise no significant findings. Images of lower back show arthritis. Treatment Goals Patient/Caregiver Goals To figure out why his balance has gotten worse. To have better strength in the legs. To be able to sleep at night without the hip waking him up. PT-OP-C Subjective Start: 02/10/23 15:35 Freq: Status: Active Protocol: Document 03/24/23 09:43 ED (Rec: 03/24/23 09:51 ED [id number]) OP-PT Subjective Patient Comments Patient Comments Pt states that he is happy c/ the progress he has made. 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 He notes he would like to continue with his remaining scheduled PT appontments to work on balancing and progressing his hip strength. Patient Questionnaires Lower Extremity Functional Scale LEFS Score 46 / 80 LEFS Impairment 40 to 59% Impaired (Score 32- 47) PT-OP-D Balance Start: 02/10/23 15:35 Freq: Status: Active Protocol: Document 02/10/23 15:36 ES (Rec: 02/10/23 17:16 ES [id number]) Balance Tests Single Limb Standing Single Limb- Right 3 sec Single Limb- Left 1 sec PT-OP-J Posture/Palpation/Skin Start: 02/10/23 15:35 Freq: Status: Active Protocol: Document 02/10/23 15:36 ES (Rec: 02/10/23 17:14 ES [id number]) Posture Evaluation Position Standing Pelvis Posture (L) Iliac Crest Superior,(R) PSIS Inferior Comments Posture Comments Demonstration of weed wacking = lumbar rotation, static LE's . Palpation Assessment Location One Palpation Location L glutes Palpation Findings Tenderness PT-OP-L Special Tests Start: 02/10/23 15:35 Freq: Status: Active Protocol: Document 02/10/23 15:36 ES (Rec: 02/10/23 17:14 ES [id number]) Special Tests Lumbar Spine Special Tests Supine leg length Test Results Supine to long sit = LLE equal to long Jose C Test Results Decreased flexibility L hip flexors Forward bend Test Results L PSIS high Hip Special Tests Bridge Test Results Increased pain; decreased pain when cued for increased L glute activation Alyson Finger Test Test Results Positive L Trendelenberg Test Results Negative B PT-OP-M Strength Start: 02/10/23 15:35 Freq: Status: Active Protocol: Document 02/10/23 15:36 ES (Rec: 02/10/23 17:14 ES [id number]) Hip Strength Hip Manual Muscle Testing Left Extension (S1) 4- Good- Abduction 3+ Fair+ External Rotation 3 Fair Right Extension (S1) 4 Good Abduction 3+ Fair+ External Rotation 3+ Fair+ PT-OP-T Assessment and Plan Start: 02/10/23 15:35 Freq: Status: Active Protocol: Document 03/24/23 09:43 ED (Rec: 03/24/23 09:51 ED [id number]) Physical Therapy Assessment Progress Towards Goals Progress Towards Goals Progressing Toward Goals Physical Therapy Plan Frequency and Duration Frequency of Treatment 2x/Week Duration of treatment (weeks) 12 Plan of Care Start Date 02/10/23 Plan of Care End Date 04/29/23
--- NOTE | 2023-03-24 09:53 | PT.OPPOC ---
Physical, Occupational & Speech Therapy At [facility] Current Diagnoses Trochanteric bursitis, left hip (03/24/23) Other specified enthesopathies of unspecified lower limb, excluding foot (03/24/23) Unsteadiness on feet (03/24/23) Presence of left artificial hip joint (03/24/23) Visit Care Team Role Provider Type Orion Cisse MD Family Provider Physician Primary Care Provider Specialty: Family Practice Address: [facility] [place], [address] Email: [email or web address] Shoaib Mccord DO Attending Provider Physician Referring Provider Specialty: Interventional Radiology Physiatry Pain Management Address: [address] [place], [address] Email: [email or web address] Plan Of Care PT-OP-T Assessment and Plan Start: 02/10/23 15:35 Freq: Status: Active Protocol: Document 03/24/23 09:43 ED (Rec: 03/24/23 09:51 ED [id number]) Physical Therapy Assessment Progress Towards Goals Progress Towards Goals Progressing Toward Goals Physical Therapy Plan Frequency and Duration Frequency of Treatment 2x/Week Duration of treatment (weeks) 12 Plan of Care Start Date 02/10/23 Plan of Care End Date 04/29/23 Plan of Care Dates Plan of Care Start Date 02/10/23 Plan of Care End Date 04/29/23 Electronically Signed by: Jeferson Pacheco, KAILA 03/24/23 0953 If you are in agreement with this Plan of Care, please return a signed and dated copy. I have reviewed this Plan of Care and certify that the skilled therapy services above are required to meet the patient?s needs. Physician Signature Date Printed Name and Credentials Clinical Instructor Signature Printed Name and Credentials
--- NOTE | 2023-03-24 10:37 | PT.OTN ---
Current Diagnoses Trochanteric bursitis, left hip (03/24/23) Other specified enthesopathies of unspecified lower limb, excluding foot (03/24/23) Unsteadiness on feet (03/24/23) Presence of left artificial hip joint (03/24/23) Physical Therapy Treatment Note PT-OP-A Visit Information Start: 02/10/23 15:35 Freq: Status: Active Protocol: Document 03/24/23 09:43 ED (Rec: 03/24/23 09:51 ED [id number]) Out-Patient Physical Therapy Visit Information Visit Information Visit Type Progress Note Visit Note 05/24 Visit Start Time 09:00 Visit Stop Time 09:40 Total Visit Minutes 40 Visit Number 10 PT-OP-B Current Condition Start: 02/10/23 15:35 Freq: Status: Active Protocol: Document 02/10/23 15:36 ES (Rec: 02/10/23 17:14 ES [id number]) Current Condition History of Current Condition Onset Date 1.5 years ago Current Complaints L hip/buttock/SIJ History of Current Condition Patient had a L FABIEN about 2 years ago and has been having problems ever since. Wishes he hadn't done it in the first place. Had PT after surgery; didn't do his rehab as consistently as he was supposed to. Was still working at the time. Started to go to Dr. Mccord due to pain at night keeping him from sleeping. Was having a lot of trouble rolling over in bed. Has had several injections and was placed on gabapentin. Has a hx of low back problems for many years. 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 Has a hx of sciatica. 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 States his balance has gotten bad and has had falls in the past year. Having more difficulty playing with the dog. Feels disoriented when closing his eyes. Walks for exercise for about 45 minutes 2-3x/week. Prior Treatments and Tests MRI showed mild tendinitis in HS, otherwise no significant findings. Images of lower back show arthritis. Treatment Goals Patient/Caregiver Goals To figure out why his balance has gotten worse. To have better strength in the legs. To be able to sleep at night without the hip waking him up. PT-OP-C Subjective Start: 02/10/23 15:35 Freq: Status: Active Protocol: Document 03/24/23 09:43 ED (Rec: 03/24/23 09:51 ED [id number]) OP-PT Subjective Patient Comments Patient Comments Pt states that he is happy c/ the progress he has made. 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 He notes he would like to continue with his remaining scheduled PT appontments to work on balancing and progressing his hip strength. Patient Questionnaires Lower Extremity Functional Scale LEFS Score 46 / 80 LEFS Impairment 40 to 59% Impaired (Score 32- 47) PT-OP-D Balance Start: 02/10/23 15:35 Freq: Status: Active Protocol: Document 02/10/23 15:36 ES (Rec: 02/10/23 17:16 ES [id number]) Balance Tests Single Limb Standing Single Limb- Right 3 sec Single Limb- Left 1 sec PT-OP-J Posture/Palpation/Skin Start: 02/10/23 15:35 Freq: Status: Active Protocol: Document 02/10/23 15:36 ES (Rec: 02/10/23 17:14 ES [id number]) Posture Evaluation Position Standing Pelvis Posture (L) Iliac Crest Superior,(R) PSIS Inferior Comments Posture Comments Demonstration of weed wacking = lumbar rotation, static LE's . Palpation Assessment Location One Palpation Location L glutes Palpation Findings Tenderness PT-OP-L Special Tests Start: 02/10/23 15:35 Freq: Status: Active Protocol: Document 02/10/23 15:36 ES (Rec: 02/10/23 17:14 ES [id number]) Special Tests Lumbar Spine Special Tests Supine leg length Test Results Supine to long sit = LLE equal to long Jose C Test Results Decreased flexibility L hip flexors Forward bend Test Results L PSIS high Hip Special Tests Bridge Test Results Increased pain; decreased pain when cued for increased L glute activation Alyson Finger Test Test Results Positive L Trendelenberg Test Results Negative B PT-OP-M Strength Start: 02/10/23 15:35 Freq: Status: Active Protocol: Document 02/10/23 15:36 ES (Rec: 02/10/23 17:14 ES [id number]) Hip Strength Hip Manual Muscle Testing Left Extension (S1) 4- Good- Abduction 3+ Fair+ External Rotation 3 Fair Right Extension (S1) 4 Good Abduction 3+ Fair+ External Rotation 3+ Fair+ PT-OP-Q Treatments Start: 02/10/23 15:35 Freq: Status: Active Protocol: Document 03/24/23 09:43 ED (Rec: 03/24/23 09:51 ED [id number]) Cardio Equipment Recumbent Elliptical (Biodex) Duration (Minutes) 8 Resistance L4 Therapeutic Exercises Sidelying Exercises Clamshell Side bilateral Resistance 5# Reps/Minutes 2x15 Sitting Exercises LAQ Resistance L2 Equipment Used machine Reps/Minutes 2x10 Comments unilateral Other Exercises hip flexion Other Exercise Name standing hip flexion (UE supported on wall) Side bilateral Resistance yllw loop Reps/Minutes 2x10/leg Therapeutic Activity Therapeutic Activity step ups Name step ups Reps/Minutes 2x10 Comments 7# db contralateral loaded no UE support Neuro Re-Education Treatment Balance Activities dynamic balance Details walking drills Reps/Duration 2x15' Comments tandem walk, marching walk, carioca walk, arnold step overs PT-OP-T Assessment and Plan Start: 02/10/23 15:35 Freq: Status: Active Protocol: Document 03/24/23 09:43 ED (Rec: 03/24/23 09:51 ED [id number]) Physical Therapy Assessment Progress Towards Goals Progress Towards Goals Progressing Toward Goals Physical Therapy Plan Frequency and Duration Frequency of Treatment 2x/Week Duration of treatment (weeks) 12 Plan of Care Start Date 02/10/23 Plan of Care End Date 04/29/23
--- NOTE | 2023-03-29 09:52 | PT.OTN ---
Current Diagnoses Trochanteric bursitis, left hip (03/29/23) Other specified enthesopathies of unspecified lower limb, excluding foot (03/29/23) Unsteadiness on feet (03/29/23) Presence of left artificial hip joint (03/29/23) Physical Therapy Treatment Note PT-OP-A Visit Information Start: 02/10/23 15:35 Freq: Status: Active Protocol: Document 03/29/23 09:47 ED (Rec: 03/29/23 09:52 ED [id number]) Out-Patient Physical Therapy Visit Information Visit Information Visit Type Treatment Note Visit Note 08/24 Visit Start Time 09:00 Visit Stop Time 09:45 Total Visit Minutes 45 Visit Number 11 PT-OP-B Current Condition Start: 02/10/23 15:35 Freq: Status: Active Protocol: Document 02/10/23 15:36 ES (Rec: 02/10/23 17:14 ES [id number]) Current Condition History of Current Condition Onset Date 1.5 years ago Current Complaints L hip/buttock/SIJ History of Current Condition Patient had a L FABIEN about 2 years ago and has been having problems ever since. Wishes he hadn't done it in the first place. Had PT after surgery; didn't do his rehab as consistently as he was supposed to. Was still working at the time. Started to go to Dr. Mccord due to pain at night keeping him from sleeping. Was having a lot of trouble rolling over in bed. Has had several injections and was placed on gabapentin. Has a hx of low back problems for many years. 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 Has a hx of sciatica. 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 States his balance has gotten bad and has had falls in the past year. Having more difficulty playing with the dog. Feels disoriented when closing his eyes. Walks for exercise for about 45 minutes 2-3x/week. Prior Treatments and Tests MRI showed mild tendinitis in HS, otherwise no significant findings. Images of lower back show arthritis. Treatment Goals Patient/Caregiver Goals To figure out why his balance has gotten worse. To have better strength in the legs. To be able to sleep at night without the hip waking him up. PT-OP-C Subjective Start: 02/10/23 15:35 Freq: Status: Active Protocol: Document 03/29/23 09:47 ED (Rec: 03/29/23 09:52 ED [id number]) OP-PT Subjective Patient Comments Patient Comments Pt states that he was on a walk c/ his spouse and about 30 minutes in he had hip pain. States it only happened the one time but is curious about what that could be. PT-OP-D Balance Start: 02/10/23 15:35 Freq: Status: Active Protocol: Document 02/10/23 15:36 ES (Rec: 02/10/23 17:16 ES [id number]) Balance Tests Single Limb Standing Single Limb- Right 3 sec Single Limb- Left 1 sec PT-OP-J Posture/Palpation/Skin Start: 02/10/23 15:35 Freq: Status: Active Protocol: Document 02/10/23 15:36 ES (Rec: 02/10/23 17:14 ES [id number]) Posture Evaluation Position Standing Pelvis Posture (L) Iliac Crest Superior,(R) PSIS Inferior Comments Posture Comments Demonstration of weed wacking = lumbar rotation, static LE's . Palpation Assessment Location One Palpation Location L glutes Palpation Findings Tenderness PT-OP-L Special Tests Start: 02/10/23 15:35 Freq: Status: Active Protocol: Document 02/10/23 15:36 ES (Rec: 02/10/23 17:14 ES [id number]) Special Tests Lumbar Spine Special Tests Supine leg length Test Results Supine to long sit = LLE equal to long Jose C Test Results Decreased flexibility L hip flexors Forward bend Test Results L PSIS high Hip Special Tests Bridge Test Results Increased pain; decreased pain when cued for increased L glute activation Alyson Finger Test Test Results Positive L Trendelenberg Test Results Negative B PT-OP-M Strength Start: 02/10/23 15:35 Freq: Status: Active Protocol: Document 02/10/23 15:36 ES (Rec: 02/10/23 17:14 ES [id number]) Hip Strength Hip Manual Muscle Testing Left Extension (S1) 4- Good- Abduction 3+ Fair+ External Rotation 3 Fair Right Extension (S1) 4 Good Abduction 3+ Fair+ External Rotation 3+ Fair+ PT-OP-Q Treatments Start: 02/10/23 15:35 Freq: Status: Active Protocol: Document 03/29/23 09:47 ED (Rec: 03/29/23 09:52 ED [id number]) Cardio Equipment Treadmill Duration (Minutes) 5 Speed 2.6 Incline 1 Therapeutic Exercises Supine Exercises bridge Supine Exercise Name bridge and straight leg bridge Reps/Minutes 3x10 Comments repeated cramps in L distal hamstring Sidelying Exercises Clamshell Sidelying Exercise Name clamshell, reverse clamshell, s/l hip abduction Side bilateral Reps/Minutes 2x15 Sitting Exercises hip abduction machine Resistance L3-L4 Reps/Minutes 2x10 Other Exercises hip flexion Other Exercise Name standing hip flexion (UE supported on wall) Side bilateral Resistance yllw loop Reps/Minutes 2x10/leg Therapeutic Activity Therapeutic Activity squat Name sit to stand Reps/Minutes [id number] Comments 10# Neuro Re-Education Treatment Balance Activities dynamic balance Details walking drills Reps/Duration 2x15' Comments tandem walk, marching walk, carioca walk, arnold step overs PT-OP-T Assessment and Plan Start: 02/10/23 15:35 Freq: Status: Active Protocol: Document 03/29/23 09:47 ED (Rec: 03/29/23 09:52 ED [id number]) Physical Therapy Assessment Goals Four Impairment Activity tolerance/functional activity Registry Np Goal (LTG) Patient will reduce LEFS score to 38 or less indicating clinically significant improvement in function. LTG Duration 8 weeks (04/07/23) Three Impairment Pain Registry Np Goal (LTG) Patient will be able to sleep without waking up from pain at least 4 nights/week. LTG Duration 8 weeks (04/07/23) Two Impairment Balance Short Term Goal (STG) Patient will be able to perform SLS for 10 sec B to reduce fall risk. STG Duration 6 weeks (03/24/23) One Impairment Strength Short Term Goal (STG) Patient will increase L hip ER and abduction strength to at least 4-/5 to improve single limb stability. 03/04/23: verbal review HEP: suping and side clam, added seated and standing resisted march w/ L hip ER tapping L ft to R lay, piriformis stretch , band walk f/b/lateral. STG Duration 4 weeks (03/10/23) progressing 03/04/23 Assessment Summary Assessment Pt continues to do well during PT drills which are focused on compound movements, isolated hip movements, and balance. Pt challenged c/ dynamic balance exercises such as arnold step overs but stated that he found it very beneficial and would like to continue practicing it. Physical Therapy Plan Frequency and Duration Frequency of Treatment 2x/Week Duration of treatment (weeks) 12 Plan of Care Start Date 02/10/23 Plan of Care End Date 04/29/23
--- NOTE | 2023-03-31 11:49 | PT.OTN ---
Current Diagnoses Trochanteric bursitis, left hip (03/31/23) Other specified enthesopathies of unspecified lower limb, excluding foot (03/31/23) Unsteadiness on feet (03/31/23) Presence of left artificial hip joint (03/31/23) Physical Therapy Treatment Note PT-OP-A Visit Information Start: 02/10/23 15:35 Freq: Status: Active Protocol: Document 03/31/23 10:51 SW (Rec: 03/31/23 11:49 SW [id number]) Out-Patient Physical Therapy Visit Information Visit Information Visit Type Treatment Note Visit Note 09/24 Visit Start Time 10:46 Visit Stop Time 11:28 Total Visit Minutes 42 Visit Number 12 PT-OP-B Current Condition Start: 02/10/23 15:35 Freq: Status: Active Protocol: Document 02/10/23 15:36 ES (Rec: 02/10/23 17:14 ES [id number]) Current Condition History of Current Condition Onset Date 1.5 years ago Current Complaints L hip/buttock/SIJ History of Current Condition Patient had a L FABIEN about 2 years ago and has been having problems ever since. Wishes he hadn't done it in the first place. Had PT after surgery; didn't do his rehab as consistently as he was supposed to. Was still working at the time. Started to go to Dr. Mccord due to pain at night keeping him from sleeping. Was having a lot of trouble rolling over in bed. Has had several injections and was placed on gabapentin. Has a hx of low back problems for many years. 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 Has a hx of sciatica. 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 States his balance has gotten bad and has had falls in the past year. Having more difficulty playing with the dog. Feels disoriented when closing his eyes. Walks for exercise for about 45 minutes 2-3x/week. Prior Treatments and Tests MRI showed mild tendinitis in HS, otherwise no significant findings. Images of lower back show arthritis. Treatment Goals Patient/Caregiver Goals To figure out why his balance has gotten worse. To have better strength in the legs. To be able to sleep at night without the hip waking him up. PT-OP-C Subjective Start: 02/10/23 15:35 Freq: Status: Active Protocol: Document 03/31/23 10:51 SW (Rec: 03/31/23 11:49 SW [id number]) OP-PT Subjective Patient Comments Patient Comments Pt reports he has been doing well. Pt reports pain with standing talking to neighbors but is now able to tolerate ~ 15 min vs ~5 min when he first started PT. PT-OP-D Balance Start: 02/10/23 15:35 Freq: Status: Active Protocol: Document 02/10/23 15:36 ES (Rec: 02/10/23 17:16 ES [id number]) Balance Tests Single Limb Standing Single Limb- Right 3 sec Single Limb- Left 1 sec PT-OP-J Posture/Palpation/Skin Start: 02/10/23 15:35 Freq: Status: Active Protocol: Document 02/10/23 15:36 ES (Rec: 02/10/23 17:14 ES [id number]) Posture Evaluation Position Standing Pelvis Posture (L) Iliac Crest Superior,(R) PSIS Inferior Comments Posture Comments Demonstration of weed wacking = lumbar rotation, static LE's . Palpation Assessment Location One Palpation Location L glutes Palpation Findings Tenderness PT-OP-L Special Tests Start: 02/10/23 15:35 Freq: Status: Active Protocol: Document 02/10/23 15:36 ES (Rec: 02/10/23 17:14 ES [id number]) Special Tests Lumbar Spine Special Tests Supine leg length Test Results Supine to long sit = LLE equal to long Jose C Test Results Decreased flexibility L hip flexors Forward bend Test Results L PSIS high Hip Special Tests Bridge Test Results Increased pain; decreased pain when cued for increased L glute activation Alyson Finger Test Test Results Positive L Trendelenberg Test Results Negative B PT-OP-M Strength Start: 02/10/23 15:35 Freq: Status: Active Protocol: Document 02/10/23 15:36 ES (Rec: 02/10/23 17:14 ES [id number]) Hip Strength Hip Manual Muscle Testing Left Extension (S1) 4- Good- Abduction 3+ Fair+ External Rotation 3 Fair Right Extension (S1) 4 Good Abduction 3+ Fair+ External Rotation 3+ Fair+ PT-OP-Q Treatments Start: 02/10/23 15:35 Freq: Status: Active Protocol: Document 03/31/23 10:51 SW (Rec: 03/31/23 11:49 [id number]) Cardio Equipment Recumbent Elliptical (Biodex) Duration (Minutes) 8 Resistance L5 Therapeutic Exercises Supine Exercises bridge Supine Exercise Name bridge and straight leg bridge Reps/Minutes 3x10 Comments repeated cramps in L distal hamstring Sidelying Exercises Clamshell Sidelying Exercise Name clamshell, reverse clamshell, s/l hip abduction Side bilateral Reps/Minutes 2x15 Sitting Exercises hip abduction machine Resistance L4 Reps/Minutes 2x10 Other Exercises hip flexion Other Exercise Name standing hip flexion (UE supported on wall) Side bilateral Resistance yllw loop Reps/Minutes 2x10/leg Neuro Re-Education Treatment Balance Activities dynamic balance Details walking drills Reps/Duration 2x15' Comments tandem walk, marching walk, carioca walk, arnold step overs PT-OP-T Assessment and Plan Start: 02/10/23 15:35 Freq: Status: Active Protocol: Document 03/31/23 10:51 (Rec: 03/31/23 11:49 [id number]) Physical Therapy Assessment Goals Four Impairment Activity tolerance/functional activity On Call Pharmacy Technician Goal (LTG) Patient will reduce LEFS score to 38 or less indicating clinically significant improvement in function. LTG Duration 8 weeks (04/07/23) Three Impairment Pain Half-Way Goal (LTG) Patient will be able to sleep without waking up from pain at least 4 nights/week. LTG Duration 8 weeks (04/07/23) Two Impairment Balance Short Term Goal (STG) Patient will be able to perform SLS for 10 sec B to reduce fall risk. STG Duration 6 weeks (03/24/23) One Impairment Strength Short Term Goal (STG) Patient will increase L hip ER and abduction strength to at least 4-/5 to improve single limb stability. 03/04/23: verbal review HEP: suping and side clam, added seated and standing resisted march w/ L hip ER tapping L ft to R lay, piriformis stretch , band walk f/b/lateral. STG Duration 4 weeks (03/10/23) progressing 03/04/23 Assessment Summary Assessment Continued balance this session , challenged with difficulty coordinating, much improved with repetion. Progressed resistance with therex today, tolerated well with no increase in symptoms. Pain with bridges, relieved with cues to engage glutes prior to ascend. Discussed carryover of HEP, continue to encourage carryover. Verbal cues required for slower, controlled movements w/ therex and balance today. Physical Therapy Plan Frequency and Duration Frequency of Treatment 2x/Week Duration of treatment (weeks) 12 Plan of Care Start Date 02/10/23 Plan of Care End Date 04/29/23 Therapeutic Interventions Therapeutic Interventions Balance Training,Home Exercise Program,Joint Mobilizations, Manual Therapy,Neuromuscular Re-education,Patient/Caregiver Education,Self-Care/Home Management,Soft Tissue Mobilization,Taping, Therapeutic Activities, Therapeutic Exercises
--- NOTE | 2023-04-05 09:53 | PT.OTN ---
Current Diagnoses Trochanteric bursitis, left hip (04/05/23) Other specified enthesopathies of unspecified lower limb, excluding foot (04/05/23) Unsteadiness on feet (04/05/23) Presence of left artificial hip joint (04/05/23) Physical Therapy Treatment Note PT-OP-A Visit Information Start: 02/10/23 15:35 Freq: Status: Active Protocol: Document 04/05/23 09:48 ED (Rec: 04/05/23 09:53 ED [id number]) Out-Patient Physical Therapy Visit Information Visit Information Visit Type Treatment Note Visit Note 10/22 Visit Start Time 09:00 Visit Stop Time 09:45 Total Visit Minutes 45 Visit Number 13 Number of PRINTING SALES REPRESENTATIVE Visits 0 PT-OP-B Current Condition Start: 02/10/23 15:35 Freq: Status: Active Protocol: Document 02/10/23 15:36 ES (Rec: 02/10/23 17:14 ES [id number]) Current Condition History of Current Condition Onset Date 1.5 years ago Current Complaints L hip/buttock/SIJ History of Current Condition Patient had a L FABIEN about 2 years ago and has been having problems ever since. Wishes he hadn't done it in the first place. Had PT after surgery; didn't do his rehab as consistently as he was supposed to. Was still working at the time. Started to go to Dr. Mccord due to pain at night keeping him from sleeping. Was having a lot of trouble rolling over in bed. Has had several injections and was placed on gabapentin. Has a hx of low back problems for many years. 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 Has a hx of sciatica. 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 States his balance has gotten bad and has had falls in the past year. Having more difficulty playing with the dog. Feels disoriented when closing his eyes. Walks for exercise for about 45 minutes 2-3x/week. Prior Treatments and Tests MRI showed mild tendinitis in HS, otherwise no significant findings. Images of lower back show arthritis. Treatment Goals Patient/Caregiver Goals To figure out why his balance has gotten worse. To have better strength in the legs. To be able to sleep at night without the hip waking him up. PT-OP-C Subjective Start: 02/10/23 15:35 Freq: Status: Active Protocol: Document 04/05/23 09:48 ED (Rec: 04/05/23 09:53 ED [id number]) OP-PT Subjective Patient Comments Patient Comments No major updates from patient regarding his hip. Continues to state that his hip is feeling better and better. PT-OP-D Balance Start: 02/10/23 15:35 Freq: Status: Active Protocol: Document 02/10/23 15:36 ES (Rec: 02/10/23 17:16 ES [id number]) Balance Tests Single Limb Standing Single Limb- Right 3 sec Single Limb- Left 1 sec PT-OP-J Posture/Palpation/Skin Start: 02/10/23 15:35 Freq: Status: Active Protocol: Document 02/10/23 15:36 ES (Rec: 02/10/23 17:14 ES [id number]) Posture Evaluation Position Standing Pelvis Posture (L) Iliac Crest Superior,(R) PSIS Inferior Comments Posture Comments Demonstration of weed wacking = lumbar rotation, static LE's . Palpation Assessment Location One Palpation Location L glutes Palpation Findings Tenderness PT-OP-L Special Tests Start: 02/10/23 15:35 Freq: Status: Active Protocol: Document 02/10/23 15:36 ES (Rec: 02/10/23 17:14 ES [id number]) Special Tests Lumbar Spine Special Tests Supine leg length Test Results Supine to long sit = LLE equal to long Jose C Test Results Decreased flexibility L hip flexors Forward bend Test Results L PSIS high Hip Special Tests Bridge Test Results Increased pain; decreased pain when cued for increased L glute activation Alyson Finger Test Test Results Positive L Trendelenberg Test Results Negative B PT-OP-M Strength Start: 02/10/23 15:35 Freq: Status: Active Protocol: Document 02/10/23 15:36 ES (Rec: 02/10/23 17:14 ES [id number]) Hip Strength Hip Manual Muscle Testing Left Extension (S1) 4- Good- Abduction 3+ Fair+ External Rotation 3 Fair Right Extension (S1) 4 Good Abduction 3+ Fair+ External Rotation 3+ Fair+ PT-OP-Q Treatments Start: 02/10/23 15:35 Freq: Status: Active Protocol: Document 04/05/23 09:48 ED (Rec: 04/05/23 09:53 ED [id number]) Cardio Equipment Recumbent Elliptical (Biodex) Duration (Minutes) 8 Resistance L5 Treadmill Duration (Minutes) 5 Speed 2.6 Incline 3.0 Therapeutic Exercises Supine Exercises bridge Supine Exercise Name bridge and straight leg bridge Reps/Minutes 3x10 Sidelying Exercises Clamshell Sidelying Exercise Name clamshell, reverse clamshell, s/l hip abduction Side bilateral Resistance 5#, 2# Reps/Minutes 2x15 Comments 5# for clamshell, 2# for others Therapeutic Activity Therapeutic Activity RDL Name B stance RDL Reps/Minutes 2x6/leg Comments small physioball in hands to touch ground with PT-OP-T Assessment and Plan Start: 02/10/23 15:35 Freq: Status: Active Protocol: Document 04/05/23 09:48 ED (Rec: 04/05/23 09:53 ED [id number]) Physical Therapy Assessment Goals Four Impairment Activity tolerance/functional activity Intermediate Goal (LTG) Patient will reduce LEFS score to 38 or less indicating clinically significant improvement in function. LTG Duration 8 weeks (04/07/23) Three Impairment Pain Clinical Courier Goal (LTG) Patient will be able to sleep without waking up from pain at least 4 nights/week. LTG Duration 8 weeks (04/07/23) Two Impairment Balance Short Term Goal (STG) Patient will be able to perform SLS for 10 sec B to reduce fall risk. STG Duration 6 weeks (03/24/23) One Impairment Strength Short Term Goal (STG) Patient will increase L hip ER and abduction strength to at least 4-/5 to improve single limb stability. 03/04/23: verbal review HEP: suping and side clam, added seated and standing resisted march w/ L hip ER tapping L ft to R lay, piriformis stretch , band walk f/b/lateral. STG Duration 4 weeks (03/10/23) progressing 03/04/23 Assessment Summary Assessment Added ankle weight during s/l hip exercises today to increase load throughout hip musculature. Incorporated new dynamic balance/strengthening movement of B stance RDLs. Patient sufficiently challenged c/ new movement; he did have 1 repetition where he failed and went to the ground but was able to get back up on his own c/ no injuries/pain. Pt requested to do that drill again at next PT session. Physical Therapy Plan Frequency and Duration Frequency of Treatment 2x/Week Duration of treatment (weeks) 12 Plan of Care Start Date 02/10/23 Plan of Care End Date 04/29/23 Next Visit Focus/Plan Next Note Type Treatment Note Next Visit Plan hip & knee strengthening, static & dynamic balance
--- NOTE | 2023-04-07 10:58 | PT.OTN ---
Current Diagnoses Trochanteric bursitis, left hip (04/07/23) Other specified enthesopathies of unspecified lower limb, excluding foot (04/07/23) Unsteadiness on feet (04/07/23) Presence of left artificial hip joint (04/07/23) Physical Therapy Treatment Note PT-OP-A Visit Information Start: 02/10/23 15:35 Freq: Status: Active Protocol: Document 04/07/23 09:59 SW (Rec: 04/07/23 10:58 SW [id number]) Out-Patient Physical Therapy Visit Information Visit Information Visit Type Treatment Note Visit Note 11/22 Visit Start Time 10:00 Visit Stop Time 10:45 Total Visit Minutes 45 Visit Number 14 Number of FABRICATOR SPECIAL ITEMS Visits 1 PT-OP-B Current Condition Start: 02/10/23 15:35 Freq: Status: Active Protocol: Document 02/10/23 15:36 ES (Rec: 02/10/23 17:14 ES [id number]) Current Condition History of Current Condition Onset Date 1.5 years ago Current Complaints L hip/buttock/SIJ History of Current Condition Patient had a L FABIEN about 2 years ago and has been having problems ever since. Wishes he hadn't done it in the first place. Had PT after surgery; didn't do his rehab as consistently as he was supposed to. Was still working at the time. Started to go to Dr. Mccord due to pain at night keeping him from sleeping. Was having a lot of trouble rolling over in bed. Has had several injections and was placed on gabapentin. Has a hx of low back problems for many years. 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 Has a hx of sciatica. 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 States his balance has gotten bad and has had falls in the past year. Having more difficulty playing with the dog. Feels disoriented when closing his eyes. Walks for exercise for about 45 minutes 2-3x/week. Prior Treatments and Tests MRI showed mild tendinitis in HS, otherwise no significant findings. Images of lower back show arthritis. Treatment Goals Patient/Caregiver Goals To figure out why his balance has gotten worse. To have better strength in the legs. To be able to sleep at night without the hip waking him up. PT-OP-C Subjective Start: 02/10/23 15:35 Freq: Status: Active Protocol: Document 04/07/23 09:59 SW (Rec: 04/07/23 10:58 SW [id number]) OP-PT Subjective Patient Comments Patient Comments Pt reports doing pretty well, not too bad today. Pt reports he is ok living with the pain, what concerns him the most is his balance. PT-OP-D Balance Start: 02/10/23 15:35 Freq: Status: Active Protocol: Document 02/10/23 15:36 ES (Rec: 02/10/23 17:16 ES [id number]) Balance Tests Single Limb Standing Single Limb- Right 3 sec Single Limb- Left 1 sec PT-OP-J Posture/Palpation/Skin Start: 02/10/23 15:35 Freq: Status: Active Protocol: Document 02/10/23 15:36 ES (Rec: 02/10/23 17:14 ES [id number]) Posture Evaluation Position Standing Pelvis Posture (L) Iliac Crest Superior,(R) PSIS Inferior Comments Posture Comments Demonstration of weed wacking = lumbar rotation, static LE's . Palpation Assessment Location One Palpation Location L glutes Palpation Findings Tenderness PT-OP-L Special Tests Start: 02/10/23 15:35 Freq: Status: Active Protocol: Document 02/10/23 15:36 ES (Rec: 02/10/23 17:14 ES [id number]) Special Tests Lumbar Spine Special Tests Supine leg length Test Results Supine to long sit = LLE equal to long Jose C Test Results Decreased flexibility L hip flexors Forward bend Test Results L PSIS high Hip Special Tests Bridge Test Results Increased pain; decreased pain when cued for increased L glute activation Alyson Finger Test Test Results Positive L Trendelenberg Test Results Negative B PT-OP-M Strength Start: 02/10/23 15:35 Freq: Status: Active Protocol: Document 02/10/23 15:36 ES (Rec: 02/10/23 17:14 ES [id number]) Hip Strength Hip Manual Muscle Testing Left Extension (S1) 4- Good- Abduction 3+ Fair+ External Rotation 3 Fair Right Extension (S1) 4 Good Abduction 3+ Fair+ External Rotation 3+ Fair+ PT-OP-Q Treatments Start: 02/10/23 15:35 Freq: Status: Active Protocol: Document 04/07/23 09:59 SW (Rec: 04/07/23 10:58 [id number]) Cardio Equipment Recumbent Elliptical (Biodex) Duration (Minutes) 8 Resistance L5 Gym Equipment Cable Column (Body Solid) Knee flex/ext Details cues for concentric/eccentric control Resistance 4 Reps/Time x25 Shuttle Recovery Bilateral Squats Details cues for concentric/eccentric control Resistance 100# (2 new) Shuttle Recovery Platform Stable Reps/Time x20 Therapeutic Exercises Supine Exercises bridge Supine Exercise Name bridge and straight leg bridge Reps/Minutes 3x10 Sidelying Exercises Clamshell Sidelying Exercise Name clamshell, reverse clamshell, s/l hip abduction Side bilateral Resistance 5#, 2# Reps/Minutes 2x15 Comments 5# for clamshell, 2# for others Neuro Re-Education Treatment Balance Activities dynamic balance Details walking drills Reps/Duration 2x15' Comments tandem walk, marching walk, carioca walk Self-Care/Home Management Treatment Education Patient Education Fall Risk Other Education educated patient on balance and discussed AD for stability w/ stair ambulation. PT-OP-T Assessment and Plan Start: 02/10/23 15:35 Freq: Status: Active Protocol: Document 04/07/23 09:59 SW (Rec: 04/07/23 10:58 [id number]) Physical Therapy Assessment Goals Four Impairment Activity tolerance/functional activity Fdc Goal (LTG) Patient will reduce LEFS score to 38 or less indicating clinically significant improvement in function. LTG Duration 8 weeks (04/07/23) Three Impairment Pain Recreation Worker Goal (LTG) Patient will be able to sleep without waking up from pain at least 4 nights/week. LTG Duration 8 weeks (04/07/23) Two Impairment Balance Short Term Goal (STG) Patient will be able to perform SLS for 10 sec B to reduce fall risk. STG Duration 6 weeks (03/24/23) One Impairment Strength Short Term Goal (STG) Patient will increase L hip ER and abduction strength to at least 4-/5 to improve single limb stability. 03/04/23: verbal review HEP: suping and side clam, added seated and standing resisted march w/ L hip ER tapping L ft to R lay, piriformis stretch , band walk f/b/lateral. STG Duration 4 weeks (03/10/23) progressing 03/04/23 Assessment Summary Assessment Continued LE strength progression today. Added shuttle recovery for a more functional strengthening, tolerated well, frequent vc required for concentric/ eccentric control. Pt is more concerned with balance over pain at this time. Educated patient on the carryover of strenthening into balance and maintaining center of gravity over base of support. Pt would like to continue balance training to address his fears of falling. Physical Therapy Plan Frequency and Duration Frequency of Treatment 2x/Week Duration of treatment (weeks) 12 Plan of Care Start Date 02/10/23 Plan of Care End Date 04/29/23 Therapeutic Interventions Therapeutic Interventions Balance Training,Home Exercise Program,Joint Mobilizations, Manual Therapy,Neuromuscular Re-education,Patient/Caregiver Education,Self-Care/Home Management,Soft Tissue Mobilization,Taping, Therapeutic Activities, Therapeutic Exercises Next Visit Focus/Plan Next Note Type Treatment Note Next Visit Plan hip & knee strengthening, static & dynamic balance
--- NOTE | 2023-04-12 10:42 | PT.OTN ---
Current Diagnoses Trochanteric bursitis, left hip (04/12/23) Other specified enthesopathies of unspecified lower limb, excluding foot (04/12/23) Unsteadiness on feet (04/12/23) Presence of left artificial hip joint (04/12/23) Physical Therapy Treatment Note PT-OP-A Visit Information Start: 02/10/23 15:35 Freq: Status: Active Protocol: Document 04/12/23 10:39 ED (Rec: 04/12/23 10:42 ED [id number]) Out-Patient Physical Therapy Visit Information Visit Information Visit Type Treatment Note Visit Note 12/22 Visit Start Time 09:55 Visit Stop Time 10:40 Total Visit Minutes 45 Visit Number 15 Number of IMPROVEMENT DIRECTOR Visits 0 PT-OP-B Current Condition Start: 02/10/23 15:35 Freq: Status: Active Protocol: Document 02/10/23 15:36 ES (Rec: 02/10/23 17:14 ES [id number]) Current Condition History of Current Condition Onset Date 1.5 years ago Current Complaints L hip/buttock/SIJ History of Current Condition Patient had a L FABIEN about 2 years ago and has been having problems ever since. Wishes he hadn't done it in the first place. Had PT after surgery; didn't do his rehab as consistently as he was supposed to. Was still working at the time. Started to go to Dr. Mccord due to pain at night keeping him from sleeping. Was having a lot of trouble rolling over in bed. Has had several injections and was placed on gabapentin. Has a hx of low back problems for many years. 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 Has a hx of sciatica. 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 States his balance has gotten bad and has had falls in the past year. Having more difficulty playing with the dog. Feels disoriented when closing his eyes. Walks for exercise for about 45 minutes 2-3x/week. Prior Treatments and Tests MRI showed mild tendinitis in HS, otherwise no significant findings. Images of lower back show arthritis. Treatment Goals Patient/Caregiver Goals To figure out why his balance has gotten worse. To have better strength in the legs. To be able to sleep at night without the hip waking him up. PT-OP-C Subjective Start: 02/10/23 15:35 Freq: Status: Active Protocol: Document 04/12/23 10:39 ED (Rec: 04/12/23 10:42 ED [id number]) OP-PT Subjective Patient Comments Patient Comments Pt states he's been busy moving firewood at home so he' s a little more sore in his hip and low back. He's requesting a slightly easier therapy day. PT-OP-D Balance Start: 02/10/23 15:35 Freq: Status: Active Protocol: Document 02/10/23 15:36 ES (Rec: 02/10/23 17:16 ES [id number]) Balance Tests Single Limb Standing Single Limb- Right 3 sec Single Limb- Left 1 sec PT-OP-J Posture/Palpation/Skin Start: 02/10/23 15:35 Freq: Status: Active Protocol: Document 02/10/23 15:36 ES (Rec: 02/10/23 17:14 ES [id number]) Posture Evaluation Position Standing Pelvis Posture (L) Iliac Crest Superior,(R) PSIS Inferior Comments Posture Comments Demonstration of weed wacking = lumbar rotation, static LE's . Palpation Assessment Location One Palpation Location L glutes Palpation Findings Tenderness PT-OP-L Special Tests Start: 02/10/23 15:35 Freq: Status: Active Protocol: Document 02/10/23 15:36 ES (Rec: 02/10/23 17:14 ES [id number]) Special Tests Lumbar Spine Special Tests Supine leg length Test Results Supine to long sit = LLE equal to long Jose C Test Results Decreased flexibility L hip flexors Forward bend Test Results L PSIS high Hip Special Tests Bridge Test Results Increased pain; decreased pain when cued for increased L glute activation Alyson Finger Test Test Results Positive L Trendelenberg Test Results Negative B PT-OP-M Strength Start: 02/10/23 15:35 Freq: Status: Active Protocol: Document 02/10/23 15:36 ES (Rec: 02/10/23 17:14 ES [id number]) Hip Strength Hip Manual Muscle Testing Left Extension (S1) 4- Good- Abduction 3+ Fair+ External Rotation 3 Fair Right Extension (S1) 4 Good Abduction 3+ Fair+ External Rotation 3+ Fair+ PT-OP-Q Treatments Start: 02/10/23 15:35 Freq: Status: Active Protocol: Document 04/12/23 10:39 ED (Rec: 04/12/23 10:42 ED [id number]) Cardio Equipment Recumbent Elliptical (Biodex) Duration (Minutes) 8 Resistance L5 Treadmill Duration (Minutes) 5 Speed 2.6 Incline 3.0 Other @ end of session Therapeutic Exercises Supine Exercises bridge Supine Exercise Name bridge and straight leg bridge Reps/Minutes 3x10 Sidelying Exercises Clamshell Sidelying Exercise Name clamshell, reverse clamshell, s/l hip abduction Side bilateral Resistance 5#, 2# Reps/Minutes 2x15 Comments 5# for clamshell, 2# for others Therapeutic Activity Therapeutic Activity step ups Name step ups Reps/Minutes 2x10 Comments 8'' step up; finger tip UE support PT-OP-T Assessment and Plan Start: 02/10/23 15:35 Freq: Status: Active Protocol: Document 04/12/23 10:39 ED (Rec: 04/12/23 10:42 ED [id number]) Physical Therapy Assessment Goals Four Impairment Activity tolerance/functional activity Mcc Goal (LTG) Patient will reduce LEFS score to 38 or less indicating clinically significant improvement in function. LTG Duration 8 weeks (04/07/23) Three Impairment Pain Unit Operator Goal (LTG) Patient will be able to sleep without waking up from pain at least 4 nights/week. LTG Duration 8 weeks (04/07/23) Two Impairment Balance Short Term Goal (STG) Patient will be able to perform SLS for 10 sec B to reduce fall risk. STG Duration 6 weeks (03/24/23) One Impairment Strength Short Term Goal (STG) Patient will increase L hip ER and abduction strength to at least 4-/5 to improve single limb stability. 03/04/23: verbal review HEP: suping and side clam, added seated and standing resisted march w/ L hip ER tapping L ft to R lay, piriformis stretch , band walk f/b/lateral. STG Duration 4 weeks (03/10/23) progressing 03/04/23 Assessment Summary Assessment Per patient request, PT had patient perform slightly less intensive exercises today. Continued his isolated hip strengthening via bridges, clamshells, reverse clamshells , and s/l hip abduction. PT had patient perform step ups c / fingertip UE support; patient verbalized that he's fearful of stairs d/t a fall in his past.
--- NOTE | 2023-04-14 10:57 | PT.OTN ---
Current Diagnoses Trochanteric bursitis, left hip (04/14/23) Other specified enthesopathies of unspecified lower limb, excluding foot (04/14/23) Unsteadiness on feet (04/14/23) Presence of left artificial hip joint (04/14/23) Physical Therapy Treatment Note PT-OP-A Visit Information Start: 02/10/23 15:35 Freq: Status: Active Protocol: Document 04/14/23 09:58 SW (Rec: 04/14/23 10:57 SW [id number]) Out-Patient Physical Therapy Visit Information Visit Information Visit Type Treatment Note Visit Note 01/22 Visit Start Time 09:59 Visit Stop Time 10:41 Total Visit Minutes 42 Visit Number 16 Number of PRECINCT COMMANDING OFFICER Visits 1 PT-OP-B Current Condition Start: 02/10/23 15:35 Freq: Status: Active Protocol: Document 02/10/23 15:36 ES (Rec: 02/10/23 17:14 ES [id number]) Current Condition History of Current Condition Onset Date 1.5 years ago Current Complaints L hip/buttock/SIJ History of Current Condition Patient had a L FABIEN about 2 years ago and has been having problems ever since. Wishes he hadn't done it in the first place. Had PT after surgery; didn't do his rehab as consistently as he was supposed to. Was still working at the time. Started to go to Dr. Mccord due to pain at night keeping him from sleeping. Was having a lot of trouble rolling over in bed. Has had several injections and was placed on gabapentin. Has a hx of low back problems for many years. 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 Has a hx of sciatica. 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 States his balance has gotten bad and has had falls in the past year. Having more difficulty playing with the dog. Feels disoriented when closing his eyes. Walks for exercise for about 45 minutes 2-3x/week. Prior Treatments and Tests MRI showed mild tendinitis in HS, otherwise no significant findings. Images of lower back show arthritis. Treatment Goals Patient/Caregiver Goals To figure out why his balance has gotten worse. To have better strength in the legs. To be able to sleep at night without the hip waking him up. PT-OP-C Subjective Start: 02/10/23 15:35 Freq: Status: Active Protocol: Document 04/14/23 09:58 SW (Rec: 04/14/23 10:57 SW [id number]) OP-PT Subjective Patient Comments Patient Comments Pt reports he has been doing pretty good. Pt reports he did not get good sleep last night due to hip pain, more superficial pain, not a deep pain. PT-OP-D Balance Start: 02/10/23 15:35 Freq: Status: Active Protocol: Document 02/10/23 15:36 ES (Rec: 02/10/23 17:16 ES [id number]) Balance Tests Single Limb Standing Single Limb- Right 3 sec Single Limb- Left 1 sec PT-OP-J Posture/Palpation/Skin Start: 02/10/23 15:35 Freq: Status: Active Protocol: Document 02/10/23 15:36 ES (Rec: 02/10/23 17:14 ES [id number]) Posture Evaluation Position Standing Pelvis Posture (L) Iliac Crest Superior,(R) PSIS Inferior Comments Posture Comments Demonstration of weed wacking = lumbar rotation, static LE's . Palpation Assessment Location One Palpation Location L glutes Palpation Findings Tenderness PT-OP-L Special Tests Start: 02/10/23 15:35 Freq: Status: Active Protocol: Document 02/10/23 15:36 ES (Rec: 02/10/23 17:14 ES [id number]) Special Tests Lumbar Spine Special Tests Supine leg length Test Results Supine to long sit = LLE equal to long Jose C Test Results Decreased flexibility L hip flexors Forward bend Test Results L PSIS high Hip Special Tests Bridge Test Results Increased pain; decreased pain when cued for increased L glute activation Alyson Finger Test Test Results Positive L Trendelenberg Test Results Negative B PT-OP-M Strength Start: 02/10/23 15:35 Freq: Status: Active Protocol: Document 02/10/23 15:36 ES (Rec: 02/10/23 17:14 ES [id number]) Hip Strength Hip Manual Muscle Testing Left Extension (S1) 4- Good- Abduction 3+ Fair+ External Rotation 3 Fair Right Extension (S1) 4 Good Abduction 3+ Fair+ External Rotation 3+ Fair+ PT-OP-Q Treatments Start: 02/10/23 15:35 Freq: Status: Active Protocol: Document 04/14/23 09:58 SW (Rec: 04/14/23 10:57 [id number]) Cardio Equipment Recumbent Elliptical (Biodex) Duration (Minutes) 10 Resistance L5 Gym Equipment Shuttle Balance Blue Details Red>Blue Comments WBOS, NBOS, staggered stance, Head turns Therapeutic Exercises Supine Exercises bridge Supine Exercise Name bridge and straight leg bridge Reps/Minutes 3x10 Sidelying Exercises Clamshell Sidelying Exercise Name clamshell, reverse clamshell, s/l hip abduction Side bilateral Resistance 5#, 2# Reps/Minutes 2x15 Comments 5# for clamshell, 2# for others Therapeutic Activity Therapeutic Activity step ups Name step ups Reps/Minutes 2x10 Comments 8'' step up; finger tip UE support PT-OP-T Assessment and Plan Start: 02/10/23 15:35 Freq: Status: Active Protocol: Document 04/14/23 09:58 (Rec: 04/14/23 10:57 [id number]) Physical Therapy Assessment Goals Four Impairment Activity tolerance/functional activity Alf Goal (LTG) Patient will reduce LEFS score to 38 or less indicating clinically significant improvement in function. LTG Duration 8 weeks (04/07/23) Three Impairment Pain Alf Goal (LTG) Patient will be able to sleep without waking up from pain at least 4 nights/week. LTG Duration 8 weeks (04/07/23) Two Impairment Balance Short Term Goal (STG) Patient will be able to perform SLS for 10 sec B to reduce fall risk. STG Duration 6 weeks (03/24/23) One Impairment Strength Short Term Goal (STG) Patient will increase L hip ER and abduction strength to at least 4-/5 to improve single limb stability. 03/04/23: verbal review HEP: suping and side clam, added seated and standing resisted october w/ L hip ER tapping L ft to R lay, piriformis stretch , band walk f/b/lateral. STG Duration 4 weeks (03/10/23) progressing 03/04/23 Assessment Summary Assessment Continued stair training d/t fear of falling, replicating setup at home. Progressed balance with shuttle recovery, pt challenged w/addition of multitasking. Pt c/o L hip pain is more superficial, not deep. Physical Therapy Plan Frequency and Duration Frequency of Treatment 2x/Week Duration of treatment (weeks) 12 Plan of Care Start Date 02/10/23 Plan of Care End Date 04/29/23 Therapeutic Interventions Therapeutic Interventions Balance Training,Home Exercise Program,Joint Mobilizations, Manual Therapy,Neuromuscular Re-education,Patient/Caregiver Education,Self-Care/Home Management,Soft Tissue Mobilization,Taping, Therapeutic Activities, Therapeutic Exercises Next Visit Focus/Plan Next Note Type Treatment Note Next Visit Plan hip & knee strengthening, static & dynamic balance
--- NOTE | 2023-04-19 10:51 | PT.OTN ---
Current Diagnoses Trochanteric bursitis, left hip (04/19/23) Other specified enthesopathies of unspecified lower limb, excluding foot (04/19/23) Unsteadiness on feet (04/19/23) Presence of left artificial hip joint (04/19/23) Physical Therapy Treatment Note PT-OP-A Visit Information Start: 02/10/23 15:35 Freq: Status: Active Protocol: Document 04/19/23 10:46 ED (Rec: 04/19/23 10:51 ED [id number]) Out-Patient Physical Therapy Visit Information Visit Information Visit Type Treatment Note Visit Note 02/21 POC ends 04/29 Visit Start Time 10:00 Visit Stop Time 10:45 Total Visit Minutes 45 Visit Number 17 Number of BOILER CLEANER Visits 0 PT-OP-B Current Condition Start: 02/10/23 15:35 Freq: Status: Active Protocol: Document 02/10/23 15:36 ES (Rec: 02/10/23 17:14 ES [id number]) Current Condition History of Current Condition Onset Date 1.5 years ago Current Complaints L hip/buttock/SIJ History of Current Condition Patient had a L FABIEN about 2 years ago and has been having problems ever since. Wishes he hadn't done it in the first place. Had PT after surgery; didn't do his rehab as consistently as he was supposed to. Was still working at the time. Started to go to Dr. Mccord due to pain at night keeping him from sleeping. Was having a lot of trouble rolling over in bed. Has had several injections and was placed on gabapentin. Has a hx of low back problems for many years. 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 Has a hx of sciatica. 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 States his balance has gotten bad and has had falls in the past year. Having more difficulty playing with the dog. Feels disoriented when closing his eyes. Walks for exercise for about 45 minutes 2-3x/week. Prior Treatments and Tests MRI showed mild tendinitis in HS, otherwise no significant findings. Images of lower back show arthritis. Treatment Goals Patient/Caregiver Goals To figure out why his balance has gotten worse. To have better strength in the legs. To be able to sleep at night without the hip waking him up. PT-OP-C Subjective Start: 02/10/23 15:35 Freq: Status: Active Protocol: Document 04/19/23 10:46 ED (Rec: 04/19/23 10:51 ED [id number]) OP-PT Subjective Patient Comments Patient Comments Pt states that he has pain on his incisions that typically is only felt when he is lying on it. He states that he is feeling stronger and would like to focus more on balance moving forward. PT-OP-D Balance Start: 02/10/23 15:35 Freq: Status: Active Protocol: Document 02/10/23 15:36 ES (Rec: 02/10/23 17:16 ES [id number]) Balance Tests Single Limb Standing Single Limb- Right 3 sec Single Limb- Left 1 sec PT-OP-J Posture/Palpation/Skin Start: 02/10/23 15:35 Freq: Status: Active Protocol: Document 02/10/23 15:36 ES (Rec: 02/10/23 17:14 ES [id number]) Posture Evaluation Position Standing Pelvis Posture (L) Iliac Crest Superior,(R) PSIS Inferior Comments Posture Comments Demonstration of weed wacking = lumbar rotation, static LE's . Palpation Assessment Location One Palpation Location L glutes Palpation Findings Tenderness PT-OP-L Special Tests Start: 02/10/23 15:35 Freq: Status: Active Protocol: Document 02/10/23 15:36 ES (Rec: 02/10/23 17:14 ES [id number]) Special Tests Lumbar Spine Special Tests Supine leg length Test Results Supine to long sit = LLE equal to long Jose C Test Results Decreased flexibility L hip flexors Forward bend Test Results L PSIS high Hip Special Tests Bridge Test Results Increased pain; decreased pain when cued for increased L glute activation Alyson Finger Test Test Results Positive L Trendelenberg Test Results Negative B PT-OP-M Strength Start: 02/10/23 15:35 Freq: Status: Active Protocol: Document 02/10/23 15:36 ES (Rec: 02/10/23 17:14 ES [id number]) Hip Strength Hip Manual Muscle Testing Left Extension (S1) 4- Good- Abduction 3+ Fair+ External Rotation 3 Fair Right Extension (S1) 4 Good Abduction 3+ Fair+ External Rotation 3+ Fair+ PT-OP-Q Treatments Start: 02/10/23 15:35 Freq: Status: Active Protocol: Document 04/19/23 10:46 ED (Rec: 04/19/23 10:51 ED [id number]) Cardio Equipment Recumbent Elliptical (Biodex) Duration (Minutes) 8 Resistance L5 Therapeutic Exercises Supine Exercises bridge Supine Exercise Name bridge and straight leg bridge Reps/Minutes 3x10 Sidelying Exercises Clamshell Sidelying Exercise Name clamshell, reverse clamshell, s/l hip abduction Side bilateral Resistance manual resistance Reps/Minutes 2x15 Comments 5# for clamshell, 2# for others Therapeutic Activity Therapeutic Activity squat Name sit to stand Reps/Minutes 6o07-53 Comments 10# step ups Name step ups Reps/Minutes 2x10 Comments 8'' step up; finger tip UE support Neuro Re-Education Treatment Balance Activities dynamic balance Details walking drills Reps/Duration 2x15' Comments tandem walk, marching walk, static balance Details SL balance Reps/Duration x1' Comments minimal UE assistance PT-OP-T Assessment and Plan Start: 02/10/23 15:35 Freq: Status: Active Protocol: Document 04/19/23 10:46 ED (Rec: 04/19/23 10:51 ED [id number]) Physical Therapy Assessment Goals Four Impairment Activity tolerance/functional activity Animal Husbandry Professor Goal (LTG) Patient will reduce LEFS score to 38 or less indicating clinically significant improvement in function. LTG Duration 8 weeks (04/07/23) Three Impairment Pain Animal Husbandry Professor Goal (LTG) Patient will be able to sleep without waking up from pain at least 4 nights/week. LTG Duration 8 weeks (04/07/23) Two Impairment Balance Short Term Goal (STG) Patient will be able to perform SLS for 10 sec B to reduce fall risk. STG Duration 6 weeks (03/24/23) One Impairment Strength Short Term Goal (STG) Patient will increase L hip ER and abduction strength to at least 4-/5 to improve single limb stability. 03/04/23: verbal review HEP: suping and side clam, added seated and standing resisted march w/ L hip ER tapping L ft to R lay, piriformis stretch , band walk f/b/lateral. STG Duration 4 weeks (03/10/23) progressing 03/04/23 Assessment Summary Assessment Pt required intermittent UE assistance during balance activities today such as SL static balance and step ups. Pt doing well overall with minimal complaints of pain during daily activities and his biggest complaint recently being incisional pain when lying on his L hip. Will continue to work on strengthening and emphasize balance per patient request. Physical Therapy Plan Frequency and Duration Frequency of Treatment 2x/Week Duration of treatment (weeks) 12 Plan of Care Start Date 02/10/23 Plan of Care End Date 04/29/23
--- NOTE | 2023-04-22 09:49 | PT.OTN ---
Current Diagnoses Trochanteric bursitis, left hip (04/22/23) Other specified enthesopathies of unspecified lower limb, excluding foot (04/22/23) Unsteadiness on feet (04/22/23) Presence of left artificial hip joint (04/22/23) Physical Therapy Treatment Note PT-OP-A Visit Information Start: 02/10/23 15:35 Freq: Status: Active Protocol: Document 04/22/23 09:45 ED (Rec: 04/22/23 09:49 ED [id number]) Out-Patient Physical Therapy Visit Information Visit Information Visit Type Treatment Note Visit Note 03/24 POC ends 04/29 Visit Start Time 09:00 Visit Stop Time 09:45 Total Visit Minutes 45 Visit Number 18 Number of OVEREDGE MACHINE OPERATOR Visits 0 PT-OP-B Current Condition Start: 02/10/23 15:35 Freq: Status: Active Protocol: Document 02/10/23 15:36 ES (Rec: 02/10/23 17:14 ES [id number]) Current Condition History of Current Condition Onset Date 1.5 years ago Current Complaints L hip/buttock/SIJ History of Current Condition Patient had a L FABIEN about 2 years ago and has been having problems ever since. Wishes he hadn't done it in the first place. Had PT after surgery; didn't do his rehab as consistently as he was supposed to. Was still working at the time. Started to go to Dr. Mccord due to pain at night keeping him from sleeping. Was having a lot of trouble rolling over in bed. Has had several injections and was placed on gabapentin. Has a hx of low back problems for many years. 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 Has a hx of sciatica. 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 States his balance has gotten bad and has had falls in the past year. Having more difficulty playing with the dog. Feels disoriented when closing his eyes. Walks for exercise for about 45 minutes 2-3x/week. Prior Treatments and Tests MRI showed mild tendinitis in HS, otherwise no significant findings. Images of lower back show arthritis. Treatment Goals Patient/Caregiver Goals To figure out why his balance has gotten worse. To have better strength in the legs. To be able to sleep at night without the hip waking him up. PT-OP-C Subjective Start: 02/10/23 15:35 Freq: Status: Active Protocol: Document 04/22/23 09:45 ED (Rec: 04/22/23 09:49 ED [id number]) OP-PT Subjective Patient Comments Patient Comments Pt states that he played tug of war with his dog and felt confident in his balance when doing it. Continues to feel better in his hip and in his balance. PT-OP-D Balance Start: 02/10/23 15:35 Freq: Status: Active Protocol: Document 02/10/23 15:36 ES (Rec: 02/10/23 17:16 ES [id number]) Balance Tests Single Limb Standing Single Limb- Right 3 sec Single Limb- Left 1 sec PT-OP-J Posture/Palpation/Skin Start: 02/10/23 15:35 Freq: Status: Active Protocol: Document 02/10/23 15:36 ES (Rec: 02/10/23 17:14 ES [id number]) Posture Evaluation Position Standing Pelvis Posture (L) Iliac Crest Superior,(R) PSIS Inferior Comments Posture Comments Demonstration of weed wacking = lumbar rotation, static LE's . Palpation Assessment Location One Palpation Location L glutes Palpation Findings Tenderness PT-OP-L Special Tests Start: 02/10/23 15:35 Freq: Status: Active Protocol: Document 02/10/23 15:36 ES (Rec: 02/10/23 17:14 ES [id number]) Special Tests Lumbar Spine Special Tests Supine leg length Test Results Supine to long sit = LLE equal to long Jose C Test Results Decreased flexibility L hip flexors Forward bend Test Results L PSIS high Hip Special Tests Bridge Test Results Increased pain; decreased pain when cued for increased L glute activation Alyson Finger Test Test Results Positive L Trendelenberg Test Results Negative B PT-OP-M Strength Start: 02/10/23 15:35 Freq: Status: Active Protocol: Document 02/10/23 15:36 ES (Rec: 02/10/23 17:14 ES [id number]) Hip Strength Hip Manual Muscle Testing Left Extension (S1) 4- Good- Abduction 3+ Fair+ External Rotation 3 Fair Right Extension (S1) 4 Good Abduction 3+ Fair+ External Rotation 3+ Fair+ PT-OP-Q Treatments Start: 02/10/23 15:35 Freq: Status: Active Protocol: Document 04/22/23 09:45 ED (Rec: 04/22/23 09:49 ED [id number]) Cardio Equipment Recumbent Elliptical (Biodex) Duration (Minutes) 8 Resistance L5 Therapeutic Exercises Supine Exercises bridge Supine Exercise Name bridge and straight leg bridge Reps/Minutes 3x10 Sidelying Exercises Clamshell Sidelying Exercise Name clamshell, reverse clamshell, s/l hip abduction Side bilateral Resistance manual resistance Reps/Minutes 2x15 Comments 5# for clamshell, 2# for others Standing Exercises Sidestepping Side bilateral Resistance L3 band green at ankles Reps/Minutes 2x10 ea side Other Exercises hip flexion Other Exercise Name standing hip flexion (UE supported on wall) Side bilateral Resistance yllw loop Reps/Minutes 2x10/leg Therapeutic Activity Therapeutic Activity step ups Name step ups Reps/Minutes 2x10 Comments 8'' step up; finger tip UE support Neuro Re-Education Treatment Balance Activities dynamic balance Details walking drills Reps/Duration 2x15' Comments fast walking, stop and go walking, walking and RDL for CoG disturbance training PT-OP-T Assessment and Plan Start: 02/10/23 15:35 Freq: Status: Active Protocol: Document 04/22/23 09:45 ED (Rec: 04/22/23 09:49 ED [id number]) Physical Therapy Assessment Goals Four Impairment Activity tolerance/functional activity Cafe Worker Goal (LTG) Patient will reduce LEFS score to 38 or less indicating clinically significant improvement in function. LTG Duration 8 weeks (04/07/23) Three Impairment Pain Cafe Worker Goal (LTG) Patient will be able to sleep without waking up from pain at least 4 nights/week. LTG Duration 8 weeks (04/07/23) Two Impairment Balance Short Term Goal (STG) Patient will be able to perform SLS for 10 sec B to reduce fall risk. STG Duration 6 weeks (03/24/23) One Impairment Strength Short Term Goal (STG) Patient will increase L hip ER and abduction strength to at least 4-/5 to improve single limb stability. 03/04/23: verbal review HEP: suping and side clam, added seated and standing resisted march w/ L hip ER tapping L ft to R lay, piriformis stretch , band walk f/b/lateral. STG Duration 4 weeks (03/10/23) progressing 03/04/23 Physical Therapy Plan Frequency and Duration Frequency of Treatment 2x/Week Duration of treatment (weeks) 12 Plan of Care Start Date 02/10/23 Plan of Care End Date 04/29/23 Next Visit Focus/Plan Next Note Type Treatment Note Next Visit Plan LEFS & goal check up, walking RDL c/ basketball, hip & knee strengthening, static & dynamic balance
--- NOTE | 2023-04-27 14:42 | PT.OTN ---
Current Diagnoses Trochanteric bursitis, left hip (04/27/23) Other specified enthesopathies of unspecified lower limb, excluding foot (04/27/23) Unsteadiness on feet (04/27/23) Presence of left artificial hip joint (04/27/23) Physical Therapy Treatment Note PT-OP-A Visit Information Start: 02/10/23 15:35 Freq: Status: Active Protocol: Document 04/27/23 09:09 SW (Rec: 04/27/23 10:59 SW [id number]) Out-Patient Physical Therapy Visit Information Visit Information Visit Type Treatment Note Visit Note 04/24 Visit Start Time 09:15 Visit Stop Time 10:00 Total Visit Minutes 45 Visit Number 19 Number of LINING CUTTER Visits 1 PT-OP-B Current Condition Start: 02/10/23 15:35 Freq: Status: Active Protocol: Document 02/10/23 15:36 ES (Rec: 02/10/23 17:14 ES [id number]) Current Condition History of Current Condition Onset Date 1.5 years ago Current Complaints L hip/buttock/SIJ History of Current Condition Patient had a L FABIEN about 2 years ago and has been having problems ever since. Wishes he hadn't done it in the first place. Had PT after surgery; didn't do his rehab as consistently as he was supposed to. Was still working at the time. Started to go to Dr. Mccord due to pain at night keeping him from sleeping. Was having a lot of trouble rolling over in bed. Has had several injections and was placed on gabapentin. Has a hx of low back problems for many years. 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 Has a hx of sciatica. 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 States his balance has gotten bad and has had falls in the past year. Having more difficulty playing with the dog. Feels disoriented when closing his eyes. Walks for exercise for about 45 minutes 2-3x/week. Prior Treatments and Tests MRI showed mild tendinitis in HS, otherwise no significant findings. Images of lower back show arthritis. Treatment Goals Patient/Caregiver Goals To figure out why his balance has gotten worse. To have better strength in the legs. To be able to sleep at night without the hip waking him up. PT-OP-C Subjective Start: 02/10/23 15:35 Freq: Status: Active Protocol: Document 04/27/23 09:09 SW (Rec: 04/27/23 10:59 SW [id number]) OP-PT Subjective Patient Comments Patient Comments Pt reports his hip pain is still there , PT has helped, he can put on his socks, can cross leg over knee, can walk longer with dog. Had to walk a couple flights of stairs for firer kiln training, fearful of stairs since his fall. PT-OP-D Balance Start: 02/10/23 15:35 Freq: Status: Active Protocol: Document 02/10/23 15:36 ES (Rec: 02/10/23 17:16 ES [id number]) Balance Tests Single Limb Standing Single Limb- Right 3 sec Single Limb- Left 1 sec PT-OP-J Posture/Palpation/Skin Start: 02/10/23 15:35 Freq: Status: Active Protocol: Document 02/10/23 15:36 ES (Rec: 02/10/23 17:14 ES [id number]) Posture Evaluation Position Standing Pelvis Posture (L) Iliac Crest Superior,(R) PSIS Inferior Comments Posture Comments Demonstration of weed wacking = lumbar rotation, static LE's . Palpation Assessment Location One Palpation Location L glutes Palpation Findings Tenderness PT-OP-L Special Tests Start: 02/10/23 15:35 Freq: Status: Active Protocol: Document 02/10/23 15:36 ES (Rec: 02/10/23 17:14 ES [id number]) Special Tests Lumbar Spine Special Tests Supine leg length Test Results Supine to long sit = LLE equal to long Jose C Test Results Decreased flexibility L hip flexors Forward bend Test Results L PSIS high Hip Special Tests Bridge Test Results Increased pain; decreased pain when cued for increased L glute activation Alyson Finger Test Test Results Positive L Trendelenberg Test Results Negative B PT-OP-M Strength Start: 02/10/23 15:35 Freq: Status: Active Protocol: Document 02/10/23 15:36 ES (Rec: 02/10/23 17:14 ES [id number]) Hip Strength Hip Manual Muscle Testing Left Extension (S1) 4- Good- Abduction 3+ Fair+ External Rotation 3 Fair Right Extension (S1) 4 Good Abduction 3+ Fair+ External Rotation 3+ Fair+ PT-OP-Q Treatments Start: 02/10/23 15:35 Freq: Status: Active Protocol: Document 04/27/23 09:09 (Rec: 04/27/23 10:59 [id number]) Cardio Equipment Recumbent Elliptical (Biodex) Duration (Minutes) 8 Resistance L5 Gym Equipment Shuttle Balance Red Details WBOS, NBOS, head turns Comments for core stabilization, strength, and balance challenge Sport Cord Red Exercise Details Fwd/bck/lateral Cord/Resistance Red Reps/Duration x5 ea Comments reactive balance, strength, stabilization Therapeutic Exercises Supine Exercises bridge Supine Exercise Name bridge and straight leg bridge Reps/Minutes 3x10 Sidelying Exercises Clamshell Sidelying Exercise Name clamshell, reverse clamshell, s/l hip abduction Side bilateral Resistance manual resistance Reps/Minutes 2x15 Comments 7# for clamshell, 4# for others Standing Exercises SLS Standing Exercise Name SLS Side bilateral Reps/Minutes 2 x 30 ea Comments for core stabilization, strength, and balance Sidestepping Side bilateral Resistance L3 band green at ankles Reps/Minutes 2x10 ea side Other Exercises hip flexion Other Exercise Name standing hip flexion (UE supported on wall) Side bilateral Resistance yllw loop Reps/Minutes 2x10/leg Therapeutic Activity Therapeutic Activity Body mechanics Name v PT-OP-T Assessment and Plan Start: 02/10/23 15:35 Freq: Status: Active Protocol: Document 04/27/23 09:09 (Rec: 04/27/23 10:59 [id number]) Physical Therapy Assessment Goals Four Impairment Activity tolerance/functional activity Special Makeup Fx Artist Instructor Goal (LTG) Patient will reduce LEFS score to 38 or less indicating clinically significant improvement in function. LTG Duration 8 weeks (04/07/23) Three Impairment Pain Special Makeup Fx Artist Instructor Goal (LTG) Patient will be able to sleep without waking up from pain at least 4 nights/week. LTG Duration 8 weeks (04/07/23) Two Impairment Balance Short Term Goal (STG) Patient will be able to perform SLS for 10 sec B to reduce fall risk. STG Duration 6 weeks (03/24/23) One Impairment Strength Short Term Goal (STG) Patient will increase L hip ER and abduction strength to at least 4-/5 to improve single limb stability. 03/04/23: verbal review HEP: suping and side clam, added seated and standing resisted march w/ L hip ER tapping L ft to R lay, piriformis stretch , band walk f/b/lateral. STG Duration 4 weeks (03/10/23) progressing 03/04/23 Assessment Summary Assessment Progressed pt today by increasing resistance with hip strengthening ex, tolerated well. Continued balance, progressed from blue clips on shuttle balance to red clips, mod difficulty RN OTOLARYNGOLOGY prn for safety, gait belt donned. Physical Therapy Plan Frequency and Duration Frequency of Treatment 2x/Week Duration of treatment (weeks) 12 Plan of Care Start Date 02/10/23 Plan of Care End Date 04/29/23 Therapeutic Interventions Therapeutic Interventions Balance Training,Home Exercise Program,Joint Mobilizations, Manual Therapy,Neuromuscular Re-education,Patient/Caregiver Education,Self-Care/Home Management,Soft Tissue Mobilization,Taping, Therapeutic Activities, Therapeutic Exercises Next Visit Focus/Plan Next Note Type Treatment Note Next Visit Plan LEFS & goal check up, walking RDL c/ basketball, hip & knee strengthening, static & dynamic balance
--- NOTE | 2023-04-29 09:51 | PT.OTN ---
Current Diagnoses Trochanteric bursitis, left hip (04/29/23) Other specified enthesopathies of unspecified lower limb, excluding foot (04/29/23) Unsteadiness on feet (04/29/23) Presence of left artificial hip joint (04/29/23) Physical Therapy Treatment Note PT-OP-A Visit Information Start: 02/10/23 15:35 Freq: Status: Active Protocol: Document 04/29/23 09:43 ED (Rec: 04/29/23 09:51 ED [id number]) Out-Patient Physical Therapy Visit Information Visit Information Visit Type Discharge Summary Visit Note 05/24 Visit Start Time 09:00 Visit Stop Time 09:45 Total Visit Minutes 45 Visit Number 20 Number of RESEARCH PROGRAM COORDINATOR Visits 0 PT-OP-B Current Condition Start: 02/10/23 15:35 Freq: Status: Active Protocol: Document 02/10/23 15:36 ES (Rec: 02/10/23 17:14 ES [id number]) Current Condition History of Current Condition Onset Date 1.5 years ago Current Complaints L hip/buttock/SIJ History of Current Condition Patient had a L FABIEN about 2 years ago and has been having problems ever since. Wishes he hadn't done it in the first place. Had PT after surgery; didn't do his rehab as consistently as he was supposed to. Was still working at the time. Started to go to Dr. Mccord due to pain at night keeping him from sleeping. Was having a lot of trouble rolling over in bed. Has had several injections and was placed on gabapentin. Has a hx of low back problems for many years. 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 Has a hx of sciatica. 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 States his balance has gotten bad and has had falls in the past year. Having more difficulty playing with the dog. Feels disoriented when closing his eyes. Walks for exercise for about 45 minutes 2-3x/week. Prior Treatments and Tests MRI showed mild tendinitis in HS, otherwise no significant findings. Images of lower back show arthritis. Treatment Goals Patient/Caregiver Goals To figure out why his balance has gotten worse. To have better strength in the legs. To be able to sleep at night without the hip waking him up. PT-OP-C Subjective Start: 02/10/23 15:35 Freq: Status: Active Protocol: Document 04/29/23 09:43 ED (Rec: 04/29/23 09:51 ED [id number]) OP-PT Subjective Patient Comments Patient Comments Pt reports for last visit of physical therapy. He feels like it has helped him in regards to strength and balance and somewhat for pain. he continues to endorse hip pain that he states is on his skin where the sutures used to be. He continues to have pain when lying on his hip but states that his sleep has improved since he started PT. He is happy the progress he has made and feels more confident in his balance now. Patient Questionnaires Lower Extremity Functional Scale LEFS Score 61 / 80 LEFS Impairment 20 to 39% Impaired (Score 48- 62) PT-OP-D Balance Start: 02/10/23 15:35 Freq: Status: Active Protocol: Document 04/29/23 09:43 ED (Rec: 04/29/23 09:51 ED [id number]) Balance Tests Single Limb Standing Single Limb- Right 5 seconds Single Limb- Left 3-5 seconds PT-OP-J Posture/Palpation/Skin Start: 02/10/23 15:35 Freq: Status: Active Protocol: Document 02/10/23 15:36 ES (Rec: 02/10/23 17:14 ES [id number]) Posture Evaluation Position Standing Pelvis Posture (L) Iliac Crest Superior,(R) PSIS Inferior Comments Posture Comments Demonstration of weed wacking = lumbar rotation, static LE's . Palpation Assessment Location One Palpation Location L glutes Palpation Findings Tenderness PT-OP-L Special Tests Start: 02/10/23 15:35 Freq: Status: Active Protocol: Document 02/10/23 15:36 ES (Rec: 02/10/23 17:14 ES [id number]) Special Tests Lumbar Spine Special Tests Supine leg length Test Results Supine to long sit = LLE equal to long Jose C Test Results Decreased flexibility L hip flexors Forward bend Test Results L PSIS high Hip Special Tests Bridge Test Results Increased pain; decreased pain when cued for increased L glute activation Alyson Finger Test Test Results Positive L Trendelenberg Test Results Negative B PT-OP-M Strength Start: 02/10/23 15:35 Freq: Status: Active Protocol: Document 02/10/23 15:36 ES (Rec: 02/10/23 17:14 ES [id number]) Hip Strength Hip Manual Muscle Testing Left Extension (S1) 4- Good- Abduction 3+ Fair+ External Rotation 3 Fair Right Extension (S1) 4 Good Abduction 3+ Fair+ External Rotation 3+ Fair+ PT-OP-Q Treatments Start: 02/10/23 15:35 Freq: Status: Active Protocol: Document 04/29/23 09:43 ED (Rec: 04/29/23 09:51 ED [id number]) Therapeutic Exercises Standing Exercises Sidestepping Side bilateral Resistance L3 band green at ankles Reps/Minutes 2x10 ea side Other Exercises hip flexion Other Exercise Name standing hip flexion (UE supported on wall) Side bilateral Resistance yllw loop Reps/Minutes 2x10/leg Therapeutic Activity Therapeutic Activity squat Name sit to stand Reps/Minutes [id number] Comments 10# Neuro Re-Education Treatment Balance Activities dynamic balance Details walking drills Reps/Duration 2x15' Comments fast walking, stop and go walking, walking and RDL for CoG disturbance training static balance Details SL balance Reps/Duration x1' Comments minimal UE assistance PT-OP-T Assessment and Plan Start: 02/10/23 15:35 Freq: Status: Active Protocol: Document 04/29/23 09:43 ED (Rec: 04/29/23 09:51 ED [id number]) Physical Therapy Assessment Goals Four Impairment Activity tolerance/functional activity Halfway Goal (LTG) Patient will reduce LEFS score to 38 or less indicating clinically significant improvement in function. LTG Duration 8 weeks (04/07/23) -MET Three Impairment Pain Halfway Goal (LTG) Patient will be able to sleep without waking up from pain at least 4 nights/week. LTG Duration 8 weeks (04/07/23) -PARTIALLY MET Two Impairment Balance Short Term Goal (STG) Patient will be able to perform SLS for 10 sec B to reduce fall risk. STG Duration 6 weeks (03/24/23) - NOT MET One Impairment Strength Short Term Goal (STG) Patient will increase L hip ER and abduction strength to at least 4-/5 to improve single limb stability. 03/04/23: verbal review HEP: suping and side clam, added seated and standing resisted march w/ L hip ER tapping L ft to R lay, piriformis stretch , band walk f/b/lateral. STG Duration 4 weeks (03/10/23) progressing 03/04/23 Progress Towards Goals Progress Towards Goals Progressing Toward Goals Assessment Summary Assessment Pt has been coming to PT since late February for L hip pain. Pt has improved in functional mobility especially balance and strength. His LEFS (lower extremity functional scale) improved and met MCID criteria , as well. Pt continues to have pain but states that he thinks it's the scar and it has not improved much but he is okay with that. Pt feels more confident in his balance and strength now and reports being able to sleep better. Pt will be discharged from PT at this time. Physical Therapy Plan Discharge Physical Therapy Discharge Reasons Goals Met
== END 2023-05-02 15:45 | disposition home or self-care (01) ==
LOC: PHYS 09:00
PROVIDERS: Family Provider Family Medicine; PCP Family Medicine; Referring Provider Physical Medicine & Rehabilitation; Visit Provider Physical Medicine & Rehabilitation
DX: M76.899 Other specified enthesopathies of unspecified lower limb, excluding foot (principal); M70.62 Trochanteric bursitis, left hip; Z96.642 Presence of left artificial hip joint; R26.81 Unsteadiness on feet
CPT/HCPCS: 97110; 97112; 97140; 97161; 97530; 97535

== ENCOUNTER → 2023-05-16 07:57 | Outpatient (CLI) | payer MEDICARE, SELFPAY ==
[2022-07-28 12:15] VITALS: BMI 29.2
[2023-05-16 09:04] LABS: Add Manual Diff / Slide Review NO; Basophils Absolute Auto 0 /uL (0-100); Basophils Percent Auto 0.9 % (0-2); Eosinophils Absolute Auto 200 /uL (0-450); Eosinophils Percent Auto 3.4 % (2-4); Hematocrit 37.7 % (41-53); Hemoglobin 13.1 g/dL (13.5-17.5); Lymphocytes Absolute Auto 1500 /uL (1100-4500); Lymphocytes Percent Auto 30.1 % (25-40); Mean Corpuscular HGB Conc 34.8 % (30-36); Mean Corpuscular Hemoglobin 31.1 PG (26-34); Mean Corpuscular Volume 89.4 fL (80-100); Monocytes Absolute Auto 500 /uL (0-900); Monocytes Percent Auto 10.1 % (3-14); Neutrophils Absolute Auto 2800 /uL (1500-7000); Neutrophils Percent Auto 55.5 % (50-75); Platelet Count 160 X10^3/uL (150-400); Red Blood Cell Count 4.22 X10^6/uL (4.5-5.9); Red Cell Distribution Width 14.3 % (11.6-14.8)
[2023-05-16 09:15] LABS: Hemoglobin A1C% w Est Avg Glu 5.9 % (4.0-6.0)
[2023-05-16 09:36] LABS: Alanine Aminotransferase 27 IU/L (<50); Albumin 4.2 g/dL (3.5-5.0); Albumin Globulin Ratio 1.8 (1.0-2.8); Alkaline Phosphatase 100 U/L (38-126); Aspartate Aminotransferase 28 IU/L (17-59); BUN Creatinine Ratio 18.8 (6-22); Bilirubin Total 0.5 mg/dL (0.2-1.3); Blood Urea Nitrogen 22 mg/dL (9-20); Calcium 9.4 mg/dL (8.4-10.2); Carbon Dioxide 28 mmol/L (22-32); Chloride 105 mmol/L (98-107); Cholesterol 145 mg/dL (140-199); Estimated Glomerular Filt Rate > 60 mL/min (>60); Globulin 2.3 g/dL (1.7-4.1); Glucose 138 mg/dL (80-110); HDL Cholesterol 37 mg/dL (40-60); HEMOLYSIS < 15 (0-50); LDL Cholesterol Calculated 74 mg/dL (<100); Potassium 4.6 mmol/L (3.4-5.1); Sodium 137 mmol/L (137-145); Total Protein 6.5 g/dL (6.3-8.2); Triglycerides 168 mg/dL (35-150)
[2023-05-16 10:02] LABS: TSH w/ Reflex to FT4 2.51 uIU/mL (0.47-4.68)
== END ==
PROVIDERS: Family Provider Family Medicine; PCP Family Medicine; Referring Provider Family Medicine; Visit Provider Family Medicine
DX: E11.9 Type 2 diabetes mellitus without complications (principal); E78.2 Mixed hyperlipidemia; I10 Essential (primary) hypertension
CPT/HCPCS: 36415; 80053; 80061; 83036; 84443; 85025

== ENCOUNTER → 2023-05-27 10:10 | Outpatient (CLI) | payer MEDICARE, SELFPAY ==
[2022-07-28 12:15] VITALS: BMI 29.2
--- NOTE | 2023-05-27 | DI.ECHO.S_ITS ---
[place] [facility] +---------+ : : [address] : : : : [id number] : : : : Phone: [phone]+ Echocardiogram Report + + :Name: SKYLER GONZALEZ Study Date: 05/27/2023 Height: 71 in : :[facility] ReadingLocation: Weight: 221 lb : : Gender: Male BSA: 2.2 m2 : :: 1945 Age: 77 yrs BP: 134/84 mmHg: :Reason For Study: Presence of Prosthetic Heart Valve : :Ordering Physician: DENISHA, : :KEYUR Performed By: Leila Graham : :Referring: KEYUR DUKES : + + Interpretation Summary 1) Normal left ventricular thickness, size, wall motion, and systolic function (EF 55-60%). 2) Normal right ventricular size and function. 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 There is trace aortic regurgitation. 4) The ascending aorta is mildly enlarged at 4.2cm. 5) Compared to the Echo done 03/23/2022, no significant change. Procedure: A two-dimensional transthoracic echocardiogram with color flow and Doppler was performed. The study quality was technically adequate. Comparison is made with the echocardiogram of 03/23/2022. The patient was in normal sinus rhythm during the exam. Left Ventricle: The left ventricle is normal in size and wall thickness. The ejection fraction is estimated to be 55-60%. Left ventricular systolic function appears normal without focal wall motion abnormalities. Diastolic parameters suggest a relaxation abnormality of the left ventricle, consistent with probable normal filling pressures. Right Ventricle: The right ventricle is normal size. The right ventricular systolic function is normal. Atria: The left atrial size is normal. Right atrial size is normal. There is no Doppler evidence for an interatrial shunt. Mitral Valve: The mitral valve leaflets are slightly calcified. There is no mitral valve stenosis. There is trace mitral regurgitation. Aortic Valve: A 27mm [employer] aortic valve is present. There is a bioprosthetic aortic valve. The peak aortic velocity is 2.73 m/sec. The aortic valve mean gradient is 17 mmHg. There is trace aortic regurgitation. Tricuspid Valve: The tricuspid valve is normal. There is no tricuspid stenosis. There is mild tricuspid regurgitation. The right ventricular systolic pressure is estimated to be at least 23 mmHg based on an estimated right atrial pressure of 3 mm Hg. Pulmonic Valve: The pulmonic valve is not well visualized. There is no pulmonic valvular stenosis. There is trace pulmonic regurgitation. Great Vessels: The aortic root is normal size. The ascending aorta is mildly enlarged. The pulmonary artery is normal size. The IVC is of normal diameter and collapses greater than 50% with a sniff. This suggests a low right atrial pressure of 3 mm Hg. Pericardium/ Pleura There is no pericardial effusion. There is no pleural effusion. MMode/2D Measurements & Calculations LVIDd: 4.3 cm LVOT diam: 2.0 cm LVIDs: 3.0 cm Ao root diam: 3.1 cm FS: 30.2 % asc Aorta Diam: 4.2 cm IVSd: 1.1 cm LVPWd: 1.5 cm LV mccormack. diameter/BSA (cm/m^2): 2.0 LV sys. diameter/BSA (cm/m^2): 1.4 LA A2 area: 18.6 cm2 RA long axis: 5.8 cm LA A4 area: 15.8 cm2 RA area: 13.4 cm2 LA length (vol): 5.7 cm RA vol: 26.2 ml LA vol: 44.1 ml RA : 11.9 ml/m2 LA vol index: 20.0 ml/m2 RVD1 (basal): 3.4 cm LVLs ap4: 6.6 cm LVLd ap2: 9.1 cm TAPSE_phl: 1.4 cm LVLs ap2: 8.0 cm Doppler Measurements & Calculations Ao V2 max: 259.2 cm/sec LVOT Max Solomon: 88.7 cm/sec Ao V2 mean: 181.2 cm/sec LV V1 max P.1 mmHg Ao max P.0 mmHg LV V1 VTI: 20.8 cm Ao mean P.2 mmHg ABRAM(I,D): 1.1 cm2 Ao V2 VTI: 58.7 cm ABRAM(V,D): 1.1 cm2 sev ratio: 0.35 ABRAM indexed to BSA (cm^2/m^2): 0.50 MV E max solomon: 97.9 cm/sec TR max solomon: 224.5 cm/sec MV A max solomon: 104.0 cm/sec TR max P.2 mmHg MV E/A: 0.94 PA V2 max: 94.1 cm/sec Med Peak E' Solomon: 9.3 cm/sec PA V2 mean: 59.8 cm/sec E/E' med: 10.5 PA mean P.0 mmHg Lat Peak E' Solomon: 10.7 cm/sec PA pr(Accel): 20.9 mmHg E/E' lat: 9.1 E/e' average: 9.8 MV dec time: 0.20 sec SV(LVOT): 65.2 ml AV VR_phl: 0.34 ABRAM(VTI)/BSA_phl: 0.50 Reading Physician:12:09 PM
== END ==
PROVIDERS: Family Provider Family Medicine; PCP Family Medicine; Referring Provider Internal Medicine Cardiovascular Disease; Visit Provider Internal Medicine Cardiovascular Disease
DX: Z95.2 Presence of prosthetic heart valve (principal); Z86.79 Personal history of other diseases of the circulatory system; I35.1 Nonrheumatic aortic (valve) insufficiency; I51.7 Cardiomegaly
CPT/HCPCS: 93306

== ENCOUNTER → 2023-06-28 13:27 | Outpatient (CLI) | payer MEDICARE, SELFPAY ==
[2022-07-28 12:15] VITALS: BMI 29.2
[2023-06-28 14:20] LABS: Add Manual Diff / Slide Review NO; Basophils Absolute Auto 0 /uL (0-100); Basophils Percent Auto 0.6 % (0-2); Eosinophils Absolute Auto 200 /uL (0-450); Eosinophils Percent Auto 2.5 % (2-4); Lymphocytes Absolute Auto 1600 /uL (1100-4500); Lymphocytes Percent Auto 24.4 % (25-40); Mean Corpuscular HGB Conc 34.2 % (30-36); Mean Corpuscular Hemoglobin 30.8 PG (26-34); Mean Corpuscular Volume 90.3 fL (80-100); Monocytes Absolute Auto 600 /uL (0-900); Monocytes Percent Auto 8.4 % (3-14); Neutrophils Absolute Auto 4300 /uL (1500-7000); Neutrophils Percent Auto 64.1 % (50-75); Platelet Count 192 X10^3/uL (150-400); Red Blood Cell Count 4.21 X10^6/uL (4.5-5.9); Red Cell Distribution Width 13.9 % (11.6-14.8); White Blood Cell Count 6.6 X10^3/uL (4.5-11.0)
[2023-06-28 15:04] LABS: BUN Creatinine Ratio 21.5 (6-22); Blood Urea Nitrogen 20 mg/dL (9-20); Calcium 9.3 mg/dL (8.4-10.2); Carbon Dioxide 26 mmol/L (22-32); Chloride 103 mmol/L (98-107); Estimated Glomerular Filt Rate > 60 mL/min (>60); Glucose 103 mg/dL (80-110); HEMOLYSIS < 15 (0-50); Potassium 4.7 mmol/L (3.4-5.1); Sodium 137 mmol/L (137-145)
== END ==
PROVIDERS: Family Provider Family Medicine; PCP Family Medicine; Referring Provider Internal Medicine; Visit Provider Internal Medicine
DX: T82.6XXD Infection and inflammatory reaction due to cardiac valve prosthesis, subsequent encounter (principal); I38 Endocarditis, valve unspecified; A49.8 Other bacterial infections of unspecified site
CPT/HCPCS: 36415; 80048; 85025

== ENCOUNTER → 2023-07-26 16:28 | Outpatient (CLI) | payer MEDICARE, SELFPAY ==
[2022-07-28 12:15] VITALS: BMI 29.2
== END ==
PROVIDERS: Family Provider Family Medicine; PCP Family Medicine; Visit Provider Physician Assistant
DX: R30.0 Dysuria (principal); R39.15 Urgency of urination
CPT/HCPCS: 87077; 87086; 87186

== ENCOUNTER 2023-07-26 17:22 | Emergency (ER) | payer MEDICARE, SELFPAY ==
[2022-07-28 12:15] VITALS: BMI 29.2
[2023-07-26] VITALS (8 sets, daily range): BP systolic 145–176; BP diastolic 75–94; PULSE 75–81; RESP 16–25; TEMP 36.7; O2SAT 94–99; BMI 29.9
--- NOTE | 2023-07-26 18:24 | ED_ITS ---
HPI - General Adult General Chief complaint: Urogenital-Male Stated complaint: poss urinary block/[facility] Time Seen by Provider: 07/26/23 18:01 Source: patient Mode of arrival: Ambulatory History of Present Illness HPI narrative: Patient is a 78-year-old male. For the past 3 days has had urinary frequency and urgency. A couple days ago he did have an episode of chills. He states he is also feeling like he is not emptying his bladder. No constipation symptoms. No vomiting. No chest pain or shortness of breath. He has had 1 urinary tract infection in the past but that was several years ago. He is having foul- smelling urine and cloudy urine. He went to the walk-in clinic. Had a urinalysis performed and was sent to the emergency department for further evaluation. Related Data Home Medications Medication Instructions Recorded Confirmed calcium carbonate 500 mg-vitamin 1 tab PO BID 05/11/21 07/26/23 D3 10 mcg (400 unit) tablet (Calcium 500 + D) acetaminophen 325 mg tablet 650 mg PO TID PRN Pain (Scale 03/22/22 07/26/23 Score 4-6) atorvastatin 40 mg tablet 40 mg PO BEDTIME 11/03/22 07/26/23 lisinopril 20 mg tablet 10 mg PO BID 11/03/22 07/26/23 amoxicillin 500 mg capsule 500 mg PO BID 05/16/23 07/26/23 Previous Rx's Medication Instructions Recorded amlodipine 5 mg tablet 5 mg PO DAILY #90 tabs 05/05/22 omeprazole 20 mg capsule,delayed 20 mg PO QDAY #90 caps 08/10/22 release metformin 500 mg tablet See Rx Instructions .Route 10/14/22 .COMPLEX #360 tabs celecoxib 200 mg capsule See Rx Instructions .Route 11/24/22 .COMPLEX #90 caps tamsulosin 0.4 mg capsule 0.4 mg PO BEDTIME #90 caps 04/29/23 alprazolam 0.5 mg tablet 0.5 mg PO DAILY PRN Anxiety #30 06/07/23 tabs gabapentin 600 mg tablet 300 mg (1/2 x 600 mg) PO BEDTIME 06/21/23 PRN pain #60 tabs cephalexin 500 mg capsule 500 mg PO BID 7 days #14 caps 07/26/23 Allergies Allergy/AdvReac Type Severity Reaction Status Date / Time gentamicin [GENTAMICIN] Allergy Severe kidney Verified 07/26/23 16:37 failure Review of Systems Constitutional Constitutional: Reports system reviewed and no additional complaints, except as documented Cardiovascular Cardiovascular: Reports system reviewed and no additional complaints, except as documented Gastrointestinal Gastrointestinal: Reports system reviewed and no additional complaints, except as documented Genitourinary Genitourinary: Reports system reviewed and no additional complaints, except as documented Integumentary/Breasts Skin/Breast: Reports system reviewed and no additional complaints, except as documented Patient History Medical History Hamstring tendinitis at origin Tendinopathy of gluteal region Trochanteric bursitis, left hip Aortic aneurysm Splenic infarction On antibiotic therapy Endocarditis (2013) Osteoarthritis LUISA on CPAP Degenerative joint disease (DJD) of hip Lumbar radiculopathy Facet arthropathy, lumbar Multilevel spinal stenosis Herniated nucleus pulposus, L3-4 left Sciatica Generalized weakness Pneumonia (2013) Shoulder pain (~1979) Trigger finger (~1992) Type 2 diabetes mellitus Heart attack (2013) Colon polyps (2014) Hemorrhoids (~1994) Hearing loss Tinnitus Rosacea (2004) CTS (carpal tunnel syndrome) (~1992) Anxiety (1994) Aortic stenosis (2013) Thrombocytopenia (10/26/17) Temporary low platelet count (10/26/17) Impaired fasting glucose (10/13/16) Right knee sprain Atypical chest pain Surgical History History of total left hip arthroplasty History of vasectomy Hx of bilateral cataract extraction H/O aortic valve replacement with porcine valve History of aortic valve replacement (2013) History of quadruple bypass (2013) History of hand surgery (~1994) History of hand surgery (~1991) History of shoulder surgery (~1984) Anesthesia History of tonsillectomy (1950) Family History Father Heart disease Mother High cholesterol Mental health problem Stroke Dementia Social History marital status: household members: spouse Smoking Status: Former smoker alcohol intake: current substance use type: does not use Smoking Status: Former smoker alcohol intake frequency: a few times a month Substance Use Type: does not use Exam Initial Vital Signs Initial Vital Signs: Vital Signs Temperature 98.0 F 07/26/23 17:26 Pulse Rate 81 07/26/23 17:26 Respiratory Rate 16 07/26/23 17:26 Blood Pressure 161/88 H 07/26/23 17:26 Pulse Oximetry 99 07/26/23 17:26 Oxygen Delivery Method Room Air 07/26/23 17:26 HENMT Head: normal to inspection and normocephalic Resp Effort & Inspection: normal respiratory effort Cardio Rate: regular rate GI Inspection: non-distended Skin General: no rashes or lesions noted Extrem General: normal to inspection Course Orders Ordered: ED Orders 07/26/23 18:28 Urine Microscopic Stat 07/26/23 19:15 Basic Metabolic Panel Stat Complete Blood Count AUTO DIFF Stat Discontinued Medications Cephalexin HCl (Cephalexin 250 Mg Capsule) 500 mg PO NOW ONE Stop: 07/26/23 18:49 Last Admin: 07/26/23 19:12 Dose: 500 mg Documented By: XIOMY Vital Signs Vital signs: Vital Signs - 8 hr 07/26/23 17:26 07/26/23 18:02 07/26/23 18:02 Temperature 98.0 F Pulse Rate 81 75 Respiratory Rate 16 Blood Pressure 161/88 H 152/75 H Pulse Oximetry 99 98 Oxygen Delivery Method Room Air Medical Decision Making Medical Records Medical records reviewed: Yes I reviewed the patient's medical records. Lab Data 07/26/23 19:15 07/26/23 19:15 Labs: Lab Results 07/26/23 Range/Units 18:28 Urine RBC None seen (0-5/HPF) Urine WBC 10-30/hpf H (0-5/HPF) Ur Squamous Epith Cells 0-1 /hpf (0-5/HPF) Urine Bacteria Many (>30) H (None) Ur Culture Indicated? Specimen cultured MDM Narrative Medical decision making narrative: Urinalysis from the walk-in clinic and the micro obtained today are consistent with a urinary tract infection. A bladder scan shows postvoid residual of only 100 cc. Patient is emptying his bladder. Review of his medical record shows that a couple years ago he did have a Klebsiella UTI. Was resistant to Bactrim and Macrobid. Today we will place him on Keflex. I have low suspicion for pyelonephritis. He tolerated a dose of oral antibiotic here in the ER. Will discharge home with a prescription for the remainder of the course. He was given return precautions. He expressed understanding and agreement. Discharge Plan Departure Patient Disposition: Home Clinical Impression: Urinary tract infection Instructions: DI for Urinary Tract Infection (UTI) Activity Restrictions/Additional Instructions: A urine culture was pending at the time of your discharge. We will contact you if we need to change the antibiotic based on the results of this. It does take 2 or 3 days for this test to result. Take the antibiotics as directed. Return to the emergency department for new or worsening symptoms. I do recommend that you talk with your primary doctor about the indications for referral to see Urology Prescriptions: New cephalexin 500 mg capsule 500 mg PO BID 7 Days Qty: 14 0RF No Action calcium carbonate-vitamin D3 [Calcium 500 + D] 500 mg(1,250mg) -400 unit tablet 1 tab PO BID amoxicillin 500 mg capsule 500 mg PO BID amlodipine 5 mg tablet 5 mg PO DAILY Qty: 90 3RF omeprazole 20 mg capsule,delayed release(DR/EC) 20 mg PO QDAY Qty: 90 3RF metformin 500 mg tablet See Rx Instructions .ROUTE .COMPLEX Qty: 360 3RF Dose Instruction: TAKE 2 TABLETS BY MOUTH TWICE DAILY Rx Instructions: TAKE 2 TABLETS BY MOUTH TWICE DAILY celecoxib 200 mg capsule See Rx Instructions .ROUTE .COMPLEX Qty: 90 3RF Dose Instruction: TAKE ONE CAPSULE BY MOUTH ONE TIME DAILY Rx Instructions: TAKE ONE CAPSULE BY MOUTH ONE TIME DAILY tamsulosin 0.4 mg capsule 0.4 mg PO BEDTIME Qty: 90 0RF alprazolam 0.5 mg tablet 0.5 mg PO DAILY PRN (Reason: Anxiety) Qty: 30 0RF gabapentin 600 mg tablet 300 mg PO BEDTIME PRN (Reason: pain) Qty: 60 0RF acetaminophen 325 mg tablet 650 mg PO TID PRN (Reason: Pain (Scale Score 4-6)) atorvastatin 40 mg tablet 40 mg PO BEDTIME lisinopril 20 mg tablet 10 mg PO BID Referrals: Orion Cisse MD [Primary Care Provider] - Stand Alone Forms: Patient Portal/API
[2023-07-26 18:38] LABS: Bacteria Urine Many (>30); RBC Urine None Seen (0-5/HPF); WBC Urine 10-30/HPF (0-5/HPF)
[2023-07-26 18:39] LABS: Culture Indicated Urine Specimen Cultured; Squamous Epithelial Cell Urine 0-1 /HPF (0-5/HPF)
[2023-07-26] MEDS: cephALEXin 250 MG CAPSULE 500 MG PO (19:12)
[2023-07-26 19:21] LABS: Add Manual Diff / Slide Review NO; Basophils Absolute Auto 0 /uL (0-100); Basophils Percent Auto 0.5 % (0-2); Eosinophils Absolute Auto 100 /uL (0-450); Eosinophils Percent Auto 0.7 % (2-4); Hematocrit 36.3 % (41-53); Hemoglobin 12.6 g/dL (13.5-17.5); Lymphocytes Absolute Auto 1400 /uL (1100-4500); Lymphocytes Percent Auto 15.7 % (25-40); Mean Corpuscular HGB Conc 34.7 % (30-36); Mean Corpuscular Volume 89.4 fL (80-100); Monocytes Absolute Auto 1000 /uL (0-900); Monocytes Percent Auto 11.1 % (3-14); Neutrophils Absolute Auto 6400 /uL (1500-7000); Platelet Count 147 X10^3/uL (150-400); Red Blood Cell Count 4.07 X10^6/uL (4.5-5.9); Red Cell Distribution Width 13.6 % (11.6-14.8); White Blood Cell Count 8.9 X10^3/uL (4.5-11.0)
[2023-07-26 19:26] LABS: BUN Creatinine Ratio 19.8 (6-22); Blood Urea Nitrogen 18 mg/dL (9-20); Calcium 9.2 mg/dL (8.4-10.2); Carbon Dioxide 26 mmol/L (22-32); Chloride 100 mmol/L (98-107); Estimated Glomerular Filt Rate > 60 mL/min (>60); Glucose 125 mg/dL (80-110); HEMOLYSIS < 15 (0-50); Potassium 4.1 mmol/L (3.4-5.1); Sodium 133 mmol/L (137-145)
== END 2023-07-26 19:44 | disposition home or self-care (01) ==
PROVIDERS: Emergency Provider Emergency Medicine; Family Provider Family Medicine; PCP Family Medicine
DX: N39.0 Urinary tract infection, site not specified (principal); Z87.891 Personal history of nicotine dependence; R30.0 Dysuria; R39.15 Urgency of urination
CPT/HCPCS: 51798; 80048; 81015; 85025; 87077; 87086; 87186; 99283

== ENCOUNTER 2023-10-27 07:47 | Outpatient (CLI) | payer MEDICARE, SELFPAY ==
[2023-08-03 10:00] VITALS: BMI 29.2
[2023-10-27] VITALS (8 sets, daily range): BP systolic 146–166; BP diastolic 65–77; PULSE 55–62; RESP 12–17; TEMP 36.6; O2SAT 99–100
--- NOTE | 2023-10-27 08:45 | DI.RAD.S_ITS ---
PROCEDURE: PAIN L/S TRANSFORAMINAL INJECT INDICATIONS: stenosis COMPARISON: None. FINDINGS: Fluoroscopic spot filming was performed to verify placement of spinal needles at the left L3-L4 level(s), as labeled on the films. Appropriate location(s) of the needle tip(s) was confirmed by injection of iodinated contrast. IMPRESSION: Intraoperative guidance provided. Dictated by: Elijah Singh M.D. on 10/27/2023 at 22:13 Approved by: Elijah Singh M.D. on 10/27/2023 at 22:14
[2023-10-27] MEDS: MIDAZOLAM 2 MG/2 ML VIAL IV (09:00)
[2023-10-27] MEDS: BUPIVACAINE 0.25% (PF) VIAL 2 ML INJ (09:09)
[2023-10-27] MEDS: iopamidoL 15 ML VIAL 3 ML INJ (09:09)
[2023-10-27] MEDS: BETAMETHASONE 30 MG/5 ML MDV 6 MG INJ (09:10)
[2023-10-27] MEDS: DEXAMETHASONE 10 MG/ML VIAL INJ (09:10)
--- NOTE | 2023-10-27 09:27 | P.PCN_ITS ---
Date/Time/Diagnoses Date of procedure: 10/27/23 Time of procedure: 09:27 Pre-procedure diagnosis: 1. FORAMINAL STENOSIS WITH LE SYMPTOMS Post-procedure diagnosis: same Procedure Notes Procedure: 1. FLUOROSCOPICALLY GUIDED CONTRAST CONTROLLED TRANSFORAMINAL EPIDURAL STEROID INJECTION - LEFT L4/5 Indications: Hugo is referred by Dr. Cisse for treatment of Foraminal Stenosis with Left LE Symptoms Physician: Shoaib Mccord Total Fluoroscopy time (seconds): 22 Total sedation minutes: 22 Complications: none Procedure in detail & Post-procedure care: FINDINGS Foraminal Nerve Root Compression secondary to disc disease and facet hypertrophy DESCRIPTION OF PROCEDURE Following review of allergy and review of potential side effects and complications, including, but not necessarily limited to, infection, allergic reaction, local tissue breakdown, stroke, temporary or permanent nerve injury, paralysis, and possible , the patient indicated that the patient understood and agreed to proceed. An informed consent document was signed by the patient, witnessed by a nurse, and placed in the patient's chart. Additionally, other treatment options including medications, modalities, and physical therapy were reviewed with the patient. After review of previous anaesthesic history and IV conscious sedation the patient was deemed safe to proceed with today?s procedure with IV conscious sedation as ASA class II designation. Safety time-out was performed to confirm patient ID, procedure to be performed and site of procedure. IV sedation was accomplished with a combination of 2mg of Versed administered by the RN after DO order, titrated to patient comfort during the course of the procedure while the patient remained responsive to all verbal commands In the prone position following sterile prep and drape of the lumbar region, the left L4/5 posterior neuroforamen was identified fluoroscopically. The skin was anesthetized via a 25-gauge 1.5-inch needle with 1% lidocaine solution. At this point, a 25-gauge 3.5-inch spinal needle was atraumatically introduced and advanced under fluoroscopic guidance through the posterior left L4/5 neuroforamen to approximately the anterior aspect of the canal. Depth was confirmed on lateral view. Following negative aspiration, injection of approximately 1.5 cc of Isovue 200 under live fluoroscopy in the AP view confirmed excellent flow along the nerve root, into the epidural space without vascular or intrathecal uptake observed Radiological data, including multiple fluoroscopic views of the lumbosacral spine, reveal a spinal needle at the left L4/5 posterior neuroforamen. Subsequent views show flow of contrast material flowing superiorly and inferiorly along the nerve root confirming epidural flow. Subsequently, a test dose of 1.5 cc of 1% lidocaine solution was administered and patient was observed for two minutes for signs or symptoms of complications, including abdominal pain, shortness of breath, bilateral upper or lower extremity weakness, nausea and vomiting, prior to steroid injection. At this point, a total of 2cc or 10mg of dexamethasone and 6mg of betamethasone was injected without incident. The procedure tolerated the procedure well without signs or symptoms of complications prior to transfer to the recovery area continued monitoring without incident. The patient was then transferred to the recovery area where they were observed for an appropriate time after the injection. The patient reported a VAS score of 7 prior to the procedure and a post- procedure VAS of 0. POST OP INSTRUCTIONS The patient was provided a Pain Log to continue to record their response to the target-specific procedure prior to follow-up visit with their referring physician. Additionally, specific post-injection care instructions and a contact number to our office were provided if concerns arise regarding possible complications associated with the procedure are suspected.
== END 2023-10-27 09:40 | disposition home or self-care (01) ==
PROVIDERS: PCP Family Medicine; Referring Provider Physical Medicine & Rehabilitation; Visit Provider Physical Medicine & Rehabilitation
DX: M48.061 Spinal stenosis, lumbar region without neurogenic claudication (principal); M51.16 Intervertebral disc disorders with radiculopathy, lumbar region; M47.26 Other spondylosis with radiculopathy, lumbar region
CPT/HCPCS: 64483; 99152; 99153; J0702; J1100; J2250; J3490

== ENCOUNTER → 2023-12-05 08:33 | Outpatient (CLI) | payer MEDICARE, SELFPAY ==
[2023-08-03 10:00] VITALS: BMI 29.2
[2023-12-05 09:50] LABS: Hemoglobin A1C% w Est Avg Glu 6.4 % (4.0-6.0)
[2023-12-05 09:51] LABS: Alanine Aminotransferase 26 IU/L (<50); Albumin 4.3 g/dL (3.5-5.0); Alkaline Phosphatase 91 U/L (38-126); Aspartate Aminotransferase 29 IU/L (17-59); BUN Creatinine Ratio 18.4 (6-22); Bilirubin Total 0.7 mg/dL (0.2-1.3); Blood Urea Nitrogen 19 mg/dL (9-20); Calcium 9.1 mg/dL (8.4-10.2); Carbon Dioxide 25 mmol/L (22-32); Chloride 107 mmol/L (98-107); Cholesterol 142 mg/dL (140-199); Estimated Glomerular Filt Rate > 60 mL/min (>60); Globulin 2.1 g/dL (1.7-4.1); Glucose 131 mg/dL (80-110); HDL Cholesterol 45 mg/dL (40-60); HEMOLYSIS < 15 (0-50); LDL Cholesterol Calculated 68 mg/dL (<100); Potassium 4.8 mmol/L (3.4-5.1); Sodium 138 mmol/L (137-145); Total Protein 6.4 g/dL (6.3-8.2); Triglycerides 147 mg/dL (35-150)
[2023-12-05 10:40] LABS: Microalbumin Urine Random 2.9 mg/dL (0-1.6)
[2023-12-05 10:41] LABS: Creatinine Urine Random 110.8 mg/dL; Microalbumi Creatinin Ratio Ur 26.1 ug/mg CR (<30)
== END ==
PROVIDERS: PCP Family Medicine; Referring Provider Family Medicine; Visit Provider Family Medicine
DX: E78.2 Mixed hyperlipidemia (principal); E11.9 Type 2 diabetes mellitus without complications; I10 Essential (primary) hypertension
CPT/HCPCS: 36415; 80053; 80061; 82043; 82570; 83036

== ENCOUNTER → 2024-06-13 07:30 | Outpatient (CLI) | payer MEDICARE, SELFPAY ==
[2023-08-03 10:00] VITALS: BMI 29.2
[2024-06-13 08:19] LABS: Add Manual Diff / Slide Review NO; Basophils Absolute Auto 0 /uL (0-100); Basophils Percent Auto 0.9 % (0-2); Eosinophils Absolute Auto 200 /uL (0-450); Eosinophils Percent Auto 3.9 % (2-4); Hematocrit 38.7 % (41-53); Hemoglobin 13.2 g/dL (13.5-17.5); Lymphocytes Absolute Auto 1600 /uL (1100-4500); Lymphocytes Percent Auto 29.6 % (25-40); Mean Corpuscular HGB Conc 34.2 % (30-36); Mean Corpuscular Hemoglobin 31.8 PG (26-34); Mean Corpuscular Volume 92.8 fL (80-100); Monocytes Absolute Auto 600 /uL (0-900); Monocytes Percent Auto 10.3 % (3-14); Neutrophils Absolute Auto 3000 /uL (1500-7000); Neutrophils Percent Auto 55.3 % (50-75); Platelet Count 178 X10^3/uL (150-400); Red Blood Cell Count 4.16 X10^6/uL (4.5-5.9); Red Cell Distribution Width 13.6 % (11.6-14.8); White Blood Cell Count 5.4 X10^3/uL (4.5-11.0)
[2024-06-13 08:29] LABS: Hemoglobin A1C% w Est Avg Glu 6.1 % (4.0-6.0)
[2024-06-13 08:43] LABS: Alanine Aminotransferase 20 IU/L (<50); Albumin 4.2 g/dL (3.5-5.0); Alkaline Phosphatase 96 U/L (38-126); Aspartate Aminotransferase 26 IU/L (17-59); Bilirubin Total 0.6 mg/dL (0.2-1.3); Blood Urea Nitrogen 17 mg/dL (9-20); Calcium 9.4 mg/dL (8.4-10.2); Carbon Dioxide 24 mmol/L (22-32); Chloride 105 mmol/L (98-107); Cholesterol 140 mg/dL (140-199); Estimated Glomerular Filt Rate > 60 mL/min (>60); Globulin 2.1 g/dL (1.7-4.1); Glucose 132 mg/dL (80-110); HDL Cholesterol 44 mg/dL (40-60); HEMOLYSIS < 15 (0-50); LDL Cholesterol Calculated 66 mg/dL (<100); Sodium 136 mmol/L (137-145); Total Protein 6.3 g/dL (6.3-8.2); Triglycerides 149 mg/dL (35-150)
[2024-06-13 08:53] LABS: Creatinine Urine Random 102.82 mg/dL
[2024-06-13 08:58] LABS: Microalbumin Urine Random 4.7 mg/dL (0-1.6)
[2024-06-15 16:45] LABS: Prostate Specific Antigen Scrn 0.816 ng/mL (0.1-4.0)
== END ==
PROVIDERS: Physician Assistant; PCP Family Medicine; Referring Provider Family Medicine; Visit Provider Family Medicine
DX: E11.9 Type 2 diabetes mellitus without complications (principal); I10 Essential (primary) hypertension; E78.2 Mixed hyperlipidemia; Z12.5 Encounter for screening for malignant neoplasm of prostate; I33.0 Acute and subacute infective endocarditis; I25.10 Atherosclerotic heart disease of native coronary artery without angina pectoris; I71.40 Abdominal aortic aneurysm, without rupture, unspecified; Z95.2 Presence of prosthetic heart valve
CPT/HCPCS: 36415; 80053; 80061; 82043; 82570; 83036; 85025; G0103

== ENCOUNTER → 2024-06-28 07:02 | Outpatient (CLI) | payer MEDICARE, SELFPAY ==
[2023-08-03 10:00] VITALS: BMI 29.2
--- NOTE | 2024-06-28 07:04 | DI.US.S_ITS ---
PROCEDURE: US ABD AORTA ANEURYSM SCREEN INDICATIONS: INFRARENAL ABDOMINAL AORTIC ANEURYSM TECHNIQUE: Real time scanning was performed of the aorta and iliac arteries, with image documentation. COMPARISON: Outside Facility, US, US ABD AORTA ANEURYSM SCREEN, 07/04/2023, 10:20. FINDINGS: Aorta: There is a proximal abdominal aortic aneurysm seen measuring 3.5 cm AP with a width of 2.7 cm. The mid aorta measures 2.5 cm. The distal aorta demonstrates an aneurysm measuring 5.4 cm AP with a width of 4.7 cm and a length of 5.1 cm. Previously, this measured 3.8 cm AP by 3.8 cm, with a width of 3.8 cm. Iliac arteries: Right common iliac artery measures 1.4 cm. Left common iliac artery measures 1.5 cm. IMPRESSION: 2 areas of abdominal aortic aneurysm seen, with the most prominent seen distally measuring 5.4 cm AP. One year ago, this measured 3.8 cm AP. Dictated by: Paul Madison M.D. on 07/03/2024 at 10:42 Approved by: Paul Madison M.D. on 07/03/2024 at 10:43
== END ==
LOC: US 07:03
PROVIDERS: PCP Family Medicine; Referring Provider Surgery; Visit Provider Surgery
DX: I71.43 Infrarenal abdominal aortic aneurysm, without rupture (principal)
CPT/HCPCS: 76706

== ENCOUNTER → 2024-07-19 08:21 | Outpatient (CLI) | payer MEDICARE, SELFPAY ==
[2023-08-03 10:00] VITALS: BMI 29.2
--- NOTE | 2024-07-19 08:24 | DI.CT.S_ITS ---
PROCEDURE: CT ANGIO ABDOMEN PELVIS INDICATIONS: AAA W/O RUPTURE TECHNIQUE: After the administration of intravenous contrast, 2.5 mm thick sections acquired from the diaphragm to the symphysis. 10 mm maximum-intensity projection (MIP) reformats were then acquired. For radiation dose reduction, the following was used: automated exposure control. COMPARISON: None. FINDINGS: Image Quality: Diagnostic. Abdominal aorta and pelvic arteries: Infrarenal AAA measuring 3.7 cm in greatest transverse dimension (series 8, image 92) and 4.2 cm in greatest AP dimension (series 4, image 101). This is smaller than reported on prior abdominal ultrasound of 06/28/2024 at which time the measurements were likely overestimated due to obliquity of measurement sonographically. 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 True and false lumen measure upwards of 2.4 cm in greatest diameter. Left common iliac artery is patent with multifocal calcified plaque. Bilateral external iliac arteries are patent. Bilateral internal iliac arteries and associated branches are patent. Bilateral common femoral arteries are patent. Visualized segments of proximal SFA and profunda femoris arteries are patent. Visceral arteries: Celiac artery and associated branches are patent. SMA is patent. Two right renal arteries are noted which are patent. Single left renal artery is patent. DAYANA is patent. OTHER: Lower Chest: No significant findings. Liver: No solid mass. Gallbladder: No radiopaque gallstones or wall thickening. Biliary ducts: No biliary dilation. Pancreas: No focal mass lesion. No pancreatic duct dilatation. Spleen: Size is within normal limits. Adrenal Glands: No adrenal nodules. Kidneys and Ureters: No hydronephrosis. No solid mass. No complex renal cystic lesion which requires follow up. Stomach and Bowel: Small and large bowel appear normal in caliber without evidence of bowel obstruction. Normal-appearing appendix. Peritoneum: No abnormal intraperitoneal fluid. No free air. Ventral Wall: No hernia. Abdominal Nodes: No retroperitoneal or mesenteric adenopathy by size criteria. Vessels: Aorta and inferior vena cava are normal in size. PELVIS: Pelvic Organs: Unremarkable. Bladder: Unremarkable. Pelvic Nodes: No enlarged lymph nodes. Miscellaneous: No inguinal hernias are seen. Bones: No aggressive osseous abnormality. IMPRESSION: 1. Infrarenal AAA measuring upwards of 4.2 cm in greatest diameter. This is smaller than reported on prior abdominal ultrasound of 06/28/2024, the measurements of which were likely overestimated due to measuring obliquity of a tortuous abdominal aorta. 2. 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 Dictated by: Yang Carney M.D. on 07/19/2024 at 12:56 Approved by: Yang Carney M.D. on 07/19/2024 at 13:20
[2024-07-19 09:52] LABS: Estimated Glomerular Filt Rate > 60 mL/min (>60)
== END ==
PROVIDERS: Radiology Diagnostic Radiology; PCP Family Medicine; Referring Provider Surgery; Visit Provider Surgery
DX: I71.43 Infrarenal abdominal aortic aneurysm, without rupture
CPT/HCPCS: 36415; 74174; 82565; Q9967

== ENCOUNTER → 2024-09-17 06:58 | Outpatient (CLI) | payer MEDICARE, SELFPAY ==
[2023-08-03 10:00] VITALS: BMI 29.2
--- NOTE | 2024-09-17 | DI.ECHO.S_ITS ---
[facility] : : [id number] [place] [address] : : [id number] : : Phone: [phone] Echocardiogram Report + + :Name: SKYLER GONZALEZ Study Date: 09/17/2024 Height: 71.5 in: :[facility] ReadingLocation: Weight: 235 lb : : Gender: Male BSA: 2.3 m2 : :: 1945 Age: 79 yrs BP: 163/93 mmHg: :Reason For Study: ATHEROSCLEROTIC HEART DISEASE : :Ordering Physician: DENISHA, : :KEYUR Performed By: Rekha Dawkins : :Referring: KEYUR DUKES : + + Interpretation Summary 1) Normal left ventricular thickness, size, wall motion, and systolic function (EF 55-60%). 2) Upper normal right ventricular size with low normal function. 3) There is a bioprosthetic aortic valve that is well seated and opens well (mean gradient 26mmHg). There is trace aortic regurgitation. 4) The ascending aorta is mildly enlarged at 4.2cm. 5) Compared to the echo done 05/27/2023, mean gradient across bioprosthetic aortic valve has increased from 17mmHg to 26mmHg on this study. Procedure: A two-dimensional transthoracic echocardiogram with color flow and Doppler was performed. The study quality was technically adequate. Comparison is made with the echocardiogram of 05/27/2023. The patient was in sinus rhythm with heart rates between 58-71 bpm during the exam. Left Ventricle: The left ventricle is normal in size and wall thickness. The ejection fraction is estimated to be 55-60%. Left ventricular systolic function appears normal without focal wall motion abnormalities. Diastolic parameters suggest a relaxation abnormality of the left ventricle, consistent with probable normal filling pressures. Right Ventricle: The right ventricle is at the upper limits of normal in size. Right ventricular systolic function is at the lower limits of normal. Atria: The left atrium is moderately dilated. Right atrial size is normal. There is no Doppler evidence for an interatrial shunt. Mitral Valve: The mitral valve leaflets are mildly calcified. The mitral valve mean gradient is 2.0 mmHg. There is mild mitral regurgitation. Aortic Valve: There is a prosthetic aortic valve. The peak aortic velocity is 3.28 m/sec. The aortic valve mean gradient is 26 mmHg. The calculated aortic valve area is 1.1 cm2. There is trace aortic regurgitation. Tricuspid Valve: The tricuspid valve leaflets are thin and pliable. There is mild tricuspid regurgitation. The right ventricular systolic pressure is estimated to be at least 26 mmHg based on an estimated right atrial pressure of 3 mm Hg. Pulmonic Valve: The pulmonic valve is not well seen, but is grossly normal. There is mild pulmonic regurgitation. Great Vessels: The ascending aorta is mildly enlarged. The IVC is of normal diameter and collapses greater than 50% with a sniff. This suggests a low right atrial pressure of 3 mm Hg. Pericardium/ Pleura There is no pericardial effusion. There is no pleural effusion. MMode/2D Measurements & Calculations LVIDd: 4.3 cm LVOT diam: 2.2 cm LVIDs: 2.9 cm asc Aorta Diam: 4.2 cm FS: 32.1 % IVSd: 0.79 cm LVPWd: 1.1 cm LV mccormack. diameter/BSA (cm/m^2): 1.9 LV sys. diameter/BSA (cm/m^2): 1.3 LA A2 area: 27.9 cm2 RA long axis: 6.4 cm LA A4 area: 23.8 cm2 RA area: 22.1 cm2 LA length (vol): 6.5 cm RA vol: 64.6 ml LA vol: 87.0 ml RA : 28.4 ml/m2 LA vol index: 38.3 ml/m2 IVC diam: 1.5 cm RVD1 (basal): 4.1 cm RVD2 (mid): 3.6 cm TAPSE: 1.6 cm Doppler Measurements & Calculations Ao V2 max: 328.4 cm/sec LVOT Max Solomon: 95.7 cm/sec Ao V2 mean: 221.5 cm/sec LV V1 max P.7 mmHg Ao max P.6 mmHg LV V1 VTI: 21.5 cm Ao mean P.7 mmHg ABRAM(I,D): 1.2 cm2 Ao V2 VTI: 69.7 cm ABRAM(V,D): 1.1 cm2 sev ratio: 0.31 ABRAM indexed to BSA (cm^2/m^2): 0.51 MV E max solomon: 91.9 cm/sec TR max solomon: 241.2 cm/sec MV A max solomon: 96.9 cm/sec TR max P.3 mmHg MV E/A: 0.95 PA V2 max: 126.8 cm/sec Med Peak E' Solomon: 7.1 cm/sec PA V2 mean: 84.3 cm/sec E/E' med: 13.0 PA mean P.3 mmHg Lat Peak E' Solomon: 13.7 cm/sec PA pr(Accel): 43.0 mmHg E/E' lat: 6.7 E/e' average: 9.9 MV dec time: 0.29 sec MVA(VTI): 2.2 cm2 MV V2 mean: 65.5 cm/sec SV(LVOT): 81.4 ml MV mean P.0 mmHg MV V2 VTI: 36.4 cm Reading Physician:03:55 PM
[2024-09-17 08:09] LABS: BUN Creatinine Ratio 17.2 (6-22); Blood Urea Nitrogen 20 mg/dL (9-20); Carbon Dioxide 25 mmol/L (22-32); Chloride 105 mmol/L (98-107); Estimated Glomerular Filt Rate > 60 mL/min (>60); Glucose 129 mg/dL (80-110); HEMOLYSIS < 15 (0-50); Potassium 4.6 mmol/L (3.4-5.1); Sodium 138 mmol/L (137-145)
== END ==
PROVIDERS: PCP Family Medicine; Referring Provider Internal Medicine Cardiovascular Disease; Visit Provider Internal Medicine Cardiovascular Disease
DX: I77.89 Other specified disorders of arteries and arterioles (principal); I25.10 Atherosclerotic heart disease of native coronary artery without angina pectoris; I08.1 Rheumatic disorders of both mitral and tricuspid valves; Z95.2 Presence of prosthetic heart valve
CPT/HCPCS: 36415; 80048; 93306

== ENCOUNTER → 2024-12-10 07:18 | Outpatient (CLI) | payer MEDICARE, SELFPAY ==
[2024-11-15 08:33] VITALS: BMI 29.2
[2024-12-10 08:10] LABS: Hemoglobin A1C% w Est Avg Glu 5.9 % (4.0-6.0)
[2024-12-10 08:22] LABS: Cholesterol 162 mg/dL (140-199); HDL Cholesterol 48 mg/dL (40-60); LDL Cholesterol Calculated 79 mg/dL (<100); Triglycerides 174 mg/dL (35-150)
== END ==
PROVIDERS: PCP Family Medicine; Referring Provider Family Medicine; Visit Provider Family Medicine
DX: E11.9 Type 2 diabetes mellitus without complications (principal); N40.1 Benign prostatic hyperplasia with lower urinary tract symptoms; R35.0 Frequency of micturition
CPT/HCPCS: 36415; 80061; 83036

== ENCOUNTER 2025-02-06 09:49 | Emergency (ER) | payer MEDICARE, SELFPAY ==
[2024-11-15 08:33] VITALS: BMI 29.2
[2025-02-06] VITALS (9 sets, daily range): BP systolic 140–164; BP diastolic 65–73; PULSE 40–70; RESP 14–24; TEMP 36.5; O2SAT 98–100; BMI 32.1
--- NOTE | 2025-02-06 10:16 | DI.CT.S_ITS ---
PROCEDURE: CT ANGIO HEAD AND NECK INDICATIONS: weakness left leg TECHNIQUE: After the administration of intravenous contrast, 1 mm thick sections acquired from the aortic arch through the [place]. 3-dimensional tetxxof-eirwbzedw-yirjxmltex (MIP) and/or volume rendering reformats were acquired of the central intracranial vasculature and neck separately. For radiation dose reduction, the following was used: automated exposure control, adjustment of mA and/or kV according to patient size. COMPARISON: [facility], CT, CT ANGIO HEAD AND NECK, 03/22/2022, 14:02. FINDINGS: Image quality: Diagnostic. Cerebral CT Angiogram: Internal carotid arteries: No acute findings. Intracranial ICA are patent with no significant stenosis. No occlusion. No aneurysm. Anterior cerebral arteries: Unremarkable. No significant stenosis. No occlusion. No aneurysm. Middle cerebral arteries: Unremarkable. No significant stenosis. No occlusion. No aneurysm. Posterior cerebral arteries: Unremarkable. No significant stenosis. No occlusion. No aneurysm. Basilar artery: Unremarkable. No significant stenosis. No occlusion. No aneurysm. Vertebral arteries: Unremarkable as visualized. Dural venous sinuses: Unremarkable given phase of enhancement. Other: Arterial phase appearance of the brain parenchyma is unremarkable. Neck CT Angiogram: Internal carotid arteries: Atherosclerotic calcifications of the bilateral carotid bulbs with mild stenosis of the bilateral proximal ICAs, less than 50%. No significant stenosis. No dissection or occlusion. Common carotid arteries: Unremarkable. No significant stenosis. No dissection or occlusion. External carotid arteries: Unremarkable. No occlusion. Vertebral arteries: Unremarkable. No significant stenosis. No dissection or occlusion. Aortic Arch and Mediastinum: Partially visualized aortic arch unremarkable without evidence of aneurysm. Origins of the great vessels unremarkable. Other: Arterial phase soft tissues of the neck and chest are unremarkable. IMPRESSION: No significant intracranial arterial abnormality is seen. No significant abnormality is seen within the arteries of the neck. Any quantitative measurements of stenosis were performed using NASCET criteria. Dictated by: Madi King M.D. on 02/06/2025 at 11:51 Approved by: Madi King M.D. on 02/06/2025 at 11:56
--- NOTE | 2025-02-06 10:16 | DI.CT.S_ITS ---
PROCEDURE: CT HEAD/BRAIN WO CON INDICATIONS: weakness left leg since 1800 last night TECHNIQUE: Noncontrast 4.5 mm thick angled axial sections acquired from the foramen magnum to the vertex, with coronal and sagittal reformats. For radiation dose reduction, the following was used: automated exposure control, adjustment of mA and/or kV according to patient size. COMPARISON: [facility], CT, CT HEAD/BRAIN WO CON, 06/24/2022, 18:22. FINDINGS: Image quality: Diagnostic. CSF spaces: Basal cisterns are patent. No extra-axial fluid collections. The ventricles are symmetric in size and shape. Brain: No intracranial bleeds or mass effect. There is cerebral volume loss, with resultant ventricular and sulcal prominence. There are periventricular and deep white matter chronic small vessel ischemic changes. Small old left lacunar infarct. There is intracranial internal carotid artery atherosclerosis. Skull and face: Calvarium and visualized facial bones appear intact, without suspicious lesions. Sinuses: Visualized sinuses and mastoids are clear. IMPRESSION: No acute intracranial pathology. Dictated by: Madi King M.D. on 02/06/2025 at 11:49 Approved by: Madi King M.D. on 02/06/2025 at 11:51
--- NOTE | 2025-02-06 10:16 | DI.RAD.S_ITS ---
PROCEDURE: XR CHEST 1V INDICATIONS: Possible stroke TECHNIQUE: One view of the chest was acquired. COMPARISON: [facility], CR, XR CHEST 1V, 03/22/2022, 14:06. [facility], CR, XR CHEST 1V, 06/03/2019, 11:10. FINDINGS: Surgical changes and devices: Median sternotomy wires. Lungs and pleura: Lungs are clear. No pleural effusions or pneumothorax. Mediastinum: Mediastinal contours appear normal. Heart size is normal. Bones and chest wall: No suspicious bony lesions. Overlying soft tissues appear unremarkable. IMPRESSION: No acute cardiopulmonary abnormality is seen. Dictated by: Madi King M.D. on 02/06/2025 at 11:39 Approved by: Madi King M.D. on 02/06/2025 at 11:40
--- NOTE | 2025-02-06 10:25 | EKG_ITS ---
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
[2025-02-06 10:28] LABS: POC Glucose 157 mg/dL (70-99)
[2025-02-06 10:36] LABS: Add Manual Diff / Slide Review NO; Basophils Absolute Auto 0 /uL (0-100); Basophils Percent Auto 0.5 % (0-2); Eosinophils Absolute Auto 100 /uL (0-450); Hematocrit 38.2 % (41-53); Hemoglobin 13.2 g/dL (13.5-17.5); Lymphocytes Absolute Auto 1000 /uL (1100-4500); Lymphocytes Percent Auto 16.5 % (25-40); Mean Corpuscular HGB Conc 34.6 % (30-36); Mean Corpuscular Hemoglobin 31.9 PG (26-34); Mean Corpuscular Volume 92.2 fL (80-100); Monocytes Absolute Auto 600 /uL (0-900); Monocytes Percent Auto 10.5 % (3-14); Neutrophils Absolute Auto 4200 /uL (1500-7000); Neutrophils Percent Auto 70.5 % (50-75); Platelet Count 142 X10^3/uL (150-400); Red Blood Cell Count 4.15 X10^6/uL (4.5-5.9); Red Cell Distribution Width 13.7 % (11.6-14.8)
[2025-02-06 10:44] LABS: PTT Partial Thromboplastin Tim 29 SECONDS (25.1-36.5)
[2025-02-06 10:53] LABS: Alanine Aminotransferase 22 IU/L (<50); Albumin 4.5 g/dL (3.5-5.0); Alkaline Phosphatase 85 U/L (38-126); Aspartate Aminotransferase 25 IU/L (17-59); BUN Creatinine Ratio 15.5 (6-22); Bilirubin Total 0.6 mg/dL (0.2-1.3); Blood Urea Nitrogen 15 mg/dL (9-20); Calcium 9.2 mg/dL (8.4-10.2); Carbon Dioxide 24 mmol/L (22-32); Chloride 100 mmol/L (98-107); Creatine Kinase 125 U/L (55-170); Estimated Glomerular Filt Rate > 60 mL/min (>60); Globulin 2.2 g/dL (1.7-4.1); Glucose 160 mg/dL (70-99); HEMOLYSIS < 15 (0-50); Potassium 4.7 mmol/L (3.4-5.1); Sodium 131 mmol/L (137-145); Total Protein 6.7 g/dL (6.3-8.2)
--- NOTE | 2025-02-06 10:54 | ED.NEUROSD ---
HPI - Neuro Symptoms/Deficit General Chief Complaint: Neuro Symptoms/Deficit Stated Complaint: fell, pcp ref Lt leg pain- weak Time Seen by Provider: 02/06/25 10:35 Mode of arrival: Ambulatory History of Present Illness HPI Narrative: Patient is an 79-year-old male past medical history of hypertension hyperlipidemia diabetes AAA aortic valve replacement with porcine valve, TIA comes into the ED from home for evaluation of weakness. He states that last night had some left leg weakness, states he fell secondary to leg weakness, states that his left ankle and toe are in pain secondary to this has had a history of hip replacement to that left side. He states that he still feels a little weak, states this happened about a week ago. Does take full-dose aspirin. He does not take any other blood thinners. Denies any other symptoms such as headache visual disturbances chest pain shortness breath fever chills nausea vomiting abdominal pain or any other GI/ symptoms time. Related Data Home Medications ?Medication ?Instructions ?Recorded ?Confirmed calcium 500 mg (as 1 tab PO BID 05/11/21 02/05/25 carbonate)-vitamin D3 10 mcg (400 unit) tablet (Calcium 500 + D) acetaminophen 325 mg tablet 650 mg PO TID PRN Pain (Scale 03/22/22 02/05/25 Score 4-6) atorvastatin 40 mg tablet 40 mg PO BEDTIME 11/03/22 02/05/25 lisinopril 20 mg tablet 10 mg PO BID 11/03/22 02/05/25 melatonin 10 mg capsule 30 mg PO BEDTIME PRN 08/03/23 02/05/25 aspirin 325 mg tablet 325 mg PO DAILY 06/13/24 02/05/25 Previous Rx's ?Medication ?Instructions ?Recorded amlodipine 5 mg tablet 5 mg PO DAILY #90 tabs 05/05/22 tamsulosin 0.4 mg capsule 0.4 mg PO BEDTIME #90 caps 04/24/24 omeprazole 20 mg capsule,delayed 20 mg PO DAILY #90 caps 06/26/24 release metformin 500 mg tablet 1,000 mg (2 x 500 mg) PO BID #360 09/07/24 tabs amoxicillin 500 mg capsule 500 mg PO BID #180 caps 09/27/24 alprazolam 0.5 mg tablet 0.5 mg PO DAILY PRN Lumbar 11/06/24 radiculopathy #30 tabs trazodone 50 mg tablet 100 mg (2 x 50 mg) PO ONCE PM PRN 12/10/24 for insomnia #180 tabs Allergies Allergy/AdvReac Type Severity Reaction Status Date / Time gentamicin (GENTAMICIN) Allergy Severe kidney Verified 02/06/25 10:10 failure Review of Systems Review of Systems Narrative: General: Positive weakness Cooperative, well-developed, not in acute distress HEENT: Normocephalic, atraumatic, PERRLA, normal sclera, eyelids normal Neck: Active full range of motion, atraumatic Chest: Normal to inspection, negative crepitus, no overlying erythema ecchymosis Respiratory: Normal respiratory effort, not in acute respiratory distress, clear to auscultation bilaterally negative cough, wheeze, tachypnea, rhonchi, rales Cardiology: Regular rate rhythm negative gallop, murmur, rubs GI/: No tenderness to palpation, soft, non rigid, normal to inspection, exam deferred MSK: Positive left leg weakness Full active range of motion in all 4 extremities, atraumatic, no tenderness to palpation of any bony prominences Skin: No rashes or lesions noted Neuro: Alert awake oriented x3, moves all 4 extremities spontaneously, cranial nerves intact, able to answer all questions appropriately follows commands appropriately Psych: Cooperative, negative suicidal or homicidal ideations Patient History Medical History Hamstring tendinitis at origin Tendinopathy of gluteal region Trochanteric bursitis, left hip Aortic aneurysm Splenic infarction On antibiotic therapy Endocarditis (2013) Osteoarthritis LUISA on CPAP Degenerative joint disease (DJD) of hip Lumbar radiculopathy Facet arthropathy, lumbar Multilevel spinal stenosis Herniated nucleus pulposus, L3-4 left Sciatica Generalized weakness Pneumonia (2013) Shoulder pain (~1979) Trigger finger (~1992) Type 2 diabetes mellitus Heart attack (2013) Colon polyps (2014) Hemorrhoids (~1994) Hearing loss Tinnitus Rosacea (2004) CTS (carpal tunnel syndrome) (~1992) Anxiety (1994) Aortic stenosis (2013) Thrombocytopenia (10/26/17) Temporary low platelet count (10/26/17) Impaired fasting glucose (10/13/16) Right knee sprain Atypical chest pain Surgical History History of total left hip arthroplasty History of vasectomy Hx of bilateral cataract extraction H/O aortic valve replacement with porcine valve History of aortic valve replacement (2013) History of quadruple bypass (2013) History of hand surgery (~1994) History of hand surgery (~1991) History of shoulder surgery (~1984) Anesthesia History of tonsillectomy (1950) Family History Father Heart disease Mother High cholesterol Mental health problem Stroke Dementia Social History marital status: household members: spouse Smoking Status: Unknown if ever smoked alcohol intake: current substance use type: does not use Smoking Status: Unknown if ever smoked alcohol intake frequency: a few times a month Exam Initial Vital Signs Initial Vital Signs: Vital Signs Temperature 97.7 F 02/06/25 10:10 Pulse Rate 70 02/06/25 10:10 Respiratory Rate 14 02/06/25 10:10 Blood Pressure 157/72 H 02/06/25 10:10 Pulse Oximetry 99 02/06/25 10:10 Oxygen Delivery Method Room Air 02/06/25 10:10 Course Orders Ordered: ED Orders 02/06/25 10:16 CT angio head and neck Stat CT head/brain wo con Stat XR chest 1V Stat EKG-12 Lead Stat 02/06/25 10:29 Complete Blood Count AUTO DIFF Stat Comprehensive Metabolic Panel Stat PTT Partial Thromboplastin Ye Stat Prothrombin Time INR Stat Troponin & CK Cardiac Panel Stat 02/06/25 11:08 XR foot LT min 3V Stat 02/06/25 11:14 EKG-12 Lead Stat 02/06/25 11:30 Urinalysis and Microscopic Stat Urine Drug Screen, Rapid Stat Ondansetron HCl (Ondansetron 4 Mg/2 Ml Inj) 4 mg IV NOW PRN PRN Reason: Nausea And Vomiting Ondansetron HCl (Ondansetron 4 Mg Odt) 4 mg PO NOW PRN PRN Reason: Nausea And Vomiting Vital Signs Vital signs: Vital Signs - 8 hr 02/06/25 10:10 02/06/25 10:47 02/06/25 10:50 Temperature 97.7 F Pulse Rate 70 65 Respiratory Rate 14 21 Blood Pressure 157/72 H 164/73 H Pulse Oximetry 99 99 Oxygen Delivery Method Room Air 02/06/25 11:00 02/06/25 11:00 02/06/25 12:05 Temperature Pulse Rate 45 L 41 L Respiratory Rate 18 Blood Pressure 151/67 H Pulse Oximetry 99 100 Oxygen Delivery Method Room Air 02/06/25 12:05 Temperature Pulse Rate Respiratory Rate Blood Pressure 159/70 H Pulse Oximetry Oxygen Delivery Method MDM - Neuro Symptoms/Deficit Differential Diagnosis Differential diagnosis: Likely subarachnoid hemorrhage, cerebrovascular accident, transient cerebral ischemia and other (Intracranial hemorrhage, ACS, pneumonia, electrolyte abnormality) Lab Data 02/06/25 10:29 02/06/25 10:29 Labs: Lab Results 02/06/25 02/06/25 02/06/25 Range/Units 10:27 10:29 11:30 WBC 6.0 (4.5-11.0) X10^3/uL RBC 4.15 L (4.5-5.9) X10^6/uL Hgb 13.2 L (13.5-17.5) g/dL Hct 38.2 L (41-53) % MCV 92.2 (80-100) fL MCH 31.9 (26-34) PG MCHC 34.6 (30-36) % RDW 13.7 (11.6-14.8) % Plt Count 142 L (150-400) X10^3/uL Neut % (Auto) 70.5 (50-75) % Lymph % (Auto) 16.5 L (25-40) % [place] % (Auto) 10.5 (3-14) % Eos % (Auto) 2.0 (2-4) % Baso % (Auto) 0.5 (0-2) % Neut # (Auto) 4200 (7308-0888) /uL Lymph # (Auto) 1000 L (9373-3329) /uL [place] # (Auto) 600 (0-900) /uL Eos # (Auto) 100 (0-450) /uL Baso # (Auto) 0 (0-100) /uL PT 11.0 (9.4-12.5) SECONDS INR 1.0 (0.9-1.3) APTT 29 (25.1-36.5) SECONDS Sodium 131 L (137-145) mmol/L Potassium 4.7 (3.4-5.1) mmol/L Chloride 100 (98-107) mmol/L Carbon Dioxide 24 (22-32) mmol/L BUN 15 (9-20) mg/dL Creatinine 0.97 (0.66-1.25) mg/dL Estimated GFR > 60 (>60) mL/min BUN/Creatinine Ratio 15.5 (6-22) Glucose 160 H (70-99) mg/dL POC Whole Bld Glucose 157 H (70-99) mg/dL Calcium 9.2 (8.4-10.2) mg/dL Total Bilirubin 0.6 (0.2-1.3) mg/dL AST 25 (17-59) IU/L ALT 22 (<50) IU/L Alkaline Phosphatase 85 (38-126) U/L Total Creatine Kinase 125 (55-170) U/L Troponin I < 0.012 (0.01-0.034) ng/mL Total Protein 6.7 (6.3-8.2) g/dL Albumin 4.5 (3.5-5.0) g/dL Globulin 2.2 (1.7-4.1) g/dL Albumin/Globulin Ratio 2.0 (1.0-2.8) Urine Color Yellow Urine Appearance Clear Urine pH 7.0 (4.5-8.0) Ur Specific [place] <=1.005 (1.000-1.035) Urine Protein Negative (Negative) Urine Glucose (UA) Negative (Negative) g/dL Urine Ketones Negative (NEGATIVE) Urine Occult Blood Negative (Negative) Urine Nitrate Negative (Negative) Urine Bilirubin Negative (NEGATIVE) Urine Urobilinogen 0.2 (0.2) E.U./dL Ur Leukocyte Esterase Negative (NEGATIVE) Urine RBC None seen (0-5/HPF) Urine WBC None seen (0-5/HPF) Ur Squamous Epith Cells 0-1 /hpf (0-5/HPF) Urine Bacteria None seen (None) Ur Culture Indicated? Cult not indicated Vol Urine Centrifuged 10ml (spun) U Opiates 300ng/mL cut Negative (Negative) Ur Oxycodone Screen Negative (Negative) Urine Methadone Screen Negative (Negative) Ur Barbiturates Screen Negative (Negative) U Tricyclic Antidepress Negative (Negative) Ur Phencyclidine Scrn Negative (Negative) Ur Amphetamines Screen Negative (Negative) U Methamphetamines Scrn Negative (Negative) Ur MDMA Scrn (Ecstasy) Negative (Negative) U Benzodiazepines Scrn Negative (Negative) Urine Cocaine Screen Negative (Negative) U Marijuana (THC) Screen Negative (Negative) Urine Specific [place] (Normal) Ur Creatinine (Normal) 02/06/25 Range/Units 11:30 WBC (4.5-11.0) X10^3/uL RBC (4.5-5.9) X10^6/uL Hgb (13.5-17.5) g/dL Hct (41-53) % MCV (80-100) fL MCH (26-34) PG MCHC (30-36) % RDW (11.6-14.8) % Plt Count (150-400) X10^3/uL Neut % (Auto) (50-75) % Lymph % (Auto) (25-40) % [place] % (Auto) (3-14) % Eos % (Auto) (2-4) % Baso % (Auto) (0-2) % Neut # (Auto) (2301-9551) /uL Lymph # (Auto) (4116-0848) /uL [place] # (Auto) (0-900) /uL Eos # (Auto) (0-450) /uL Baso # (Auto) (0-100) /uL PT (9.4-12.5) SECONDS INR (0.9-1.3) APTT (25.1-36.5) SECONDS Sodium (137-145) mmol/L Potassium (3.4-5.1) mmol/L Chloride (98-107) mmol/L Carbon Dioxide (22-32) mmol/L BUN (9-20) mg/dL Creatinine (0.66-1.25) mg/dL Estimated GFR (>60) mL/min BUN/Creatinine Ratio (6-22) Glucose (70-99) mg/dL POC Whole Bld Glucose (70-99) mg/dL Calcium (8.4-10.2) mg/dL Total Bilirubin (0.2-1.3) mg/dL AST (17-59) IU/L ALT (<50) IU/L Alkaline Phosphatase (38-126) U/L Total Creatine Kinase (55-170) U/L Troponin I (0.01-0.034) ng/mL Total Protein (6.3-8.2) g/dL Albumin (3.5-5.0) g/dL Globulin (1.7-4.1) g/dL Albumin/Globulin Ratio (1.0-2.8) Urine Color Urine Appearance Urine pH Normal (4.5-8.0) Ur Specific [place] (1.000-1.035) Urine Protein (Negative) Urine Glucose (UA) (Negative) g/dL Urine Ketones (NEGATIVE) Urine Occult Blood (Negative) Urine Nitrate (Negative) Urine Bilirubin (NEGATIVE) Urine Urobilinogen (0.2) E.U./dL Ur Leukocyte Esterase (NEGATIVE) Urine RBC (0-5/HPF) Urine WBC (0-5/HPF) Ur Squamous Epith Cells (0-5/HPF) Urine Bacteria (None) Ur Culture Indicated? Vol Urine Centrifuged U Opiates 300ng/mL cut (Negative) Ur Oxycodone Screen (Negative) Urine Methadone Screen (Negative) Ur Barbiturates Screen (Negative) U Tricyclic Antidepress (Negative) Ur Phencyclidine Scrn (Negative) Ur Amphetamines Screen (Negative) U Methamphetamines Scrn (Negative) Ur MDMA Scrn (Ecstasy) (Negative) U Benzodiazepines Scrn (Negative) Urine Cocaine Screen (Negative) U Marijuana (THC) Screen (Negative) Urine Specific [place] Normal (Normal) Ur Creatinine Normal (Normal) Imaging Data CT scan - head: Radiologist's Impression: [place] [address] CT Scan Report Signed Patient: Hugo Hansen MR#: [id number] : 1945 Acct:[id number] Age/Sex: 79 / M Date of Service: 02/06/25 Loc: ED Accession Number: [id number] Procedure: CT head/brain wo con Ordering Provider: Igor Dodson D.O. PROCEDURE: CT HEAD/BRAIN WO CON INDICATIONS: weakness left leg since 1800 last night TECHNIQUE: Noncontrast 4.5 mm thick angled axial sections acquired from the foramen magnum to the vertex, with coronal and sagittal reformats. For radiation dose reduction, the following was used: automated exposure control, adjustment of mA and/or kV according to patient size. COMPARISON: [facility], CT, CT HEAD/BRAIN WO CON, 06/24/2022, 18:22. FINDINGS: Image quality: Diagnostic. CSF spaces: Basal cisterns are patent. No extra-axial fluid collections. The ventricles are symmetric in size and shape. Brain: No intracranial bleeds or mass effect. There is cerebral volume loss, with resultant ventricular and sulcal prominence. There are periventricular and deep white matter chronic small vessel ischemic changes. Small old left lacunar infarct. There is intracranial internal carotid artery atherosclerosis. Skull and face: Calvarium and visualized facial bones appear intact, without suspicious lesions. Sinuses: Visualized sinuses and mastoids are clear. IMPRESSION: No acute intracranial pathology. CTA - brain/neck: Radiologist's Impression: [address] [address] [address] Scan Report Signed Patient: Hugo Hansen MR#: [id number] : 1945 Acct:[id number] Age/Sex: 79 / M Date of Service: 02/06/25 Loc: ED Accession Number: [id number] Procedure: CT angio head and neck Ordering Provider: Igor Dodson D.O. PROCEDURE: CT ANGIO HEAD AND NECK INDICATIONS: weakness left leg TECHNIQUE: After the administration of intravenous contrast, 1 mm thick sections acquired from the aortic arch through the [place]. 3-dimensional jrlaecc-uhwpxeuob-samcpnosft (MIP) and/or volume rendering reformats were acquired of the central intracranial vasculature and neck separately. For radiation dose reduction, the following was used: automated exposure control, adjustment of mA and/or kV according to patient size. COMPARISON: [facility], CT, CT ANGIO HEAD AND NECK, 03/22/2022, 14:02. FINDINGS: Image quality: Diagnostic. Cerebral CT Angiogram: Internal carotid arteries: No acute findings. Intracranial ICA are patent with no significant stenosis. No occlusion. No aneurysm. Anterior cerebral arteries: Unremarkable. No significant stenosis. No occlusion. No aneurysm. Middle cerebral arteries: Unremarkable. No significant stenosis. No occlusion. No aneurysm. Posterior cerebral arteries: Unremarkable. No significant stenosis. No occlusion. No aneurysm. Basilar artery: Unremarkable. No significant stenosis. No occlusion. No aneurysm. Vertebral arteries: Unremarkable as visualized. Dural venous sinuses: Unremarkable given phase of enhancement. Other: Arterial phase appearance of the brain parenchyma is unremarkable. Neck CT Angiogram: Internal carotid arteries: Atherosclerotic calcifications of the bilateral carotid bulbs with mild stenosis of the bilateral proximal ICAs, less than 50%. No significant stenosis. No dissection or occlusion. Common carotid arteries: Unremarkable. No significant stenosis. No dissection or occlusion. External carotid arteries: Unremarkable. No occlusion. Vertebral arteries: Unremarkable. No significant stenosis. No dissection or occlusion. Aortic Arch and Mediastinum: Partially visualized aortic arch unremarkable without evidence of aneurysm. Origins of the great vessels unremarkable. Other: Arterial phase soft tissues of the neck and chest are unremarkable. IMPRESSION: No significant intracranial arterial abnormality is seen. No significant abnormality is seen within the arteries of the neck. Chest x-ray: Radiologist's Impression: [address] [address] XRay Report Signed Patient: Hugo Hansen MR#: [id number] : 1945 Acct:[id number] Age/Sex: 79 / M Date of Service: 02/06/25 Loc: ED Accession Number: [id number] Procedure: XR chest 1V Ordering Provider: Igor Dodson D.O. PROCEDURE: XR CHEST 1V INDICATIONS: Possible stroke TECHNIQUE: One view of the chest was acquired. COMPARISON: [facility], CR, XR CHEST 1V, 03/22/2022, 14:06. [facility], CR, XR CHEST 1V, 06/03/2019, 11:10. FINDINGS: Surgical changes and devices: Median sternotomy wires. Lungs and pleura: Lungs are clear. No pleural effusions or pneumothorax. Mediastinum: Mediastinal contours appear normal. Heart size is normal. Bones and chest wall: No suspicious bony lesions. Overlying soft tissues appear unremarkable. IMPRESSION: No acute cardiopulmonary abnormality is seen. Extremity x-ray #1: Radiologist's Impression: [address] [address] XRay Report Signed Patient: Hugo Hansen MR#: [id number] : 1945 Acct:[id number] Age/Sex: 79 / M Date of Service: 02/06/25 Loc: ED Accession Number: [id number] Procedure: XR foot LT min 3V Ordering Provider: Igor Dodson D.O. PROCEDURE: XR FOOT LT MIN 3V INDICATIONS: foot pain TECHNIQUE: 3 views of the foot were acquired. COMPARISON: None. FINDINGS: Bones: Mildly displaced fracture involving the 5th proximal phalanx. Questionable 4th proximal phalanx fracture. No suspicious bony lesions. Mild plantar and posterior calcaneal enthesophytes. Soft tissues: No tibiotalar joint effusion. Achilles tendon appears normal. IMPRESSION: Mildly displaced fracture of the 5th proximal phalanx. Questionable fracture of the 4th proximal phalanx. ECG Data Interpretation: EKG interpreted ED physician atrial fibrillation at 57 beats per minute QTC 352, normal axis, nonspecific ST changes no STEMI Repeat EKG interpreted by ED physician, bradycardic at 43, QTC 351, nonspecific ST changes no STEMI MDM Narrative Medical decision making narrative: 79-year-old male with a past medical history of hyperlipidemia, AAA without rupture, diabetes, TIA, brought into the emergency department from home for evaluation of weakness, he states that yesterday he was standing felt like his left leg just gave out. He states that when he fell he did roll his ankle and has some bruising and pain to his left foot. He states that his symptoms are slightly improving but still feels a little weak overall. On exam strength 5/5 bilaterally NIH of 0. Patient bradycardic on EKG. CT scans without any acute findings, chest x-ray without any acute cardiopulmonary abnormality, electrolytes normal, troponin negative. X-ray of the foot did show fractures of the 4th and 5th metatarsals, we will place patient in Ho boot and betito tape for him to follow up with Orthopedic surgery in outpatient setting 1128: Patient's EKG showing bradycardia possible Mobitz type 2 versus third-degree heart block, therefore we will reach out to Cardiology for further recommendations 1212: Discussed case with Dr. 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 1256: Patient was re-evaluated no new complaints at this time, patient states that he feels significantly better, informed him to follow up with Cardiology in outpatient setting he verbalized understanding of this and agrees to being discharged home with outpatient follow up. Discharge Plan Departure Patient Disposition: Home Clinical Impression: Mobitz (type) I (Wenckebach's) atrioventricular block, Fracture of toe Instructions: DI for Toe Fracture Activity Restrictions/Additional Instructions: Please follow up with Cardiology and Orthopedic surgery in outpatient setting, please follow with your primary care as needed Please read the discharge instructions sheet carefully and bring all papers to all doctor follow-up visits, as it may contain information that your doctor may want to see. Disease processes change and evolve, if your symptoms worsen or if you develop any new symptoms that are concerning to you please return for evaluation. Your evaluation today does not show any evidence of any life-threatening/serious illnesses requiring admission to the hospital or surgery. Please follow-up with your doctor for re-evaluation in approximately 1 day. Seek immediate medical attention for any worrisome symptoms. *If you do not have a primary care provider please contact the [facility] Resource line at [phone]. They will ask some questions about your medical history and help get you set up with a doctor in the community. Prescriptions: No Action calcium carbonate-vitamin D3 [Calcium 500 + D] 500 mg(1,250mg) -400 unit tablet 1 tab PO BID amlodipine 5 mg tablet 5 mg PO DAILY Qty: 90 3RF tamsulosin 0.4 mg capsule 0.4 mg PO BEDTIME Qty: 90 3RF omeprazole 20 mg capsule,delayed release(DR/EC) 20 mg PO DAILY Qty: 90 3RF metformin 500 mg tablet 1,000 mg PO BID Qty: 360 3RF amoxicillin 500 mg capsule 500 mg PO BID Qty: 180 3RF alprazolam 0.5 mg tablet 0.5 mg PO DAILY PRN (Reason: Lumbar radiculopathy) Qty: 30 0RF Rx Instructions: Take one tablet once daily as needed for anxiety due to pain aspirin 325 mg tablet 325 mg PO DAILY trazodone 50 mg tablet 100 mg PO ONCE PM PRN (Reason: for insomnia) Qty: 180 1RF acetaminophen 325 mg tablet 650 mg PO TID PRN (Reason: Pain (Scale Score 4-6)) atorvastatin 40 mg tablet 40 mg PO BEDTIME lisinopril 20 mg tablet 10 mg PO BID melatonin 10 mg capsule 30 mg PO BEDTIME PRN Referrals: Orion Cisse MD [Primary Care Provider, Family Practice] Anita Dukes MD [Physician, Cardiology] Jeferson Collier MD [Physician, Orthopedic Surgery] Stand Alone Forms: Patient Portal/API
[2025-02-06 11:04] LABS: Troponin I < 0.012 ng/mL (0.01-0.034)
--- NOTE | 2025-02-06 11:08 | DI.RAD.S_ITS ---
PROCEDURE: XR FOOT LT MIN 3V INDICATIONS: foot pain TECHNIQUE: 3 views of the foot were acquired. COMPARISON: None. FINDINGS: Bones: Mildly displaced fracture involving the 5th proximal phalanx. Questionable 4th proximal phalanx fracture. No suspicious bony lesions. Mild plantar and posterior calcaneal enthesophytes. Soft tissues: No tibiotalar joint effusion. Achilles tendon appears normal. IMPRESSION: Mildly displaced fracture of the 5th proximal phalanx. Questionable fracture of the 4th proximal phalanx. Dictated by: Madi King M.D. on 02/06/2025 at 12:02 Approved by: Madi King M.D. on 02/06/2025 at 12:04
--- NOTE | 2025-02-06 11:14 | EKG_ITS ---
[address] [address] Test Date: 2025-02-06 Pat Name: Hugo Hansen Department: [facility] Room: Gender: Male Emergency Department Technician: NICOLETTE : 1945 Requested By: Order Number: [id number] Reading MD: Ruddy Evans MD Measurements Intervals Lynn Rate: 43 P: DC: QRS: -15 QRSD: 108 T: 22 QT: 416 QTc: 351 Interpretive Statements Undetermined rhythm Inferior infarct , age undetermined Electronically Signed On 02-07-2025 7:30:31 PDT by Ruddy Evans MD
[2025-02-06 11:41] LABS: Appearance Urine UA CLEAR; Bilirubin Urine UA NEGATIVE (NEGATIVE); Color Urine UA YELLOW; Glucose Urine UA NEGATIVE (Negative); Ketones Urine UA NEGATIVE (NEGATIVE); Leukocyte Esterase Urine UA NEGATIVE (NEGATIVE); Nitrite Urine UA NEGATIVE (Negative); Occult Blood Urine UA NEGATIVE (Negative); Protein Urine UA NEGATIVE (Negative); Specific Gravity Urine UA <=1.005 (1.000-1.035); Urobilinogen Urine UA 0.2 E.U./dL (0.2)
[2025-02-06 11:48] LABS: UR Morphine/Opiate cutoff 300 Negative (Negative); Ur Specific Gravity Normal (Normal); Urine Amphetamines Negative (Negative); Urine Cocaine Negative (Negative); Urine Creatinine Normal (Normal); Urine Tetrahydrocannabinol Negative (Negative); Urine pH Normal (Normal)
[2025-02-06 11:49] LABS: Urine Barbiturates Negative (Negative); Urine Benzodiazepines Negative (Negative); Urine MDMA Negative (Negative); Urine Methadone Negative (Negative); Urine Methamphetamines Negative (Negative); Urine Oxycodone Negative (Negative); Urine Phencyclidine Negative (Negative); Urine Tricyclic Antidepressant Negative (Negative)
[2025-02-06 12:02] LABS: Bacteria Urine None Seen; Culture Indicated Urine Cult Not Indicated; RBC Urine None Seen (0-5/HPF); Squamous Epithelial Cell Urine 0-1 /HPF (0-5/HPF); Urine Volume 10mL (spun); WBC Urine None Seen (0-5/HPF)
[2025-02-06] MEDS: OXYCODONE/ACETAMINOPHEN 5/325 TABLET 1 TAB PO (13:23)
== END 2025-02-06 13:45 | disposition home or self-care (01) ==
PROVIDERS: Emergency Provider Student in an Organized Health Care Education/Training Program; PCP Family Medicine
DX: I44.1 Atrioventricular block, second degree (principal); S92.512A Displaced fracture of proximal phalanx of left lesser toe(s), initial encounter for closed fracture; I48.91 Unspecified atrial fibrillation; I10 Essential (primary) hypertension; R00.1 Bradycardia, unspecified; W18.30XA Fall on same level, unspecified, initial encounter; Z95.3 Presence of xenogenic heart valve
CPT/HCPCS: 36415; 70450; 70496; 70498; 71045; 73630; 80053; 80305; 81001; 82550; 82962; 84484; 85025; 85610; 85730; 93005; 93010; 99284; Q9967

== ENCOUNTER 2025-02-08 14:17 | Emergency (ER) | payer MEDICARE, SELFPAY ==
[2024-11-15 08:33] VITALS: BMI 29.2
[2025-02-08] VITALS (19 sets, daily range): BP systolic 135–187; BP diastolic 77–104; PULSE 57–105; RESP 16–36; TEMP 36.4; O2SAT 95–100
--- NOTE | 2025-02-08 14:34 | DI.MRI.S_ITS ---
PROCEDURE: MR HEAD/BRAIN WO CON INDICATIONS: ? stroke, Left leg weakness, CTs on 02/06 TECHNIQUE: Non-contrast axial T1 spin echo, axial T2 fast spin echo, sagittal and axial FLAIR, coronal T2 fast spin echo, axial gradient echo, axial diffusion and ADC through the brain. COMPARISON: [facility], CT, CT HEAD/BRAIN WO CON, 02/06/2025, 10:31. [facility], MR, MR HEAD/BRAIN WO CON, 03/22/2022, 18:41. FINDINGS: Image quality: Excellent. CSF spaces: Ventricles appear symmetric in size and shape. Basal cisterns are patent. No extra-axial fluid collections. Brain: No intracranial bleeds or mass effects. There is cerebral volume loss for age. There are periventricular and deep white matter chronic small vessel ischemic changes. Brainstem appears normal. Diffusion-weighted images show no acute infarct. No chronic ischemic insults. Normal intravascular flow voids are present. Skull and face: Calvarial bone marrow is normal in signal. Bilateral lens replacements. Otherwise, the orbits are unremarkable. Sinuses: Sinuses and mastoids are clear. IMPRESSION: No acute or subacute infarct. No acute intracranial abnormalities. Age-related global volume loss and chronic microvascular ischemic changes are present. Dictated by: Madi King M.D. on 02/08/2025 at 15:22 Approved by: Madi King M.D. on 02/08/2025 at 15:25
--- NOTE | 2025-02-08 14:35 | DI.RAD.S_ITS ---
PROCEDURE: XR CHEST 1V INDICATIONS: near syncope TECHNIQUE: One view of the chest was acquired. COMPARISON: [facility], CR, XR CHEST 1V, 02/06/2025, 10:25. [facility], CR, XR CHEST 1V, 03/22/2022, 14:06. FINDINGS: Surgical changes and devices: Median sternotomy wires. Lungs and pleura: Lungs are clear. No pleural effusions or pneumothorax. Mediastinum: Mediastinal contours appear normal. Heart size is normal. Bones and chest wall: No suspicious bony lesions. Overlying soft tissues appear unremarkable. IMPRESSION: No acute cardiopulmonary abnormality is seen. Dictated by: Madi King M.D. on 02/08/2025 at 15:04 Approved by: Madi King M.D. on 02/08/2025 at 15:11
[2025-02-08 16:26] LABS: Add Manual Diff / Slide Review NO; Basophils Absolute Auto 0 /uL (0-100); Basophils Percent Auto 0.7 % (0-2); Eosinophils Absolute Auto 0 /uL (0-450); Eosinophils Percent Auto 0.8 % (2-4); Hematocrit 38.5 % (41-53); Hemoglobin 13.4 g/dL (13.5-17.5); Lymphocytes Absolute Auto 1000 /uL (1100-4500); Lymphocytes Percent Auto 16.7 % (25-40); Mean Corpuscular HGB Conc 34.7 % (30-36); Mean Corpuscular Hemoglobin 31.5 PG (26-34); Mean Corpuscular Volume 90.7 fL (80-100); Monocytes Absolute Auto 500 /uL (0-900); Neutrophils Absolute Auto 4400 /uL (1500-7000); Neutrophils Percent Auto 73.8 % (50-75); Platelet Count 149 X10^3/uL (150-400); Red Blood Cell Count 4.25 X10^6/uL (4.5-5.9); Red Cell Distribution Width 13.7 % (11.6-14.8); White Blood Cell Count 5.9 X10^3/uL (4.5-11.0)
[2025-02-08 16:36] LABS: Alanine Aminotransferase 20 IU/L (<50); Albumin 4.5 g/dL (3.5-5.0); Alkaline Phosphatase 95 U/L (38-126); Aspartate Aminotransferase 26 IU/L (17-59); BUN Creatinine Ratio 15.5 (6-22); Bilirubin Total 0.7 mg/dL (0.2-1.3); Blood Urea Nitrogen 13 mg/dL (9-20); Calcium 8.8 mg/dL (8.4-10.2); Carbon Dioxide 22 mmol/L (22-32); Chloride 96 mmol/L (98-107); Estimated Glomerular Filt Rate > 60 mL/min (>60); Globulin 2.3 g/dL (1.7-4.1); Glucose 129 mg/dL (70-99); HEMOLYSIS < 15 (0-50); Magnesium 1.2 mg/dL (1.6-2.3); Potassium 4.3 mmol/L (3.4-5.1); Sodium 127 mmol/L (137-145); Total Protein 6.8 g/dL (6.3-8.2)
[2025-02-08 16:45] LABS: NT-proBNP (BNP-Adult 18+) 496 pg/mL (<450)
[2025-02-08 16:49] LABS: Troponin I < 0.012 ng/mL (0.01-0.034)
--- NOTE | 2025-02-08 18:58 | ED.DIZZY ---
HPI - Dizziness General Chief Complaint: Dizziness Stated Complaint: Dizzy, Lightheaded, Anxious Time Seen by Provider: 02/08/25 14:27 Mode of arrival: EMS History of Present Illness HPI Narrative: 79y M hx of CAD s/p 3v CABG and SAVR and prosthetic valve endocarditis, htn, chf, t2d, hld, seen 2 days ago for LLE weakness with negative w/u went home and today at 130pm developed lightheaded, dizziness described as room spinning sensation that last for a min but resolved on its own. 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 He is asymptomatic now and wanted to be checked. Patient denies headache, dizziness, blurred vision, difficulty swallowing, speaking, weakness in the arms or legs, gait instability, chest pain, shortness breath, leg pain, leg swelling. Other than what is stated 14 point review of systems negative. Related Data Home Medications ?Medication ?Instructions ?Recorded ?Confirmed calcium 500 mg (as 1 tab PO BID 05/11/21 02/05/25 carbonate)-vitamin D3 10 mcg (400 unit) tablet (Calcium 500 + D) acetaminophen 325 mg tablet 650 mg PO TID PRN Pain (Scale 03/22/22 02/05/25 Score 4-6) atorvastatin 40 mg tablet 40 mg PO BEDTIME 11/03/22 02/05/25 lisinopril 20 mg tablet 10 mg PO BID 11/03/22 02/05/25 melatonin 10 mg capsule 30 mg PO BEDTIME PRN 08/03/23 02/05/25 aspirin 325 mg tablet 325 mg PO DAILY 06/13/24 02/05/25 Previous Rx's ?Medication ?Instructions ?Recorded amlodipine 5 mg tablet 5 mg PO DAILY #90 tabs 05/05/22 tamsulosin 0.4 mg capsule 0.4 mg PO BEDTIME #90 caps 04/24/24 omeprazole 20 mg capsule,delayed 20 mg PO DAILY #90 caps 06/26/24 release metformin 500 mg tablet 1,000 mg (2 x 500 mg) PO BID #360 09/07/24 tabs amoxicillin 500 mg capsule 500 mg PO BID #180 caps 09/27/24 alprazolam 0.5 mg tablet 0.5 mg PO DAILY PRN Lumbar 11/06/24 radiculopathy #30 tabs trazodone 50 mg tablet 100 mg (2 x 50 mg) PO ONCE PM PRN 12/10/24 for insomnia #180 tabs Allergies Allergy/AdvReac Type Severity Reaction Status Date / Time gentamicin (GENTAMICIN) Allergy Severe kidney Verified 02/08/25 14:31 failure Review of Systems Review of Systems ROS Unobtainable: All systems reviewed & are unremarkable except as noted in HPI and below Patient History Medical History Hamstring tendinitis at origin Tendinopathy of gluteal region Trochanteric bursitis, left hip Aortic aneurysm Splenic infarction On antibiotic therapy Endocarditis (2013) Osteoarthritis LUISA on CPAP Degenerative joint disease (DJD) of hip Lumbar radiculopathy Facet arthropathy, lumbar Multilevel spinal stenosis Herniated nucleus pulposus, L3-4 left Sciatica Generalized weakness Pneumonia (2013) Shoulder pain (~1979) Trigger finger (~1992) Type 2 diabetes mellitus Heart attack (2013) Colon polyps (2014) Hemorrhoids (~1994) Hearing loss Tinnitus Rosacea (2004) CTS (carpal tunnel syndrome) (~1992) Anxiety (1994) Aortic stenosis (2013) Thrombocytopenia (10/26/17) Temporary low platelet count (10/26/17) Impaired fasting glucose (10/13/16) Right knee sprain Atypical chest pain Surgical History History of total left hip arthroplasty History of vasectomy Hx of bilateral cataract extraction H/O aortic valve replacement with porcine valve History of aortic valve replacement (2013) History of quadruple bypass (2013) History of hand surgery (~1994) History of hand surgery (~1991) History of shoulder surgery (~1984) Anesthesia History of tonsillectomy (1950) Family History Father Heart disease Mother High cholesterol Mental health problem Stroke Dementia Social History marital status: household members: spouse alcohol intake: current substance use type: does not use alcohol intake frequency: a few times a month Exam Narrative Exam Narrative: GENERAL: [79] year old patient appears stated age. Well-developed patient, in mild distress. HEAD: Atraumatic. Normocephalic. EYES: Pupils equal round and reactive. Extraocular motions intact. No scleral icterus. No injection or drainage. ENT: Nose without bleeding, purulent drainage. Throat without erythema, tonsillar hypertrophy or exudate. Airway patent. NECK: Trachea midline. Non tender CARDIOVASCULAR: Regular rate and rhythm without murmurs, gallops, or rubs. RESPIRATORY: Clear to auscultation. Breath sounds equal bilaterally. No wheezes, rales, or rhonchi. GASTROINTESTINAL: Abdomen soft, non-tender, nondistended. EXTREMITIES: No edema or joint tenderness. BACK: Nontender without deformity or crepitance. No flank tenderness. NEURO: AOx3. GCS 15 nonfocal neuro exam negative pronator drift, opposite [id number] bqxecy-[id number] rapid alternating movements all intact SKIN: No rash or erythema of visible areas Initial Vital Signs Initial Vital Signs: Vital Signs Pulse Rate 105 H 02/08/25 14:29 Respiratory Rate 23 02/08/25 14:29 Pulse Oximetry 99 02/08/25 14:29 Scores HEART Score Heart Score history: Slightly Suspicious Heart Score EKG: Non-Specific repolarization disturbance Heart Score Age: > or = 65 years old Heart Score risk factors: 1-2 risk factors Heart Score troponin: < or = to normal limit Heart Score Total: 4 Course Orders Ordered: ED Orders 02/08/25 14:34 MR head/brain wo con Stat 02/08/25 14:35 XR chest 1V Stat 02/08/25 16:00 Complete Blood Count AUTO DIFF Stat Comprehensive Metabolic Panel Stat Magnesium Stat NT-proBNP (BNP-Adult 18+) Stat Troponin I Stat 02/08/25 19:05 Trop I [Troponin I] Stat Magnesium Sulfate (Magnesium Sulfate) 2 gm in 50 mls @ 25 mls/hr IV NOW ONE Stop: 02/08/25 20:57 Last Admin: 02/08/25 19:22 Dose: 25 mls/hr Documented By: JENNIFER Co-signed By: TIANA Discontinued Medications Lactated Ringer's (Lactated Ringers) 1,000 mls @ 1,000 mls/hr IV BOLUS ONE Stop: 02/08/25 19:57 Last Admin: 02/08/25 19:21 Dose: 1,000 mls/hr Documented By: JENNIFER Vital Signs Vital signs: Vital Signs - 8 hr 02/08/25 14:29 02/08/25 14:30 02/08/25 14:31 Temperature 97.5 F L Pulse Rate 105 H 69 69 Respiratory Rate 23 27 H 19 Blood Pressure 135/78 Pulse Oximetry 99 99 98 Oxygen Delivery Method Room Air 02/08/25 14:36 02/08/25 14:36 02/08/25 15:30 Temperature Pulse Rate 75 Respiratory Rate 28 H Blood Pressure 177/82 H 171/81 H Pulse Oximetry 98 Oxygen Delivery Method 02/08/25 15:30 02/08/25 16:00 02/08/25 16:00 Temperature Pulse Rate 57 L 64 Respiratory Rate 30 H Blood Pressure 174/81 H Pulse Oximetry 96 99 Oxygen Delivery Method 02/08/25 16:30 02/08/25 16:31 02/08/25 16:31 Temperature Pulse Rate 63 63 Respiratory Rate 21 26 H Blood Pressure 166/77 H Pulse Oximetry 100 99 Oxygen Delivery Method Room Air 02/08/25 17:00 02/08/25 17:00 Temperature Pulse Rate 62 Respiratory Rate 29 H Blood Pressure 180/79 H Pulse Oximetry 100 Oxygen Delivery Method Room Air MDM - Dizziness Lab Data 02/08/25 16:00 02/08/25 16:00 Labs: Lab Results 02/08/25 02/08/25 Range/Units 16:00 19:05 WBC 5.9 (4.5-11.0) X10^3/uL RBC 4.25 L (4.5-5.9) X10^6/uL Hgb 13.4 L (13.5-17.5) g/dL Hct 38.5 L (41-53) % MCV 90.7 (80-100) fL MCH 31.5 (26-34) PG MCHC 34.7 (30-36) % RDW 13.7 (11.6-14.8) % Plt Count 149 L (150-400) X10^3/uL Neut % (Auto) 73.8 (50-75) % Lymph % (Auto) 16.7 L (25-40) % [place] % (Auto) 8.0 (3-14) % Eos % (Auto) 0.8 L (2-4) % Baso % (Auto) 0.7 (0-2) % Neut # (Auto) 4400 (2326-2945) /uL Lymph # (Auto) 1000 L (8588-1727) /uL [place] # (Auto) 500 (0-900) /uL Eos # (Auto) 0 (0-450) /uL Baso # (Auto) 0 (0-100) /uL Sodium 127 L (137-145) mmol/L Potassium 4.3 (3.4-5.1) mmol/L Chloride 96 L (98-107) mmol/L Carbon Dioxide 22 (22-32) mmol/L BUN 13 (9-20) mg/dL Creatinine 0.84 (0.66-1.25) mg/dL Estimated GFR > 60 (>60) mL/min BUN/Creatinine Ratio 15.5 (6-22) Glucose 129 H (70-99) mg/dL Calcium 8.8 (8.4-10.2) mg/dL Magnesium 1.2 L (1.6-2.3) mg/dL Total Bilirubin 0.7 (0.2-1.3) mg/dL AST 26 (17-59) IU/L ALT 20 (<50) IU/L Alkaline Phosphatase 95 (38-126) U/L Troponin I < 0.012 < 0.012 (0.01-0.034) ng/mL NT-Pro-B Natriuret Pep 496 H (<450) pg/mL Total Protein 6.8 (6.3-8.2) g/dL Albumin 4.5 (3.5-5.0) g/dL Globulin 2.3 (1.7-4.1) g/dL Albumin/Globulin Ratio 2.0 (1.0-2.8) Imaging Data Chest x-ray: Radiologist's Impression: [address] [address] XRay Report Signed Patient: Hugo Hansen MR#: [id number] : 1945 Acct:[id number] Age/Sex: 79 / M Date of Service: 02/08/25 Loc: ED Accession Number: [id number] Procedure: XR chest 1V Ordering Provider: Anita Mora MD PROCEDURE: XR CHEST 1V INDICATIONS: near syncope TECHNIQUE: One view of the chest was acquired. COMPARISON: [facility], CR, XR CHEST 1V, 02/06/2025, 10:25. [facility], CR, XR CHEST 1V, 03/22/2022, 14:06. FINDINGS: Surgical changes and devices: Median sternotomy wires. Lungs and pleura: Lungs are clear. No pleural effusions or pneumothorax. Mediastinum: Mediastinal contours appear normal. Heart size is normal. Bones and chest wall: No suspicious bony lesions. Overlying soft tissues appear unremarkable. IMPRESSION: No acute cardiopulmonary abnormality is seen. CT scan - head: Radiologist's Impression: [address] [address] Magnetic Resonance Report Signed Patient: Hugo Hansen MR#: [id number] : 1945 Acct:[id number] Age/Sex: 79 / M Date of Service: 02/08/25 Loc: ED Accession Number: [id number] Procedure: MR head/brain wo con Ordering Provider: Anita Mora MD PROCEDURE: MR HEAD/BRAIN WO CON INDICATIONS: ? stroke, Left leg weakness, CTs on 02/06 TECHNIQUE: Non-contrast axial T1 spin echo, axial T2 fast spin echo, sagittal and axial FLAIR, coronal T2 fast spin echo, axial gradient echo, axial diffusion and ADC through the brain. COMPARISON: [facility], CT, CT HEAD/BRAIN WO CON, 02/06/2025, 10:31. [facility], MR, MR HEAD/BRAIN WO CON, 03/22/2022, 18:41. FINDINGS: Image quality: Excellent. CSF spaces: Ventricles appear symmetric in size and shape. Basal cisterns are patent. No extra-axial fluid collections. Brain: No intracranial bleeds or mass effects. There is cerebral volume loss for age. There are periventricular and deep white matter chronic small vessel ischemic changes. Brainstem appears normal. Diffusion-weighted images show no acute infarct. No chronic ischemic insults. Normal intravascular flow voids are present. Skull and face: Calvarial bone marrow is normal in signal. Bilateral lens replacements. Otherwise, the orbits are unremarkable. Sinuses: Sinuses and mastoids are clear. IMPRESSION: No acute or subacute infarct. No acute intracranial abnormalities. Age-related global volume loss and chronic microvascular ischemic changes are present. ECG Data Interpretation: Afib HR 66 AR 266 QRS [address]-t wave change Unchanged from 02/06/25 MDM Narrative Medical decision making narrative: All lab work, vital signs, nurse triage note, medication list, previous ER visits, and all imaging studies reviewed. Two sets troponin negative, , BNP 496 sodium 127, glucose 120, magnesium 1.2. Heart score 4. GCS 15 nonfocal neuro exam, patient received normal saline and Mag rider here. Differential diagnosis includes CVA, TIA, Meniere's, viral labyrinthitis, BPPV, vestibular neuronitis, vertigo. On reexamination patient feels much better after IV infusion and Mag rider. DC home to follow up with PCP next week for follow up in reexamination and to keep hydrated and to return with new or worsening symptoms. Discharge Plan Departure Patient Disposition: Home Clinical Impression: Dizziness, Acute hyponatremia, Hypomagnesemia Instructions: Combating Dizziness in Older Adults Activity Restrictions/Additional Instructions: Return with new or worsening symptoms. Follow up PCP next week for follow up and re-evaluation. Prescriptions: No Action calcium carbonate-vitamin D3 [Calcium 500 + D] 500 mg(1,250mg) -400 unit tablet 1 tab PO BID amlodipine 5 mg tablet 5 mg PO DAILY Qty: 90 3RF tamsulosin 0.4 mg capsule 0.4 mg PO BEDTIME Qty: 90 3RF omeprazole 20 mg capsule,delayed release(DR/EC) 20 mg PO DAILY Qty: 90 3RF metformin 500 mg tablet 1,000 mg PO BID Qty: 360 3RF amoxicillin 500 mg capsule 500 mg PO BID Qty: 180 3RF alprazolam 0.5 mg tablet 0.5 mg PO DAILY PRN (Reason: Lumbar radiculopathy) Qty: 30 0RF Rx Instructions: Take one tablet once daily as needed for anxiety due to pain aspirin 325 mg tablet 325 mg PO DAILY trazodone 50 mg tablet 100 mg PO ONCE PM PRN (Reason: for insomnia) Qty: 180 1RF acetaminophen 325 mg tablet 650 mg PO TID PRN (Reason: Pain (Scale Score 4-6)) atorvastatin 40 mg tablet 40 mg PO BEDTIME lisinopril 20 mg tablet 10 mg PO BID melatonin 10 mg capsule 30 mg PO BEDTIME PRN Referrals: Orion Cisse MD [Primary Care Provider, Family Practice] Stand Alone Forms: Patient Portal/API
[2025-02-08] MEDS: LACTATED RINGERS 1,000 ML 1000 ML IV (19:21)
[2025-02-08] MEDS: MAGNESIUM SULFATE 2 GM/50 ML PIGGYBACK IV (19:22)
[2025-02-08 19:41] LABS: Troponin I < 0.012 ng/mL (0.01-0.034)
== END 2025-02-08 20:45 | disposition home or self-care (01) ==
PROVIDERS: Emergency Medicine; Emergency Provider Family Medicine; PCP Family Medicine
DX: R42 Dizziness and giddiness (principal); E87.1 Hypo-osmolality and hyponatremia; E83.42 Hypomagnesemia; I10 Essential (primary) hypertension; I25.10 Atherosclerotic heart disease of native coronary artery without angina pectoris; Z95.1 Presence of aortocoronary bypass graft; Z95.2 Presence of prosthetic heart valve
CPT/HCPCS: 36415; 70551; 71045; 80053; 83735; 83880; 84484; 85025; 96365; 99284; J3475

== ENCOUNTER → 2025-02-14 15:19 | Outpatient (CLI) | payer MEDICARE, SELFPAY ==
[2024-11-15 08:33] VITALS: BMI 29.2
[2025-02-14 16:55] LABS: Blood Urea Nitrogen 18 mg/dL (9-20); Calcium 9.1 mg/dL (8.4-10.2); Carbon Dioxide 25 mmol/L (22-32); Chloride 98 mmol/L (98-107); Estimated Glomerular Filt Rate > 60 mL/min (>60); Glucose 115 mg/dL (70-99); HEMOLYSIS < 15 (0-50); Magnesium 1.5 mg/dL (1.6-2.3); Potassium 4.9 mmol/L (3.4-5.1); Sodium 132 mmol/L (137-145)
== END ==
PROVIDERS: PCP Family Medicine; Referring Provider Family Medicine; Visit Provider Family Medicine
DX: E83.42 Hypomagnesemia (principal); E87.1 Hypo-osmolality and hyponatremia
CPT/HCPCS: 36415; 80048; 83735

== ENCOUNTER → 2025-03-11 12:47 | Outpatient (CLI) | payer MEDICARE, SELFPAY ==
[2024-11-15 08:33] VITALS: BMI 29.2
--- NOTE | 2025-03-11 12:50 | DI.RAD.S_ITS ---
PROCEDURE: XR LUMBAR SPINE MIN 4V INDICATIONS: BACK PAIN TECHNIQUE: 5 views of the lumbar spine were acquired, including bilateral oblique views. COMPARISON: [facility], CT, CT ANGIO ABDOMEN PELVIS, 07/19/2024, 11:32. [facility], CR, XR LUMBAR SPINE MIN 4V, 07/27/2022, 8:31. FINDINGS: Bones: 5 nonrib-bearing vertebrae are present. No vertebral body compression fractures. No suspicious bony lesions. S-shaped scoliotic curvature is seen. There is minimal retrolisthesis at L1-L2 and L2-L3. There is at least moderate disc space narrowing at L1-L2, with moderate disc space narrowing at L2-L3 and moderate disc space narrowing at L5-S1. Multiple levels of significant facet hypertrophy can be seen, which is worst inferiorly. Left hip arthroplasty hardware is seen. There is moderate right hip degenerative change. Soft tissues: Overlying bowel gas pattern is normal. No suspicious soft tissue calcifications. Oblique images: No pars defects. IMPRESSION: Multiple levels of significant lumbar spine degenerative change can be seen, with multiple levels of facet hypertrophy. Dictated by: Paul Madison M.D. on 03/11/2025 at 12:41 Approved by: Paul Madison M.D. on 03/11/2025 at 12:43
== END ==
PROVIDERS: PCP Family Medicine; Referring Provider Physical Medicine & Rehabilitation; Visit Provider Physical Medicine & Rehabilitation
DX: M47.26 Other spondylosis with radiculopathy, lumbar region (principal); Z96.642 Presence of left artificial hip joint
CPT/HCPCS: 72110

== ENCOUNTER → 2025-03-19 12:05 | Outpatient (CLI) | payer MEDICARE, SELFPAY ==
[2024-11-15 08:33] VITALS: BMI 29.2
--- NOTE | 2025-03-19 12:07 | DI.MRI.S_ITS ---
PROCEDURE: MR LUMBAR SPINE WO CON INDICATIONS: Left lower extremity weakness scoliosis TECHNIQUE: Noncontrast sagittal T1 spin echo and T2 fast echo, sagittal STIR, and T2 fast spin echo through the lumbar spine. In cases with scoliosis, additional coronal T2 fast spin echo may be performed. COMPARISON: [facility], CR, XR LUMBAR SPINE MIN 4V, 03/11/2025, 12:49. [facility], MR, MR LUMBAR SPINE WO CON, 08/27/2019, 8:28. FINDINGS: Image quality: Excellent. Transitional spinal anatomy is again noted. For the purposes of this report, the lowest well-formed disc space is designated as L5-S1 with a partially sacralized L5 vertebra. This is in keeping with the numbering system used on the MRI from 08/27/2019. Alignment and Curvature: Mild reverse S-shaped scoliotic curvature. Bone Marrow: Marrow is of normal overall signal. No acute vertebral body compression fractures. Mild degenerative changes at the sacroiliac joints. Spinal Cord: Conus medullaris terminates at the L1 level. Visualized cord demonstrates normal signal and size. Paraspinous Soft Tissues: No paravertebral masses. Infrarenal abdominal aortic aneurysm is partially imaged. T12-L1: Disc desiccation without significant spinal canal stenosis or neural foraminal narrowing. L1-L2: Disc desiccation and circumferential disc bulging as well as bilateral facet hypertrophy and buckling of the ligamentum flavum. Findings result in findings result in moderate narrowing of the spinal canal with effacement of the right lateral recess as well as severe right and moderate left neural foraminal narrowing. Findings have progressed when compared to the MRI from 08/27/2019. L2-L3: Disc desiccation and mild circumferential disc bulging as well as bilateral facet hypertrophy and buckling of the ligamentum flavum. Findings result in moderate narrowing of the spinal canal with effacement of the bilateral lateral recesses as well as moderate to severe bilateral neural foraminal narrowing. Findings have mildly progressed. L3-L4: Disc desiccation and circumferential disc bulging as well as severe bilateral facet hypertrophy and buckling of the ligamentum flavum. Findings result in severe narrowing of the spinal canal with effacement of the lateral recesses as well as severe left and moderate right neural foraminal narrowing. Findings have mildly progressed. L4-L5: Disc desiccation and mild circumferential disc bulging as well as buckling of the ligamentum flavum. Findings result in moderate to severe narrowing of the spinal canal with effacement of the lateral recesses as well as moderate bilateral neural foraminal narrowing. Findings have mildly progressed. L5-S1: Moderate bilateral facet hypertrophy, which result in [id number] right neural foraminal narrowing without significant left neural foraminal narrowing or spinal canal stenosis. IMPRESSION: 1. Transitional spinal anatomy. 2. Multilevel degenerative disc disease and facet hypertrophy as described in the body of the report, mildly progressed when compared to the MRI from 08/27/2019. 3. High-grade spinal canal stenosis at the L3-4 and L4-5 levels. 4. Multifocal neural foraminal narrowing, high-grade at the L1-2 level on the right, the L2-3 level bilaterally, and the L3-4 level on the left. 5. Infrarenal abdominal aortic aneurysm is incompletely visualized. Approved by: Constantine Watts M.D. on 03/20/2025 at 12:59
[2025-03-19 13:30] LABS: Hemoglobin A1C% w Est Avg Glu 6.2 % (4.0-6.0)
[2025-03-19 13:32] LABS: Magnesium 1.4 mg/dL (1.6-2.3)
== END ==
PROVIDERS: PCP Family Medicine; Referring Provider Physical Medicine & Rehabilitation; Visit Provider Physical Medicine & Rehabilitation
DX: M51.16 Intervertebral disc disorders with radiculopathy, lumbar region (principal); M47.26 Other spondylosis with radiculopathy, lumbar region; M47.27 Other spondylosis with radiculopathy, lumbosacral region; M48.061 Spinal stenosis, lumbar region without neurogenic claudication; M48.07 Spinal stenosis, lumbosacral region; E11.9 Type 2 diabetes mellitus without complications; I71.43 Infrarenal abdominal aortic aneurysm, without rupture
CPT/HCPCS: 36415; 72148; 83036; 83735